=== PATIENT | female | born 1975 | race Caucasian/White ===

== ENCOUNTER 2016-08-31 | Emergency (ER) | payer OTHER ==
--- NOTE | 2016-08-31 17:45 | ED ---
General Adult HPI - General Chief complaint: Upper Respiratory Infection Stated complaint: Cough Time Seen by Provider: 08/31/16 17:33 Source: patient, RN notes reviewed Mode of arrival: ambulatory Limitations: no limitations - History of Present Illness Initial comments: Patient 41-year-old female who presents emergency room today with chief complaint of increased congestion with rhinorrhea over the last month. Does admit to a sore throat that started yesterday. She does admit to drinking he states it's been green and yellow in color. She does admit to a history of migraines that she gets them every day. She states these are not new. She states these feel same with somewhat worse because of increased congestion in her head. She denies any other complaints or symptoms. Patient denies any recent fever, chills, shortness of breath, chest pain, back pain, abdominal pain , nausea or vomiting, numbness or tingling, dysuria or hematuria, constipation or diarrhea, visual changes, or any other complaints. - Related Data Home Medications Medication Instructions Recorded Confirmed Guaifen/Phenyleph/Acetaminophn 1 tab PO TID PRN 08/31/16 08/31/16 [Tylenol Sinus Severe Caplet] Previous Rx's Medication Instructions Recorded Azithromycin [Zithromax Z-pack] 0 mg PO DIRECTED #6 tab 08/31/16 Fluticasone Propionate [Flonase 1 - 2 spray EA NOSTRIL DAILY 5 Days 08/31/16 Allergy Relief] Allergies Allergy/AdvReac Type Severity Reaction Status Date / Time Penicillins Allergy Severe Anaphylaxis Verified 08/31/16 17:39 ciprofloxacin [From Cipro] Allergy Rash/Hives/ Verified 08/31/16 17:39 Swelling Iodinated Contrast Media - Allergy Rash/Hives Verified 08/31/16 17:39 Oral and nitrofurantoin Allergy Rash/Hives Verified 08/31/16 17:39 [From Macrodantin] NSAIDS (Non-Steroidal Allergy Rash/Hives/ Verified 08/31/16 17:39 Anti-Inflamma Swelling Review of Systems ROS Statement: Those systems with pertinent positive or pertinent negative responses have been documented in the HPI. ROS Other: All systems not noted in ROS Statement are negative. Past Medical History Additional Past Medical History / Comment(s): hypoglycemia History of Any Multi-Drug Resistant Organisms: None Reported Past Surgical History: Hysterectomy, Orthopedic Surgery Additional Past Surgical History / Comment(s): left knee surgery Past Psychological History: No Psychological Hx Reported Smoking Status: Current every day smoker Past Alcohol Use History: Occasional Past Drug Use History: None Reported General Exam - General Exam Comments Initial Comments: General: The patient is awake and alert, in no distress, and does not appear acutely ill. Eye: Pupils are equal, round and reactive to light, extra-ocular movements are intact. No nystagmus. There is normal conjunctiva bilaterally. No signs of icterus. Ears, nose, mouth and throat: There are moist mucous membranes and no oral lesions. Tender over both frontal and maxillary sinuses. Uvula midline. Mild redness to the posterior pharynx. Neck: The neck is supple, there is no tenderness or JVD. Cardiovascular: There is a regular rate and rhythm. No murmur, rub or gallop is appreciated. Respiratory: Lungs are clear to auscultation, respirations are non-labored, breath sounds are equal. No wheezes, stridor, rales, or rhonchi. Musculoskeletal: Normal ROM, no tenderness. Strength 5/5. Sensation intact. Pulses equal bilaterally 2+. Neurological: A&O x 3. CN II-XII intact, There are no obvious motor or sensory deficits. Coordination appears grossly intact. Speech is normal. Skin: Skin is warm and dry and no rashes or lesions are noted. Psychiatric: Cooperative, appropriate mood & affect, normal judgment. Limitations: no limitations Course Vital Signs 08/31/16 17:01 Temperature 97.0 F L Pulse Rate 72 Respiratory 18 Rate Blood Pressure 147/65 O2 Sat by Pulse 98 Oximetry Medical Decision Making - Medical Decision Making She'll be treated for sinus infection. Started on azithromycin due to ALLERGIES. Also given a prescription for Flonase. Advised follow-up the family doctor over the next 1-2 days about migraines. She is in agreement with this plan at this time and is comfortable being discharged home. Disposition Clinical Impression: Acute sinusitis Disposition: HOME SELF-CARE Condition: Good Instructions: Sinusitis (ED) Additional Instructions: Please use medication as discussed. Please follow-up with family doctor in the next 2 days of symptoms have not improved. Please return to emergency room if the symptoms increase or worsen or for any other concerns. Prescriptions: Azithromycin [Zithromax Z-pack] 0 mg PO DIRECTED #6 tab Fluticasone Propionate [Flonase Allergy Relief] 1 - 2 spray EA NOSTRIL DAILY 5 Days Referrals: None,Stated [Primary Care Provider] - 1-2 days Time of Disposition: 17:44
== END 2016-08-31 17:51 | disposition home or self-care (01) ==
CPT/HCPCS: 99283

== ENCOUNTER 2019-05-02 10:45 | Emergency (ER) | payer OTHER ==
[2019-05-02 10:49] VITALS: BP 135/92; PULSE 75; RESP 18; TEMP 98.2
--- NOTE | 2019-05-02 11:19 | XR ---
EXAMINATION TYPE: XR finger RT DATE OF EXAM: 05/02/2019 COMPARISON: NONE HISTORY: Slammed door injury with pain. TECHNIQUE: 3 views left third finger are acquired. FINDINGS: Seen best on frontal view there is oblique nondisplaced fracture through the radial distal aspect of the distal third phalanx. Joint spaces are preserved. Overlying soft tissue is unremarkable . IMPRESSION: Acute oblique nondisplaced fracture through radial distal aspect of the third distal phal anx. (Initial encounter closed type posttraumatic fracture)
--- NOTE | 2019-05-02 11:41 | ED ---
Upper Extremity HPI - General Chief Complaint: Extremity Injury, Upper Stated Complaint: Finger injury Time Seen by Provider: 05/02/19 10:50 Source: patient Mode of arrival: ambulatory Limitations: no limitations - History of Present Illness Initial Comments: The patient is a 43-year-old female presents the emergency department after she slammed her right hand in the car door. The patient is right-hand dominant. States that she was closing a car door when her third finger got caught in between. There is no laceration or abrasion sustained. The patient did have swelling and ecchymosis to her fingerpad. She denies any additional injuries. No nausea or vomiting associated with the episode. She denies any numbness or tingling in the finger. Continues to have full normal range of motion. There are no other alleviating, precipitating or modifying factors - Related Data Home Medications Medication Instructions Recorded Confirmed Topiramate [Topamax] 100 mg PO DAILY 05/02/19 05/02/19 Allergies Allergy/AdvReac Type Severity Reaction Status Date / Time Penicillins Allergy Severe Anaphylaxis Verified 05/02/19 11:05 ciprofloxacin [From Cipro] AdvReac Rash/Hives/ Verified 05/02/19 11:05 Swelling Iodinated Contrast Media AdvReac Rash/Hives Verified 05/02/19 11:05 [Iodinated Contrast Media - Oral and] nitrofurantoin AdvReac Rash/Hives Verified 05/02/19 11:05 [From Macrodantin] NSAIDS (Non-Steroidal AdvReac Rash/Hives/ Verified 05/02/19 11:05 Anti-Inflamma Swelling Review of Systems ROS Statement: Those systems with pertinent positive or pertinent negative responses have been documented in the HPI. ROS Other: All systems not noted in ROS Statement are negative. Past Medical History Additional Past Medical History / Comment(s): hypoglycemia History of Any Multi-Drug Resistant Organisms: None Reported Past Surgical History: Hysterectomy, Orthopedic Surgery Additional Past Surgical History / Comment(s): left knee surgery Past Psychological History: No Psychological Hx Reported Smoking Status: Current every day smoker Past Alcohol Use History: Occasional Past Drug Use History: None Reported General Exam Limitations: no limitations General appearance: alert, in no apparent distress Head exam: Present: atraumatic, normocephalic Extremities exam: Present: tenderness Right Hand Wrist exam: Present: normal inspection. Absent: tenderness Neuro motor exam: Present: wrist extension intact, thumb opposition intact, thumb IP flexion intact, thumb adduction intact, fingers 2-5 abduction intact Neurosensory exam: Present: 2-point discrimination, radial nerve intact, ulnar nerve intact, median nerve intact Vascular: Present: normal capillary refill, radial pulse, ulnar pulse. Absent: vascular compromise Skin exam: Present: warm, intact, other (ecchymosis third finger pad, right hand. Compartments are soft. No nail bed involvement) Course Vital Signs 05/02/19 10:47 Temperature 98.2 F Pulse Rate 75 Respiratory 18 Rate Blood Pressure 135/92 O2 Sat by Pulse 97 Oximetry Medical Decision Making - Medical Decision Making Upon arrival the patient was placed into room 24. We did discuss diagnosis, differential and treatment options. I did offer the patient something for pain control however she refuses. Patient was sent for an x-ray of her right hand. It does demonstrate a distal phalanx fracture. Fracture is closed. Because of this I did recommend treatment with splint. The patient was placed in a baseball splint. She remained neurovascularly intact. She'll be given follow- up information for the orthopedic associates. She is to follow-up with them for further treatment options. The patient understood this. She will take Motrin and Tylenol at home as needed for pain control. She has any new or worsening symptoms she should return to the ED. The patient was discharged in stable condition Disposition Clinical Impression: Fracture of distal phalanx of finger of right hand Disposition: HOME SELF-CARE Condition: Stable Instructions (If sedation given, give patient instructions): Finger Fracture (ED) Additional Instructions: Please follow-up with the orthopedic doctor within one week. Return to the room for any new or worsening symptoms Is patient prescribed a controlled substance at d/c from ED?: No Referrals: Gasper Olvera Jr, DO [Primary Care Provider] - 1-2 days Juan Mcmullen MD [STAFF PHYSICIAN] - 1-2 days Time of Disposition: 11:40
== END 2019-05-02 11:56 | disposition home or self-care (01) ==
LOC: EC 10:45
DX: S62.632A Displaced fracture of distal phalanx of right middle finger, initial encounter for closed fracture (principal); F17.200 Nicotine dependence, unspecified, uncomplicated; Z79.899 Other long term (current) drug therapy; Z88.0 Allergy status to penicillin; Z88.1 Allergy status to other antibiotic agents; Z91.041 Radiographic dye allergy status; Z88.6 Allergy status to analgesic agent; Z53.29 Procedure and treatment not carried out because of patient's decision for other reasons; W23.0XXA Caught, crushed, jammed, or pinched between moving objects, initial encounter
CPT/HCPCS: 99283

== ENCOUNTER → 2019-07-19 | Outpatient (CLI) | payer OTHER ==
--- NOTE | 2019-07-19 12:49 | XR ---
EXAMINATION TYPE: XR forearm LT DATE OF EXAM: 07/19/2019 COMPARISON: NONE HISTORY: Pain Two views of the forearm demonstrate that the osseous structures appear to be intact and the joint sp aces appear to be preserved. There is no acute fracture or dislocation. IMPRESSION: 1. No acute fracture or dislocation
--- NOTE | 2019-07-19 12:50 | XR ---
EXAMINATION TYPE: XR shoulder complete LT DATE OF EXAM: 07/19/2019 COMPARISON: NONE HISTORY: Pain TECHNIQUE: Three views are submitted. FINDINGS: The osseous structures are intact. There is no acute fracture or dislocation. Mild AC joint arthropa thy. IMPRESSION: 1. Mild AC joint arthropathy.
--- NOTE | 2019-07-19 12:51 | XR ---
EXAMINATION TYPE: XR wrist complete LT DATE OF EXAM: 07/19/2019 COMPARISON: NONE HISTORY: Pain TECHNIQUE: Four views submitted. FINDINGS: The osseous structures are intact. The joint spaces are preserved and there is no acute fracture or dislocation. Tiny bony density appears corticated adjacent to the ulnar styloid. Findings suggest re mote trauma or accessory ossicle. IMPRESSION: 1. No definite acute fracture or dislocation if symptoms persist, follow-up study in 7 to 10 days wo uld be suggested. There is slight widening of the radioulnar joint. If there is concern for ligamento us injury correlate with MRI. 2. Tiny bony density adjacent to the ulnar styloid appears to be corticated suggestive of remote trau ma.
== END | disposition home or self-care (01) ==
LOC: RADXRMAIN 11:22
PROVIDERS: ATTEND Nurse Practitioner Family
DX: M79.602 Pain in left arm (principal); M12.812 Other specific arthropathies, not elsewhere classified, left shoulder; M25.512 Pain in left shoulder; M25.532 Pain in left wrist

== ENCOUNTER → 2019-08-17 | Outpatient (CLI) | payer OTHER ==
--- NOTE | 2019-08-17 08:20 | MR ---
MRI CERVICAL SPINE: CLINICAL HISTORY: Cervical region radiculopathy and cervicalgia per order. Headache with neck pain in to left shoulder for 1 month causing pain or weakness into left arm and fingers per patient. TECHNIQUE: Multiplanar, multisequence imaging of the cervical spine is performed without IV contrast. COMPARISON: None. FINDINGS: Sagittal images of the cervical spine show the craniocervical junction to appear within nor mal limits. The cervical and upper thoracic spinal cord is normal in caliber and. Vertebral alignme nt is slightly straightened. Mild disc space narrowing C5-C6 level. The vertebral body and intravert ebral disk heights otherwise are normal. The bone marrow signal intensity is within normal limits. M ild multilevel anterior spurring mid to lower cervical spine. Axial images show the C2-C3 and C3-C4 level to appear within normal limits. Axial images at C4-C5 level show tiny central disc protrusion and uncovertebral facet degenerative ch anges causing mild right-sided neural foraminal narrowing. Axial images at C5-C6 level show small broad-based left paracentral disc protrusion and uncovertebral facet degenerative changes efface the anterior thecal sac and causing mild bilateral neural foramina l narrowing. Axial images at C6-C7 and C7-T1 levels are within normal limits. There is mild mucosal thickening in visualized portion of right sphenoid sinus and mild to moderate m ucosal thickening in posterior aspect bilateral maxillary sinuses sagittal image 1 and 13 respectivel y. IMPRESSION: Mild multilevel degenerative changes most prominent mid cervical levels as detailed above . Evidence of chronic paranasal sinus disease partially imaged.
== END | disposition home or self-care (01) ==
LOC: RADMRIMAIN 07:24
PROVIDERS: ATTEND Nurse Practitioner
DX: M48.02 Spinal stenosis, cervical region (principal); M50.122 Cervical disc disorder at C5-C6 level with radiculopathy; M47.22 Other spondylosis with radiculopathy, cervical region
CPT/HCPCS: 72141

== ENCOUNTER → 2019-10-26 | Outpatient (CLI) | payer OTHER ==
--- NOTE | 2019-10-27 01:06 | MR ---
EXAMINATION TYPE: MR wrist LT w con DATE OF EXAM: 10/26/2019 COMPARISON: None HISTORY: Left wrist pain CONTRAST: Standard multiplanar, multisequence MRI departmental protocol utilizing 7 mL intravenous Gadavist diana olinium contrast. The carpal bones have fairly normal signal pattern. There is a 5 x 3 mm area of increased fluid signa l within the triquetrum that does not appear to be a fracture line. This could be degenerative cyst f ormation. There is slight increased wrist joint fluid. The triangular cartilage appears intact. Visua lized metacarpals are intact. There is no pathologic enhancement. Intercarpal joint spaces are fairly normal. There is a 3 mm area of fluid signal also in the proximal lunate consistent with small degen erative cyst formation. There is no evidence of a soft tissue mass. IMPRESSION: No fracture seen. Areas of fluid signal in the proximal lunate and in the triquetrum consistent with some degenerative cyst formation. Mild increased joint fluid of the carpus is suggestive of nonspecif ic synovitis. No evidence of ligament or tendon tear.
== END | disposition home or self-care (01) ==
LOC: RADMRIMAIN 07:03
PROVIDERS: ATTEND Nurse Practitioner
DX: M25.432 Effusion, left wrist (principal)
CPT/HCPCS: 73222; A9585

== ENCOUNTER 2020-01-09 01:39 | Emergency (ER) | payer OTHER ==
[2020-01-09 01:44] VITALS: BP 168/68; PULSE 93; RESP 20; TEMP 98.1
--- NOTE | 2020-01-09 02:22 | ED ---
General Adult HPI - General Chief complaint: Extremity Injury, Lower Stated complaint: Rt Ankle Injury Time Seen by Provider: 01/09/20 01:41 Source: patient, family, RN notes reviewed Mode of arrival: ambulatory Limitations: no limitations - History of Present Illness Initial comments: 44-year-old female Presents to the emergency department for a chief complaint of right-sided ankle pain. Patient states this happened 15 days ago when she tripped over uneven cement on her sidewalk and fell injuring her right ankle. Patient States that she has been ignoring that pain but when she went to get out of the shower it again worsened and so decided to come in tonight. States that it has been hurting when she walks on it. Patient denies any other injuries when she fell. She denies any lightheadedness syncope leading up to the fall.Patient has no other complaints at this time including shortness of breath, chest pain, abdominal pain, nausea or vomiting, headache, or visual changes. - Related Data Home Medications Medication Instructions Recorded Confirmed Topiramate [Topamax] 100 mg PO DAILY 05/02/19 05/02/19 Allergies Allergy/AdvReac Type Severity Reaction Status Date / Time Penicillins Allergy Severe Anaphylaxis Verified 01/09/20 01:44 ciprofloxacin [From Cipro] AdvReac Rash/Hives/ Verified 01/09/20 01:44 Swelling Iodinated Contrast Media AdvReac Rash/Hives Verified 01/09/20 01:44 [Iodinated Contrast Media - Oral and] nitrofurantoin AdvReac Rash/Hives Verified 01/09/20 01:44 [From Macrodantin] NSAIDS (Non-Steroidal AdvReac Rash/Hives/ Verified 01/09/20 01:44 Anti-Inflamma Swelling Review of Systems ROS Statement: Those systems with pertinent positive or pertinent negative responses have been documented in the HPI. ROS Other: All systems not noted in ROS Statement are negative. Past Medical History Additional Past Medical History / Comment(s): hypoglycemia History of Any Multi-Drug Resistant Organisms: None Reported Past Surgical History: Hysterectomy, Orthopedic Surgery Additional Past Surgical History / Comment(s): left knee surgery Past Psychological History: Anxiety Smoking Status: Current every day smoker Past Alcohol Use History: Occasional Past Drug Use History: None Reported General Exam Limitations: no limitations General appearance: alert, in no apparent distress Head exam: Present: atraumatic, normocephalic, normal inspection Eye exam: Present: normal appearance, PERRL, EOMI. Absent: scleral icterus, conjunctival injection, periorbital swelling ENT exam: Present: normal exam, mucous membranes moist Neck exam: Present: normal inspection, full ROM. Absent: tenderness, meningismus, lymphadenopathy Respiratory exam: Present: normal lung sounds bilaterally. Absent: respiratory distress, wheezes, rales, rhonchi, stridor Cardiovascular Exam: Present: regular rate, normal rhythm, normal heart sounds. Absent: systolic murmur, diastolic murmur, rubs, gallop, clicks GI/Abdominal exam: Present: soft, normal bowel sounds. Absent: distended, tenderness, guarding, rebound, rigid Extremities exam: Present: full ROM (Patient has full range of motion of the right ankle), tenderness (Tenderness noted to the lateral malleolus of the right ankle. No medial malleolus or tenderness. No fifth metatarsal tenderness. No dorsal foot tenderness.), normal capillary refill (Capillary refill less than 2 seconds, DP pulse 2+ in the right lower extremity), other (Dentition intact in the right lower external he. Patient does have mild edema noted of the lateral aspect of the right ankle). Absent: calf tenderness Course Vital Signs 01/09/20 01:40 Temperature 98.1 F Pulse Rate 93 Respiratory 20 Rate Blood Pressure 168/68 O2 Sat by Pulse 98 Oximetry Procedures - Orthopedic Splinting/Casting Injury #1 Side: right Lower Extremity Injury Location: ankle Lower Extremity Immobilizer: [employer] Medical Decision Making - Medical Decision Making X-ray of the right foot shows no fracture seen, negative exam. X-ray of the right ankle shows soft tissue swelling without acute bony abnormality. There is a mild calcification at the tip of the distal fibula consistent with an old injury. Patient was placed in an air cast. Given referral to orthopedics. Patient will return for any worsening symptoms. Disposition Clinical Impression: Ankle pain, right Disposition: HOME SELF-CARE Condition: Good Instructions (If sedation given, give patient instructions): Ankle Sprain (ED) Additional Instructions: Please rest ice and elevate the right foot and ankle. Take Motrin and Tylenol for pain. Follow-up with orthopedics in one to 2 days. Return to the emergency room for any worsening symptoms. Is patient prescribed a controlled substance at d/c from ED?: No Referrals: Gasper Olvera Jr, [Primary Care Provider] - 1-2 days Jaron Kendrick MD [Medical Doctor] - 1-2 days Time of Disposition: 02:48
--- NOTE | 2020-01-09 02:28 | XR ---
EXAMINATION TYPE: XR ankle complete RT DATE OF EXAM: 01/09/2020 COMPARISON: NONE HISTORY: Ankle pain TECHNIQUE: 3 views FINDINGS: Ankle mortise is anatomic. I see no fracture nor dislocation. There is mild soft tissue swe lling around the ankle joint. IMPRESSION: Soft tissue swelling. No acute bony abnormality. Mild calcification at the tip of the dis douglas fibula consistent with an old injury.
--- NOTE | 2020-01-09 02:30 | XR ---
EXAMINATION TYPE: XR foot complete RT DATE OF EXAM: 01/09/2020 COMPARISON: NONE HISTORY: Foot pain TECHNIQUE: 3 views FINDINGS: Metatarsals appear intact. I see no fracture nor dislocation. Joint spaces are fairly rosita l. There are no erosions. IMPRESSION: No fracture seen. Negative exam.
== END 2020-01-09 02:57 | disposition home or self-care (01) ==
LOC: EC 01:39
DX: M25.871 Other specified joint disorders, right ankle and foot (principal); F17.200 Nicotine dependence, unspecified, uncomplicated; Z79.899 Other long term (current) drug therapy; Z88.0 Allergy status to penicillin; Z88.1 Allergy status to other antibiotic agents; Z91.041 Radiographic dye allergy status; Z88.6 Allergy status to analgesic agent
CPT/HCPCS: 73610; 73630; 99283; L4350; 99284

== ENCOUNTER 2020-08-16 13:14 | Emergency (ER) | payer OTHER ==
[2020-08-16 14:25] VITALS: BP 123/59; PULSE 78; RESP 16; TEMP 97.9
--- NOTE | 2020-08-16 14:25 | XR ---
EXAMINATION TYPE: XR ankle complete RT DATE OF EXAM: 08/16/2020 COMPARISON: 01/09/2020 HISTORY: Right ankle pain x1 month TECHNIQUE: Three-view right ankle FINDINGS: No acute fractures or dislocations are evident. Ankle mortise is intact. Soft tissues are n ormal. Findings are stable from comparison. IMPRESSION: 1. Normal three-view right ankle
--- NOTE | 2020-08-16 14:26 | XR ---
EXAMINATION TYPE: XR foot complete RT DATE OF EXAM: 08/16/2020 COMPARISON: 01/09/2020 HISTORY: Pain x1 month TECHNIQUE: Three-view right foot FINDINGS: No acute fractures or dislocations are evident. Soft tissues are normal. Joint spaces are p reserved. No significant interval changes evident. IMPRESSION: 1. No acute osseous abnormality right foot.
--- NOTE | 2020-08-16 14:27 | ED ---
Extremity Problem HPI - General Chief complaint: Extremity Problem,Nontraumatic Stated complaint: RT leg pain Time Seen by Provider: 08/16/20 13:21 Source: patient Mode of arrival: wheelchair Limitations: no limitations - History of Present Illness Initial comments: Patient is a 45-year-old female who presents emergency room with reported right foot pain. Patient has had the pain for approximately one year however reports his been getting worse over the past 3 months. States it is worse with ambulation. Patient has pain along the plantar surface, medial aspect. Reports that she broke her ankle last year and was casted. She had full improvement. Denies any new trauma. She has not been taking any medications at home for her symptoms. She denies any fevers or chills. No ankle or calf pain. No history of DVT or PE. No other alleviating, precipitating or modifying factors - Related Data Home Medications Medication Instructions Recorded Confirmed Topiramate [Topamax] 100 mg PO HS 05/02/19 08/16/20 Allergies Allergy/AdvReac Type Severity Reaction Status Date / Time Penicillins Allergy Severe Anaphylaxis Verified 08/16/20 14:06 aspirin AdvReac Rash/Hives Verified 08/16/20 14:06 ciprofloxacin [From Cipro] AdvReac Rash/Hives/ Verified 08/16/20 14:06 Swelling Iodinated Contrast Media AdvReac Rash/Hives Verified 08/16/20 14:06 [Iodinated Contrast Media - Oral and] nitrofurantoin AdvReac Rash/Hives Verified 08/16/20 14:06 [From Macrodantin] NSAIDS (Non-Steroidal AdvReac Rash/Hives/ Verified 08/16/20 14:06 Anti-Inflamma Swelling Review of Systems ROS Statement: Those systems with pertinent positive or pertinent negative responses have been documented in the HPI. ROS Other: All systems not noted in ROS Statement are negative. Past Medical History Additional Past Medical History / Comment(s): hypoglycemia History of Any Multi-Drug Resistant Organisms: None Reported Past Surgical History: Hysterectomy, Orthopedic Surgery Additional Past Surgical History / Comment(s): left knee surgery Past Psychological History: Anxiety Smoking Status: Current every day smoker Past Alcohol Use History: Occasional Past Drug Use History: None Reported General Exam Limitations: no limitations General appearance: alert, in no apparent distress Extremities exam: Present: tenderness (plantar aspected right foot near heel at insertion of plantar fascia. No tenderness over achilles insertion, medial or lateral malleolus. No foot or calf swelling. 2+ DP and PT pulses. Cap refill <3 seconds. Patient able to weight bear. Intact sensation over the medial, lateral and dorsal b/l le) Neurological exam: Present: alert, oriented X3 Psychiatric exam: Present: normal affect, normal mood Skin exam: Present: warm, dry, intact, normal color. Absent: rash Course Vital Signs 08/16/20 08/16/20 13:16 14:22 Temperature 98.3 F 97.9 F Pulse Rate 81 78 Respiratory 18 16 Rate Blood Pressure 152/75 123/59 O2 Sat by Pulse 98 98 Oximetry Medical Decision Making - Medical Decision Making Upon arrival patient was placed into room 8. A thorough history and physical exam was performed. Patient remained neurovascularly intact. Patient was sent for an x-ray of her right ankle and foot. Images are reviewed. Results are discussed the patient. Did recommend treatment with stretching, pain control and follow up with podiatry. The patient understood this. If she has any new or worsening symptoms she should return to the emergency room. Patient discharged home ambulatory in stable condition Disposition Clinical Impression: Foot pain, right, Plantar fasciitis Disposition: HOME SELF-CARE Condition: Stable Instructions (If sedation given, give patient instructions): Plantar Fasciitis (ED) Additional Instructions: Please follow-up with the casting room helper in one week. Return to the emergency room for any new or worsening symptoms Is patient prescribed a controlled substance at d/c from ED?: No Referrals: Gasper Olvera Jr, [Primary Care Provider] - 1-2 days Ehsan Lauren DPM [STAFF PHYSICIAN] - 1-2 days Molly Montes DPM [STAFF PHYSICIAN] - 1-2 days Prosper Onofre DPM [STAFF PHYSICIAN] - 1-2 days Time of Disposition: 14:53
[2020-08-16] MEDS: ACET/COD 300 MG/30 MG STARTER PACK 6 TAB BTL PO STA (14:57)
== END 2020-08-16 15:02 | disposition home or self-care (01) ==
LOC: EC 13:14
DX: M72.2 Plantar fascial fibromatosis (principal); F17.200 Nicotine dependence, unspecified, uncomplicated; Z88.0 Allergy status to penicillin; Z88.6 Allergy status to analgesic agent; Z88.1 Allergy status to other antibiotic agents; Z88.8 Allergy status to other drugs, medicaments and biological substances; Z91.041 Radiographic dye allergy status; Z90.710 Acquired absence of both cervix and uterus
CPT/HCPCS: 99283

== ENCOUNTER 2021-03-08 09:33 | Emergency (ER) | payer OTHER ==
[2021-03-08 09:38] VITALS: BP 152/84; PULSE 95; RESP 16; TEMP 97.8
--- NOTE | 2021-03-08 10:48 | ED ---
Upper Extremity HPI - General Chief Complaint: Extremity Injury, Upper Stated Complaint: L arm pain Time Seen by Provider: 03/08/21 09:43 Source: patient Mode of arrival: ambulatory Limitations: no limitations - History of Present Illness Initial Comments: Patient is a 45-year-old female presenting to the emergency Department with complaints of left shoulder pain after she fell last night. She states she was helping her son move some boxes, she was going down stairs when she tripped and fell landing mostly on her left shoulder. She states she's had some rotator cuff tendinitis and other issues in her left shoulder previously but did have full range of motion. She states this morning when she woke up she had limited range of motion and increased pain today came in for evaluation. She did not hit her head, she is no other injuries from this fall. She has had no surgical history of the left shoulder. She has no further complaints at this time. - Related Data Home Medications Medication Instructions Recorded Confirmed Topiramate [Topamax] 100 mg PO HS 05/02/19 08/16/20 Allergies Allergy/AdvReac Type Severity Reaction Status Date / Time Penicillins Allergy Severe Anaphylaxis Verified 03/08/21 09:34 aspirin AdvReac Rash/Hives Verified 03/08/21 09:34 ciprofloxacin [From Cipro] AdvReac Rash/Hives/ Verified 03/08/21 09:34 Swelling Iodinated Contrast Media AdvReac Rash/Hives Verified 03/08/21 09:34 [Iodinated Contrast Media - Oral and] nitrofurantoin AdvReac Rash/Hives Verified 03/08/21 09:34 [From Macrodantin] NSAIDS (Non-Steroidal AdvReac Rash/Hives/ Verified 03/08/21 09:34 Anti-Inflamma Swelling Review of Systems ROS Statement: Those systems with pertinent positive or pertinent negative responses have been documented in the HPI. ROS Other: All systems not noted in ROS Statement are negative. Past Medical History Additional Past Medical History / Comment(s): hypoglycemia History of Any Multi-Drug Resistant Organisms: None Reported Past Surgical History: Hysterectomy, Orthopedic Surgery Additional Past Surgical History / Comment(s): left knee surgery Past Psychological History: Anxiety Smoking Status: Current every day smoker Past Alcohol Use History: Occasional Past Drug Use History: None Reported General Exam - General Exam Comments Initial Comments: GENERAL: Patient is well-developed and well-nourished. Patient is nontoxic and in no acute distress. HEAD: Atraumatic, normocephalic. EYES: Pupils equal round and reactive to light, extraocular movements intact, sclera anicteric, conjunctiva are normal. Eyelids were unremarkable. NECK: Normal range of motion, supple without lymphadenopathy or JVD. LUNGS: Unlabored respirations. Breath sounds clear to auscultation bilaterally and equal. No wheezes rales or rhonchi. HEART: Regular rate and rhythm without murmurs, rubs or gallops. MUSCULOSKELETAL: Pain with palpation of the entire left shoulder, limited range of motion secondary to pain. She has some muscle spasms of the left upper trapezius muscle. She is neurovascular intact. No obvious deformity. No clubbing or cyanosis. NEUROLOGICAL: Patient is alert and oriented x 3. SKIN: Warm, Dry, normal turgor, no rashes or lesions noted. Limitations: no limitations Course Vital Signs 03/08/21 09:35 Temperature 97.8 F Pulse Rate 95 Respiratory 16 Rate Blood Pressure 152/84 O2 Sat by Pulse 99 Oximetry Medical Decision Making - Medical Decision Making Patient is a 45-year-old female here with left shoulder pain after she slipped and fell yesterday. No other injuries from this fall. X-rays of the left shoulder reveal no acute fractures dislocations. I discussed the patient is most likely a left rotator cuff strain. She does have a sling at home, recommended using this for the next week, ice, ibuprofen or Tylenol for discomfort. [facility], I recommended following up with them the symptoms persist. She is agreeable to this plan of care and she is stable for discharge. Case discussed with Dr. Baird. Disposition Clinical Impression: Left shoulder pain, Strain of left rotator cuff capsule Disposition: HOME SELF-CARE Condition: Stable Instructions (If sedation given, give patient instructions): Rotator Cuff Injury (ED) Additional Instructions: Please return to the Emergency Department if symptoms worsen or any other concerns. Recommend ice, heat to the area, use sling for comfort. If symptoms persist, follow up with her orthopedic doctor. Is patient prescribed a controlled substance at d/c from ED?: No Referrals: Gasper Olvera Jr, [Primary Care Provider] - 1-2 days Time of Disposition: 11:45
--- NOTE | 2021-03-08 10:57 | XR ---
EXAMINATION TYPE: XR shoulder complete LT DATE OF EXAM: 03/08/2021 COMPARISON: NONE HISTORY: 45 years Female. STUDY INDICATION GIVEN: Left shoulder pain after fall TECHNIQUE: 4 radiographs of the left shoulder FINDINGS AND IMPRESSION: No acute osseous articular or significant soft tissue abnormality. Included left hemithorax is within normal limits.
== END 2021-03-08 18:30 | disposition home or self-care (01) ==
LOC: EC 09:33
DX: S46.012A Strain of muscle(s) and tendon(s) of the rotator cuff of left shoulder, initial encounter (principal); F17.200 Nicotine dependence, unspecified, uncomplicated; W01.0XXA Fall on same level from slipping, tripping and stumbling without subsequent striking against object, initial encounter
CPT/HCPCS: 99283

== ENCOUNTER 2021-08-26 08:53 | Emergency (ER) | payer OTHER ==
[2021-08-26 08:56] VITALS: BP 133/83; PULSE 78; RESP 18; TEMP 97
--- NOTE | 2021-08-26 09:26 | XR ---
EXAMINATION TYPE: XR wrist complete LT DATE OF EXAM: 08/26/2021 CLINICAL HISTORY: Pain after fall injury. TECHNIQUE: Frontal, lateral and oblique images of the left wrist are obtained. 4 view scaphoid view is performed. COMPARISON: Left wrist x-ray July 19, 2019 FINDINGS: There is no acute fracture/dislocation evident in the left wrist. Old avulsion type fractu re from ulnar styloid is redemonstrated. Mild spurring base of first metacarpal. The overlying soft tissue appears unremarkable. IMPRESSION: There is no acute fracture or dislocation in the left wrist.
--- NOTE | 2021-08-26 09:30 | ED ---
Upper Extremity HPI - General Chief Complaint: Extremity Injury, Upper Stated Complaint: slip & fall, wrist injury Time Seen by Provider: 08/26/21 08:56 Source: patient, RN notes reviewed Mode of arrival: ambulatory Limitations: no limitations - History of Present Illness Initial Comments: 46-year-old female presents emergency Department chief complaint of left wrist pain. Patient states she slipped on some ice one week ago states that she's been wearing a brace states she does pain her left wrist she had prior fracture in which she had a cast for 6 months. Patient states that she has no paresthesias currently patient drank dominant. No head injury no other injuries were fall. - Related Data Home Medications Medication Instructions Recorded Confirmed Topiramate [Topamax] 100 mg PO HS 05/02/19 08/16/20 Allergies Allergy/AdvReac Type Severity Reaction Status Date / Time Penicillins Allergy Severe Anaphylaxis Verified 08/26/21 08:56 aspirin AdvReac Rash/Hives Verified 08/26/21 08:56 ciprofloxacin [From Cipro] AdvReac Rash/Hives/ Verified 08/26/21 08:56 Swelling Iodinated Contrast Media AdvReac Rash/Hives Verified 08/26/21 08:56 [Iodinated Contrast Media - Oral and] nitrofurantoin AdvReac Rash/Hives Verified 08/26/21 08:56 [From Macrodantin] NSAIDS (Non-Steroidal AdvReac Rash/Hives/ Verified 08/26/21 08:56 Anti-Inflamma Swelling Review of Systems ROS Statement: Those systems with pertinent positive or pertinent negative responses have been documented in the HPI. ROS Other: All systems not noted in ROS Statement are negative. Past Medical History Past Medical History: Asthma Additional Past Medical History / Comment(s): hypoglycemia History of Any Multi-Drug Resistant Organisms: None Reported Past Surgical History: Hysterectomy, Orthopedic Surgery Additional Past Surgical History / Comment(s): left knee surgery Past Psychological History: Anxiety Smoking Status: Current every day smoker Past Alcohol Use History: Occasional Past Drug Use History: None Reported General Exam Limitations: no limitations General appearance: alert, in no apparent distress Head exam: Present: atraumatic, normocephalic, normal inspection Respiratory exam: Present: normal lung sounds bilaterally. Absent: respiratory distress, wheezes, rales, rhonchi, stridor Cardiovascular Exam: Present: regular rate, normal rhythm, normal heart sounds. Absent: systolic murmur, diastolic murmur, rubs, gallop, clicks Extremities exam: Present: other (Versus tenderness with palpation over the distal radius and ulna region, no iris deformity neurovascular intact no proximal forearm tenderness no hand tenderness.) Course Vital Signs 08/26/21 08:54 Temperature 97 F L Pulse Rate 78 Respiratory 18 Rate Blood Pressure 133/83 O2 Sat by Pulse 99 Oximetry Medical Decision Making - Medical Decision Making X-ray is negative for acute fracture. Patient we discharged in stable condition return parameters were discussed. Patient will follow-up with orthopedic physician symptoms persist. Disposition Clinical Impression: Sprain of left wrist Disposition: HOME SELF-CARE Condition: Stable Instructions (If sedation given, give patient instructions): Wrist Injury (ED) Additional Instructions: Please return to the Emergency Department if symptoms worsen or any other concerns. Is patient prescribed a controlled substance at d/c from ED?: No Referrals: Gasper Olvera Jr, DO [Primary Care Provider] - 1-2 days Time of Disposition: 09:30
== END 2021-08-26 09:48 | disposition home or self-care (01) ==
LOC: EC 08:53
DX: S63.502A Unspecified sprain of left wrist, initial encounter (principal); J45.909 Unspecified asthma, uncomplicated; F41.9 Anxiety disorder, unspecified; F17.200 Nicotine dependence, unspecified, uncomplicated; Z88.0 Allergy status to penicillin; Z88.1 Allergy status to other antibiotic agents; Z90.710 Acquired absence of both cervix and uterus; W01.0XXA Fall on same level from slipping, tripping and stumbling without subsequent striking against object, initial encounter
CPT/HCPCS: 99283

== ENCOUNTER → 2021-09-22 | Outpatient (CLI) | payer OTHER ==
--- NOTE | 2021-09-23 09:31 | NM ---
EXAMINATION TYPE: NM bone/joint limited DATE OF EXAM: 09/22/2021 COMPARISON: NONE HISTORY: Ovarian cancer TECHNIQUE: After the intravenous administration of 22.9 mCi Tc 99m MDP. Images acquired 3.5 hours p ost injection. Multiple views of the wrist and hands bilaterally are submitted. Frontal and posterio r full body images also submitted. FINDINGS: Faint abnormal uptake involving the feet, knees and shoulders likely post arthritic. Faint abnormal uptake involving the thoracic spine and lower lumbar spine likely degenerative. Abnorm al uptake is seen involving the wrist near the region of the first carpal metacarpal joint likely pos t arthritic. There is a corresponding area of hypertrophic spurring results IMPRESSION: 1. No diagnostic evidence of metastases. Abnormal uptake as described above likely degenerative or po st arthritic.
== END | disposition home or self-care (01) ==
LOC: RADNMMAIN 10:46
PROVIDERS: ATTEND Family Medicine
DX: C56.9 Malignant neoplasm of unspecified ovary (principal); M25.532 Pain in left wrist; W00.9XXA Unspecified fall due to ice and snow, initial encounter
CPT/HCPCS: 78300; A9503

== ENCOUNTER → 2022-11-30 | Outpatient (CLI) | payer OTHER ==
[2022-11-30 16:17] LABS: Basophils # (A) 0.05 X 10*3/uL (0.00-0.10); Basophils % (A) 0.6 %; Eosinophils # (A) 0.28 X 10*3/uL (0.04-0.35); Eosinophils % (A) 3.3 %; HCT 41.2 % (37.2-46.3); HGB 13.8 g/dL (12.0-15.0); Immature Grans, Automated 0.4 %; Lymphocytes # (A) 2.96 X 10*3/uL (0.90-5.00); Lymphocytes % (A) 34.9 %; MCH 32.5 pg (27.0-32.0); MCHC 33.5 g/dL (32.0-37.0); MCV 97.2 fL (80.0-97.0); Mean Platelet Volume 10.8 fL (9.5-12.2); Monocytes # (A) 0.63 X 10*3/uL (0.20-1.00); Monocytes % (A) 7.4 %; NRBC Per 100 WBC 0 /100 WBCS (0.0-0.0); Neutrophils # (A) 4.54 X 10*3/uL (1.80-7.70); Neutrophils % (A) 53.4 %; Platelet Count 195 X 10*3/uL (140-440); RBC 4.24 X 10*6/uL (4.10-5.20); RDW 13.8 % (11.5-14.5); WBC 8.49 X 10*3/uL (4.50-10.00)
[2022-11-30 16:18] LABS: Anion Gap 9.1 mmol/L (10.00-18.00); Carbon Dioxide 23.9 mmol/L (20.0-27.5); Potassium 4.4 mmol/L (3.5-5.5)
== END | disposition home or self-care (01) ==
LOC: LABPAT 10:25
PROVIDERS: ATTEND Orthopaedic Surgery Hand Surgery
DX: Z01.812 Encounter for preprocedural laboratory examination (principal); G56.02 Carpal tunnel syndrome, left upper limb
CPT/HCPCS: 36415; 80051; 85025

== ENCOUNTER → 2023-02-24 | Outpatient (CLI) | payer OTHER ==
[2023-02-24 15:24] LABS: HCT 45.6 % (37.2-46.3); HGB 15.4 d/dL (12.0-15.0); MCH 32.9 pg (27.0-32.0); MCHC 33.8 d/dL (32.0-37.0); MCV 97.4 FL (80.0-97.0); Mean Platelet Volume 10.5 FL (9.5-12.2); NRBC Per 100 WBC 0 X 10*3/uL (0.00-0.01); Platelet Count 167 X 10*3/uL (140-440); RBC 4.68 X 10*6/uL (4.10-5.20); RDW 13.2 % (11.5-14.5); WBC 7.44 X 10*3/uL (4.50-10.00)
[2023-02-24 16:48] LABS: Blood Urea Nitrogen 7.8 mg/dL (9.0-27.0); Carbon Dioxide 24.2 mmol/L (21.6-31.8); Chloride 105 mmol/L (96-109); Sodium 141 mmol/L (135-145)
== END | disposition home or self-care (01) ==
LOC: LABWHC1 09:03
PROVIDERS: ATTEND Internal Medicine
DX: Z01.812 Encounter for preprocedural laboratory examination (principal); R07.9 Chest pain, unspecified
CPT/HCPCS: 36415; 80051; 82565; 84520; 85027

== ENCOUNTER 2023-07-05 18:34 | Emergency (ER) | payer OTHER ==
[2023-07-05 18:48] VITALS: RESP 18; TEMP 97.5
[2023-07-05] MEDS ORDERED: NITROGLYCERIN OINT 1 INCH/GM PACKET TOPICAL STA (18:56)
[2023-07-05] MEDS ORDERED: ASPIRIN 81 MG PO STA (18:56)
--- NOTE | 2023-07-05 19:10 | ED ---
General Adult HPI - General Chief complaint: Chest Pain Stated complaint: chest pains Time Seen by Provider: 07/05/23 18:40 Source: patient, RN notes reviewed, old records reviewed Mode of arrival: ambulatory Limitations: no limitations - History of Present Illness Initial comments: This a 48-year-old female presents emergency Department complaining of chest pain. Patient states his been intermittent since Wednesday. Patient states comes on for about 5-10 minutes and goes away per patient states radiates to her back and makes her short of breath. Patient states she has a history of high cholesterol she is a smoker she has a very strong family history of heart disease. His any fever chills or cough. Patient denies any headache patient denies lightheadedness or dizziness. Patient denies any abdominal pain patient denies nausea vomiting diarrhea. Patient denies any diaphoretic episodes. Patient denies any swelling to the legs or calf tenderness. - Related Data Home Medications Medication Instructions Recorded Confirmed Ezetimibe [Zetia] 10 mg PO QAM 12/11/22 03/02/23 Topiramate 25 mg PO HS 12/11/22 03/02/23 Metoprolol Succinate (ER) [Toprol 25 mg PO DAILY 02/25/23 03/02/23 Xl] Nitroglycerin Sl Tabs [Nitrostat] 0.4 mg SUBLINGUAL Q5M PRN 02/25/23 02/25/23 Pravastatin Sodium [Pravachol] 40 mg PO DAILY 02/25/23 03/02/23 Previous Rx's Medication Instructions Recorded Furosemide [Lasix] 40 mg PO DAILY #90 tablet 03/02/23 Allergies Allergy/AdvReac Type Severity Reaction Status Date / Time Penicillins Allergy Severe Anaphylaxis Verified 07/05/23 18:41 aspirin Allergy Rash/Hives Verified 07/05/23 18:41 ciprofloxacin [From Cipro] Allergy Rash/Hives/ Verified 07/05/23 18:41 Swelling Iodinated Contrast Media Allergy Rash/Hives Verified 07/05/23 18:41 [Iodinated Contrast Media - Oral and] nitrofurantoin Allergy Rash/Hives Verified 07/05/23 18:41 [From Macrodantin] NSAIDS (Non-Steroidal Allergy Rash/Hives/ Verified 07/05/23 18:41 Anti-Inflamma Swelling Sulfa (Sulfonamide Allergy Rash/Hives Verified 07/05/23 18:41 Antibiotics) Review of Systems ROS Statement: Those systems with pertinent positive or pertinent negative responses have been documented in the HPI. ROS Other: All systems not noted in ROS Statement are negative. Past Medical History Past Medical History: Asthma Additional Past Medical History / Comment(s): hypoglycemia History of Any Multi-Drug Resistant Organisms: None Reported Past Surgical History: Heart Catheterization Additional Past Surgical History / Comment(s): left knee surgery Past Anesthesia/Blood Transfusion Reactions: No Reported Reaction Past Psychological History: Anxiety Smoking Status: Current every day smoker Past Alcohol Use History: Occasional Past Drug Use History: None Reported - Past Family History Mother Family Medical History: No Reported History General Exam - General Exam Comments Initial Comments: GENERAL: Patient is well-developed and well-nourished. Patient is nontoxic and well- hydrated and is in mild distress. ENT: Neck is soft and supple. No significant lymphadenopathy is noted. Oropharynx is clear. Moist mucous membranes. Neck has full range of motion without eliciting any pain. EYES: The sclera were anicteric and conjunctiva were pink and moist. Extraocular movements were intact and pupils were equal round and reactive to light. Eyelids were unremarkable. PULMONARY: Unlabored respirations. Good breath sounds bilaterally. No audible rales rhonchi or wheezing was noted. CARDIOVASCULAR: There is a regular rate and rhythm without any murmurs gallops or rubs. ABDOMEN: Soft and nontender with normal bowel sounds. SKIN: Skin is clear with no lesions or rashes and otherwise unremarkable. NEUROLOGIC: Patient is alert and oriented x3. Cranial nerves II through XII are grossly intact. Motor and sensory are also intact. Normal speech, volume and content. Symmetrical smile. MUSCULOSKELETAL: Normal extremities with adequate strength and full range of motion. No lower extremity swelling or edema. No calf tenderness. LYMPHATICS: No significant lymphadenopathy is noted PSYCHIATRIC: Normal psychiatric evaluation. Limitations: no limitations Course Vital Signs 07/05/23 07/05/23 07/05/23 18:38 18:54 19:00 Temperature 97.5 F L Pulse Rate 85 80 75 Respiratory 18 20 26 H Rate Blood Pressure 156/70 O2 Sat by Pulse 98 Oximetry 07/05/23 07/05/23 07/05/23 19:30 20:00 20:30 Temperature Pulse Rate 77 71 67 Respiratory 18 18 18 Rate Blood Pressure 141/60 129/68 117/62 O2 Sat by Pulse 94 L 94 L Oximetry Medical Decision Making - Medical Decision Making EKG is interpreted by myself. EKG shows sinus rhythm at 67 bpm CO interval 242 QRS is 97 QT interval 44 QTC is 420. Patient's EKG shows no ST segment elevation or depression. Was pt. sent in by a medical professional or institution (, [facility], [employer], urgent care, hospital, or jail...) When possible be specific @ -No Did you speak to anyone other than the patient for history (EMS, parent, family, police, friend...)? What history was obtained from this source @ -No Did you review nursing and triage notes (agree or disagree)? Why? @ -I reviewed and agree with nursing and triage notes Were old charts reviewed (outside hosp., previous admission, EMS record, old EKG, old radiological studies, urgent care reports/EKG's, jail records)? Report findings @ -I reviewed prior charts from prior levels on this patient. Differential Diagnosis (chest pain, altered mental status, abdominal pain women, abdominal pain men, vaginal bleeding, weakness, fever, dyspnea, syncope, headach e, dizziness, GI bleed, back pain, seizure, CVA, palpatations, mental health, musculoskeletal)? @ -Differential Chest Pain: Stable Angina, Unstable Angina, STEMI, NSTEMI Aortic Dissection, Pneumothorax, Musculoskeletal, Esophageal Spasm GERD, Cholecystitis, Pancreatitis, Zoster, this is not meant to be an all-inclusive list. EKG interpreted by me (3pts min.). @ -As above X-rays interpreted by me (1pt min.). @ -Chest x-ray shows no acute abnormality. CT interpreted by me (1pt min.). @ -None done U/S interpreted by me (1pt. min.). @ -None done What testing was considered but not performed or refused? (CT, X-rays, U/S, labs)? Why? @ -None What meds were considered but not given or refused? Why? @ -None Did you discuss the management of the patient with other professionals (professionals i.e. [facility]ARA Cornelius, [employer], lab, RT, psych nurse, psych social worker, suction worker, teacher, commissioned defence force officer, piano case and bench assembler)? Give summary @ -No Was smoking cessation discussed for >3mins.? @ -No Was critical care preformed (if so, how long)? @ -No Were there social determinants of health that impacted care today? How? (Homele ssness, low income, unemployed, alcoholism, drug addiction, transportation, low edu. Level, literacy, decrease access to med. care, senior living, rehab)? @ -No Was there de-escalation of care discussed even if they declined (Discuss DNR or withdrawal of care, Hospice)? DNR status @ -No What co-morbidities impacted this encounter? (DM, HTN, Smoking, COPD, CAD, Cancer, CVA, ARF, Chemo, Hep., AIDS, mental health diagnosis, sleep apnea, morbid obesity)? @ -None Was patient admitted / discharged? Hospital course, mention meds given and route, prescriptions, significant lab abnormalities, going to OR and other pertinent info. @ -Patient was told I recommended her to stay and I told her on multiple occasions initially she did not refused but when I came back in with all the lab results and they were normal and her chest x-ray is normal patient insisted on leaving and she agreed to sign out AMA knowing the complications of chest pain and possible morbidity and mortality. Undiagnosed new problem with uncertain prognosis? @ -No Drug Therapy requiring intensive monitoring for toxicity (Heparin, Nitro, Insulin, Cardizem)? @ -No Were any procedures done? @ -No Diagnosis/symptom? @ -Chest pain Acute, or Chronic, or Acute on Chronic? @ -Acute Uncomplicated (without systemic symptoms) or Complicated (systemic symptoms)? @ -Complicated Side effects of treatment? @ -No Exacerbation, Progression, or Severe Exacerbation? @ -No Poses a threat to life or bodily function? How? (Chest pain, USA, MS, pneumonia, PE, COPD, DKA, ARF, appy, cholecystitis, CVA, Diverticulitis, Homicidal, Suicidal, threat to staff... and all critical care pts) @ -Yes this could lead to an MS which could lead to poor perfusion and and organ dysfunction - Lab Data Result diagrams: 07/05/23 18:58 07/05/23 18:58 Lab Results 07/05/23 07/05/23 07/05/23 Range/Units 16:25 18:58 18:58 WBC 8.7 (3.8-10.6) k/uL RBC 4.21 (3.80-5.40) m/uL Hgb 14.0 (11.4-16.0) gm/dL Hct 40.8 (34.0-46.0) % MCV 96.8 (80.0-100.0) fL MCH 33.3 (25.0-35.0) pg MCHC 34.4 (31.0-37.0) g/dL RDW 13.2 (11.5-15.5) % Plt Count 167 (150-450) k/uL MPV 8.2 Neutrophils % 55 % Lymphocytes % 33 % Monocytes % 6 % Eosinophils % 3 % Basophils % 1 % Neutrophils # 4.8 (1.3-7.7) k/uL Lymphocytes # 2.9 (1.0-4.8) k/uL Monocytes # 0.5 (0-1.0) k/uL Eosinophils # 0.2 (0-0.7) k/uL Basophils # 0.1 (0-0.2) k/uL PT 9.8 L (10.0-12.5) sec INR 0.9 (<1.2) APTT 24.3 (22.0-30.0) sec Sodium 138 (137-145) mmol/L Potassium 3.9 (3.5-5.1) mmol/L Chloride 107 (98-107) mmol/L Carbon Dioxide 23 (22-30) mmol/L Anion Gap 8 mmol/L BUN 15 (7-17) mg/dL Creatinine 0.86 (0.52-1.04) mg/dL Est GFR (CKD-EPI)AfAm >90 (>60 ml/min/1.73 sqM) Est GFR (CKD-EPI)NonAf 81 (>60 ml/min/1.73 sqM) Glucose 86 (74-99) mg/dL Calcium 9.1 (8.4-10.2) mg/dL Magnesium 2.0 (1.6-2.3) mg/dL Total Bilirubin 0.4 (0.2-1.3) mg/dL AST 24 (14-36) U/L ALT 31 (4-34) U/L Alkaline Phosphatase 63 (38-126) U/L Troponin I (0.000-0.034) ng/mL Total Protein 6.5 (6.3-8.2) g/dL Albumin 3.9 (3.5-5.0) g/dL 07/05/23 Range/Units 18:58 WBC (3.8-10.6) k/uL RBC (3.80-5.40) m/uL Hgb (11.4-16.0) gm/dL Hct (34.0-46.0) % MCV (80.0-100.0) fL MCH (25.0-35.0) pg MCHC (31.0-37.0) g/dL RDW (11.5-15.5) % Plt Count (150-450) k/uL MPV Neutrophils % % Lymphocytes % % Monocytes % % Eosinophils % % Basophils % % Neutrophils # (1.3-7.7) k/uL Lymphocytes # (1.0-4.8) k/uL Monocytes # (0-1.0) k/uL Eosinophils # (0-0.7) k/uL Basophils # (0-0.2) k/uL PT (10.0-12.5) sec INR (<1.2) APTT (22.0-30.0) sec Sodium (137-145) mmol/L Potassium (3.5-5.1) mmol/L Chloride (98-107) mmol/L Carbon Dioxide (22-30) mmol/L Anion Gap mmol/L BUN (7-17) mg/dL Creatinine (0.52-1.04) mg/dL Est GFR (CKD-EPI)AfAm (>60 ml/min/1.73 sqM) Est GFR (CKD-EPI)NonAf (>60 ml/min/1.73 sqM) Glucose (74-99) mg/dL Calcium (8.4-10.2) mg/dL Magnesium (1.6-2.3) mg/dL Total Bilirubin (0.2-1.3) mg/dL AST (14-36) U/L ALT (4-34) U/L Alkaline Phosphatase (38-126) U/L Troponin I <0.012 (0.000-0.034) ng/mL Total Protein (6.3-8.2) g/dL Albumin (3.5-5.0) g/dL Disposition Clinical Impression: Chest pain Disposition: LEFT AGAINST MEDICAL ADVICE Referrals: Gasper Olvera Jr, [Primary Care Provider] - 1-2 days Time of Disposition: 20:55
[2023-07-05 19:22] LABS: Basophils # (A) 0.1 k/uL (0-0.2); Basophils % (A) 1 %; Eosinophils # (A) 0.2 k/uL (0-0.7); Eosinophils % (A) 3 %; HCT 40.8 % (34.0-46.0); Lymphocytes # (A) 2.9 k/uL (1.0-4.8); Lymphocytes % (A) 33 %; MCH 33.3 pg (25.0-35.0); MCHC 34.4 g/dL (31.0-37.0); MCV 96.8 fL (80.0-100.0); Mean Platelet Volume 8.2; Monocytes # (A) 0.5 k/uL (0-1.0); Monocytes % (A) 6 %; Neutrophils # (A) 4.8 k/uL (1.3-7.7); Neutrophils % (A) 55 %; Platelet Count 167 k/uL (150-450); RBC 4.21 m/uL (3.80-5.40); RDW 13.2 % (11.5-15.5); WBC 8.7 k/uL (3.8-10.6)
[2023-07-05 19:35] LABS: INR 0.9 (<1.2); Partial Thromboplastin Time 24.3 sec (22.0-30.0); Prothrombin Time 9.8 sec (10.0-12.5)
[2023-07-05 19:39] LABS: ALT 31 U/L (4-34); AST 24 U/L (14-36); African American GFR (CKD) >90 (>60 ml/min/1.73 sqM); Albumin 3.9 g/dL (3.5-5.0); Alkaline Phosphatase 63 U/L (38-126); Anion Gap 8 mmol/L; Blood Urea Nitrogen 15 mg/dL (7-17); Calcium 9.1 mg/dL (8.4-10.2); Carbon Dioxide 23 mmol/L (22-30); Chloride 107 mmol/L (98-107); Glucose 86 mg/dL (74-99); Non-African American GFR(CKD) 81 (>60 ml/min/1.73 sqM); Potassium 3.9 mmol/L (3.5-5.1); Sodium 138 mmol/L (137-145); Total Bilirubin 0.4 mg/dL (0.2-1.3); Total Protein 6.5 g/dL (6.3-8.2)
--- NOTE | 2023-07-05 19:49 | XR ---
EXAMINATION TYPE: XR chest 2V DATE OF EXAM: 07/05/2023 7:14 PM CLINICAL INDICATION:Female, 48 years old with history of Chest Pain; [facility] COMPARISON: Chest radiographs from 02/28/2012. TECHNIQUE: XR chest 2V Frontal and lateral views of the chest. FINDINGS: Lungs/Pleura: There is flattening of the diaphragm with increased lucency of the lungs. No evidence o f pneumothorax, pleural effusion or focal consolidation. Pulmonary vascularity: Unremarkable. Heart/mediastinum: Cardiomediastinal silhouette is unremarkable. Musculoskeletal: No acute osseous pathology. IMPRESSION: 1. No acute cardiopulmonary disease process. 2. COPD changes.
[2023-07-05 20:55] VITALS: BP 117/62; PULSE 67
== END 2023-07-05 20:53 | disposition left against medical advice (07) ==
LOC: EC 18:34
DX: I25.2 Old myocardial infarction (principal); J44.89 Other specified chronic obstructive pulmonary disease; F17.200 Nicotine dependence, unspecified, uncomplicated; Z86.59 Personal history of other mental and behavioral disorders; Z88.6 Allergy status to analgesic agent; Z88.0 Allergy status to penicillin; Z91.041 Radiographic dye allergy status; Z88.2 Allergy status to sulfonamides; Z88.8 Allergy status to other drugs, medicaments and biological substances; Z88.1 Allergy status to other antibiotic agents
CPT/HCPCS: 36415; 71046; 80053; 83735; 84484; 85025; 85610; 85730; 93005; 99285

== ENCOUNTER → 2023-10-13 | Outpatient (CLI) | payer OTHER ==
--- NOTE | 2023-10-13 11:33 | CTL ---
EXAMINATION TYPE: CT Low Dose Lung DATE OF EXAM ORDERED: 10/13/2023 HISTORY: 48-year-old female F17.210, current smoker with 35 pack-year history. Lung cancer screening CT DLP: 88.[address] CTDI: 2.72 mGy Automated exposure control for dose reduction was used. SCREENING VISIT: Baseline COMPARISON: Radiograph 07/05/2023 TECHNIQUE: Low dose computed tomography scan was performed through the chest with coronal and sagitta l reconstructions. CT DIAGNOSTIC QUALITY: Limited, but interpretable FINDINGS: The heart is normal size without pericardial effusion. Aorta normal caliber with conventional arch vessel branching anatomy. No thoracic lymphadenopathy by CT size criteria. Moderate diffuse bronchial wall thickening. Mild emphysematous change. Minimal biapical pleural paren chymal scarring. No consolidation or pleural effusion. No suspicious pulmonary nodule or mass. Visualized upper abdomen demonstrates nonspecific1.6 cm nodularity of the left adrenal gland. Statist ically representing a benign adrenal adenoma. Six-month follow-up adrenal mass protocol recommended t o reassess. Bones: No osseous destructive process. IMPRESSION: 1. LungRADS 1, negative. No suspicious pulmonary nodules. 2. COPD with mild emphysema. Prominent component of chronic bronchitis versus superimposed acute bron chitis. Recommend smoking cessation. 3. A 1.6 cm left adrenal nodule as mentioned above. CT LUNG RAD AND CT CHEST RECOMMENDATION: Lung-Rad 1 Negative: Continue annual screening with LDCT in 12 months. S Modifier (other clinically significant findings): S, six-month follow-up adrenal mass protocol CT f or suspected 1.6 cm left adrenal adenoma.
== END | disposition home or self-care (01) ==
LOC: RADCTMAIN 09:19
PROVIDERS: ATTEND Family Medicine
DX: Z12.31 Encounter for screening mammogram for malignant neoplasm of breast (principal); J44.9 Chronic obstructive pulmonary disease, unspecified; J43.9 Emphysema, unspecified; E27.8 Other specified disorders of adrenal gland; F17.210 Nicotine dependence, cigarettes, uncomplicated; R05.3 Chronic cough; R06.02 Shortness of breath
CPT/HCPCS: 71271

== ENCOUNTER → 2023-12-23 | Outpatient (CLI) | payer OTHER ==
--- NOTE | 2023-12-24 09:07 | CT ---
EXAMINATION TYPE: CT pelvis wo con DATE OF EXAM: 12/23/2023 COMPARISON: None HISTORY: adrenal mass per order include adrenal gland CT DLP: 665.3 mGycm Automated exposure control for dose reduction was used. FINDINGS: The visualized lung bases are clear. The gallbladder is normal. There is no organomegaly involving liver, pancreas or spleen. There is an oval well-circumscribed 16 mm left adrenal mass which statistically most likely represent s an adrenal adenoma. It is unchanged compared to the CT thorax dated 10/13/2023 Caliber of the abdominal aorta is normal. There is no renal calcification or hydronephrosis. The bowel loops are normal without dilatation or inflammation. There is no free intraperitoneal air or fluid. There is no pelvic mass, free fluid, abscess or adenopathy. There is surgical absence of the uterus. The osseous structures are intact. IMPRESSION: 1. WELL-CIRCUMSCRIBED 16 MM LEFT ADRENAL NODULE MOST LIKELY REPRESENTING AN ADENOMA. 2. NO OTHER SIGNIFICANT ABNORMALITY SEEN WITHIN THE ABDOMEN OR PELVIS.
== END | disposition home or self-care (01) ==
LOC: RADCTMAIN 08:48
PROVIDERS: ATTEND Family Medicine
DX: E27.8 Other specified disorders of adrenal gland (principal)
CPT/HCPCS: 72192

== ENCOUNTER → 2024-01-13 | Outpatient (CLI) | payer OTHER ==
--- NOTE | 2024-01-14 14:52 | MM ---
Reason for Exam: Screening (asymptomatic). Baseline mammogram. Patient History: Menarche at age 13. First Full-Term at age 16. Hysterectomy at age 27. Postmenopausal. Maternal aunt had breast cancer. Risk Values: Jayda 5 year model risk: 0.7%. NCI Lifetime model risk: 6.7%. Prior Study Comparison: Patient's first Mammogram. No prior studies available for comparison. Tissue Density: There are scattered areas of fibroglandular density. Findings: Analyzed By CAD. The pattern is symmetrical. No suspicious groups of microcalcifications, spiculated or lobular masses, architectural distortion or other secondary signs of malignancy are mammographically apparent. Overall Assessment: Negative, BI-RAD 1 Management: Screening Mammogram of both breasts in 1 year. A negative mammogram report should not preclude additional follow up of suspicious palpable abnormalities. Patient should continue monthly self breast exam. A clinical breast exam by your physician is recommended on an annual basis and results should be correlated with mammographic findings. Note on Jayda scores and lifetime risk: 1. A Jayda score greater than 3% is considered moderate risk. If this is the case, consider specialist referral to assess eligibility for a risk reducing agent. 2. If overall lifetime risk for the development of breast cancer is 20% or higher, the patient may qualify for future screening with alternating mammogram and breast MRI. Electronically signed and approved by: Crispin Noble D.O. Radiologis
== END | disposition home or self-care (01) ==
LOC: RADMAMWWP 11:11
PROVIDERS: ATTEND Family Medicine
DX: Z12.31 Encounter for screening mammogram for malignant neoplasm of breast (principal); Z78.0 Asymptomatic menopausal state; Z80.3 Family history of malignant neoplasm of breast
CPT/HCPCS: 77063; 77067

== ENCOUNTER 2024-01-18 16:53 | Emergency (ER) | payer OTHER ==
[2024-01-18 17:00] VITALS: BP 156/82; PULSE 77; RESP 16; TEMP 98
[2024-01-18 17:32] LABS: Basophils # (A) 0.1 k/uL (0-0.2); Basophils % (A) 1 %; Eosinophils # (A) 0.2 k/uL (0-0.7); Eosinophils % (A) 2 %; HCT 47.3 % (34.0-46.0); HGB 15.2 gm/dL (11.4-16.0); Lymphocytes # (A) 2.7 k/uL (1.0-4.8); Lymphocytes % (A) 21 %; MCH 31.9 pg (25.0-35.0); MCHC 32.1 g/dL (31.0-37.0); MCV 99.2 fL (80.0-100.0); Mean Platelet Volume 8.1; Monocytes # (A) 0.6 k/uL (0-1.0); Monocytes % (A) 5 %; Neutrophils # (A) 8.9 k/uL (1.3-7.7); Neutrophils % (A) 69 %; Platelet Count 179 k/uL (150-450); RBC 4.77 m/uL (3.80-5.40); RDW 13.2 % (11.5-15.5); WBC 12.8 k/uL (3.8-10.6)
[2024-01-18 17:41] LABS: ALT 27 U/L (4-34); AST 30 U/L (14-36); African American GFR (CKD) >90 (>60 ml/min/1.73 sqM); Albumin 4.4 g/dL (3.5-5.0); Alkaline Phosphatase 81 U/L (38-126); Anion Gap 5 mmol/L; Blood Urea Nitrogen 9 mg/dL (7-17); Calcium 9.5 mg/dL (8.4-10.2); Carbon Dioxide 24 mmol/L (22-30); Chloride 108 mmol/L (98-107); Glucose 90 mg/dL (74-99); Non-African American GFR(CKD) 87 (>60 ml/min/1.73 sqM); Potassium 4.6 mmol/L (3.5-5.1); Sodium 137 mmol/L (137-145); Total Bilirubin 0.7 mg/dL (0.2-1.3)
--- NOTE | 2024-01-18 17:50 | ED ---
General Adult HPI - General Chief complaint: Chest Pain Stated complaint: Chest Pain,Sob Time Seen by Provider: 01/18/24 17:48 Source: patient, RN notes reviewed Mode of arrival: wheelchair Limitations: no limitations - History of Present Illness Initial comments: Quick note: 48-year-old female presents to the emergency department for evaluation of chest pain. Patient states that this started around 2 hours ago. She notes that the pain is central. She states that it comes and goes. She does report that she has recently been sick and coughing frequently. She reports a history of valvular disease and COPD. - Related Data Home Medications Medication Instructions Recorded Confirmed Ezetimibe [Zetia] 10 mg PO QAM 12/11/22 03/02/23 Topiramate 25 mg PO HS 12/11/22 03/02/23 Metoprolol Succinate (ER) [Toprol 25 mg PO DAILY 02/25/23 03/02/23 Xl] Nitroglycerin Sl Tabs [Nitrostat] 0.4 mg SUBLINGUAL Q5M PRN 02/25/23 02/25/23 Pravastatin Sodium [Pravachol] 40 mg PO DAILY 02/25/23 03/02/23 Previous Rx's Medication Instructions Recorded Furosemide [Lasix] 40 mg PO DAILY #90 tablet 03/02/23 Allergies Allergy/AdvReac Type Severity Reaction Status Date / Time Penicillins Allergy Severe Anaphylaxis Verified 01/18/24 17:00 aspirin Allergy Rash/Hives Verified 01/18/24 17:00 ciprofloxacin [From Cipro] Allergy Rash/Hives/ Verified 01/18/24 17:00 Swelling Iodinated Contrast Media Allergy Rash/Hives Verified 01/18/24 17:00 [Iodinated Contrast Media - Oral and] nitrofurantoin Allergy Rash/Hives Verified 01/18/24 17:00 [From Macrodantin] NSAIDS (Non-Steroidal Allergy Rash/Hives/ Verified 01/18/24 17:00 Anti-Inflamma Swelling Sulfa (Sulfonamide Allergy Rash/Hives Verified 01/18/24 17:00 Antibiotics) Review of Systems ROS Statement: Those systems with pertinent positive or pertinent negative responses have been documented in the HPI. ROS Other: All systems not noted in ROS Statement are negative. Past Medical History Past Medical History: Asthma, COPD Additional Past Medical History / Comment(s): hypoglycemia History of Any Multi-Drug Resistant Organisms: None Reported Past Surgical History: Heart Catheterization Additional Past Surgical History / Comment(s): left knee surgery Past Anesthesia/Blood Transfusion Reactions: No Reported Reaction Past Psychological History: Anxiety Smoking Status: Current every day smoker Past Alcohol Use History: Occasional Past Drug Use History: None Reported - Past Family History Mother Family Medical History: No Reported History General Exam - General Exam Comments Initial Comments: Visual Physical Exam Vital signs reviewed General: Well-appearing, nontoxic, no acute distress. Head: Normocephalic, atraumatic Eyes: PERRLA, EOMI ENT: Airway patent Chest: Nonlabored breathing Skin: No visual rash, normal skin tone Neuro: Alert and oriented 3 Musculoskeletal: No gross abnormalities Limitations: no limitations Course Vital Signs 01/18/24 16:57 Temperature 98.0 F Pulse Rate 77 Respiratory 16 Rate Blood Pressure 156/82 O2 Sat by Pulse 97 Oximetry Medical Decision Making - Medical Decision Making Quick note preformed and electronically signed by Sonya Kaufman PA-C - Lab Data Result diagrams: 01/18/24 17:26 01/18/24 17:26 Lab Results 01/18/24 01/18/24 01/18/24 Range/Units 17:26 17:26 17:26 WBC 12.8 H (3.8-10.6) k/uL RBC 4.77 (3.80-5.40) m/uL Hgb 15.2 (11.4-16.0) gm/dL Hct 47.3 H (34.0-46.0) % MCV 99.2 (80.0-100.0) fL MCH 31.9 (25.0-35.0) pg MCHC 32.1 (31.0-37.0) g/dL RDW 13.2 (11.5-15.5) % Plt Count 179 (150-450) k/uL MPV 8.1 Neutrophils % 69 % Lymphocytes % 21 % Monocytes % 5 % Eosinophils % 2 % Basophils % 1 % Neutrophils # 8.9 H (1.3-7.7) k/uL Lymphocytes # 2.7 (1.0-4.8) k/uL Monocytes # 0.6 (0-1.0) k/uL Eosinophils # 0.2 (0-0.7) k/uL Basophils # 0.1 (0-0.2) k/uL PT 9.8 L (10.0-12.5) sec INR 0.9 (<1.2) APTT 23.7 (22.0-30.0) sec Sodium 137 (137-145) mmol/L Potassium 4.6 (3.5-5.1) mmol/L Chloride 108 H (98-107) mmol/L Carbon Dioxide 24 (22-30) mmol/L Anion Gap 5 mmol/L BUN 9 (7-17) mg/dL Creatinine 0.81 (0.52-1.04) mg/dL Est GFR (CKD-EPI)AfAm >90 (>60 ml/min/1.73 sqM) Est GFR (CKD-EPI)NonAf 87 (>60 ml/min/1.73 sqM) Glucose 90 (74-99) mg/dL Calcium 9.5 (8.4-10.2) mg/dL Magnesium 2.0 (1.6-2.3) mg/dL Total Bilirubin 0.7 (0.2-1.3) mg/dL AST 30 (14-36) U/L ALT 27 (4-34) U/L Alkaline Phosphatase 81 (38-126) U/L Troponin I (0.000-0.034) ng/mL Total Protein 7.0 (6.3-8.2) g/dL Albumin 4.4 (3.5-5.0) g/dL 01/18/24 Range/Units 17:26 WBC (3.8-10.6) k/uL RBC (3.80-5.40) m/uL Hgb (11.4-16.0) gm/dL Hct (34.0-46.0) % MCV (80.0-100.0) fL MCH (25.0-35.0) pg MCHC (31.0-37.0) g/dL RDW (11.5-15.5) % Plt Count (150-450) k/uL MPV Neutrophils % % Lymphocytes % % Monocytes % % Eosinophils % % Basophils % % Neutrophils # (1.3-7.7) k/uL Lymphocytes # (1.0-4.8) k/uL Monocytes # (0-1.0) k/uL Eosinophils # (0-0.7) k/uL Basophils # (0-0.2) k/uL PT (10.0-12.5) sec INR (<1.2) APTT (22.0-30.0) sec Sodium (137-145) mmol/L Potassium (3.5-5.1) mmol/L Chloride (98-107) mmol/L Carbon Dioxide (22-30) mmol/L Anion Gap mmol/L BUN (7-17) mg/dL Creatinine (0.52-1.04) mg/dL Est GFR (CKD-EPI)AfAm (>60 ml/min/1.73 sqM) Est GFR (CKD-EPI)NonAf (>60 ml/min/1.73 sqM) Glucose (74-99) mg/dL Calcium (8.4-10.2) mg/dL Magnesium (1.6-2.3) mg/dL Total Bilirubin (0.2-1.3) mg/dL AST (14-36) U/L ALT (4-34) U/L Alkaline Phosphatase (38-126) U/L Troponin I <0.012 (0.000-0.034) ng/mL Total Protein (6.3-8.2) g/dL Albumin (3.5-5.0) g/dL Disposition Clinical Impression: Left against medical advice Disposition: LEFT AGAINST MEDICAL ADVICE Is patient prescribed a controlled substance at d/c from ED?: No Referrals: Gasper Olvera Jr, [Primary Care Provider] - 1-2 days
[2024-01-18 17:53] LABS: INR 0.9 (<1.2); Partial Thromboplastin Time 23.7 sec (22.0-30.0); Prothrombin Time 9.8 sec (10.0-12.5)
--- NOTE | 2024-01-18 18:23 | XR ---
EXAMINATION TYPE: XR chest 2V DATE OF EXAM: 01/18/2024 COMPARISON: 07/05/2023 HISTORY: 48-year-old female with chest pain, shortness of breath, cough TECHNIQUE: PA and lateral views FINDINGS: Heart normal size. Aorta and pulmonary vasculature within normal limits. Mild interstitial prominence it is unchanged. No consolidation or pleural effusion. IMPRESSION: Chronic appearing changes. No acute process seen.
== END 2024-01-18 20:08 | disposition left against medical advice (07) ==
LOC: EC 16:53
DX: R07.9 Chest pain, unspecified (principal); F17.200 Nicotine dependence, unspecified, uncomplicated; Z88.0 Allergy status to penicillin; Z88.5 Allergy status to narcotic agent; Z88.2 Allergy status to sulfonamides; Z88.8 Allergy status to other drugs, medicaments and biological substances; Z53.29 Procedure and treatment not carried out because of patient's decision for other reasons
CPT/HCPCS: 36415; 71046; 80053; 83735; 84484; 85025; 85610; 85730; 93005; 99285

== ENCOUNTER → 2024-02-29 | Outpatient (CLI) | payer OTHER ==
--- NOTE | 2024-02-29 11:05 | XR ---
EXAMINATION TYPE: XR ankle complete RT DATE OF EXAM: 02/29/2024 COMPARISON: NONE HISTORY: 48-year-old female S93.431A, sprain of tibial fibular ligament of right ankle after fall brittanie n stairs TECHNIQUE: 3 views FINDINGS: Chronic bony irregularity inferior tip of the lateral malleolus suggests sequela of old inj ury. No acute fracture, subluxation, or dislocation is seen. Talar dome is intact. Os supra navicular e accessory ossicle noted. Subtalar joint alignment is normal delineation to the Achilles tendon. IMPRESSION: No acute osseous abnormality seen.
== END | disposition home or self-care (01) ==
LOC: RADXRMAIN 10:25
PROVIDERS: ATTEND Family Medicine
DX: S93.431A Sprain of tibiofibular ligament of right ankle, initial encounter (principal)

== ENCOUNTER → 2024-09-12 | Outpatient (CLI) | payer BC ==
--- NOTE | 2024-09-12 15:30 | CT ---
EXAMINATION TYPE: CT abdomen wo con DATE OF EXAM: 09/12/2024 COMPARISON: CT of chest dated 10/13/2023 CLINICAL INDICATION: Female, 49 years old with history of D35.02 BENIGN NEOPLASM OF LEFT ADRENAL GLAN D; PHH, abnormal finding of left adrenal gland TECHNIQUE: CT of the abdomen performed with with Oral Contrast and , patient injected with mL of . CT DLP: 403.[address] CTDI: mGy Automated exposure control for dose reduction was used. FINDINGS: The lungs are clear. Gallbladder is normal and there is no gallstone, wall thickening, pericholecystic fluid or distention . There is no biliary ductal dilatation. There is no organomegaly of the liver, pancreas, or spleen. There is a well-circumscribed 1.8 cm left adrenal nodule most likely representing an adenoma. One additional follow-up CT abdomen is recommend ed in 6 months to confirm stability.. There are no renal calcifications or hydronephrosis. The caliber of the abdominal aorta is normal and there is no retroperitoneal adenopathy or hemorrhage . The bowel loops are normal in caliber is no evidence of obstruction. No inflammatory changes are iden tified in the mesentery and there is no free intraperitoneal air or fluid. There is no pelvic mass, free fluid, abscess or adenopathy. There is mild diverticulosis of the colon without CT evidence of diverticulitis. The osseous structures and soft tissues are unremarkable. IMPRESSION: Probable 1.8 cm left adrenal adenoma. Additional follow-up CT abdomen in 6 months is recommended to darin allen [facility], , 09/12/2024 3:28 PM
== END | disposition home or self-care (01) ==
LOC: RADCTMAIN 13:55
PROVIDERS: ATTEND Family Medicine
DX: D35.02 Benign neoplasm of left adrenal gland (principal)
CPT/HCPCS: 74150

== ENCOUNTER → 2024-10-17 | Outpatient (CLI) | payer BC | LOC: CPPFTMAIN 16:48 | PROVIDERS: ATTEND Thoracic Surgery (Cardiothoracic Vascular Surgery) | DX: I35.0 Nonrheumatic aortic (valve) stenosis (principal); F17.210 Nicotine dependence, cigarettes, uncomplicated; Z88.0 Allergy status to penicillin; Z88.6 Allergy status to analgesic agent; Z88.1 Allergy status to other antibiotic agents; Z88.5 Allergy status to narcotic agent; Z91.041 Radiographic dye allergy status; Z88.2 Allergy status to sulfonamides | CPT/HCPCS: 94060; 94726; 94729 ==

== ENCOUNTER → 2024-10-25 | Outpatient (CLI) | payer BC ==
[2024-10-25 09:38] LABS: INR 0.9 (<1.2); Partial Thromboplastin Time 22.7 sec (22.0-30.0); Prothrombin Time 10.1 sec (10.0-12.5)
--- NOTE | 2024-10-25 10:34 | XR ---
EXAMINATION TYPE: XR chest 2V DATE OF EXAM: 10/25/2024 CLINICAL INDICATION: Female, 49 years old with history of I35.0 NONRHEUMATIC AORTIC (VALVE) STENOSIS, TECHNIQUE: Frontal and lateral views of the chest are obtained. COMPARISON: Same-day chest CT FINDINGS: There is no focal air space opacity, pleural effusion, or pneumothorax seen. The cardiac silhouette size is within normal limits. The osseous structures are intact. IMPRESSION: No acute cardiopulmonary process. [facility], , 10/25/2024 10:32 AM
--- NOTE | 2024-10-25 10:55 | CT ---
EXAMINATION TYPE: CT chest wo con DATE OF EXAM: 10/25/2024 10:24 AM COMPARISON: 10/13/2023. CLINICAL INDICATION: Female, 49 years old with history of I35.0 NONRHEUMATIC AORTIC (VALVE) STENOSIS; PHH, Non rheumatic aortic valve stenosis. Pre open heart sx. TECHNIQUE: Multiple axial images were obtained through the chest. Sagittal and coronal reformats were created for review. MIP was performed on a separate workstation. Contrast used: mL of (None if empty) Oral contrast used: (None if empty) CT DLP: 502 mGycm, Automated exposure control for dose reduction was used. FINDINGS: LUNGS/ PLEURA: No focal consolidation, pneumothorax or pleural effusion. AIRWAY: Patent and unremarkable. HEART: Size within normal limits.Aortic valve calcifications are moderate. No significant coronary ar mala calcifications. MEDIASTINUM: No gross evidence of adenopathy. VASCULATURE: No aortic aneurysm. MUSCULOSKELETAL: No acute osseous abnormalities SOFT TISSUES/LYMPH NODES: Unremarkable. LOWER NECK: No significant findings. UPPER ABDOMEN: Left adrenal 17 mm nodule with Hounsfield units compatible with lipid rich adrenal malissa noma. IMPRESSION: 1. Moderate aortic valve calcifications. 2. Left adrenal lipid rich adenoma. 3. Mild centrilobular emphysema. [facility], , 10/25/2024 10:53 AM
[2024-10-25 15:40] LABS: Appearance,Urine Clear (Clear); Bilirubin,Urine Negative (Negative); Blood,Urine Negative (Negative); Color,Urine Yellow (Yellow); Ketones,Urine Negative (Negative); Nitrite,Urine Negative (Negative); Specific Gravity,Urine 1.004 (1.001-1.030); Urobilinogen,Urine 0.2 E.U./DL
[2024-10-25 15:58] LABS: HCT 44.2 % (37.2-46.3); HGB 14.3 g/dL (12.0-15.0); MCH 32.4 pg (27.0-32.0); MCHC 32.4 g/dL (32.0-37.0); Mean Platelet Volume 10.6 FL (9.5-12.2); NRBC Per 100 WBC 0 X 10*3/uL (0.00-0.01); Platelet Count 198 X 10*3/uL (140-440); RBC 4.42 X 10*6/uL (4.10-5.20); WBC 7.95 X 10*3/uL (4.50-10.00)
[2024-10-25 16:03] LABS: Bacteria,Urine None Seen (None Seen)
[2024-10-25 16:07] LABS: ALT 21 U/L (8-44); AST 16 U/L (13-35); Albumin 4.5 g/dL (3.8-4.9); Albumin/Globulin Ratio 1.73 Ratio (1.60-3.17); Alkaline Phosphatase 78 U/L (41-126); BUN/Creat Ratio 9.62 Ratio (12.00-20.00); Blood Urea Nitrogen 7.7 mg/dL (9.0-27.0); Calcium 9.7 mg/dL (8.7-10.3); Carbon Dioxide 25.2 mmol/L (21.6-31.8); Chloride 104 mmol/L (96-109); Globulin 2.6 g/dL (1.6-3.3); Glucose 82 mg/dL (70-110); Potassium 4.3 mmol/L (3.5-5.5); Sodium 140 mmol/L (135-145); Total Bilirubin 0.3 mg/dL (0.3-1.2); Total Protein 7.1 g/dL (6.2-8.2)
== END | disposition home or self-care (01) ==
LOC: LABWHC1 08:49
PROVIDERS: ATTEND Thoracic Surgery (Cardiothoracic Vascular Surgery)
DX: I35.0 Nonrheumatic aortic (valve) stenosis (principal)
CPT/HCPCS: 71046; 71250; 80053; 81001; 85027; 85610; 85730; 86850; 86900; 86901; 86920; 87070; 87086

== ENCOUNTER 2024-11-02 05:33 | Inpatient (IN) | payer BC ==
[~2024-11-02 05:33] MED LIST: ALBUMIN HUMAN 25% 50 ML IV ONE; ALBUMIN HUMAN 5% 500 ML IVPB ONE; ASPIRIN 81 MG PO ONE; ATORVASTATIN 10 MG TAB PO ONE; CALCIUM CHLORIDE 100 MG/ML 10 ML SYRINGE IV ONE; CARDIOPLEGIC SOLN (K+ 16 MEQ/L 1,000 ML with SODIUM BICARB (1 MEQ/ML) 20 ML, LIDOCAINE ... PERFUSION ONE; CHLORHEXIDINE GLUCONATE 15 ML CUP MUCOUS MEM ONE; CLEVIDIPINE BUTYRATE 25 MG in EMPTY BAG 1 BAG IV ONE; HEPARIN SODIUM 1,000 UN/ML (10ML VL) IV ONE; HEPARIN SODIUM,PORCINE (1 ML) 5,000 UNIT in SODIUM CHLORIDE 0.9% 500 ML 500 ML IV ONE; INSULIN REGULAR 100 UNIT in SODIUM CHLORIDE 0.9% 100 ML IV ONE; MAGNESIUM SULFATE 16.24 MEQ in EMPTY SYRINGE 1 SYR IV ONE; MANNITOL 25% 12.5 GM/50 ML VIAL IV ONE; METOPROLOL TARTRATE 12.5 MG TAB PO ONE; NITROGLYCERIN SL TABS 0.4 MG TAB SUBLINGUAL ONE; NITROGLYCERIN-D5W PMX 25 MG/250 ML BTL IV ONE; NITROGLYCERIN-D5W PMX 50 MG in DEXTROSE/WATER 1 250ML.BAG IV ONE; NOREPINEPHRINE 4 MG in SODIUM CHLORIDE 0.9% 250 ML IV ONE; PAPAVERINE 360 MG in SODIUM CHLORIDE 0.9% 90 ML IV ONE; PHENYLEPHRINE 10 MG/ML VIAL IV ONE; PHENYLEPHRINE 40 MG in SODIUM CHLORIDE 0.9% 250 ML IV ONE; PROTAMINE SULFATE 10 MG/ML 25 ML VIAL IV ONE; PROTAMINE SULFATE 250 MG in EMPTY BAG 1 BAG IV ONE; SODIUM BICARB 8.4% 50 ML SYR (1 MEQ/ML) IV ONE; SODIUM CHLORIDE 0.9% 1,000 ML IV ONE; TRANEXAMIC ACID 2,000 MG in SODIUM CHLORIDE 0.9% 80 ML IV ONE; ceFAZolin 1,000 MG in SODIUM CHLORIDE 0.9% IRRIGATIO 1,000 ML IRRIGATION ONE; propofoL 1,000 MG/100 ML VIAL IV ONE
[2024-11-02] MEDS ORDERED: MUPIROCIN 2% OINT 22 GM TUBE NASAL ONE (06:00)
[2024-11-02] MEDS: LACTATED RINGERS 1,000 ML IV ONE (06:15)
[2024-11-02] MEDS: IV FLUID CONTINUATION 1,000 ML IV ONE (06:15)
[2024-11-02] MEDS: LIDOCAINE 1% (10MG/ML) FOR IV START INTRADERMA STA (06:15)
[2024-11-02] MEDS ORDERED: Potassium Replacement Protocol 1 EACH MISC MISCELLANE PRN (06:27)
[2024-11-02] MEDS ORDERED: Magnesium Replacement Protocol 1 EACH MISC MISCELLANE PRN ×2 (06:27→15:57)
[2024-11-02] MEDS ORDERED: IPRATROPIUM-ALBUTEROL 3 ML NEB INHALATION PRN (06:27)
[2024-11-02 06:33] LABS: Glucose,Whole Blood 86 mg/dL (70-110)
--- NOTE | 2024-11-02 08:39 | P.GSHP ---
History of Present Illness H&P Date: 11/02/24 Chief Complaint: Progressive dyspnea severe aortic regurgitation This is a 49-year-old female who follows outpatient with Dr. Olvera for primary care and Dr. Vicente for cardiology. She has a previous medical history of severe aortic insufficiency, moderate aortic stenosis, chronic heart failure with reduced ejection fraction, hypertension, remote history of pneumonia, COVID in 2020, current tobacco dependence with mild COPD. She has been followed for several years by Dr. Vicente for her aortic valvular disease. She has had progressive dyspnea and recently began experiencing anginal symptomatology. She had undergone cardiac catheterization which revealed normal coronaries. Echocardiography revealed moderate to severe aortic insufficiency, moderate aortic stenosis, mild mitral and tricuspid regurgitation, and reduced left ventricular systolic function with EF 40 to 45%. Recently she also had complaints of rapid heart rate both with activity and at rest. She did have a 2-week event monitor placed by Dr. Vicente revealing no A-fib, however she did have some episodes of pauses up to 4.5 seconds. She was referred to Dr. Lester from cardiothoracic surgery. She was recommended to undergo aortic valve replacement. The usual perioperative course of surgery was discussed in detail with the patient and her family, risks and benefits reviewed, and the patient did consent to surgery. She was scheduled electively for this morning November 02, 2024. She presented to the hospital in preparation for surgery this morning, unfortunately cardioplegia solution was not available. We decided to admit her to the intensive care unit with close hemodynamic monitoring through Roff/Cordis, and placed the patient on IV Primacor and Lasix to maximize her medical status, with plans to take her for surgical aortic valve replacement tomorrow. - Review of Systems Comment: Review of systems was completed and was negative except as noted - Cardiovascular Cardiovascular: Reports as per HPI, Reports chest pain, Reports dyspnea on exertion, Reports palpitations Past Medical History Past Medical History: Asthma, Cancer, Chest Pain / Angina, Heart Failure, COPD, Hypertension, Osteoarthritis (OA), Pneumonia Additional Past Medical History / Comment(s): heart murmur, hypoglycemia, ovarian ca 2001 & cancer removed from left knee 2007- pt not sure details, states "had surg & radiation pills"; hx migraines, SOB w/exertion, currently putting A/B ointment on ingrown toenail left big toe-red around nailbed & up toe a little; COVID in 2020 History of Any Multi-Drug Resistant Organisms: None Reported Past Surgical History: Heart Catheterization, Hysterectomy Additional Past Surgical History / Comment(s): ovaries removed, left knee surg, left carpal tunnel surg Past Anesthesia/Blood Transfusion Reactions: No Reported Reaction Past Psychological History: No Psychological Hx Reported Smoking Status: Current every day smoker Past Alcohol Use History: None Reported Past Drug Use History: None Reported - Past Family History Mother Family Medical History: No Reported History Medications and Allergies Home Medications Medication Instructions Recorded Confirmed Type Acetaminophen Tab [Tylenol Tab] 1,000 mg PO TID PRN 09/28/24 10/25/24 History Albuterol Inhaler [Ventolin Hfa 1 - 2 puff INHALATION Q6H PRN 09/28/24 10/25/24 History Inhaler] Budesonide/Formoterol Fumarate 1 puff INHALATION 1430 09/28/24 10/25/24 History [Symbicort 160-4.5 Mcg Inhaler] Fluticasone/Umeclidin/Vilanter 1 inhalation INHALATION DAILY 09/28/24 10/25/24 History [Trelegy Ellipta 100-62.5-25] Allergies Allergy/AdvReac Type Severity Reaction Status Date / Time Penicillins Allergy Severe Anaphylaxis Verified 11/02/24 06:00 amoxicillin Allergy Anaphylaxis Verified 11/02/24 06:00 ampicillin Allergy Anaphylaxis Verified 11/02/24 06:00 aspirin Allergy Rash/Hives Verified 11/02/24 06:00 ciprofloxacin [From Cipro] Allergy Rash/Hives/ Verified 11/02/24 06:00 Swelling codeine Allergy Itching Verified 11/02/24 06:00 ibuprofen Allergy Itching Verified 11/02/24 06:00 Iodinated Contrast Media Allergy Rash/Hives Verified 11/02/24 06:00 [Iodinated Contrast Media - Oral and] iodine Allergy Swelling Verified 11/02/24 06:00 nitrofurantoin Allergy Rash/Hives Verified 11/02/24 06:00 [From Macrodantin] NSAIDS (Non-Steroidal Allergy Rash/Hives/ Verified 11/02/24 06:00 Anti-Inflamma Swelling povidone-iodine Allergy Rash/Hives Verified 11/02/24 06:00 [From Betadine] Sulfa (Sulfonamide Allergy Rash/Hives Verified 11/02/24 06:00 Antibiotics) Surgical - Exam Vital Signs Temp Pulse Resp BP Pulse Ox 97.1 F L 81 16 173/74 97 11/02/24 06:15 11/02/24 06:15 11/02/24 06:15 11/02/24 06:15 11/02/24 06:15 CONSTITUTIONAL: Awake and alert, appears comfortable, cooperative, well- developed, well-nourished, no pain, no acute distress EYES: Pupils equal, round, reactive to light, normal ocular movement ENT: Moist mucous membranes without oral lesions present NECK: No masses, no bruits, trachea midline RESPIRATORY: Lungs sounds diminished in the bases bilaterally. Respirations even, nonlabored. Currently on room air with oxygen saturation 97%. Strong cough. No chest wall deformities. No clubbing or cyanosis present CARDIOVASCULAR: S1, S2 present. Regular rate and rhythm, sinus rhythm on telemetry. Palpable peripheral pulses bilaterally. No calf pain or tenderness noted. No significant lower extremity varicosities noted GASTROINTESTINAL: Abdomen soft, nontender, nondistended without masses or organomegaly noted. There is no rebound or guarding present. Active bowel sounds present 4 quadrants. GENITOURINARY: Deferred INTEGUMENTARY: Skin is warm and dry NEUROLOGIC: Cranial nerves II through XII intact, normal coordination, no obvious motor or sensory deficits, speech is normal MUSKULOSKELETAL: Able to move all extremities, strength equal bilaterally, normal posture PSYCHIATRIC: Alert and oriented to person place and time, appropriate affect, intact judgment and insight CLINICAL FRAILTY SCORE 3 Results - Labs Abnormal Lab Results - Last 24 Hours (Table) 10/25/24 Range/Units 08:50 Crossmatch See Detail - Imaging Additional studies: All preoperative testing reviewed prior to surgery Assessment and Plan Assessment: Severe aortic insufficiency, moderate aortic stenosis Chronic heart failure with reduced ejection fraction, EF 45% Hypertension Remote history of pneumonia COVID in 2020 Current tobacco dependence Mild COPD, preoperative FEV1 66% of predicted Plan: Will admit to the intensive care unit Roff/Cordpelon, arterial line to be placed by anesthesia Will start IV Primacor, Lasix Will maximize medical therapy Pulmonology consulted for preop clearance Cardiology consulted Increase activity as tolerated Home medications ordered Our plan is for surgical aortic valve replacement with ligation of the left atrial appendage by Dr. Lester tomorrow, November 03, 2024 N.p.o. after midnight GI/DVT prophylaxis More recommendations to follow
[2024-11-02 10:27] LABS: Glucose,Whole Blood 80 mg/dL (70-110)
--- NOTE | 2024-11-02 10:40 | P.ANPRN ---
Procedure Note - Anesthesia - Invasive Line Right Arterial Line Time Out Performed: Yes (921) Date of Procedure: 11/02/24 Time of Procedure: 09:22 Location of Patient: Phase I Preparation: Sterile Prep, Sterile Dressing Arterial Line Location: Radial (right radial) Ultrasound Used: Yes Purpose - Visualization and Identification of Vasculature: Yes Needle Guage: 20-gauge Image Stored and Saved: Yes Narrative: Invasive line placement per sterile protocol utilized. Placed 1 attempt. Sterile protocol. Lumen bled and flushed. Secured and dressed
--- NOTE | 2024-11-02 10:42 | P.ANPRN ---
Procedure Note - Anesthesia - Invasive Line Right Central Line Time Out Performed: Yes (921) Date of Procedure: 11/02/24 Time of Procedure: 09:31 Location of Patient: Phase I Preparation: Sterile Prep, Sterile Dressing Central Line Location: Internal Jugular (Right IJ) Ultrasound Used: Yes Purpose - Visualization and Identification of Vasculature: Yes Needle Guage: 18-gauge angio Image Stored and Saved: Yes Narrative: Invasive line placement per sterile protocol utilized. Anesthesia note Procedure: Right internal jugular central venous catheter insertion: 8.5-Chinese Cordis Sterile protocol followed. Right neck prepped. Ultrasound used. Lidocaine 1% used. Using ultrasound local anesthetic was instilled site over right Internal Jugular vein. Angiocath was used to gain access via ultrasound. Once free flow non-pulsatile blood flow was confirmed, 12 inch extension tubing was then placed on Angiocath. Once central venous pressure was confirmed, J-wire was then placed through Angiocath. Angiocath was then withdrawn. Local was instilled at J-wire site. Small skin vinny was then made with provided sterile scalpel. 8.5- Chinese Cordis was then inserted over the wire while maintaining control of wire at all times. Uneventful insertion with dilation. Free flow nonpulsatile blood flow through Cordis. Hooked up to IV tubing. Secured with suture. Dressings applied. Drapes Removed. Attempts x1.
--- NOTE | 2024-11-02 10:44 | P.ANPRN ---
Procedure Note - Anesthesia - Invasive Line Right Ledbetter Lorena Time Out Performed: Yes (921) Date of Procedure: 11/02/24 Time of Procedure: 09:34 Location of Patient: PreOp Preparation: Sterile Prep, Sterile Dressing Ledbetter Lorena Line Location: Internal Jugular (Right) Ultrasound Used: No Purpose - Visualization and Identification of Vasculature: No Image Stored and Saved: No Narrative: Invasive line placement per sterile protocol utilized. Anesthesia note Procedure right Ledbetter-Lorena catheter placed through right internal jugular central venous catheter Sterile protocol maintained from previous procedure. Ledbetter-Lorena catheter sterilely placed in sheath and flushed prior to insertion. After advancing 15 cm Ledbetter-Lorena catheter was then slowly inserted with balloon up. Advanced through CVP, RV to PA waveform. Ledbetter-Lorena catheter wedged around 49 cm. Balloon down. Catheter withdrawn 5 cm. . No wedge. Proximal and distal sites locked on sheath. Attempts x1. Sterile drapes removed and dressings applied.
[2024-11-02] MEDS: SODIUM CHLORIDE 0.9% 1,000 ML IV SCH (11:00)
[2024-11-02] MEDS: HEPARIN SODIUM,PORCINE 5,000 UNIT/ML 1 ML VIAL SQ SCH (11:14)
[2024-11-02] MEDS: PANTOPRAZOLE 40 MG TABLET PO SCH (11:14)
[2024-11-02] MEDS: FUROSEMIDE 10 MG/ML 2 ML VIAL IV SCH (11:14)
[2024-11-02 11:38] LABS: Basophils # (A) 0.1 k/uL (0-0.2); Basophils % (A) 1 %; Eosinophils # (A) 0.2 k/uL (0-0.7); Eosinophils % (A) 3 %; HCT 40.1 % (34.0-46.0); HGB 12.9 gm/dL (11.4-16.0); Lymphocytes # (A) 2.4 k/uL (1.0-4.8); Lymphocytes % (A) 33 %; MCH 32.1 pg (25.0-35.0); MCHC 32.3 g/dL (31.0-37.0); MCV 99.4 fL (80.0-100.0); Mean Platelet Volume 8.2; Monocytes # (A) 0.4 k/uL (0-1.0); Monocytes % (A) 5 %; Neutrophils # (A) 4.1 k/uL (1.3-7.7); Neutrophils % (A) 56 %; Platelet Count 153 k/uL (150-450); RBC 4.03 m/uL (3.80-5.40); RDW 14.3 % (11.5-15.5); WBC 7.3 k/uL (3.8-10.6)
[2024-11-02] MEDS: MILRINONE-D5W PMX 20 MG in DEXTROSE/WATER 1 100ML.BAG IV SCH ×2 (11:41→15:17)
[2024-11-02] MEDS: IPRATROPIUM-ALBUTEROL 3 ML NEB INHALATION SCH (11:45)
[2024-11-02] MEDS: SYMBICORT 160-4.5 MCG INHALER INHALATION SCH (11:49)
[2024-11-02] MEDS: ACETAMINOPHEN TAB 325 MG TAB PO PRN (11:55)
--- NOTE | 2024-11-02 12:23 | XR ---
EXAMINATION TYPE: XR chest 1V portable DATE OF EXAM: 11/02/2024 12:11 PM COMPARISON: Chest radiographs from 10/25/2024 CLINICAL INDICATION: Female, 49 years old with history of preop AVR; [facility] TECHNIQUE: XR chest 1V portable Frontal view of the chest. FINDINGS: Lungs/Pleura: There is no evidence of pleural effusion, focal consolidation, or pneumothorax. Pulmonary vascularity: Unremarkable. Heart/mediastinum: Cardiomediastinal silhouette is unremarkable. Musculoskeletal: No acute osseous pathology. Other findings: None Lines/Tubes: There is a Mac[place]-Lorena catheter with tip projecting over the spine. IMPRESSION: No acute cardiopulmonary disease/process. [facility], , 11/02/2024 12:21 PM
--- NOTE | 2024-11-02 13:40 | P.CONS ---
History of Present Illness - Reason for Consult Consult date: 11/02/24 Medical management Requesting physician: Reymundo Lester - Chief Complaint Moderate aortic stenosis ,status post AVR - History of Present Illness This is a 49-year-old female Completed cardiac catheterization on 10/02/2024 reporting normal coronary arteries, mildly elevated left-sided filling pressures, 4+ aortic regurgitation, moderate aortic stenosis. Scheduled for elective aortic valve replacement today. Rescheduled for tomorrow due to no available cardioplegia solution. additional medical history includes CHF with reduced EF, hypertension, nicotine dependence, COVID 2020, asthma, ovarian cancer 2001-status post surgery, hypertension and multiple other medical issues. Patient sitting up in chair, lined/swan elena, on Primacor. Telemetry sinus rhythm. Currently denies chest pain, palpitations or shortness of breath. Review of Systems ROS Statement: Those systems with pertinent positive or pertinent negative responses have been documented in the HPI. ROS Other: All systems not noted in ROS Statement are negative. Past Medical History Past Medical History: Asthma, Cancer, Chest Pain / Angina, Heart Failure, COPD, Hypertension, Osteoarthritis (OA), Pneumonia Additional Past Medical History / Comment(s): heart murmur, hypoglycemia, ovarian ca 2001 & cancer removed from left knee 2007- pt not sure details, states "had surg & radiation pills"; hx migraines, SOB w/exertion, currently putting A/B ointment on ingrown toenail left big toe-red around nailbed & up toe a little; COVID in 2020 History of Any Multi-Drug Resistant Organisms: None Reported Past Surgical History: Heart Catheterization, Hysterectomy Additional Past Surgical History / Comment(s): ovaries removed, left knee surg, left carpal tunnel surg Past Anesthesia/Blood Transfusion Reactions: No Reported Reaction Past Psychological History: No Psychological Hx Reported Smoking Status: Current every day smoker Past Alcohol Use History: None Reported Past Drug Use History: None Reported - Past Family History Mother Family Medical History: No Reported History Medications and Allergies Home Medications Medication Instructions Recorded Confirmed Type Acetaminophen Tab [Tylenol Tab] 1,000 mg PO TID PRN 09/28/24 10/25/24 History Albuterol Inhaler [Ventolin Hfa 1 - 2 puff INHALATION Q6H PRN 09/28/24 10/25/24 History Inhaler] Budesonide/Formoterol Fumarate 1 puff INHALATION 1430 09/28/24 10/25/24 History [Symbicort 160-4.5 Mcg Inhaler] Fluticasone/Umeclidin/Vilanter 1 inhalation INHALATION DAILY 09/28/24 10/25/24 History [Dell Ellipta 100-62.5-25] Allergies Allergy/AdvReac Type Severity Reaction Status Date / Time aspirin Allergy Severe Swelling Verified 11/03/24 07:41 Penicillins Allergy Severe Anaphylaxis Verified 11/02/24 06:00 amoxicillin Allergy Anaphylaxis Verified 11/02/24 06:00 ampicillin Allergy Anaphylaxis Verified 11/02/24 06:00 ciprofloxacin [From Cipro] Allergy Rash/Hives/ Verified 11/02/24 06:00 Swelling codeine Allergy Itching Verified 11/02/24 06:00 Fish Containing Products Allergy Anaphylaxis Verified 11/02/24 12:26 [Fish] ibuprofen Allergy Itching Verified 11/02/24 06:00 Iodinated Contrast Media Allergy Rash/Hives Verified 11/02/24 06:00 [Iodinated Contrast Media - Oral and] iodine Allergy Swelling Verified 11/02/24 06:00 Mushroom Allergy Anaphylaxis Verified 11/02/24 12:26 nitrofurantoin Allergy Rash/Hives Verified 11/02/24 06:00 [From Macrodantin] NSAIDS (Non-Steroidal Allergy Rash/Hives/ Verified 11/02/24 06:00 Anti-Inflamma Swelling povidone-iodine Allergy Rash/Hives Verified 11/02/24 06:00 [From Betadine] shellfish derived [Shellfish] Allergy Anaphylaxis Verified 11/02/24 12:26 Sulfa (Sulfonamide Allergy Rash/Hives Verified 11/02/24 06:00 Antibiotics) Physical Exam Vitals: Vital Signs Temp Pulse Resp BP BP Pulse Ox 11/02/24 06:15 97.1 F L 81 16 154/57 173/74 97 Intake and Output 11/01/24 11/02/24 11/02/24 22:59 06:59 14:59 Intake Total 500 Balance 500 Intake: IV 500 Other: Weight 82.2 kg PHYSICAL EXAM: VITAL SIGNS: [Reviewed] GENERAL: Alert and oriented x 3, sitting up on chair, no acute distress HEENT: Atraumatic, normocephalic conjunctivae normal. eyes normal. MMM. NECK: Supple, no JVD. No thyroid enlargement. No LNs CARDIOVASCULAR: S1, S2 regular. RESPIRATION: Breath sounds diminished in the bases. No rhonchi or crackles. ABDOMEN: Soft, nontender . No guarding. no masses palpable. No ascites, No hepatosplenomegaly.Bowel sounds heard. LEGS: No edema. no swelling NERVOUS SYSTEM: Cranial N 2-12 grossly normal. No focal deficits. Skin: Warm and dry, no rash Results CBC & Chem 7: 11/03/24 03:01 11/02/24 14:20 Assessment and Plan Assessment: 4+ aortic regurgitation, moderate aortic stenosis, pending AVR Asthma COPD COVID 2020 Chronic CHF, Ongoing nicotine dependent Hypertension Osteoarthritis Morbid obesity, BMI 32 Plan: Continue on current medication regime ,monitoring and symptomatic treatment. Scheduled for aortic valve replacement tomorrow. ICU management as per technician helper instrument/CTS. aggressive pulmonary toileting with incentive spirometer reinforced. Smoking cessation reinforced. The impression and plan of care has been dictated as directed. : I performed a history and examination of this patient, discussed the same with the dictator. I agree with the dictator's note ,documented as a scribe. Any additional findings or plans will be noted.
[2024-11-02] MEDS ORDERED: SYMBICORT 160-4.5 MCG INHALER INHALATION SCH (14:30)
[2024-11-02 14:42] LABS: Magnesium 1.8 mg/dL (1.6-2.3)
[2024-11-02] MEDS: PHENYLEPHRINE 10 MG/ML VIAL IV ONE (15:18)
[2024-11-02] MEDS: MAGNESIUM SULFATE-D5W PMX 1 GM in DEXTROSE/WATER 1 100ML.BAG IVPB ONE (16:20)
--- NOTE | 2024-11-02 16:36 | P.CNPUL ---
History of Present Illness Consult date: 11/02/24 Requesting physician: Reymundo Lester Reason for consult: other (Ventilator/critical care management) Chief complaint: Dyspnea on exertion History of present illness: This is a pleasant 49-year-old female patient with a known history of chronic and ongoing tobacco dependence, obstructive pulmonary disease with an FEV1 value 66% of predicted, hypertension,, chronic systolic congestive heart failure with an ejection fraction of 45% and severe aortic insufficiency with moderate aortic stenosis. She was brought in today electively for an aortic valve replacement however there was no cardioplegia solution available and she is postponed until tomorrow. She was admitted to the intensive care unit following Wilmot-Lorena catheter placement. She was initiated on IV Primacor currently at 0.25 mcg /kg/min. She is awake and alert. Sitting up in bed. Maintaining good O2 saturations in the 90s on room air. She is afebrile. Hemodynamically stable. PA pressure 19/4. CVP 1. Cardiac output 5.1. Cardiac index 2.8. She has been initiated on DuoNeb inhalations, Symbicort. She has been educated regarding the use the incentive spirometer. Heparin for DVT prophylaxis. Review of Systems REVIEW OF SYSTEMS: CONSTITUTIONAL: Denies any recent significant weight loss or weight gain. EYES: Denies change in vision. EARS, NOSE, MOUTH, THROAT: Denies headaches, denies sore throat. CARDIOVASCULAR: Denies chest pain, palpitations or syncopal episodes. RESPIRATORY: Positive for shortness of breath, no cough, congestion or hemoptysis. GASTROINTESTINAL: Denies change in appetite, denies abdominal pain GENITOURINARY: Denies hematuria, denies infections. MUSKULOSKELETAL: Denies pain, denies swelling. INTEGUMENTARY: Denies rash, denies eczema. NEUROLOGICAL: Denies recent memory loss, no recent seizure activity. PSYCHIATRIC: Denies anxiety, denies depression. HEMATOLOGIC/LYMPHATIC: Denies anemia, denies enlarged lymph nodes. Past Medical History Past Medical History: Asthma, Cancer, Chest Pain / Angina, Heart Failure, COPD, Hypertension, Osteoarthritis (OA), Pneumonia Additional Past Medical History / Comment(s): heart murmur, hypoglycemia, ovarian ca 2001 & cancer removed from left knee 2007- pt not sure details, states "had surg & radiation pills"; hx migraines, SOB w/exertion, currently put ting A/B ointment on ingrown toenail left big toe-red around nailbed & up toe a little; COVID in 2020 History of Any Multi-Drug Resistant Organisms: None Reported Past Surgical History: Heart Catheterization, Hysterectomy Additional Past Surgical History / Comment(s): ovaries removed, left knee surg, left carpal tunnel surg Past Anesthesia/Blood Transfusion Reactions: No Reported Reaction Past Psychological History: No Psychological Hx Reported Smoking Status: Current every day smoker Past Alcohol Use History: None Reported Past Drug Use History: None Reported - Past Family History Mother Family Medical History: No Reported History Medications and Allergies Home Medications Medication Instructions Recorded Confirmed Type Acetaminophen Tab [Tylenol Tab] 1,000 mg PO TID PRN 09/28/24 10/25/24 History Albuterol Inhaler [Ventolin Hfa 1 - 2 puff INHALATION Q6H PRN 09/28/24 10/25/24 History Inhaler] Budesonide/Formoterol Fumarate 1 puff INHALATION 1430 09/28/24 10/25/24 History [Symbicort 160-4.5 Mcg Inhaler] Fluticasone/Umeclidin/Vilanter 1 inhalation INHALATION DAILY 09/28/24 10/25/24 History [Trelegy Ellipta 100-62.5-25] Allergies Allergy/AdvReac Type Severity Reaction Status Date / Time Penicillins Allergy Severe Anaphylaxis Verified 11/02/24 06:00 amoxicillin Allergy Anaphylaxis Verified 11/02/24 06:00 ampicillin Allergy Anaphylaxis Verified 11/02/24 06:00 aspirin Allergy Rash/Hives Verified 11/02/24 06:00 ciprofloxacin [From Cipro] Allergy Rash/Hives/ Verified 11/02/24 06:00 Swelling codeine Allergy Itching Verified 11/02/24 06:00 Fish Containing Products Allergy Anaphylaxis Verified 11/02/24 12:26 [Fish] ibuprofen Allergy Itching Verified 11/02/24 06:00 Iodinated Contrast Media Allergy Rash/Hives Verified 11/02/24 06:00 [Iodinated Contrast Media - Oral and] iodine Allergy Swelling Verified 11/02/24 06:00 Mushroom Allergy Anaphylaxis Verified 11/02/24 12:26 nitrofurantoin Allergy Rash/Hives Verified 11/02/24 06:00 [From Macrodantin] NSAIDS (Non-Steroidal Allergy Rash/Hives/ Verified 11/02/24 06:00 Anti-Inflamma Swelling povidone-iodine Allergy Rash/Hives Verified 11/02/24 06:00 [From Betadine] shellfish derived [Shellfish] Allergy Anaphylaxis Verified 11/02/24 12:26 Sulfa (Sulfonamide Allergy Rash/Hives Verified 11/02/24 06:00 Antibiotics) Physical Exam Vitals: Vital Signs Temp Pulse Pulse Resp BP BP BP 11/02/24 16:00 98.2 F 90 20 140/76 11/02/24 15:59 16 11/02/24 15:51 87 11/02/24 15:37 65 11/02/24 15:00 71 16 11/02/24 14:00 80 21 11/02/24 13:00 78 16 11/02/24 12:03 85 11/02/24 12:00 75 16 11/02/24 11:49 74 11/02/24 11:45 62 11/02/24 11:30 73 15 11/02/24 11:15 71 15 11/02/24 11:00 97.8 F 75 19 11/02/24 10:45 76 11 L 11/02/24 06:15 97.1 F L 81 16 154/57 173/74 Pulse Ox 11/02/24 16:00 92 L 11/02/24 15:59 11/02/24 15:51 11/02/24 15:37 11/02/24 15:00 94 L 11/02/24 14:00 95 11/02/24 13:00 95 11/02/24 12:03 11/02/24 12:00 96 11/02/24 11:49 11/02/24 11:45 93 L 11/02/24 11:30 94 L 11/02/24 11:15 94 L 11/02/24 11:00 94 L 11/02/24 10:45 97 11/02/24 06:15 97 Intake and Output 11/02/24 11/02/24 11/02/24 06:59 14:59 22:59 Intake Total 500 320 40 Output Total 1900 400 Balance 500 -1580 -360 Intake: IV 500 80 40 Sodium Chloride 0.9% 1, 80 40 000 ml @ 20 mls/hr IV . Q24H [facility] Rx#:[id number] Oral 240 Output: Urine 1900 400 Other: Voiding Method Indwelling Catheter Indwelling Catheter Weight 82.2 kg ABP, PAP, CO, CI - Last 8 Hours Arterial Blood Pressure 137/52 Arterial Blood Pressure 148/45 Arterial Blood Pressure 149/45 Arterial Blood Pressure 146/38 Arterial Blood Pressure 145/63 Arterial Blood Pressure 162/58 Arterial Blood Pressure 174/66 Arterial Blood Pressure 183/65 Arterial Blood Pressure 180/64 Arterial Blood Pressure 175/63 Pulmonary Artery Pressure 21/8 Pulmonary Artery Pressure 19/4 Pulmonary Artery Pressure 24/7 Pulmonary Artery Pressure 18/0 Pulmonary Artery Pressure 22/9 Pulmonary Artery Pressure 28/10 Pulmonary Artery Pressure 29/13 Pulmonary Artery Pressure 28/13 Pulmonary Artery Pressure 30/10 Cardiac Output 5.1 Cardiac Output 5.3 Cardiac Index 2.8 Cardiac Index 2.9 GENERAL EXAM: Alert, pleasant 49-year-old female, on room air, comfortable in no apparent distress. HEAD: Normocephalic. EYES: Normal reaction of pupils, equal size. NOSE: Clear with pink turbinates. THROAT: No erythema or exudates. Edentulous. NECK: No masses, no JVD. Right IJ Wilmot-Lorena catheter in place. CHEST: No chest wall deformity. LUNGS: Equal air entry with no crackles, wheeze, rhonchi or dullness. CVS: S1 and S2 normal with an audible murmur, regular rhythm. ABDOMEN: No hepatosplenomegaly, normal bowel sounds, no guarding or rigidity. SPINE: No scoliosis or deformity SKIN: No rashes CENTRAL NERVOUS SYSTEM: No focal deficits, tone is normal in all 4 extremities. EXTREMITIES: There is no peripheral edema. No clubbing, no cyanosis. Peripheral pulses are intact. Results - Laboratory Findings CBC and BMP: 11/02/24 11:25 Abnormal lab findings: Abnormal Labs 10/25/24 08:50 Crossmatch See Detail - Diagnostic Findings Chest x-ray: image reviewed Assessment and Plan Assessment: Severe aortic insufficiency, moderate aortic stenosis. Plans are for aortic valve replacement tomorrow November 03, 2024 History of chronic systolic congestive heart failure with an ejection fraction of 45% Chronic and ongoing tobacco dependence Chronic obstructive pulmonary disease with an FEV1 value 66% of predicted Hypertension History of ovarian cancer Plan: The patient was seen and evaluated Chest x-ray, labs and medications reviewed Currently stable and on room air oxygen Continue DuoNeb inhalations, Symbicort Continue heparin for DVT prophylaxis Educated regarding the use of the incentive spirometer Educated regarding the importance of complete smoking cessation Plan is for aortic valve replacement tomorrow We will continue to follow and make further recommendations based on her c linical status I have personally seen and examined the patient, performed the documentation and the assessment and plan as written. Number of minutes spent on the visit: 20 Dictation was produced using [employer] dictation software. Please excuse any grammatical, word or spelling errors.
[2024-11-02 19:40] LABS: ALT 16 U/L (4-34); AST 16 U/L (14-36); African American GFR (CKD) >90 (>60 ml/min/1.73 sqM); Albumin 3.6 g/dL (3.5-5.0); Alkaline Phosphatase 69 U/L (38-126); Anion Gap 7 mmol/L; Blood Urea Nitrogen 13 mg/dL (7-17); Calcium 9.2 mg/dL (8.4-10.2); Carbon Dioxide 25 mmol/L (22-30); Chloride 103 mmol/L (98-107); Glucose 127 mg/dL (74-99); Non-African American GFR(CKD) 79 (>60 ml/min/1.73 sqM); Potassium 3.7 mmol/L (3.5-5.1); Sodium 135 mmol/L (137-145); Total Bilirubin 0.4 mg/dL (0.2-1.3); Total Protein 6.1 g/dL (6.3-8.2)
[2024-11-02] MEDS: SENNOSIDES 8.6 MG TAB PO SCH (20:23)
[2024-11-02 20:28] LABS: Glucose,Whole Blood 163 mg/dL (70-110)
[2024-11-02] MEDS: POTASSIUM CHLORIDE ER 20 MEQ TAB.ER PO SCH (20:53)
[2024-11-03] MEDS ORDERED: CLEVIDIPINE BUTYRATE 25 MG in EMPTY BAG 1 BAG IV SCH (05:00)
[2024-11-03] MEDS ORDERED: MANNITOL 25% 12.5 GM/50 ML VIAL IV ONE ×2 (05:00)
[2024-11-03] MEDS ORDERED: LACTATED RINGERS 1,000 ML IV SCH (05:00)
[2024-11-03] MEDS ORDERED: INSULIN REGULAR 100 UNIT in SODIUM CHLORIDE 0.9% 100 ML IV SCH (05:00)
[2024-11-03] MEDS ORDERED: PHENYLEPHRINE 40 MG in SODIUM CHLORIDE 0.9% 250 ML IV ONE (05:00)
[2024-11-03] MEDS ORDERED: CHLORHEXIDINE GLUCONATE 15 ML CUP MUCOUS MEM ONE (05:00)
[2024-11-03] MEDS ORDERED: NITROGLYCERIN-D5W PMX 50 MG in DEXTROSE/WATER 1 250ML.BAG IV SCH (05:00)
[2024-11-03] MEDS ORDERED: PROTAMINE SULFATE 250 MG in EMPTY BAG 1 BAG IV ONE (05:00)
[2024-11-03] MEDS ORDERED: ALBUMIN HUMAN 5% 500 ML in EMPTY BAG 1 BAG IVPB ONE ×6 (05:00)
[2024-11-03] MEDS ORDERED: TRANEXAMIC ACID 2,000 MG in SODIUM CHLORIDE 0.9% 80 ML IV ONE (05:00)
[2024-11-03] MEDS ORDERED: MAGNESIUM SULFATE 16.24 MEQ in EMPTY SYRINGE 1 SYR IV ONE (05:00)
[2024-11-03] MEDS ORDERED: CARDIOPLEGIC SOLN (K+ 16 MEQ/L 1,000 ML with SOD BICARB SYR 8.4% (1 MEQ/ML) 20 ML, LIDO... PERFUSION NR (05:00)
[2024-11-03] MEDS ORDERED: CALCIUM CHLORIDE 100 MG/ML 10 ML SYRINGE IVP ONE (05:00)
[2024-11-03] MEDS ORDERED: ceFAZolin 1,000 MG in SODIUM CHLORIDE 0.9% IRRIGATIO 1,000 ML IRRIGATION ONE (05:00)
[2024-11-03] MEDS ORDERED: HEPARIN SODIUM,PORCINE (1 ML) 5,000 UNIT in SODIUM CHLORIDE 0.9% 500 ML 500 ML IV ONE (05:00)
[2024-11-03] MEDS ORDERED: HEPARIN SODIUM 1,000 UN/ML (10ML VL) IV ONE (05:00)
[2024-11-03] MEDS ORDERED: ALBUMIN HUMAN 25% 50 ML in EMPTY BAG 1 BAG IVPB ONE (05:00)
[2024-11-03] MEDS ORDERED: SODIUM BICARB 8.4% 50 ML SYR (1 MEQ/ML) IV ONE (05:00)
[2024-11-03] MEDS ORDERED: NITROGLYCERIN-D5W PMX 25 MG/250 ML BTL IV ONE (05:00)
[2024-11-03] MEDS ORDERED: PROTAMINE SULFATE 10 MG/ML 25 ML VIAL IV ONE (05:00)
[2024-11-03] MEDS ORDERED: NOREPINEPHRINE 4 MG in SODIUM CHLORIDE 0.9% 250 ML IV SCH (05:00)
[2024-11-03] MEDS: METOPROLOL TARTRATE 12.5 MG TAB PO ONE (06:19)
[2024-11-03] MEDS: ATORVASTATIN 10 MG TAB PO ONE (06:19)
[2024-11-03] MEDS: ASPIRIN 325 MG TAB PO ONE (07:38)
[2024-11-03 07:56] LABS: Basophils % (A) 0 %; Eosinophils # (A) 0.2 k/uL (0-0.7); Eosinophils % (A) 2 %; HCT 40.2 % (34.0-46.0); Lymphocytes # (A) 2.3 k/uL (1.0-4.8); Lymphocytes % (A) 19 %; MCHC 32.3 g/dL (31.0-37.0); MCV 99.2 fL (80.0-100.0); Mean Platelet Volume 8.4; Monocytes # (A) 0.7 k/uL (0-1.0); Monocytes % (A) 6 %; Neutrophils # (A) 8.7 k/uL (1.3-7.7); Neutrophils % (A) 72 %; Platelet Count 151 k/uL (150-450); RBC 4.05 m/uL (3.80-5.40); RDW 13.9 % (11.5-15.5)
[2024-11-03 08:09] LABS: African American GFR (CKD) >90 (>60 ml/min/1.73 sqM); Anion Gap 8 mmol/L; Blood Urea Nitrogen 15 mg/dL (7-17); Calcium 8.8 mg/dL (8.4-10.2); Carbon Dioxide 24 mmol/L (22-30); Chloride 104 mmol/L (98-107); Glucose 106 mg/dL (74-99); Non-African American GFR(CKD) >90 (>60 ml/min/1.73 sqM); Sodium 136 mmol/L (137-145)
[2024-11-03] MEDS ORDERED: PROPOFOL 10 MG/ML 20 ML VIAL IV ONE (08:10)
[2024-11-03] MEDS ORDERED: MIDAZOLAM HCL 10 MG/10 ML VIAL ONE (08:10)
[2024-11-03] MEDS ORDERED: fentaNYL (PF) 50 MCG/ML 50 ML VIAL ONE (08:10)
[2024-11-03] MEDS ORDERED: ALBUMIN HUMAN 5% (25gm) 500 ML VIAL IVPB ONE (08:10)
[2024-11-03] MEDS ORDERED: ePHEDrine 50 MG/ML 1 ML VIAL ONE (08:10)
[2024-11-03] MEDS ORDERED: VECURONIUM 10 MG VIAL IV ONE (08:10)
--- NOTE | 2024-11-03 08:11 | P.PN ---
Progress Note - Text Progress Note Date: 11/03/24 Patient not seen, recently left the floor for AVR procedure.
[2024-11-03] MEDS: SODIUM CHLORIDE 0.9% 50 ML with ceFAZolin 2,000 MG IV ONE (08:20)
[2024-11-03 08:27] LABS: ABG Base Excess -0.8 mmol/L; ABG Glucose Whole Blood 109 mg/dL (75-99); ABG HCO3 24 mmol/L (21-25); ABG Hematocrit 35 % (34.0-46.0); ABG Ionized Calcium 4.6 mg/dL (4.5-5.3); ABG Lactic Acid Whole Blood 1.6 mmol/L (0.5-1.6); ABG Oxygen Saturation 99.3 % (94-97); ABG PCO2 39 mmHg (35-45); ABG PO2 292 mmHg (83-108); ABG Potassium Whole Blood 4.1 mmol/L (3.4-4.5); ABG Sodium Whole Blood 140 mmol/L (135-146); ABG TCO2 22 mmol/L (19-24)
[2024-11-03] MEDS: SODIUM CHLORIDE 0.9% 500 ML 500 ML with HEPARIN SODIUM,PORCINE (1 ML) 5,000 UNIT IV ONE ×2 (08:59)
[2024-11-03] MEDS: PAPAVERINE 360 MG in SODIUM CHLORIDE 0.9% 90 ML IV ONE (08:59)
[2024-11-03] MEDS: ceFAZolin 1,000 MG in SODIUM CHLORIDE 0.9% 1,000 ML IRRIGATION ONE (08:59)
[2024-11-03 09:04] LABS: ABG Base Excess -1.2 mmol/L; ABG Glucose Whole Blood 118 mg/dL (75-99); ABG HCO3 24 mmol/L (21-25); ABG Hematocrit 35 % (34.0-46.0); ABG Ionized Calcium 4.6 mg/dL (4.5-5.3); ABG Lactic Acid Whole Blood 1.7 mmol/L (0.5-1.6); ABG Oxygen Saturation 99.4 % (94-97); ABG PCO2 40 mmHg (35-45); ABG PH 7.38 (7.35-7.45); ABG PO2 407 mmHg (83-108); ABG Potassium Whole Blood 4.1 mmol/L (3.4-4.5); ABG Sodium Whole Blood 139 mmol/L (135-146); ABG TCO2 22 mmol/L (19-24)
[2024-11-03 09:26] LABS: ABG Base Excess -2.9 mmol/L; ABG Glucose Whole Blood 124 mg/dL (75-99); ABG HCO3 21 mmol/L (21-25); ABG Hematocrit 27 % (34.0-46.0); ABG Ionized Calcium 3.9 mg/dL (4.5-5.3); ABG Lactic Acid Whole Blood 1.4 mmol/L (0.5-1.6); ABG Oxygen Saturation >99.4 % (94-97); ABG PCO2 34 mmHg (35-45); ABG Sodium Whole Blood 137 mmol/L (135-146)
--- NOTE | 2024-11-03 09:28 | P.ANPRN ---
Procedure Note - Anesthesia - JIM Intraop Pre Bypass JIM Intraop - Anesthesia Indication: aortic stenosis, open heart AVR Date of Procedure: 11/03/24 Pre-operative Diagnosis: aortic stenosis Post-operative Diagnosis: same Surgeon: Reymundo Lester Ejection Fraction: Normal Regional Wall Motion Abnormalities: None Left Ventricle Hypertrophy: No R. Ventricle Function: Normal Anatomy: Trileaflet (thickened leaflets) Aortic Stenosis: Moderate (mean gradient 15 peak 37) Aortic Regurgitation: Severe Mitral Stenosis: None Mitral Regurgitation: None Tricuspid Stenosis: None Tricuspid Regurgitation: Trace Pulmonic Stenosis: None Pulmonic Regurgitation: None R. Atrial Dilation: No R. Atrial PFO: No L. Atrial Dilation: No Aortic Dissection: No Aortic Calcification: None Plural Effusion: None
[2024-11-03 09:54] LABS: ABG Base Excess -2.8 mmol/L; ABG Glucose Whole Blood 130 mg/dL (75-99); ABG HCO3 22 mmol/L (21-25); ABG Hematocrit 28 % (34.0-46.0); ABG Ionized Calcium 4.3 mg/dL (4.5-5.3); ABG Lactic Acid Whole Blood 1.6 mmol/L (0.5-1.6); ABG Oxygen Saturation >99.4 % (94-97); ABG PCO2 39 mmHg (35-45); ABG PH 7.37 (7.35-7.45); ABG PO2 393 mmHg (83-108); ABG Potassium Whole Blood 4.2 mmol/L (3.4-4.5); ABG Sodium Whole Blood 137 mmol/L (135-146)
[2024-11-03 10:21] LABS: ABG Base Excess -2.6 mmol/L; ABG Glucose Whole Blood 119 mg/dL (75-99); ABG HCO3 23 mmol/L (21-25); ABG Hematocrit 27 % (34.0-46.0); ABG Ionized Calcium 4.4 mg/dL (4.5-5.3); ABG Lactic Acid Whole Blood 1.7 mmol/L (0.5-1.6); ABG Oxygen Saturation >99.4 % (94-97); ABG PCO2 39 mmHg (35-45); ABG PH 7.37 (7.35-7.45); ABG PO2 324 mmHg (83-108); ABG Potassium Whole Blood 4.5 mmol/L (3.4-4.5); ABG Sodium Whole Blood 137 mmol/L (135-146)
[2024-11-03 11:07] LABS: ABG Base Excess -3.2 mmol/L; ABG Glucose Whole Blood 117 mg/dL (75-99); ABG HCO3 22 mmol/L (21-25); ABG Hematocrit 27 % (34.0-46.0); ABG Ionized Calcium 4.9 mg/dL (4.5-5.3); ABG Oxygen Saturation 98.8 % (94-97); ABG PCO2 37 mmHg (35-45); ABG PH 7.37 (7.35-7.45); ABG PO2 137 mmHg (83-108); ABG Potassium Whole Blood 4.4 mmol/L (3.4-4.5); ABG Sodium Whole Blood 137 mmol/L (135-146); ABG TCO2 21 mmol/L (19-24)
--- NOTE | 2024-11-03 11:16 | P.ANPRN ---
Procedure Note - Anesthesia - JIM Intraop Post Bypass JIM Intraop Post Bypass Procedure Performed: avr Ejection Fraction: Normal Regional Wall Motion Abnormalities: None R. Ventricle Function: Normal Aortic Valve: prostethic valve in place. Residual mean gradient below ten at a index of 4. no perivalvular leak. no AI Mitral Valve: Unchanged Tricuspid: Unchanged Pulmonic: Unchanged Aortic Dissection: No
[2024-11-03 11:41] LABS: ABG Base Excess -3.8 mmol/L; ABG Glucose Whole Blood 116 mg/dL (75-99); ABG HCO3 21 mmol/L (21-25); ABG Hematocrit 30 % (34.0-46.0); ABG Ionized Calcium 4.4 mg/dL (4.5-5.3); ABG Oxygen Saturation 98.7 % (94-97); ABG PCO2 36 mmHg (35-45); ABG PH 7.37 (7.35-7.45); ABG PO2 139 mmHg (83-108); ABG Potassium Whole Blood 4.1 mmol/L (3.4-4.5); ABG Sodium Whole Blood 138 mmol/L (135-146); ABG TCO2 20 mmol/L (19-24)
[2024-11-03 12:09] LABS: ABG PO2 >420 mmHg (83-108)
[2024-11-03 12:10] LABS: ABG Lactic Acid Whole Blood 2.4 mmol/L (0.5-1.6); Allen Test Performed? no
[2024-11-03 12:10] LABS: Allen Test Performed? No
[2024-11-03 12:11] LABS: ABG Lactic Acid Whole Blood 2.6 mmol/L (0.5-1.6); Allen Test Performed? No
[2024-11-03 12:11] LABS: Allen Test Performed? no
[2024-11-03 12:21] LABS: Glucose,Whole Blood 110 mg/dL (70-110)
[2024-11-03] MEDS ORDERED: Phosphorus Replacement Protoco 1 EACH MISC MISCELLANE PRN (12:38)
[2024-11-03] MEDS ORDERED: DEXTROSE 50% SYRINGE 50 ML IVP PRN ×2 (12:38)
[2024-11-03] MEDS ORDERED: Potassium Replacement Protocol 1 EACH MISC MISCELLANE PRN (12:38)
[2024-11-03] MEDS ORDERED: Magnesium Replacement Protocol 1 EACH MISC MISCELLANE PRN (12:38)
[2024-11-03] MEDS ORDERED: ALBUMIN HUMAN 5% 250 ML in EMPTY BAG 1 BAG IVPB PRN (12:38)
[2024-11-03] MEDS ORDERED: BENZOCAINE/MENTHOL LOZENG 1 EACH LOZENGE MUCOUS MEM PRN (12:38)
[2024-11-03] MEDS ORDERED: CALCIUM GLUCONATE IN NACL 2 GM in SALINE 1 100ML.BAG IVPB PRN (12:38)
[2024-11-03] MEDS ORDERED: IPRATROPIUM-ALBUTEROL 3 ML NEB INHALATION PRN (12:38)
--- NOTE | 2024-11-03 12:39 | P.OP ---
Date of Procedure: 11/03/24 Preoperative Diagnosis: Aortic valvular insufficiency, aortic valvular stenosis, chronic valve related heart failure Postoperative Diagnosis: Same Procedure(s) Performed: Aortic valve replacement with 25 mm Verdugo Inspiris bovine pericardial valve prosthesis including aortic root enlargement (Jeramie Manzanares technique), occlusion left atrial appendage with 35 mm AtriCure clip Implants: 25 mm Verdugo Inspiris bovine pericardial valve prosthesis, Hemashield patch Anesthesia: GETA Surgeon: Reymundo Lester Fashion Supervisor #1: Ariel Malave Estimated Blood Loss (ml): 300 Pathology: other (Aortic valve) Condition: stable Disposition: ICU Indications for Procedure: 49-year-old female with long history of aortic valve disease presents with worsening and disabling dyspnea. She is followed by Dr. Vicente of cardiology. She was referred to me for aortic valve replacement. Despite a young age of 49 and she did not feel comfortable being placed on Coumadin. We are for recommended a tissue valve. Given her small annular size, it was felt best to plan on likely doing a root enlargement. All of this was discussed extensively with the patient and her as well as with cardiology. Patient has chronic heart failure secondary to her combined aortic valvular insufficiency and stenosis. She was scheduled for surgery on 320 but on admission was obviously of the worse heart failure than we like. Was decided to admit her overnight and maximize her medical status prior to taking her to surgery the following day. She was given IV Lasix and Primacor for 24 hours and then brought to surgery. Operative Findings: JIM demonstrated moderate aortic stenosis with severe aortic valvular insufficiency. Left ventricular function was well-preserved. Other valvular function was reasonable. Aortic valve was tricuspid with significant calcification of the free edges of the valve. There was minimal calcification of the annulus. The annulus was quite small. It was not possible to pass even a 21 sizer through the annulus. We therefore enlarged the annulus and were then able to easily implanted 25 mm bovine pericardial valve prosthesis. Completion JIM demonstrated no significant gradient across the aortic valve with no evidence of valvular or paravalvular insufficiency. Description of Procedure: Patient was brought to the operating room and placed supine on the operating table. General anesthesia was induced and she was intubated. JIM probe was placed. She was appropriately positioned on the table. Anterior torso and bilateral lower extremities were sterilely prepped and draped in standard fashion. Midline sternotomy was performed. Left pleural space was opened widely. The right pleural space was opened minimally. The pericardium was opened in the midline and the heart exposed with pericardial sutures. Patient was systemically heparinized and cannulated for cardiopulmonary bypass with a 7 mm soft flow cannula in the distal ascending aorta and a two-stage venous cannula through the right atrial appendage into the inferior vena cava. Antegrade and retrograde cardioplegia lines were placed in standard fashion. Patient was placed on cardiopulmonary bypass and stabilized. 4-0 Prolene pursestring suture was placed in the right superior pulmonary vein. 35 mm AtriCure clip was applied to the base of the left atrial appendage. The aorta was crossclamped and the heart arrested with cold crystalloid antegrade cardioplegia. Left atrial vent was applied through the right superior pulmonary vein pursestring. The aorta was opened transversely and the aortic valve examined. Valve leaflets were heavily calcified. They were excised. Was unable to pass a 21 sizer through the valve annulus. Aortotomy was extended through the commissure between the left and noncoronary sinuses of Valsalva. It was extended slightly toward the left main and fairly extensively to nearly the commissure between the right and noncoronary cusps. Heema shield patch was brought up onto the field and cut appropriately to size. It was sewn in place through this incision with running 5-0 Prolene suture and snugged down tightly against the aortic annulus sutures were continued on either side up the aortotomy and then pinned. Circumferential valve sutures of 2 oh pledgeted Tycron were now placed around the annulus of the valve from 1 end of the patch to the other. We again sized the annulus and chose a 25 mm Verdugo Inspiris bovine pericardial valve prosthesis. This was brought on the field. Valve sutures were placed through the sewing ring of the valve and it was seated and the sutures tied. The remaining portion of the annulus of the valve that was against the patch was then sewn in place with nonpledgeted horizontal mattress sutures placed through the sewing ring of the valve prosthesis and then through the patch and tied externally. The valve was noted to seat well. The coronary ostia were free with good elevation above the sewing ring of the valve. The patch was tailored appropriately and sewn in place with the same 5-[address] all the way from 1 end of the aortotomy to the other. Leg completion of the closure of the aortotomy it was reinforced with some CoSeal for needle hole bleeding and the left atrial vent was removed. The aorta was de-aired through the aortic vent. The patient was placed in Trendelenburg. The cross-clamp was removed. Patient returned to a spontaneous sinus rhythm. The retrograde cardioplegia line was removed and atrial and ventricular pacing wires were placed. The patient did not require pacing. De-airing was monitored with the JIM and when what it was complete the aortic vent line was removed and 4-0 Prolene pursestring tied with good hemostasis. Patient was weaned from cardiopulmonary bypass without the use of inotropic support. She well with excellent cardiac output. JIM demonstrated no evidence of intra or paravalvular leak. Gradient across the aortic valve was 6 mmHg with a cardiac index of 4. Heparin was reversed carefully with protamine noting the patient's physician shell food allergy. There were no apparent sequelae of administering protamine. Patient was decannulated in standard fashion. Aortic cannulation site was reinforced with a 4 oh pledgeted Prolene suture. Good hemostasis was noted throughout. The left pleural space was drained with a 32 Australian chest tube. Mediastinum was drained with a 36 Australian chest tube. Mediastinum was irrigated with antibiotic solution. Sternum was closed with 8 sternal wires. Fascia was closed with 0 Ethibond. Subcutaneous and subcuticular layers were closed with layers of Vicryl suture. Dry sterile dressings were applied and the patient was transferred to ICU in stable condition on no inotropic support. No blood transfusions were required.
[2024-11-03] MEDS: SODIUM CHLORIDE 0.9% 1,000 ML IV SCH (12:54)
[2024-11-03 12:55] LABS: Ionized Calcium 4.9 mg/dL (4.5-5.3)
[2024-11-03] MEDS: CLEVIDIPINE BUTYRATE 25 MG in EMPTY BAG 1 BAG IV SCH (12:55)
[2024-11-03] MEDS: AMIODARONE 360 MG in DEXTROSE 5% IN WATER 200 ML IV ONE (12:55)
[2024-11-03] MEDS ORDERED: DEXMEDETOMIDINE/0.9% NACL(PMX) 400 MCG in EMPTY BAG 1 BAG IV SCH (13:00)
[2024-11-03 13:01] LABS: Basophils % (A) 0 %; Eosinophils # (A) 0.1 k/uL (0-0.7); Eosinophils % (A) 1 %; HCT 32.7 % (34.0-46.0); HGB 10.6 gm/dL (11.4-16.0); Lymphocytes # (A) 1.8 k/uL (1.0-4.8); Lymphocytes % (A) 17 %; MCH 32.8 pg (25.0-35.0); MCHC 32.4 g/dL (31.0-37.0); MCV 101.1 fL (80.0-100.0); Macrocytosis Slight; Mean Platelet Volume 8.5; Monocytes # (A) 0.4 k/uL (0-1.0); Monocytes % (A) 4 %; Neutrophils # (A) 8.2 k/uL (1.3-7.7); Neutrophils % (A) 77 %; RBC 3.23 m/uL (3.80-5.40); RDW 14.3 % (11.5-15.5); WBC 10.7 k/uL (3.8-10.6)
[2024-11-03 13:05] LABS: Partial Thromboplastin Time 26.3 sec (22.0-30.0); Prothrombin Time 11.3 sec (10.0-12.5)
[2024-11-03 13:07] LABS: ALT 13 U/L (4-34); AST 28 U/L (14-36); African American GFR (CKD) >90 (>60 ml/min/1.73 sqM); Alkaline Phosphatase 39 U/L (38-126); Anion Gap 6 mmol/L; Blood Urea Nitrogen 9 mg/dL (7-17); Calcium 8.4 mg/dL (8.4-10.2); Carbon Dioxide 21 mmol/L (22-30); Chloride 108 mmol/L (98-107); Glucose 108 mg/dL (74-99); Magnesium 4.2 mg/dL (1.6-2.3); Non-African American GFR(CKD) >90 (>60 ml/min/1.73 sqM); Potassium 4.2 mmol/L (3.5-5.1); Sodium 135 mmol/L (137-145); Total Bilirubin 0.6 mg/dL (0.2-1.3); Total Protein 4.9 g/dL (6.3-8.2)
[2024-11-03 13:07] LABS: Glucose,Whole Blood 116 mg/dL (70-110)
--- NOTE | 2024-11-03 13:14 | XR ---
EXAMINATION TYPE: XR chest 1V portable DATE OF EXAM: 11/03/2024 1:10 PM COMPARISON: 11/02/2024 CLINICAL INDICATION: Female, 49 years old with history of Post Operative Cardiac Surgery, Post Op CAB G TECHNIQUE: Single view of the chest is submitted. FINDINGS: Endotracheal tube, NG tube, SG catheter, mediastianal drains and chest tubes are appropriately placed . Post operative changes of median sternotomy. Valvular prosthesis in place. No sizeable pneumothorax. Scattered Pleural-parencymal opacities may reflect atelectasis. The heart is not enlarged. IMPRESSION: 1. Post operative changes of CABG. [facility], , 11/03/2024 1:12 PM
[2024-11-03 13:16] LABS: ABG Base Excess -3.4 mmol/L; ABG HCO3 22 mmol/L (21-25); ABG Oxygen Saturation 92.3 % (94-97); ABG PCO2 42 mmHg (35-45); ABG PH 7.34 (7.35-7.45); ABG PO2 66 mmHg (83-108); ABG TCO2 24 mmol/L (19-24)
[2024-11-03 13:38] LABS: Platelet Count 95 k/uL (150-450)
[2024-11-03 14:01] LABS: Glucose,Whole Blood 128 mg/dL (70-110)
[2024-11-03] MEDS: INSULIN REGULAR 100 UNIT in SODIUM CHLORIDE 0.9% 100 ML IV SCH (14:08)
[2024-11-03] MEDS: HYDROmorphone 0.5 MG/0.5 ML SYRINGE IVP PRN (14:37)
[2024-11-03 15:11] LABS: Glucose,Whole Blood 121 mg/dL (70-110)
[2024-11-03 15:18] LABS: Basophils % (A) 0 %; Eosinophils # (A) 0.1 k/uL (0-0.7); Eosinophils % (A) 1 %; HCT 35.2 % (34.0-46.0); HGB 11.4 gm/dL (11.4-16.0); Lymphocytes % (A) 20 %; MCH 32.8 pg (25.0-35.0); MCHC 32.4 g/dL (31.0-37.0); MCV 101.3 fL (80.0-100.0); Macrocytosis Slight; Mean Platelet Volume 9.6; Monocytes # (A) 0.5 k/uL (0-1.0); Monocytes % (A) 5 %; Neutrophils # (A) 7.2 k/uL (1.3-7.7); Neutrophils % (A) 73 %; Platelet Count 101 k/uL (150-450); RBC 3.47 m/uL (3.80-5.40); RDW 14.4 % (11.5-15.5); WBC 9.9 k/uL (3.8-10.6)
[2024-11-03] MEDS: ACETAMINOPHEN IV (For NPO) 1,000 MG in EMPTY BAG 1 BAG IVPB SCH (15:29)
[2024-11-03] MEDS: IPRATROPIUM-ALBUTEROL 3 ML NEB INHALATION SCH ×2 (15:45→20:32)
[2024-11-03 15:53] LABS: Allen Test Performed? No
[2024-11-03] MEDS: HEPARIN SODIUM,PORCINE 5,000 UNIT/ML 1 ML VIAL SQ SCH (16:22)
[2024-11-03 16:23] LABS: Glucose,Whole Blood 150 mg/dL (70-110)
[2024-11-03 16:25] LABS: ABG Base Excess -4.4 mmol/L; ABG HCO3 23 mmol/L (21-25); ABG Oxygen Saturation 90.8 % (94-97); ABG PCO2 55 mmHg (35-45); ABG PH 7.24 (7.35-7.45); ABG PO2 68 mmHg (83-108); ABG TCO2 25 mmol/L (19-24)
[2024-11-03 16:39] LABS: Allen Test Performed? No
--- NOTE | 2024-11-03 16:48 | XR ---
EXAMINATION TYPE: XR chest 1V portable DATE OF EXAM: 11/03/2024 4:38 PM COMPARISON: Chest radiographs from 11/03/2024 TECHNIQUE: XR chest 1V portable Portable AP radiograph of the chest. CLINICAL INDICATION:Female, 49 years old with history of Postop AVR; FINDINGS: Lungs/Pleura: There is no evidence of pleural effusion, focal consolidation, or pneumothorax. Pulmonary vascularity: Unremarkable. Heart/mediastinum: Cardiomediastinal silhouette is enlarged and stable. Postsurgical changes from ao rtic valve replacement. Left atrial appendage occlusion devices present. Musculoskeletal: No acute osseous pathology. Other findings: None Lines/Tubes: Endotracheal tube with distal tip 4.5 cm above the gail Nasogastric tube with its distal tip projecting over the stomach. The sidehole is at the GE junction. Right IJ Goodwin-Lorena catheter distal tip in the region of the main pulmonary artery. Stable position of left chest tube towards the superior hilum. Stable mediastinal drain. IMPRESSION: 1. Postsurgical changes from aortic valvular replacement. No sizable pneumothorax. 2. Sidehole of NG tube is at the GE junction. Recommend advancement of 3 cm. Remaining stable suppor t lines and tubes. [facility], , 11/03/2024 4:46 PM
--- NOTE | 2024-11-03 16:51 | P.PN ---
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 She was brought in today electively for an aortic valve replacement however there was no cardioplegia solution available and she is postponed until tomorrow. She was admitted to the intensive care unit following [place] catheter placement. She was initiated on IV Primacor currently at 0.25 mcg/kg/m in. She is awake and alert. Sitting up in bed. Maintaining good O2 saturations in the 90s on room air. She is afebrile. Hemodynamically stable. PA pressure 19/4. CVP 1. Cardiac output 5.1. Cardiac index 2.8. She has been initiated on DuoNeb inhalations, Symbicort. She has been educated regarding the use the incentive spirometer. Heparin for DVT prophylaxis. 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 However when I came in to see the patient, patient had no breath sounds on the left side, chest x-ray showed endotracheal tube in the right mainstem bronchus, and the patient was arousable, follows simple instructions. I reviewed the chest x-ray which was done earlier, and I recommended immediate pulling of the endotracheal tube approximately about 4 cm. In the meantime ABG was done and it showed a pO2 of 68 pCO2 54 pH of 7.24. This was on CPAP, and I recommended the patient is not ready to be weaned she had to be placed back on assist-control mode of mechanical ventilation, with assist-control rate of 14 tidal volume 500 FiO2 50% and PEEP of 8. Chest x-ray was noted after the tube was pulled out of the right mainstem bronchus showed retrocardiac atelectasis in the left lower lobe, however there was good aeration of the left midlung and left upper lobe. Based on the ABG based on the chest x-ray findings and based on the fact that the endotracheal tube was not in the proper position, I recommended that we delay extubation for now. And reevaluate weaning on pressure support of 8 and CPAP in the next 1 hour. Patient is hemodynamically stable, she is not requiring any pressors. On Cleviprex at 2 mg/h amiodarone at 1 mg/min IV fluid at 50 cc/h in the form of 0.9 normal saline cardiac output of 4.7 cardiac index of 2.6 PA pressure 35/16. Objective - Vital Signs Vital signs: Vital Signs Temp 98.1 F 11/03/24 15:30 Pulse 60 11/03/24 16:30 Resp 14 11/03/24 16:30 BP 116/66 11/03/24 16:30 Pulse Ox 93 L 11/03/24 16:30 FiO2 50 11/03/24 16:00 Intake & Output 11/02/24 11/03/24 11/03/24 18:59 06:59 18:59 Intake Total 853 548 621.295 Output Total 3100 1265 1719 Balance -2247 -717 -1097.705 Weight 85.7 kg Intake: IV 373 548 588 ACETAMINOPHEN IV (For NPO 100 ) 1,000 mg In Empty Bag 1 bag @ 400 mls/hr IVPB Q6HR PO Rx#:[id number] Cardiac Output (0.9 50 80 110 Sodium Chloride) Magnesium Sulfate-D5w Pmx 100 1 gm In Dextrose/Water 1 100ml.bag @ 100 mls/hr IVPB ONCE ONE Rx#: [id number] Pressure Bag (0.9 Sodium 63 108 45 Chloride) Sodium Chloride 0.9% 1, 160 360 30 000 ml @ 20 mls/hr IV . Q24H PO Rx#:[id number] Sodium Chloride 0.9% 1, 200 000 ml @ 50 mls/hr IV . Q20H PO Rx#:[id number] ceFAZolin 2 gm In Sodium 50 Chloride 0.9% 50 ml @ 100 mls/hr IVPB ONCE ONE Rx# :[id number] Intake, IV Titration 33.295 Amount Clevidipine Butyrate 25 16.733 mg In Empty Bag 1 bag @ 1 MG/HR 2 mls/hr IV .Q24H PO Rx#:[id number] Insulin Regular 100 unit 1.650 In Sodium Chloride 0.9% 100 ml @ Per Protocol IV .Q0M PO Rx#:[id number] propofoL 1,000 mg In 14.912 Empty Bag 1 bag @ Titrate IV .Q0M PO Rx#: [id number] Oral 480 Output: Chest Tube Drainage 189 Left Pleural 45 Mediastinal 144 Urine 3100 1265 1130 Estimated Blood Loss 400 Other: Voiding Method Indwelling Catheter Indwelling Catheter Indwelling Catheter # Bowel Movements 1 ABP, PAP, CO, CI - Last Documented Arterial Blood Pressure 113/51 Pulmonary Artery Pressure 37/19 Cardiac Output 4.7 Cardiac Index 2.6 - Exam GENERAL EXAM: Revealed a 49-year-old female in no distress, intubated mechanically ventilated however she is on CPAP during my initial evaluation HEAD: Normocephalic. EYES: Normal reaction of pupils, equal size. NOSE: Clear with pink turbinates. THROAT: No erythema or exudates. Edentulous. NECK: No masses, no JVD. Right IJ [place] catheter in place. CHEST: No chest wall deformity. LUNGS: No breath sounds on the left side, good breath sounds on the right side. CVS: S1 and S2 normal with an audible murmur, regular rhythm. ABDOMEN: No hepatosplenomegaly, normal bowel sounds, no guarding or rigidity. SKIN: No rashes CENTRAL NERVOUS SYSTEM: Arousable, follows simple instructions, generally weak. EXTREMITIES: There is no peripheral edema. No clubbing, no cyanosis. Peripher al pulses are intact. - Labs CBC & Chem 7: 11/03/24 15:11 11/03/24 12:00 Labs: Abnormal Lab Results - Last 24 Hours (Table) 10/25/24 11/02/24 11/02/24 Range/Units 08:50 14:20 20:26 WBC (3.8-10.6) k/uL RBC (3.80-5.40) m/uL Hgb (11.4-16.0) gm/dL Hct (34.0-46.0) % MCV (80.0-100.0) fL Plt Count (150-450) k/uL Neutrophils # (1.3-7.7) k/uL ABG pH (7.35-7.45) ABG pCO2 (35-45) mmHg ABG pO2 (83-108) mmHg ABG O2 Saturation (94-97) % ABG Hematocrit (34.0-46.0) % ABG Ionized Calcium (4.5-5.3) mg/dL ABG Glucose (75-99) mg/dL ABG Lactic Acid (0.5-1.6) mmol/L Hemoglobin (11.4-16.0) gm/dL Sodium 135 L (137-145) mmol/L Chloride (98-107) mmol/L Carbon Dioxide (22-30) mmol/L Glucose 127 H (74-99) mg/dL POC Glucose (mg/dL) 163 H (70-110) mg/dL Magnesium (1.6-2.3) mg/dL Total Protein 6.1 L (6.3-8.2) g/dL Albumin (3.5-5.0) g/dL Arterial Blood Glucose (75-99) mg/dL Crossmatch See Detail 11/03/24 11/03/24 11/03/24 Range/Units 03:01 03:01 08:25 WBC 12.0 H (3.8-10.6) k/uL RBC (3.80-5.40) m/uL Hgb (11.4-16.0) gm/dL Hct (34.0-46.0) % MCV (80.0-100.0) fL Plt Count (150-450) k/uL Neutrophils # 8.7 H (1.3-7.7) k/uL ABG pH (7.35-7.45) ABG pCO2 (35-45) mmHg ABG pO2 292 H (83-108) mmHg ABG O2 Saturation 99.3 H (94-97) % ABG Hematocrit (34.0-46.0) % ABG Ionized Calcium (4.5-5.3) mg/dL ABG Glucose 109 H (75-99) mg/dL ABG Lactic Acid (0.5-1.6) mmol/L Hemoglobin (11.4-16.0) gm/dL Sodium 136 L (137-145) mmol/L Chloride (98-107) mmol/L Carbon Dioxide (22-30) mmol/L Glucose 106 H (74-99) mg/dL POC Glucose (mg/dL) (70-110) mg/dL Magnesium (1.6-2.3) mg/dL Total Protein (6.3-8.2) g/dL Albumin (3.5-5.0) g/dL Arterial Blood Glucose 109 H (75-99) mg/dL Crossmatch 11/03/24 11/03/24 11/03/24 Range/Units 09:03 09:25 09:53 WBC (3.8-10.6) k/uL RBC (3.80-5.40) m/uL Hgb (11.4-16.0) gm/dL Hct (34.0-46.0) % MCV (80.0-100.0) fL Plt Count (150-450) k/uL Neutrophils # (1.3-7.7) k/uL ABG pH (7.35-7.45) ABG pCO2 34 L (35-45) mmHg ABG pO2 407 H >420 H 393 H (83-108) mmHg ABG O2 Saturation 99.4 H >99.4 H >99.4 H (94-97) % ABG Hematocrit 27 L 28 L (34.0-46.0) % ABG Ionized Calcium 3.9 L 4.3 L (4.5-5.3) mg/dL ABG Glucose 118 H 124 H 130 H (75-99) mg/dL ABG Lactic Acid 1.7 H (0.5-1.6) mmol/L Hemoglobin 8.9 L 9.0 L (11.4-16.0) gm/dL Sodium (137-145) mmol/L Chloride (98-107) mmol/L Carbon Dioxide (22-30) mmol/L Glucose (74-99) mg/dL POC Glucose (mg/dL) (70-110) mg/dL Magnesium (1.6-2.3) mg/dL Total Protein (6.3-8.2) g/dL Albumin (3.5-5.0) g/dL Arterial Blood Glucose 118 H 124 H 130 H (75-99) mg/dL Crossmatch 11/03/24 11/03/24 11/03/24 Range/Units 10:20 11:07 11:40 WBC (3.8-10.6) k/uL RBC (3.80-5.40) m/uL Hgb (11.4-16.0) gm/dL Hct (34.0-46.0) % MCV (80.0-100.0) fL Plt Count (150-450) k/uL Neutrophils # (1.3-7.7) k/uL ABG pH (7.35-7.45) ABG pCO2 (35-45) mmHg ABG pO2 324 H 137 H 139 H (83-108) mmHg ABG O2 Saturation >99.4 H 98.8 H 98.7 H (94-97) % ABG Hematocrit 27 L 27 L 30 L (34.0-46.0) % ABG Ionized Calcium 4.4 L 4.4 L (4.5-5.3) mg/dL ABG Glucose 119 H 117 H 116 H (75-99) mg/dL ABG Lactic Acid 1.7 H 2.4 H* 2.6 H* (0.5-1.6) mmol/L Hemoglobin 8.7 L 8.9 L 9.9 L (11.4-16.0) gm/dL Sodium (137-145) mmol/L Chloride (98-107) mmol/L Carbon Dioxide (22-30) mmol/L Glucose (74-99) mg/dL POC Glucose (mg/dL) (70-110) mg/dL Magnesium (1.6-2.3) mg/dL Total Protein (6.3-8.2) g/dL Albumin (3.5-5.0) g/dL Arterial Blood Glucose 119 H 117 H 116 H (75-99) mg/dL Crossmatch 11/03/24 11/03/24 11/03/24 Range/Units 12:00 12:00 13:05 WBC 10.7 H (3.8-10.6) k/uL RBC 3.23 L (3.80-5.40) m/uL Hgb 10.6 L (11.4-16.0) gm/dL Hct 32.7 L (34.0-46.0) % MCV 101.1 H (80.0-100.0) fL Plt Count 95 L (150-450) k/uL Neutrophils # 8.2 H (1.3-7.7) k/uL ABG pH (7.35-7.45) ABG pCO2 (35-45) mmHg ABG pO2 (83-108) mmHg ABG O2 Saturation (94-97) % ABG Hematocrit (34.0-46.0) % ABG Ionized Calcium (4.5-5.3) mg/dL ABG Glucose (75-99) mg/dL ABG Lactic Acid (0.5-1.6) mmol/L Hemoglobin (11.4-16.0) gm/dL Sodium 135 L (137-145) mmol/L Chloride 108 H (98-107) mmol/L Carbon Dioxide 21 L (22-30) mmol/L Glucose 108 H (74-99) mg/dL POC Glucose (mg/dL) 116 H (70-110) mg/dL Magnesium 4.2 H (1.6-2.3) mg/dL Total Protein 4.9 L (6.3-8.2) g/dL Albumin 3.0 L (3.5-5.0) g/dL Arterial Blood Glucose (75-99) mg/dL Crossmatch 11/03/24 11/03/24 11/03/24 Range/Units 13:11 14:00 15:09 WBC (3.8-10.6) k/uL RBC (3.80-5.40) m/uL Hgb (11.4-16.0) gm/dL Hct (34.0-46.0) % MCV (80.0-100.0) fL Plt Count (150-450) k/uL Neutrophils # (1.3-7.7) k/uL ABG pH 7.34 L (7.35-7.45) ABG pCO2 (35-45) mmHg ABG pO2 66 L (83-108) mmHg ABG O2 Saturation 92.3 L (94-97) % ABG Hematocrit (34.0-46.0) % ABG Ionized Calcium (4.5-5.3) mg/dL ABG Glucose (75-99) mg/dL ABG Lactic Acid (0.5-1.6) mmol/L Hemoglobin 10.6 L (11.4-16.0) gm/dL Sodium (137-145) mmol/L Chloride (98-107) mmol/L Carbon Dioxide (22-30) mmol/L Glucose (74-99) mg/dL POC Glucose (mg/dL) 128 H 121 H (70-110) mg/dL Magnesium (1.6-2.3) mg/dL Total Protein (6.3-8.2) g/dL Albumin (3.5-5.0) g/dL Arterial Blood Glucose (75-99) mg/dL Crossmatch 11/03/24 11/03/24 Range/Units 15:11 16:21 WBC (3.8-10.6) k/uL RBC 3.47 L (3.80-5.40) m/uL Hgb (11.4-16.0) gm/dL Hct (34.0-46.0) % MCV 101.3 H (80.0-100.0) fL Plt Count 101 L (150-450) k/uL Neutrophils # (1.3-7.7) k/uL ABG pH (7.35-7.45) ABG pCO2 (35-45) mmHg ABG pO2 (83-108) mmHg ABG O2 Saturation (94-97) % ABG Hematocrit (34.0-46.0) % ABG Ionized Calcium (4.5-5.3) mg/dL ABG Glucose (75-99) mg/dL ABG Lactic Acid (0.5-1.6) mmol/L Hemoglobin (11.4-16.0) gm/dL Sodium (137-145) mmol/L Chloride (98-107) mmol/L Carbon Dioxide (22-30) mmol/L Glucose (74-99) mg/dL POC Glucose (mg/dL) 150 H (70-110) mg/dL Magnesium (1.6-2.3) mg/dL Total Protein (6.3-8.2) g/dL Albumin (3.5-5.0) g/dL Arterial Blood Glucose (75-99) mg/dL Crossmatch Assessment and Plan Assessment: Impression: Status post aortic valve replacement with 25 mm Verdugo Inspiris bovine pericardial valve prosthesis including aortic root enlargement (Jeramie Manzanares technique), 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 Plans are for aortic valve replacement tomorrow November 03, 2024 Left lower lobe atelectasis secondary to right mainstem intubation Diminished breath sounds at the left side upon examination secondary to right mainstem intubation History of chronic systolic congestive heart failure with an ejection fraction of 45% Chronic and ongoing tobacco dependence Chronic obstructive pulmonary disease with an FEV1 value 66% of predicted Acute hypoxic and hypercapnic respiratory failure secondary to endotracheal tube being in the right mainstem, and the patient does have underlying COPD with some component of hypoventilation as the patient is coming off sedation Hypertension Recommendation: Hold on further weaning at this point. Placed back on assist-control mode of mechanical ventilation with assist-control rate of 14 tidal volume 500 FiO2 50% and PEEP of 8 Chest x-ray post adjustment of the endotracheal tube was reviewed there is some left lower lobe atelectasis Reevaluate weaning in the next 1 hour with pressure support and CPAP, utilize pressure support of 8 and CPAP and repeat ABG after 30 minutes r on pressure support of 8 and CPAP Plan to extubate in the next 1 hour Continue [facility] Incentive spirometry postextubation Reviewed her hemodynamic parameters including cardiac output, cardiac index, pulmonary artery pressure and CVP We continue to follow Critical care time is 32 minutes Time with Patient: Greater than 30
[2024-11-03 17:10] LABS: Glucose,Whole Blood 139 mg/dL (70-110)
[2024-11-03 18:04] LABS: Glucose,Whole Blood 138 mg/dL (70-110)
[2024-11-03 18:08] LABS: ABG Base Excess -3.6 mmol/L; ABG HCO3 23 mmol/L (21-25); ABG Oxygen Saturation 98.6 % (94-97); ABG PCO2 47 mmHg (35-45); ABG PO2 117 mmHg (83-108); ABG TCO2 24 mmol/L (19-24)
[2024-11-03] MEDS: AMIODARONE 450 MG in DEXTROSE 5% IN WATER 250 ML IV SCH (18:34)
[2024-11-03 18:35] LABS: Allen Test Performed? No
[2024-11-03 18:43] LABS: Glucose,Whole Blood 138 mg/dL (70-110)
[2024-11-03 19:03] LABS: Basophils % (A) 0 %; Eosinophils # (A) 0.1 k/uL (0-0.7); Eosinophils % (A) 1 %; HCT 35.3 % (34.0-46.0); HGB 11.4 gm/dL (11.4-16.0); Lymphocytes # (A) 1.2 k/uL (1.0-4.8); Lymphocytes % (A) 13 %; MCH 32.9 pg (25.0-35.0); MCHC 32.3 g/dL (31.0-37.0); MCV 101.8 fL (80.0-100.0); Macrocytosis Slight; Mean Platelet Volume 9.3; Monocytes # (A) 0.4 k/uL (0-1.0); Monocytes % (A) 4 %; Neutrophils # (A) 7.9 k/uL (1.3-7.7); Neutrophils % (A) 82 %; Platelet Count 104 k/uL (150-450); RBC 3.46 m/uL (3.80-5.40); RDW 14.5 % (11.5-15.5); WBC 9.7 k/uL (3.8-10.6)
[2024-11-03 20:14] LABS: Glucose,Whole Blood 136 mg/dL (70-110)
[2024-11-03 21:08] LABS: Glucose,Whole Blood 138 mg/dL (70-110)
[2024-11-03 22:09] LABS: Glucose,Whole Blood 133 mg/dL (70-110)
[2024-11-03 23:11] LABS: Glucose,Whole Blood 134 mg/dL (70-110)
[2024-11-04 00:05] LABS: Glucose,Whole Blood 133 mg/dL (70-110)
[2024-11-04 01:09] LABS: Glucose,Whole Blood 132 mg/dL (70-110)
[2024-11-04] MEDS: ONDANSETRON 4 MG/2 ML VIAL IVP PRN (01:45)
[2024-11-04] MEDS: hydrALAZINE HCL 20 MG/ML 1 ML VIAL IVP PRN (01:45)
[2024-11-04 02:18] LABS: Glucose,Whole Blood 125 mg/dL (70-110)
[2024-11-04 03:04] LABS: Glucose,Whole Blood 123 mg/dL (70-110)
[2024-11-04 03:24] LABS: Basophils % (A) 0 %; Eosinophils % (A) 0 %; HCT 34.2 % (34.0-46.0); HGB 11.1 gm/dL (11.4-16.0); Lymphocytes # (A) 1.3 k/uL (1.0-4.8); Lymphocytes % (A) 13 %; MCH 32.7 pg (25.0-35.0); MCHC 32.4 g/dL (31.0-37.0); MCV 100.9 fL (80.0-100.0); Macrocytosis Slight; Mean Platelet Volume 8.5; Monocytes # (A) 0.5 k/uL (0-1.0); Monocytes % (A) 5 %; Neutrophils # (A) 8.2 k/uL (1.3-7.7); Neutrophils % (A) 81 %; Platelet Count 113 k/uL (150-450); RBC 3.39 m/uL (3.80-5.40); RDW 14.4 % (11.5-15.5); WBC 10.2 k/uL (3.8-10.6)
[2024-11-04 04:21] LABS: Ionized Calcium 4.8 mg/dL (4.5-5.3)
[2024-11-04 04:23] LABS: Glucose,Whole Blood 119 mg/dL (70-110)
[2024-11-04 04:30] LABS: ALT 13 U/L (4-34); AST 35 U/L (14-36); African American GFR (CKD) >90 (>60 ml/min/1.73 sqM); Albumin 3.1 g/dL (3.5-5.0); Alkaline Phosphatase 46 U/L (38-126); Anion Gap 3 mmol/L; Blood Urea Nitrogen 8 mg/dL (7-17); Calcium 8.1 mg/dL (8.4-10.2); Carbon Dioxide 24 mmol/L (22-30); Chloride 105 mmol/L (98-107); Glucose 108 mg/dL (74-99); Magnesium 2.5 mg/dL (1.6-2.3); Non-African American GFR(CKD) >90 (>60 ml/min/1.73 sqM); Potassium 4.7 mmol/L (3.5-5.1); Sodium 132 mmol/L (137-145); Total Bilirubin 0.4 mg/dL (0.2-1.3); Total Protein 5.1 g/dL (6.3-8.2)
[2024-11-04 05:18] LABS: Glucose,Whole Blood 120 mg/dL (70-110)
--- NOTE | 2024-11-04 06:24 | XR ---
EXAMINATION TYPE: XR chest 1V portable DATE OF EXAM: 11/04/2024 CLINICAL INDICATION: Female, 49 years old with history of Post Operative Cardiac Surgery, progress st udy. TECHNIQUE: Single AP portable upright view of the chest is obtained. COMPARISON: Chest x-ray from one day earlier and older studies. FINDINGS: Interval extubation with removal of endotracheal and orogastric tubes. Stable mediastinal drainage catheter and left-sided chest tube. Stable right internal jugular [place] catheter. [place] ing sternal wires along with left atrial appendage and aortic valve surgical changes are redemonstrat ed. Stable mild cardiomegaly and left basilar opacity. Worsening right basilar opacity noted. No pneumoth orax seen. Osseous structures are intact. IMPRESSION: Interval extubation. Persistent mild cardiomegaly with probable small bilateral pleural e ffusions. Persistent left lower lung acute infiltrate and/or atelectasis. No left-sided pneumothorax with left-sided chest tube in place. New right lower lung acute infiltrate and/or atelectasis is note d. [facility], , 11/04/2024 6:21 AM
[2024-11-04 07:06] LABS: Glucose,Whole Blood 133 mg/dL (70-110)
[2024-11-04 08:06] LABS: Glucose,Whole Blood 126 mg/dL (70-110)
[2024-11-04] MEDS: AMIODARONE 200 MG TAB PO SCH (08:12)
[2024-11-04] MEDS: METOPROLOL TARTRATE 12.5 MG TAB PO SCH (08:12)
[2024-11-04] MEDS: ATORVASTATIN 40 MG TAB PO SCH (08:30)
[2024-11-04] MEDS: PANTOPRAZOLE 40 MG/10 ML VIAL IVP SCH (08:30)
[2024-11-04] MEDS: CLOPIDOGREL 75 MG TAB PO SCH (08:30)
[2024-11-04] MEDS: traMADol 50 MG TAB PO PRN (08:35)
--- NOTE | 2024-11-04 08:54 | P.PN ---
Subjective Progress Note Date: 11/04/24 Principal diagnosis: Aortic valvular insufficiency, aortic valvular stenosis, chronic valve related heart failure. Medical history significant for hypertension, chronic diastolic heart failure, history of ovarian cancer, chronic obstructive pulmonary disease with a FEV1 66% of predicted value, asthma, chronic ongoing tobacco dependence, obesity with a BMI of 33.7 kg/m and osteoarthritis. POD #1 Aortic valve replacement with 25 mm Verdugo Inspiris bovine pericardial valve prosthesis including aortic root enlargement (Jeramie Manzanares technique), occlusion left atrial appendage with 35 mm AtriCure clip. Postoperative acute blood loss anemia, expected given cardiopulmonary bypass and hemodilution. The patient was seen and examined in follow-up today November 04, 2024 at her [facility] in the intensive care unit. She was successfully extubated at 6:13 PM last evening, is currently sitting up to the bedside chair, is awake, alert, oriented x 3 and is in no acute apparent distress. She denies any complaints of shortness of breath at this time, although is complaining of some surgical type pain to her chest tube insertion sites, currently rating her pain 6 out of 10 on the pain scale. Oxygen saturations are 94% on 6 L nasal cannula and she is achieving 500 to 750 mL on her incentive spirometry with encouragement. Right IJ cordis and [place] catheter remain in place with current hemodynamic showing a cardiac output 6.0, cardiac index 3.3, SVR 879, PA pressures 30/20 and CVP 13 mmHg. Mediastinal and left pleural chest tubes remain in place to low continuous wall suction -20 cm H2O. No airleak is present. Draining thin serosanguineous drainage. Mediastinal chest tube drain 150 mL output in the last 8 hours and 500 mL since surgery. Left pleural chest tube drained 85 mL output in the last 8 hours and 180 mL output since surgery. Amiodarone drip remains infusing per protocol for atrial fibrillation prophylaxis. No atrial fibrillation has been reported. Chest x-ray and laboratory results reviewed. Objective - Vital Signs Vital signs: Vital Signs Temp 99.3 F 11/04/24 04:00 Pulse 74 11/04/24 05:00 Resp 13 11/04/24 05:00 BP 110/58 11/04/24 04:30 Pulse Ox 94 L 11/04/24 05:00 FiO2 50 11/03/24 18:00 Intake & Output 0311/03/24 11/04/24 06:59 18:59 06:59 Intake Total 548 797.804 738.617 Output Total 1265 1954 1085 Balance -717 -1156.196 -346.383 Weight 85.7 kg Intake: IV 548 756 709 ACETAMINOPHEN IV (For NPO 100 ) 1,000 mg In Empty Bag 1 bag @ 400 mls/hr IVPB Q6HR PO Rx#:[id number] Cardiac Output (0.9 80 160 60 Sodium Chloride) Pressure Bag (0.9 Sodium 108 63 99 Chloride) Sodium Chloride 0.9% 1, 360 30 000 ml @ 20 mls/hr IV . Q24H PO Rx#:[id number] Sodium Chloride 0.9% 1, 300 550 000 ml @ 50 mls/hr IV . Q20H PO Rx#:[id number] ceFAZolin 2 gm In Sodium 50 Chloride 0.9% 50 ml @ 100 mls/hr IVPB ONCE ONE Rx# :[id number] Intake, IV Titration 41.804 29.617 Amount Clevidipine Butyrate 25 24.067 19.700 mg In Empty Bag 1 bag @ 1 MG/HR 2 mls/hr IV .Q24H PO Rx#:[id number] Insulin Regular 100 unit 2.825 9.917 In Sodium Chloride 0.9% 100 ml @ Per Protocol IV .Q0M PO Rx#:[id number] propofoL 1,000 mg In 14.912 Empty Bag 1 bag @ Titrate IV .Q0M PO Rx#: [id number] Output: Chest Tube Drainage 289 375 Left Pleural 75 105 Mediastinal 214 270 Urine 1265 1265 710 Estimated Blood Loss 400 Other: Voiding Method Indwelling Catheter Indwelling Catheter Indwelling Catheter ABP, PAP, CO, CI - Last Documented Arterial Blood Pressure 127/57 Pulmonary Artery Pressure 30/22 Cardiac Output 6 Cardiac Index 3.3 - Exam CONSTITUTIONAL: Sitting up to the bedside chair in the intensive care unit, appears comfortable, cooperative, no apparent acute distress. HEENT: Neck is supple, no JVD, no lymphadenopathy. Right IJ Cordis and [place]- [place] catheter in place and functioning. RESPIRATORY: Lungs sounds essentially clear throughout, diminished to her bilateral bases. Respirations are symmetrical and nonlabored. Currently on 6 L nasal cannula with oxygen saturations 94%. Able to achieve 500-750 mL on her incentive spirometry. Strong cough. CARDIOVASCULAR: Regular rhythm and rate. S1 and S2 present, negative for S3, gallop or murmur. Sternum is stable. Palpable peripheral pulses bilaterally. No calf pain or tenderness noted. Heart hugger in place with patient demonstrating appropriate use. Knee-high JONO hose and sequential compression devices in place to her bilateral lower extremities. GASTROINTESTINAL: Abdomen soft, nontender, nondistended. Hypoactive bowel sounds present 4 quadrants. Tolerating clear liquid diet. Denies passing flatus. No guarding or rigidity. GENITOURINARY: Buchanan present draining clear, yellow urine. 390 mL urine output in the last 8 hours. INTEGUMENTARY: Skin is warm and dry with no evidence of clubbing or cyanosis. Midline sternal incision clean dry and well approximated, covered with dry intact dressing. NEUROLOGIC: Cranial nerves II through XII intact. No focal deficits. MUSKULOSKELETAL: Able to move all extremities, strength equal bilaterally, generalized weakness. PSYCHIATRIC: Alert and oriented to person place and time, appropriate affect, intact judgment and insight. INVASIVE LINES AND TUBES: Mediastinal/left pleural chest tubes present and connected to low continuous wall suction, no air leaks present. Mediastinal tube with 150 mL of thin serosanguineous drainage overnight, 500mL output in the last 24 hours. Left pleural chest tube with 85 mL of thin serosanguineous drainage overnight, 180 mL output in the last 24 hours. Atrial and ventricular epicardial pacemaker wires present, connected to generator, VVI backup rate 50 bpm. Right internal jugular [place]/Cordis, right radial arterial line present. Last CO 6.0, CI 3.3, SVR 879, PA 30/22 and CVP 13 mmHg. - Allied health notes Allied health notes reviewed: nursing - Labs CBC & Chem 7: 11/04/24 03:00 11/04/24 03:00 Labs: Abnormal Lab Results - Last 24 Hours (Table) 10/25/24 11/03/24 11/03/24 Range/Units 08:50 03:01 03:01 WBC 12.0 H (3.8-10.6) k/uL RBC (3.80-5.40) m/uL Hgb (11.4-16.0) gm/dL Hct (34.0-46.0) % MCV (80.0-100.0) fL Plt Count (150-450) k/uL Neutrophils # 8.7 H (1.3-7.7) k/uL ABG pH (7.35-7.45) ABG pCO2 (35-45) mmHg ABG pO2 (83-108) mmHg ABG Total CO2 (19-24) mmol/L ABG O2 Saturation (94-97) % ABG Hematocrit (34.0-46.0) % ABG Ionized Calcium (4.5-5.3) mg/dL ABG Glucose (75-99) mg/dL ABG Lactic Acid (0.5-1.6) mmol/L Hemoglobin (11.4-16.0) gm/dL Sodium 136 L (137-145) mmol/L Chloride (98-107) mmol/L Carbon Dioxide (22-30) mmol/L Glucose 106 H (74-99) mg/dL POC Glucose (mg/dL) (70-110) mg/dL Calcium (8.4-10.2) mg/dL Magnesium (1.6-2.3) mg/dL Total Protein (6.3-8.2) g/dL Albumin (3.5-5.0) g/dL Arterial Blood Glucose (75-99) mg/dL Crossmatch See Detail 11/03/24 11/03/24 11/03/24 Range/Units 08:25 09:03 09:25 WBC (3.8-10.6) k/uL RBC (3.80-5.40) m/uL Hgb (11.4-16.0) gm/dL Hct (34.0-46.0) % MCV (80.0-100.0) fL Plt Count (150-450) k/uL Neutrophils # (1.3-7.7) k/uL ABG pH (7.35-7.45) ABG pCO2 34 L (35-45) mmHg ABG pO2 292 H 407 H >420 H (83-108) mmHg ABG Total CO2 (19-24) mmol/L ABG O2 Saturation 99.3 H 99.4 H >99.4 H (94-97) % ABG Hematocrit 27 L (34.0-46.0) % ABG Ionized Calcium 3.9 L (4.5-5.3) mg/dL ABG Glucose 109 H 118 H 124 H (75-99) mg/dL ABG Lactic Acid 1.7 H (0.5-1.6) mmol/L Hemoglobin 8.9 L (11.4-16.0) gm/dL Sodium (137-145) mmol/L Chloride (98-107) mmol/L Carbon Dioxide (22-30) mmol/L Glucose (74-99) mg/dL POC Glucose (mg/dL) (70-110) mg/dL Calcium (8.4-10.2) mg/dL Magnesium (1.6-2.3) mg/dL Total Protein (6.3-8.2) g/dL Albumin (3.5-5.0) g/dL Arterial Blood Glucose 109 H 118 H 124 H (75-99) mg/dL Crossmatch 11/03/24 11/03/24 11/03/24 Range/Units 09:53 10:20 11:07 WBC (3.8-10.6) k/uL RBC (3.80-5.40) m/uL Hgb (11.4-16.0) gm/dL Hct (34.0-46.0) % MCV (80.0-100.0) fL Plt Count (150-450) k/uL Neutrophils # (1.3-7.7) k/uL ABG pH (7.35-7.45) ABG pCO2 (35-45) mmHg ABG pO2 393 H 324 H 137 H (83-108) mmHg ABG Total CO2 (19-24) mmol/L ABG O2 Saturation >99.4 H >99.4 H 98.8 H (94-97) % ABG Hematocrit 28 L 27 L 27 L (34.0-46.0) % ABG Ionized Calcium 4.3 L 4.4 L (4.5-5.3) mg/dL ABG Glucose 130 H 119 H 117 H (75-99) mg/dL ABG Lactic Acid 1.7 H 2.4 H* (0.5-1.6) mmol/L Hemoglobin 9.0 L 8.7 L 8.9 L (11.4-16.0) gm/dL Sodium (137-145) mmol/L Chloride (98-107) mmol/L Carbon Dioxide (22-30) mmol/L Glucose (74-99) mg/dL POC Glucose (mg/dL) (70-110) mg/dL Calcium (8.4-10.2) mg/dL Magnesium (1.6-2.3) mg/dL Total Protein (6.3-8.2) g/dL Albumin (3.5-5.0) g/dL Arterial Blood Glucose 130 H 119 H 117 H (75-99) mg/dL Crossmatch 11/03/24 11/03/24 11/03/24 Range/Units 11:40 12:00 12:00 WBC 10.7 H (3.8-10.6) k/uL RBC 3.23 L (3.80-5.40) m/uL Hgb 10.6 L (11.4-16.0) gm/dL Hct 32.7 L (34.0-46.0) % MCV 101.1 H (80.0-100.0) fL Plt Count 95 L (150-450) k/uL Neutrophils # 8.2 H (1.3-7.7) k/uL ABG pH (7.35-7.45) ABG pCO2 (35-45) mmHg ABG pO2 139 H (83-108) mmHg ABG Total CO2 (19-24) mmol/L ABG O2 Saturation 98.7 H (94-97) % ABG Hematocrit 30 L (34.0-46.0) % ABG Ionized Calcium 4.4 L (4.5-5.3) mg/dL ABG Glucose 116 H (75-99) mg/dL ABG Lactic Acid 2.6 H* (0.5-1.6) mmol/L Hemoglobin 9.9 L (11.4-16.0) gm/dL Sodium 135 L (137-145) mmol/L Chloride 108 H (98-107) mmol/L Carbon Dioxide 21 L (22-30) mmol/L Glucose 108 H (74-99) mg/dL POC Glucose (mg/dL) (70-110) mg/dL Calcium (8.4-10.2) mg/dL Magnesium 4.2 H (1.6-2.3) mg/dL Total Protein 4.9 L (6.3-8.2) g/dL Albumin 3.0 L (3.5-5.0) g/dL Arterial Blood Glucose 116 H (75-99) mg/dL Crossmatch 11/03/24 11/03/24 11/03/24 Range/Units 13:05 13:11 14:00 WBC (3.8-10.6) k/uL RBC (3.80-5.40) m/uL Hgb (11.4-16.0) gm/dL Hct (34.0-46.0) % MCV (80.0-100.0) fL Plt Count (150-450) k/uL Neutrophils # (1.3-7.7) k/uL ABG pH 7.34 L (7.35-7.45) ABG pCO2 (35-45) mmHg ABG pO2 66 L (83-108) mmHg ABG Total CO2 (19-24) mmol/L ABG O2 Saturation 92.3 L (94-97) % ABG Hematocrit (34.0-46.0) % ABG Ionized Calcium (4.5-5.3) mg/dL ABG Glucose (75-99) mg/dL ABG Lactic Acid (0.5-1.6) mmol/L Hemoglobin 10.6 L (11.4-16.0) gm/dL Sodium (137-145) mmol/L Chloride (98-107) mmol/L Carbon Dioxide (22-30) mmol/L Glucose (74-99) mg/dL POC Glucose (mg/dL) 116 H 128 H (70-110) mg/dL Calcium (8.4-10.2) mg/dL Magnesium (1.6-2.3) mg/dL Total Protein (6.3-8.2) g/dL Albumin (3.5-5.0) g/dL Arterial Blood Glucose (75-99) mg/dL Crossmatch 11/03/24 11/03/24 11/03/24 Range/Units 15:09 15:11 16:20 WBC (3.8-10.6) k/uL RBC 3.47 L (3.80-5.40) m/uL Hgb (11.4-16.0) gm/dL Hct (34.0-46.0) % MCV 101.3 H (80.0-100.0) fL Plt Count 101 L (150-450) k/uL Neutrophils # (1.3-7.7) k/uL ABG pH 7.24 L (7.35-7.45) ABG pCO2 55 H (35-45) mmHg ABG pO2 68 L (83-108) mmHg ABG Total CO2 25 H (19-24) mmol/L ABG O2 Saturation 90.8 L (94-97) % ABG Hematocrit (34.0-46.0) % ABG Ionized Calcium (4.5-5.3) mg/dL ABG Glucose (75-99) mg/dL ABG Lactic Acid (0.5-1.6) mmol/L Hemoglobin (11.4-16.0) gm/dL Sodium (137-145) mmol/L Chloride (98-107) mmol/L Carbon Dioxide (22-30) mmol/L Glucose (74-99) mg/dL POC Glucose (mg/dL) 121 H (70-110) mg/dL Calcium (8.4-10.2) mg/dL Magnesium (1.6-2.3) mg/dL Total Protein (6.3-8.2) g/dL Albumin (3.5-5.0) g/dL Arterial Blood Glucose (75-99) mg/dL Crossmatch 11/03/24 11/03/24 11/03/24 Range/Units 16:21 17:09 18:03 WBC (3.8-10.6) k/uL RBC (3.80-5.40) m/uL Hgb (11.4-16.0) gm/dL Hct (34.0-46.0) % MCV (80.0-100.0) fL Plt Count (150-450) k/uL Neutrophils # (1.3-7.7) k/uL ABG pH (7.35-7.45) ABG pCO2 (35-45) mmHg ABG pO2 (83-108) mmHg ABG Total CO2 (19-24) mmol/L ABG O2 Saturation (94-97) % ABG Hematocrit (34.0-46.0) % ABG Ionized Calcium (4.5-5.3) mg/dL ABG Glucose (75-99) mg/dL ABG Lactic Acid (0.5-1.6) mmol/L Hemoglobin (11.4-16.0) gm/dL Sodium (137-145) mmol/L Chloride (98-107) mmol/L Carbon Dioxide (22-30) mmol/L Glucose (74-99) mg/dL POC Glucose (mg/dL) 150 H 139 H 138 H (70-110) mg/dL Calcium (8.4-10.2) mg/dL Magnesium (1.6-2.3) mg/dL Total Protein (6.3-8.2) g/dL Albumin (3.5-5.0) g/dL Arterial Blood Glucose (75-99) mg/dL Crossmatch 11/03/24 11/03/24 11/03/24 Range/Units 18:06 18:42 18:42 WBC (3.8-10.6) k/uL RBC 3.46 L (3.80-5.40) m/uL Hgb (11.4-16.0) gm/dL Hct (34.0-46.0) % MCV 101.8 H (80.0-100.0) fL Plt Count 104 L (150-450) k/uL Neutrophils # 7.9 H (1.3-7.7) k/uL ABG pH 7.30 L (7.35-7.45) ABG pCO2 47 H (35-45) mmHg ABG pO2 117 H (83-108) mmHg ABG Total CO2 (19-24) mmol/L ABG O2 Saturation 98.6 H (94-97) % ABG Hematocrit (34.0-46.0) % ABG Ionized Calcium (4.5-5.3) mg/dL ABG Glucose (75-99) mg/dL ABG Lactic Acid (0.5-1.6) mmol/L Hemoglobin 11.1 L (11.4-16.0) gm/dL Sodium (137-145) mmol/L Chloride (98-107) mmol/L Carbon Dioxide (22-30) mmol/L Glucose (74-99) mg/dL POC Glucose (mg/dL) 138 H (70-110) mg/dL Calcium (8.4-10.2) mg/dL Magnesium (1.6-2.3) mg/dL Total Protein (6.3-8.2) g/dL Albumin (3.5-5.0) g/dL Arterial Blood Glucose (75-99) mg/dL Crossmatch 11/03/24 11/03/24 11/03/24 Range/Units 20:12 21:07 22:07 WBC (3.8-10.6) k/uL RBC (3.80-5.40) m/uL Hgb (11.4-16.0) gm/dL Hct (34.0-46.0) % MCV (80.0-100.0) fL Plt Count (150-450) k/uL Neutrophils # (1.3-7.7) k/uL ABG pH (7.35-7.45) ABG pCO2 (35-45) mmHg ABG pO2 (83-108) mmHg ABG Total CO2 (19-24) mmol/L ABG O2 Saturation (94-97) % ABG Hematocrit (34.0-46.0) % ABG Ionized Calcium (4.5-5.3) mg/dL ABG Glucose (75-99) mg/dL ABG Lactic Acid (0.5-1.6) mmol/L Hemoglobin (11.4-16.0) gm/dL Sodium (137-145) mmol/L Chloride (98-107) mmol/L Carbon Dioxide (22-30) mmol/L Glucose (74-99) mg/dL POC Glucose (mg/dL) 136 H 138 H 133 H (70-110) mg/dL Calcium (8.4-10.2) mg/dL Magnesium (1.6-2.3) mg/dL Total Protein (6.3-8.2) g/dL Albumin (3.5-5.0) g/dL Arterial Blood Glucose (75-99) mg/dL Crossmatch 11/03/24 11/04/24 11/04/24 Range/Units 23:11 00:04 01:08 WBC (3.8-10.6) k/uL RBC (3.80-5.40) m/uL Hgb (11.4-16.0) gm/dL Hct (34.0-46.0) % MCV (80.0-100.0) fL Plt Count (150-450) k/uL Neutrophils # (1.3-7.7) k/uL ABG pH (7.35-7.45) ABG pCO2 (35-45) mmHg ABG pO2 (83-108) mmHg ABG Total CO2 (19-24) mmol/L ABG O2 Saturation (94-97) % ABG Hematocrit (34.0-46.0) % ABG Ionized Calcium (4.5-5.3) mg/dL ABG Glucose (75-99) mg/dL ABG Lactic Acid (0.5-1.6) mmol/L Hemoglobin (11.4-16.0) gm/dL Sodium (137-145) mmol/L Chloride (98-107) mmol/L Carbon Dioxide (22-30) mmol/L Glucose (74-99) mg/dL POC Glucose (mg/dL) 134 H 133 H 132 H (70-110) mg/dL Calcium (8.4-10.2) mg/dL Magnesium (1.6-2.3) mg/dL Total Protein (6.3-8.2) g/dL Albumin (3.5-5.0) g/dL Arterial Blood Glucose (75-99) mg/dL Crossmatch 11/04/24 11/04/24 11/04/24 Range/Units 02:17 03:00 03:00 WBC (3.8-10.6) k/uL RBC 3.39 L (3.80-5.40) m/uL Hgb 11.1 L (11.4-16.0) gm/dL Hct (34.0-46.0) % MCV 100.9 H (80.0-100.0) fL Plt Count 113 L (150-450) k/uL Neutrophils # 8.2 H (1.3-7.7) k/uL ABG pH (7.35-7.45) ABG pCO2 (35-45) mmHg ABG pO2 (83-108) mmHg ABG Total CO2 (19-24) mmol/L ABG O2 Saturation (94-97) % ABG Hematocrit (34.0-46.0) % ABG Ionized Calcium (4.5-5.3) mg/dL ABG Glucose (75-99) mg/dL ABG Lactic Acid (0.5-1.6) mmol/L Hemoglobin (11.4-16.0) gm/dL Sodium 132 L (137-145) mmol/L Chloride (98-107) mmol/L Carbon Dioxide (22-30) mmol/L Glucose 108 H (74-99) mg/dL POC Glucose (mg/dL) 125 H (70-110) mg/dL Calcium 8.1 L (8.4-10.2) mg/dL Magnesium 2.5 H (1.6-2.3) mg/dL Total Protein 5.1 L (6.3-8.2) g/dL Albumin 3.1 L (3.5-5.0) g/dL Arterial Blood Glucose (75-99) mg/dL Crossmatch 11/04/24 11/04/24 11/04/24 Range/Units 03:02 04:21 05:17 WBC (3.8-10.6) k/uL RBC (3.80-5.40) m/uL Hgb (11.4-16.0) gm/dL Hct (34.0-46.0) % MCV (80.0-100.0) fL Plt Count (150-450) k/uL Neutrophils # (1.3-7.7) k/uL ABG pH (7.35-7.45) ABG pCO2 (35-45) mmHg ABG pO2 (83-108) mmHg ABG Total CO2 (19-24) mmol/L ABG O2 Saturation (94-97) % ABG Hematocrit (34.0-46.0) % ABG Ionized Calcium (4.5-5.3) mg/dL ABG Glucose (75-99) mg/dL ABG Lactic Acid (0.5-1.6) mmol/L Hemoglobin (11.4-16.0) gm/dL Sodium (137-145) mmol/L Chloride (98-107) mmol/L Carbon Dioxide (22-30) mmol/L Glucose (74-99) mg/dL POC Glucose (mg/dL) 123 H 119 H 120 H (70-110) mg/dL Calcium (8.4-10.2) mg/dL Magnesium (1.6-2.3) mg/dL Total Protein (6.3-8.2) g/dL Albumin (3.5-5.0) g/dL Arterial Blood Glucose (75-99) mg/dL Crossmatch - Imaging and Cardiology Chest x-ray: report reviewed, image reviewed Assessment and Plan Assessment: Aortic valvular insufficiency, aortic valvular stenosis, status post aortic valve replacement with a 25 mm Verdugo Inspiris bovine pericardial valve prosthesis including aortic root enlargement (Jeramie Manzanares technique) Chronic valve related diastolic heart failure Postoperative acute blood loss anemia, expected given hemodilution and cardiopulmonary bypass History of hypertension Chronic obstructive pulmonary disease with an FEV1 66% of predicted value Asthma Obesity with a BMI of 33.7 kg/m History of ovarian cancer Osteoarthritis Plan: Continue to maximize medical therapy with aspirin, statin, Plavix, and beta- roge. Will increase beta-roge therapy as tolerated. Continue amiodarone for A-fib prophylaxis, will transition to oral. Patient has had no atrial fibrillation up to this point. Wean oxygen as tolerated. Encourage incentive spirometry use 10 times every hour while awake. Bronchodilators per pulmonology. Increase activity, ambulate as tolerated. PT/OT/cardiac rehab consulted. Will monitor daily labs and chest x-rays. Electrolyte replacement per protocol. GI/DVT prophylaxis. Daily weights. Pain control per current medication regimen. No Toradol added as the patient is allergic to NSAIDs. Insulin management per internal medicine, patient should remain on continuous IV insulin for 48 hours, may transition to subcutaneous per protocol afterwards Discontinue [place]. Connect Cordis to continuous CVP monitoring. Continue chest tubes for another 24 hours, continue to record strict output. Continue Buchanan catheter for another 24 hours, continue to monitor and record strict accurate intake and output Increase diet as tolerated. More recommendations to follow based on patient's clinical course. Time with Patient: Greater than 30
[2024-11-04] MEDS ORDERED: bisacodyL 10 MG SUPP RECTAL PRN (09:00)
[2024-11-04 09:04] LABS: Glucose,Whole Blood 112 mg/dL (70-110)
[2024-11-04 10:06] LABS: Glucose,Whole Blood 112 mg/dL (70-110)
--- NOTE | 2024-11-04 10:49 | P.PN ---
Subjective Progress Note Date: 11/04/24 Principal diagnosis: Aortic valve stenosis, aortic valvular insufficiency, status post aortic valve replacement postop day 1, extubated last evening, up in bed awake alert oriented x 3 in no apparent distress, denies any complaints of shortness of breath, patient does complain of some postoperative surgical tenderness in [place] to chest tube insertion sites O2 sats are 94% nasal cannula 6 L Objective - Vital Signs Vital signs: Vital Signs Temp 100.2 F H 11/04/24 08:00 Pulse 70 11/04/24 10:00 Resp 19 11/04/24 10:00 BP 107/46 11/04/24 08:00 Pulse Ox 94 L 11/04/24 10:00 FiO2 50 11/03/24 18:00 Intake & Output 11/03/24 11/04/24 11/04/24 18:59 06:59 18:59 Intake Total 797.804 797.617 198.008 Output Total 1954 1195 160 Balance -1156.196 -397.383 38.008 Weight 86.4 kg Intake: IV 756 768 196 ACETAMINOPHEN IV (For NPO 100 ) 1,000 mg In Empty Bag 1 bag @ 400 mls/hr IVPB Q6HR PO Rx#:[id number] Cardiac Output (0.9 160 60 Sodium Chloride) Pressure Bag (0.9 Sodium 63 108 36 Chloride) Sodium Chloride 0.9% 1, 30 000 ml @ 20 mls/hr IV . Q24H PO Rx#:[id number] Sodium Chloride 0.9% 1, 300 600 160 000 ml @ 30 mls/hr IV . Q24H PO Rx#:[id number] ceFAZolin 2 gm In Sodium 50 Chloride 0.9% 50 ml @ 100 mls/hr IVPB ONCE ONE Rx# :[id number] Intake, IV Titration 41.804 29.617 2.008 Amount Clevidipine Butyrate 25 24.067 19.700 mg In Empty Bag 1 bag @ 1 MG/HR 2 mls/hr IV .Q24H PO Rx#:[id number] Insulin Regular 100 unit 2.825 9.917 2.008 In Sodium Chloride 0.9% 100 ml @ Per Protocol IV .Q0M PO Rx#:[id number] propofoL 1,000 mg In 14.912 Empty Bag 1 bag @ Titrate IV .Q0M [facility] Rx#: [id number] Output: Chest Tube Drainage 289 425 40 Left Pleural 75 115 30 Mediastinal 214 310 10 Urine 1265 770 120 Estimated Blood Loss 400 Other: Voiding Method Indwelling Catheter Indwelling Catheter ABP, PAP, CO, CI - Last Documented Arterial Blood Pressure 111/50 Pulmonary Artery Pressure 24/16 Cardiac Output 5.4 Cardiac Index 2.9 - Exam General: [Patient awake, alert and oriented times 3. Patient in no acute distress.] HEENT: [PERRL. EOMI. No pharyngeal erythema or exudate.] Neck: [No adenopathy.] Cardiac: [Heart regular in rate and rhythm. No S3. No S4. No clicks, rubs. No murmur. Lungs: [Clear to auscultation bilaterally. Slightly diminished bases Abdomen: [No mass. No organomegaly. Bowel sounds presnt and normoactive in all 4 quadrants.] Extremes: [No edema no cyanosis no claudication normal pulses] : Normal female genitalia Buchanan catheter intact Musculoskeletal: [No joint erythema, edema or tenderness.] Skin: [No rash.] Neurologic: [No lateralizing deficits. CN II - XII grossly intact.] Lymphatic: [No adenopathy.] - Labs CBC & Chem 7: 11/04/24 03:00 11/04/24 03:00 Labs: Abnormal Lab Results - Last 24 Hours (Table) 10/25/24 11/03/24 11/03/24 Range/Units 08:50 08:25 09:03 WBC (3.8-10.6) k/uL RBC (3.80-5.40) m/uL Hgb (11.4-16.0) gm/dL Hct (34.0-46.0) % MCV (80.0-100.0) fL Plt Count (150-450) k/uL Neutrophils # (1.3-7.7) k/uL ABG pH (7.35-7.45) ABG pCO2 (35-45) mmHg ABG pO2 292 H 407 H (83-108) mmHg ABG Total CO2 (19-24) mmol/L ABG O2 Saturation 99.3 H 99.4 H (94-97) % ABG Hematocrit (34.0-46.0) % ABG Ionized Calcium (4.5-5.3) mg/dL ABG Glucose 109 H 118 H (75-99) mg/dL ABG Lactic Acid 1.7 H (0.5-1.6) mmol/L Hemoglobin (11.4-16.0) gm/dL Sodium (137-145) mmol/L Chloride (98-107) mmol/L Carbon Dioxide (22-30) mmol/L Glucose (74-99) mg/dL POC Glucose (mg/dL) (70-110) mg/dL Calcium (8.4-10.2) mg/dL Magnesium (1.6-2.3) mg/dL Total Protein (6.3-8.2) g/dL Albumin (3.5-5.0) g/dL Arterial Blood Glucose 109 H 118 H (75-99) mg/dL Crossmatch See Detail 11/03/24 11/03/24 11/03/24 Range/Units 09:25 09:53 10:20 WBC (3.8-10.6) k/uL RBC (3.80-5.40) m/uL Hgb (11.4-16.0) gm/dL Hct (34.0-46.0) % MCV (80.0-100.0) fL Plt Count (150-450) k/uL Neutrophils # (1.3-7.7) k/uL ABG pH (7.35-7.45) ABG pCO2 34 L (35-45) mmHg ABG pO2 >420 H 393 H 324 H (83-108) mmHg ABG Total CO2 (19-24) mmol/L ABG O2 Saturation >99.4 H >99.4 H >99.4 H (94-97) % ABG Hematocrit 27 L 28 L 27 L (34.0-46.0) % ABG Ionized Calcium 3.9 L 4.3 L 4.4 L (4.5-5.3) mg/dL ABG Glucose 124 H 130 H 119 H (75-99) mg/dL ABG Lactic Acid 1.7 H (0.5-1.6) mmol/L Hemoglobin 8.9 L 9.0 L 8.7 L (11.4-16.0) gm/dL Sodium (137-145) mmol/L Chloride (98-107) mmol/L Carbon Dioxide (22-30) mmol/L Glucose (74-99) mg/dL POC Glucose (mg/dL) (70-110) mg/dL Calcium (8.4-10.2) mg/dL Magnesium (1.6-2.3) mg/dL Total Protein (6.3-8.2) g/dL Albumin (3.5-5.0) g/dL Arterial Blood Glucose 124 H 130 H 119 H (75-99) mg/dL Crossmatch 11/03/24 11/03/24 11/03/24 Range/Units 11:07 11:40 12:00 WBC 10.7 H (3.8-10.6) k/uL RBC 3.23 L (3.80-5.40) m/uL Hgb 10.6 L (11.4-16.0) gm/dL Hct 32.7 L (34.0-46.0) % MCV 101.1 H (80.0-100.0) fL Plt Count 95 L (150-450) k/uL Neutrophils # 8.2 H (1.3-7.7) k/uL ABG pH (7.35-7.45) ABG pCO2 (35-45) mmHg ABG pO2 137 H 139 H (83-108) mmHg ABG Total CO2 (19-24) mmol/L ABG O2 Saturation 98.8 H 98.7 H (94-97) % ABG Hematocrit 27 L 30 L (34.0-46.0) % ABG Ionized Calcium 4.4 L (4.5-5.3) mg/dL ABG Glucose 117 H 116 H (75-99) mg/dL ABG Lactic Acid 2.4 H* 2.6 H* (0.5-1.6) mmol/L Hemoglobin 8.9 L 9.9 L (11.4-16.0) gm/dL Sodium (137-145) mmol/L Chloride (98-107) mmol/L Carbon Dioxide (22-30) mmol/L Glucose (74-99) mg/dL POC Glucose (mg/dL) (70-110) mg/dL Calcium (8.4-10.2) mg/dL Magnesium (1.6-2.3) mg/dL Total Protein (6.3-8.2) g/dL Albumin (3.5-5.0) g/dL Arterial Blood Glucose 117 H 116 H (75-99) mg/dL Crossmatch 11/03/24 11/03/24 11/03/24 Range/Units 12:00 13:05 13:11 WBC (3.8-10.6) k/uL RBC (3.80-5.40) m/uL Hgb (11.4-16.0) gm/dL Hct (34.0-46.0) % MCV (80.0-100.0) fL Plt Count (150-450) k/uL Neutrophils # (1.3-7.7) k/uL ABG pH 7.34 L (7.35-7.45) ABG pCO2 (35-45) mmHg ABG pO2 66 L (83-108) mmHg ABG Total CO2 (19-24) mmol/L ABG O2 Saturation 92.3 L (94-97) % ABG Hematocrit (34.0-46.0) % ABG Ionized Calcium (4.5-5.3) mg/dL ABG Glucose (75-99) mg/dL ABG Lactic Acid (0.5-1.6) mmol/L Hemoglobin 10.6 L (11.4-16.0) gm/dL Sodium 135 L (137-145) mmol/L Chloride 108 H (98-107) mmol/L Carbon Dioxide 21 L (22-30) mmol/L Glucose 108 H (74-99) mg/dL POC Glucose (mg/dL) 116 H (70-110) mg/dL Calcium (8.4-10.2) mg/dL Magnesium 4.2 H (1.6-2.3) mg/dL Total Protein 4.9 L (6.3-8.2) g/dL Albumin 3.0 L (3.5-5.0) g/dL Arterial Blood Glucose (75-99) mg/dL Crossmatch 11/03/24 11/03/24 11/03/24 Range/Units 14:00 15:09 15:11 WBC (3.8-10.6) k/uL RBC 3.47 L (3.80-5.40) m/uL Hgb (11.4-16.0) gm/dL Hct (34.0-46.0) % MCV 101.3 H (80.0-100.0) fL Plt Count 101 L (150-450) k/uL Neutrophils # (1.3-7.7) k/uL ABG pH (7.35-7.45) ABG pCO2 (35-45) mmHg ABG pO2 (83-108) mmHg ABG Total CO2 (19-24) mmol/L ABG O2 Saturation (94-97) % ABG Hematocrit (34.0-46.0) % ABG Ionized Calcium (4.5-5.3) mg/dL ABG Glucose (75-99) mg/dL ABG Lactic Acid (0.5-1.6) mmol/L Hemoglobin (11.4-16.0) gm/dL Sodium (137-145) mmol/L Chloride (98-107) mmol/L Carbon Dioxide (22-30) mmol/L Glucose (74-99) mg/dL POC Glucose (mg/dL) 128 H 121 H (70-110) mg/dL Calcium (8.4-10.2) mg/dL Magnesium (1.6-2.3) mg/dL Total Protein (6.3-8.2) g/dL Albumin (3.5-5.0) g/dL Arterial Blood Glucose (75-99) mg/dL Crossmatch 11/03/24 11/03/24 11/03/24 Range/Units 16:20 16:21 17:09 WBC (3.8-10.6) k/uL RBC (3.80-5.40) m/uL Hgb (11.4-16.0) gm/dL Hct (34.0-46.0) % MCV (80.0-100.0) fL Plt Count (150-450) k/uL Neutrophils # (1.3-7.7) k/uL ABG pH 7.24 L (7.35-7.45) ABG pCO2 55 H (35-45) mmHg ABG pO2 68 L (83-108) mmHg ABG Total CO2 25 H (19-24) mmol/L ABG O2 Saturation 90.8 L (94-97) % ABG Hematocrit (34.0-46.0) % ABG Ionized Calcium (4.5-5.3) mg/dL ABG Glucose (75-99) mg/dL ABG Lactic Acid (0.5-1.6) mmol/L Hemoglobin (11.4-16.0) gm/dL Sodium (137-145) mmol/L Chloride (98-107) mmol/L Carbon Dioxide (22-30) mmol/L Glucose (74-99) mg/dL POC Glucose (mg/dL) 150 H 139 H (70-110) mg/dL Calcium (8.4-10.2) mg/dL Magnesium (1.6-2.3) mg/dL Total Protein (6.3-8.2) g/dL Albumin (3.5-5.0) g/dL Arterial Blood Glucose (75-99) mg/dL Crossmatch 11/03/24 11/03/24 11/03/24 Range/Units 18:03 18:06 18:42 WBC (3.8-10.6) k/uL RBC (3.80-5.40) m/uL Hgb (11.4-16.0) gm/dL Hct (34.0-46.0) % MCV (80.0-100.0) fL Plt Count (150-450) k/uL Neutrophils # (1.3-7.7) k/uL ABG pH 7.30 L (7.35-7.45) ABG pCO2 47 H (35-45) mmHg ABG pO2 117 H (83-108) mmHg ABG Total CO2 (19-24) mmol/L ABG O2 Saturation 98.6 H (94-97) % ABG Hematocrit (34.0-46.0) % ABG Ionized Calcium (4.5-5.3) mg/dL ABG Glucose (75-99) mg/dL ABG Lactic Acid (0.5-1.6) mmol/L Hemoglobin 11.1 L (11.4-16.0) gm/dL Sodium (137-145) mmol/L Chloride (98-107) mmol/L Carbon Dioxide (22-30) mmol/L Glucose (74-99) mg/dL POC Glucose (mg/dL) 138 H 138 H (70-110) mg/dL Calcium (8.4-10.2) mg/dL Magnesium (1.6-2.3) mg/dL Total Protein (6.3-8.2) g/dL Albumin (3.5-5.0) g/dL Arterial Blood Glucose (75-99) mg/dL Crossmatch 11/03/24 11/03/24 11/03/24 Range/Units 18:42 20:12 21:07 WBC (3.8-10.6) k/uL RBC 3.46 L (3.80-5.40) m/uL Hgb (11.4-16.0) gm/dL Hct (34.0-46.0) % MCV 101.8 H (80.0-100.0) fL Plt Count 104 L (150-450) k/uL Neutrophils # 7.9 H (1.3-7.7) k/uL ABG pH (7.35-7.45) ABG pCO2 (35-45) mmHg ABG pO2 (83-108) mmHg ABG Total CO2 (19-24) mmol/L ABG O2 Saturation (94-97) % ABG Hematocrit (34.0-46.0) % ABG Ionized Calcium (4.5-5.3) mg/dL ABG Glucose (75-99) mg/dL ABG Lactic Acid (0.5-1.6) mmol/L Hemoglobin (11.4-16.0) gm/dL Sodium (137-145) mmol/L Chloride (98-107) mmol/L Carbon Dioxide (22-30) mmol/L Glucose (74-99) mg/dL POC Glucose (mg/dL) 136 H 138 H (70-110) mg/dL Calcium (8.4-10.2) mg/dL Magnesium (1.6-2.3) mg/dL Total Protein (6.3-8.2) g/dL Albumin (3.5-5.0) g/dL Arterial Blood Glucose (75-99) mg/dL Crossmatch 11/03/24 11/03/24 11/04/24 Range/Units 22:07 23:11 00:04 WBC (3.8-10.6) k/uL RBC (3.80-5.40) m/uL Hgb (11.4-16.0) gm/dL Hct (34.0-46.0) % MCV (80.0-100.0) fL Plt Count (150-450) k/uL Neutrophils # (1.3-7.7) k/uL ABG pH (7.35-7.45) ABG pCO2 (35-45) mmHg ABG pO2 (83-108) mmHg ABG Total CO2 (19-24) mmol/L ABG O2 Saturation (94-97) % ABG Hematocrit (34.0-46.0) % ABG Ionized Calcium (4.5-5.3) mg/dL ABG Glucose (75-99) mg/dL ABG Lactic Acid (0.5-1.6) mmol/L Hemoglobin (11.4-16.0) gm/dL Sodium (137-145) mmol/L Chloride (98-107) mmol/L Carbon Dioxide (22-30) mmol/L Glucose (74-99) mg/dL POC Glucose (mg/dL) 133 H 134 H 133 H (70-110) mg/dL Calcium (8.4-10.2) mg/dL Magnesium (1.6-2.3) mg/dL Total Protein (6.3-8.2) g/dL Albumin (3.5-5.0) g/dL Arterial Blood Glucose (75-99) mg/dL Crossmatch 11/04/24 11/04/24 11/04/24 Range/Units 01:08 02:17 03:00 WBC (3.8-10.6) k/uL RBC 3.39 L (3.80-5.40) m/uL Hgb 11.1 L (11.4-16.0) gm/dL Hct (34.0-46.0) % MCV 100.9 H (80.0-100.0) fL Plt Count 113 L (150-450) k/uL Neutrophils # 8.2 H (1.3-7.7) k/uL ABG pH (7.35-7.45) ABG pCO2 (35-45) mmHg ABG pO2 (83-108) mmHg ABG Total CO2 (19-24) mmol/L ABG O2 Saturation (94-97) % ABG Hematocrit (34.0-46.0) % ABG Ionized Calcium (4.5-5.3) mg/dL ABG Glucose (75-99) mg/dL ABG Lactic Acid (0.5-1.6) mmol/L Hemoglobin (11.4-16.0) gm/dL Sodium (137-145) mmol/L Chloride (98-107) mmol/L Carbon Dioxide (22-30) mmol/L Glucose (74-99) mg/dL POC Glucose (mg/dL) 132 H 125 H (70-110) mg/dL Calcium (8.4-10.2) mg/dL Magnesium (1.6-2.3) mg/dL Total Protein (6.3-8.2) g/dL Albumin (3.5-5.0) g/dL Arterial Blood Glucose (75-99) mg/dL Crossmatch 11/04/24 11/04/24 11/04/24 Range/Units 03:00 03:02 04:21 WBC (3.8-10.6) k/uL RBC (3.80-5.40) m/uL Hgb (11.4-16.0) gm/dL Hct (34.0-46.0) % MCV (80.0-100.0) fL Plt Count (150-450) k/uL Neutrophils # (1.3-7.7) k/uL ABG pH (7.35-7.45) ABG pCO2 (35-45) mmHg ABG pO2 (83-108) mmHg ABG Total CO2 (19-24) mmol/L ABG O2 Saturation (94-97) % ABG Hematocrit (34.0-46.0) % ABG Ionized Calcium (4.5-5.3) mg/dL ABG Glucose (75-99) mg/dL ABG Lactic Acid (0.5-1.6) mmol/L Hemoglobin (11.4-16.0) gm/dL Sodium 132 L (137-145) mmol/L Chloride (98-107) mmol/L Carbon Dioxide (22-30) mmol/L Glucose 108 H (74-99) mg/dL POC Glucose (mg/dL) 123 H 119 H (70-110) mg/dL Calcium 8.1 L (8.4-10.2) mg/dL Magnesium 2.5 H (1.6-2.3) mg/dL Total Protein 5.1 L (6.3-8.2) g/dL Albumin 3.1 L (3.5-5.0) g/dL Arterial Blood Glucose (75-99) mg/dL Crossmatch 11/04/24 11/04/24 11/04/24 Range/Units 05:17 07:05 08:04 WBC (3.8-10.6) k/uL RBC (3.80-5.40) m/uL Hgb (11.4-16.0) gm/dL Hct (34.0-46.0) % MCV (80.0-100.0) fL Plt Count (150-450) k/uL Neutrophils # (1.3-7.7) k/uL ABG pH (7.35-7.45) ABG pCO2 (35-45) mmHg ABG pO2 (83-108) mmHg ABG Total CO2 (19-24) mmol/L ABG O2 Saturation (94-97) % ABG Hematocrit (34.0-46.0) % ABG Ionized Calcium (4.5-5.3) mg/dL ABG Glucose (75-99) mg/dL ABG Lactic Acid (0.5-1.6) mmol/L Hemoglobin (11.4-16.0) gm/dL Sodium (137-145) mmol/L Chloride (98-107) mmol/L Carbon Dioxide (22-30) mmol/L Glucose (74-99) mg/dL POC Glucose (mg/dL) 120 H 133 H 126 H (70-110) mg/dL Calcium (8.4-10.2) mg/dL Magnesium (1.6-2.3) mg/dL Total Protein (6.3-8.2) g/dL Albumin (3.5-5.0) g/dL Arterial Blood Glucose (75-99) mg/dL Crossmatch 11/04/24 11/04/24 Range/Units 09:01 10:05 WBC (3.8-10.6) k/uL RBC (3.80-5.40) m/uL Hgb (11.4-16.0) gm/dL Hct (34.0-46.0) % MCV (80.0-100.0) fL Plt Count (150-450) k/uL Neutrophils # (1.3-7.7) k/uL ABG pH (7.35-7.45) ABG pCO2 (35-45) mmHg ABG pO2 (83-108) mmHg ABG Total CO2 (19-24) mmol/L ABG O2 Saturation (94-97) % ABG Hematocrit (34.0-46.0) % ABG Ionized Calcium (4.5-5.3) mg/dL ABG Glucose (75-99) mg/dL ABG Lactic Acid (0.5-1.6) mmol/L Hemoglobin (11.4-16.0) gm/dL Sodium (137-145) mmol/L Chloride (98-107) mmol/L Carbon Dioxide (22-30) mmol/L Glucose (74-99) mg/dL POC Glucose (mg/dL) 112 H 112 H (70-110) mg/dL Calcium (8.4-10.2) mg/dL Magnesium (1.6-2.3) mg/dL Total Protein (6.3-8.2) g/dL Albumin (3.5-5.0) g/dL Arterial Blood Glucose (75-99) mg/dL Crossmatch Assessment and Plan (1) History of hypertension Current Visit: Yes Status: Acute Code(s): Z86.79 - PERSONAL HISTORY OF OTHER DISEASES OF THE CIRCULATORY SYSTEM SNOMED Code(s): 981583263 (2) Chronic obstructive pulmonary disease Current Visit: Yes Status: Acute Code(s): J44.9 - CHRONIC OBSTRUCTIVE PULMONARY DISEASE, UNSPECIFIED SNOMED Code(s): 48113602 (3) Aortic valve insufficiency Current Visit: Yes Status: Acute Code(s): I35.1 - NONRHEUMATIC AORTIC (VALVE) INSUFFICIENCY SNOMED Code(s): 72831004 (4) Aortic valvular stenosis Current Visit: Yes Status: Acute Code(s): I35.0 - NONRHEUMATIC AORTIC (VALVE) STENOSIS SNOMED Code(s): 00511746 (5) Aortic valve replaced Current Visit: Yes Status: Acute Code(s): Z95.2 - PRESENCE OF PROSTHETIC HEART VALVE SNOMED Code(s): 9913747379813 (6) History of asthma Current Visit: Yes Status: Acute Code(s): Z87.09 - PERSONAL HISTORY OF OTHER DISEASES OF THE RESPIRATORY SYSTEM SNOMED Code(s): 366997601 (7) History of ovarian cancer Current Visit: Yes Status: Acute Code(s): Z85.43 - PERSONAL HISTORY OF MALIGNANT NEOPLASM OF OVARY SNOMED Code(s): 783871983 Plan: Continue current care Aggressive pain management Buchanan out in 24 hours Increase diet as tolerated Time with Patient: Greater than 30
[2024-11-04] MEDS: HYDROmorphone 0.5 MG/0.5 ML SYRINGE IVP PRN (11:02)
[2024-11-04 11:07] LABS: Glucose,Whole Blood 123 mg/dL (70-110)
[2024-11-04 12:02] LABS: Glucose,Whole Blood 128 mg/dL (70-110)
--- NOTE | 2024-11-04 12:23 | P.PN ---
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 She was brought in today electively for an aortic valve replacement however there was no cardioplegia solution available and she is postponed until tomorrow. She was admitted to the intensive care unit following [place] catheter placement. She was initiated on IV Primacor currently at 0.25 mcg/kg/m in. She is awake and alert. Sitting up in bed. Maintaining good O2 saturations in the 90s on room air. She is afebrile. Hemodynamically stable. PA pressure 19/4. CVP 1. Cardiac output 5.1. Cardiac index 2.8. She has been initiated on DuoNeb inhalations, Symbicort. She has been educated regarding the use the incentive spirometer. Heparin for DVT prophylaxis. 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 However when I came in to see the patient, patient had no breath sounds on the left side, chest x-ray showed endotracheal tube in the right mainstem bronchus, and the patient was arousable, follows simple instructions. I reviewed the chest x-ray which was done earlier, and I recommended immediate pulling of the endotracheal tube approximately about 4 cm. In the meantime ABG was done and it showed a pO2 of 68 pCO2 54 pH of 7.24. This was on CPAP, and I recommended the patient is not ready to be weaned she had to be placed back on assist-control mode of mechanical ventilation, with assist-control rate of 14 tidal volume 500 FiO2 50% and PEEP of 8. Chest x-ray was noted after the tube was pulled out of the right mainstem bronchus showed retrocardiac atelectasis in the left lower lobe, however there was good aeration of the left midlung and left upper lobe. Based on the ABG based on the chest x-ray findings and based on the fact that the endotracheal tube was not in the proper position, I recommended that we delay extubation for now. And reevaluate weaning on pressure support of 8 and CPAP in the next 1 hour. Patient is hemodynamically stable, she is not requiring any pressors. On Cleviprex at 2 mg/h amiodarone at 1 mg/min IV fluid at 50 cc/h in the form of 0.9 normal saline cardiac output of 4.7 cardiac index of 2.6 PA pressure 35/16. Patient was seen today on 11/04/2024, patient was extubated yesterday successfully, and I am seeing her today she is doing quite well. She is on 4 L nasal cannula, patient is also on amiodarone 0.5 mg/min insulin 1 unit/h IV fluid 0.9 normal saline at 50 cc/h patient is sitting up in the chair, does not seem to be in any distress. Chest x-ray was reviewed, has minimal bibasilar atelectasis and possibly a small left pleural effusion. WBC is 10.2 hemoglobin 11.1, basic metabolic profile and renal profile are normal. Objective - Vital Signs Vital signs: Vital Signs Temp 98.1 F 11/04/24 11:30 Pulse 73 11/04/24 11:30 Resp 14 11/04/24 11:30 BP 107/46 11/04/24 08:00 Pulse Ox 93 L 11/04/24 11:30 FiO2 50 11/03/24 18:00 Intake & Output 11/03/24 11/04/24 11/04/24 18:59 06:59 18:59 Intake Total 797.804 797.617 397.975 Output Total 1954 1195 330 Balance -1156.196 -397.383 67.975 Weight 86.4 kg 86.4 kg Intake: IV 756 768 392 ACETAMINOPHEN IV (For NPO 100 100 ) 1,000 mg In Empty Bag 1 bag @ 400 mls/hr IVPB Q6HR PO Rx#:[id number] Cardiac Output (0.9 160 60 10 Sodium Chloride) Pressure Bag (0.9 Sodium 63 108 42 Chloride) Sodium Chloride 0.9% 1, 30 000 ml @ 20 mls/hr IV . Q24H PO Rx#:[id number] Sodium Chloride 0.9% 1, 300 600 190 000 ml @ 30 mls/hr IV . Q24H PO Rx#:[id number] ceFAZolin 2 gm In Sodium 50 50 Chloride 0.9% 50 ml @ 100 mls/hr IVPB ONCE ONE Rx# :[id number] Intake, IV Titration 41.804 29.617 5.975 Amount Clevidipine Butyrate 25 24.067 19.700 mg In Empty Bag 1 bag @ 1 MG/HR 2 mls/hr IV .Q24H PO Rx#:[id number] Insulin Regular 100 unit 2.825 9.917 5.975 In Sodium Chloride 0.9% 100 ml @ Per Protocol IV .Q0M PO Rx#:[id number] propofoL 1,000 mg In 14.912 Empty Bag 1 bag @ Titrate IV .Q0M PO Rx#: [id number] Output: Chest Tube Drainage 289 425 160 Left Pleural 75 115 60 Mediastinal 214 310 100 Urine 1265 770 170 Estimated Blood Loss 400 Other: Voiding Method Indwelling Catheter Indwelling Catheter ABP, PAP, CO, CI - Last Documented Arterial Blood Pressure 104/62 Pulmonary Artery Pressure 24/16 Cardiac Output 5.4 Cardiac Index 2.9 - Exam GENERAL EXAM: Revealed a 49-year-old female in no distress, on 4 L nasal cannula HEAD: Normocephalic. EYES: Normal reaction of pupils, equal size. NOSE: Clear with pink turbinates. THROAT: No erythema or exudates NECK: No masses, no JVD. CHEST: No chest wall deformity. LUNGS: Diminished breath sounds at the bases no rhonchi no wheezes CVS: S1 and S2 normal with an audible murmur, regular rhythm. Positive pericardial rub ABDOMEN: No hepatosplenomegaly, normal bowel sounds, no guarding or rigidity. SKIN: No rashes CENTRAL NERVOUS SYSTEM: Alert and oriented x 3 no gross focal deficit EXTREMITIES: No clubbing edema or cyanosis - Labs CBC & Chem 7: 11/04/24 03:00 11/04/24 03:00 Labs: Abnormal Lab Results - Last 24 Hours (Table) 10/25/24 11/03/24 11/03/24 Range/Units 08:50 12:00 12:00 WBC 10.7 H (3.8-10.6) k/uL RBC 3.23 L (3.80-5.40) m/uL Hgb 10.6 L (11.4-16.0) gm/dL Hct 32.7 L (34.0-46.0) % MCV 101.1 H (80.0-100.0) fL Plt Count 95 L (150-450) k/uL Neutrophils # 8.2 H (1.3-7.7) k/uL ABG pH (7.35-7.45) ABG pCO2 (35-45) mmHg ABG pO2 (83-108) mmHg ABG Total CO2 (19-24) mmol/L ABG O2 Saturation (94-97) % Hemoglobin (11.4-16.0) gm/dL Sodium 135 L (137-145) mmol/L Chloride 108 H (98-107) mmol/L Carbon Dioxide 21 L (22-30) mmol/L Glucose 108 H (74-99) mg/dL POC Glucose (mg/dL) (70-110) mg/dL Calcium (8.4-10.2) mg/dL Magnesium 4.2 H (1.6-2.3) mg/dL Total Protein 4.9 L (6.3-8.2) g/dL Albumin 3.0 L (3.5-5.0) g/dL Crossmatch See Detail 11/03/24 11/03/24 11/03/24 Range/Units 13:05 13:11 14:00 WBC (3.8-10.6) k/uL RBC (3.80-5.40) m/uL Hgb (11.4-16.0) gm/dL Hct (34.0-46.0) % MCV (80.0-100.0) fL Plt Count (150-450) k/uL Neutrophils # (1.3-7.7) k/uL ABG pH 7.34 L (7.35-7.45) ABG pCO2 (35-45) mmHg ABG pO2 66 L (83-108) mmHg ABG Total CO2 (19-24) mmol/L ABG O2 Saturation 92.3 L (94-97) % Hemoglobin 10.6 L (11.4-16.0) gm/dL Sodium (137-145) mmol/L Chloride (98-107) mmol/L Carbon Dioxide (22-30) mmol/L Glucose (74-99) mg/dL POC Glucose (mg/dL) 116 H 128 H (70-110) mg/dL Calcium (8.4-10.2) mg/dL Magnesium (1.6-2.3) mg/dL Total Protein (6.3-8.2) g/dL Albumin (3.5-5.0) g/dL Crossmatch 11/03/24 11/03/24 11/03/24 Range/Units 15:09 15:11 16:20 WBC (3.8-10.6) k/uL RBC 3.47 L (3.80-5.40) m/uL Hgb (11.4-16.0) gm/dL Hct (34.0-46.0) % MCV 101.3 H (80.0-100.0) fL Plt Count 101 L (150-450) k/uL Neutrophils # (1.3-7.7) k/uL ABG pH 7.24 L (7.35-7.45) ABG pCO2 55 H (35-45) mmHg ABG pO2 68 L (83-108) mmHg ABG Total CO2 25 H (19-24) mmol/L ABG O2 Saturation 90.8 L (94-97) % Hemoglobin (11.4-16.0) gm/dL Sodium (137-145) mmol/L Chloride (98-107) mmol/L Carbon Dioxide (22-30) mmol/L Glucose (74-99) mg/dL POC Glucose (mg/dL) 121 H (70-110) mg/dL Calcium (8.4-10.2) mg/dL Magnesium (1.6-2.3) mg/dL Total Protein (6.3-8.2) g/dL Albumin (3.5-5.0) g/dL Crossmatch 11/03/24 11/03/24 11/03/24 Range/Units 16:21 17:09 18:03 WBC (3.8-10.6) k/uL RBC (3.80-5.40) m/uL Hgb (11.4-16.0) gm/dL Hct (34.0-46.0) % MCV (80.0-100.0) fL Plt Count (150-450) k/uL Neutrophils # (1.3-7.7) k/uL ABG pH (7.35-7.45) ABG pCO2 (35-45) mmHg ABG pO2 (83-108) mmHg ABG Total CO2 (19-24) mmol/L ABG O2 Saturation (94-97) % Hemoglobin (11.4-16.0) gm/dL Sodium (137-145) mmol/L Chloride (98-107) mmol/L Carbon Dioxide (22-30) mmol/L Glucose (74-99) mg/dL POC Glucose (mg/dL) 150 H 139 H 138 H (70-110) mg/dL Calcium (8.4-10.2) mg/dL Magnesium (1.6-2.3) mg/dL Total Protein (6.3-8.2) g/dL Albumin (3.5-5.0) g/dL Crossmatch 11/03/24 11/03/24 11/03/24 Range/Units 18:06 18:42 18:42 WBC (3.8-10.6) k/uL RBC 3.46 L (3.80-5.40) m/uL Hgb (11.4-16.0) gm/dL Hct (34.0-46.0) % MCV 101.8 H (80.0-100.0) fL Plt Count 104 L (150-450) k/uL Neutrophils # 7.9 H (1.3-7.7) k/uL ABG pH 7.30 L (7.35-7.45) ABG pCO2 47 H (35-45) mmHg ABG pO2 117 H (83-108) mmHg ABG Total CO2 (19-24) mmol/L ABG O2 Saturation 98.6 H (94-97) % Hemoglobin 11.1 L (11.4-16.0) gm/dL Sodium (137-145) mmol/L Chloride (98-107) mmol/L Carbon Dioxide (22-30) mmol/L Glucose (74-99) mg/dL POC Glucose (mg/dL) 138 H (70-110) mg/dL Calcium (8.4-10.2) mg/dL Magnesium (1.6-2.3) mg/dL Total Protein (6.3-8.2) g/dL Albumin (3.5-5.0) g/dL Crossmatch 11/03/24 11/03/24 11/03/24 Range/Units 20:12 21:07 22:07 WBC (3.8-10.6) k/uL RBC (3.80-5.40) m/uL Hgb (11.4-16.0) gm/dL Hct (34.0-46.0) % MCV (80.0-100.0) fL Plt Count (150-450) k/uL Neutrophils # (1.3-7.7) k/uL ABG pH (7.35-7.45) ABG pCO2 (35-45) mmHg ABG pO2 (83-108) mmHg ABG Total CO2 (19-24) mmol/L ABG O2 Saturation (94-97) % Hemoglobin (11.4-16.0) gm/dL Sodium (137-145) mmol/L Chloride (98-107) mmol/L Carbon Dioxide (22-30) mmol/L Glucose (74-99) mg/dL POC Glucose (mg/dL) 136 H 138 H 133 H (70-110) mg/dL Calcium (8.4-10.2) mg/dL Magnesium (1.6-2.3) mg/dL Total Protein (6.3-8.2) g/dL Albumin (3.5-5.0) g/dL Crossmatch 11/03/24 11/04/24 11/04/24 Range/Units 23:11 00:04 01:08 WBC (3.8-10.6) k/uL RBC (3.80-5.40) m/uL Hgb (11.4-16.0) gm/dL Hct (34.0-46.0) % MCV (80.0-100.0) fL Plt Count (150-450) k/uL Neutrophils # (1.3-7.7) k/uL ABG pH (7.35-7.45) ABG pCO2 (35-45) mmHg ABG pO2 (83-108) mmHg ABG Total CO2 (19-24) mmol/L ABG O2 Saturation (94-97) % Hemoglobin (11.4-16.0) gm/dL Sodium (137-145) mmol/L Chloride (98-107) mmol/L Carbon Dioxide (22-30) mmol/L Glucose (74-99) mg/dL POC Glucose (mg/dL) 134 H 133 H 132 H (70-110) mg/dL Calcium (8.4-10.2) mg/dL Magnesium (1.6-2.3) mg/dL Total Protein (6.3-8.2) g/dL Albumin (3.5-5.0) g/dL Crossmatch 11/04/24 11/04/24 11/04/24 Range/Units 02:17 03:00 03:00 WBC (3.8-10.6) k/uL RBC 3.39 L (3.80-5.40) m/uL Hgb 11.1 L (11.4-16.0) gm/dL Hct (34.0-46.0) % MCV 100.9 H (80.0-100.0) fL Plt Count 113 L (150-450) k/uL Neutrophils # 8.2 H (1.3-7.7) k/uL ABG pH (7.35-7.45) ABG pCO2 (35-45) mmHg ABG pO2 (83-108) mmHg ABG Total CO2 (19-24) mmol/L ABG O2 Saturation (94-97) % Hemoglobin (11.4-16.0) gm/dL Sodium 132 L (137-145) mmol/L Chloride (98-107) mmol/L Carbon Dioxide (22-30) mmol/L Glucose 108 H (74-99) mg/dL POC Glucose (mg/dL) 125 H (70-110) mg/dL Calcium 8.1 L (8.4-10.2) mg/dL Magnesium 2.5 H (1.6-2.3) mg/dL Total Protein 5.1 L (6.3-8.2) g/dL Albumin 3.1 L (3.5-5.0) g/dL Crossmatch 03/11/04/24 11/04/24 Range/Units 03:02 04:21 05:17 WBC (3.8-10.6) k/uL RBC (3.80-5.40) m/uL Hgb (11.4-16.0) gm/dL Hct (34.0-46.0) % MCV (80.0-100.0) fL Plt Count (150-450) k/uL Neutrophils # (1.3-7.7) k/uL ABG pH (7.35-7.45) ABG pCO2 (35-45) mmHg ABG pO2 (83-108) mmHg ABG Total CO2 (19-24) mmol/L ABG O2 Saturation (94-97) % Hemoglobin (11.4-16.0) gm/dL Sodium (137-145) mmol/L Chloride (98-107) mmol/L Carbon Dioxide (22-30) mmol/L Glucose (74-99) mg/dL POC Glucose (mg/dL) 123 H 119 H 120 H (70-110) mg/dL Calcium (8.4-10.2) mg/dL Magnesium (1.6-2.3) mg/dL Total Protein (6.3-8.2) g/dL Albumin (3.5-5.0) g/dL Crossmatch 11/04/24 11/04/24 11/04/24 Range/Units 07:05 08:04 09:01 WBC (3.8-10.6) k/uL RBC (3.80-5.40) m/uL Hgb (11.4-16.0) gm/dL Hct (34.0-46.0) % MCV (80.0-100.0) fL Plt Count (150-450) k/uL Neutrophils # (1.3-7.7) k/uL ABG pH (7.35-7.45) ABG pCO2 (35-45) mmHg ABG pO2 (83-108) mmHg ABG Total CO2 (19-24) mmol/L ABG O2 Saturation (94-97) % Hemoglobin (11.4-16.0) gm/dL Sodium (137-145) mmol/L Chloride (98-107) mmol/L Carbon Dioxide (22-30) mmol/L Glucose (74-99) mg/dL POC Glucose (mg/dL) 133 H 126 H 112 H (70-110) mg/dL Calcium (8.4-10.2) mg/dL Magnesium (1.6-2.3) mg/dL Total Protein (6.3-8.2) g/dL Albumin (3.5-5.0) g/dL Crossmatch 11/04/24 11/04/24 11/04/24 Range/Units 10:05 11:04 12:00 WBC (3.8-10.6) k/uL RBC (3.80-5.40) m/uL Hgb (11.4-16.0) gm/dL Hct (34.0-46.0) % MCV (80.0-100.0) fL Plt Count (150-450) k/uL Neutrophils # (1.3-7.7) k/uL ABG pH (7.35-7.45) ABG pCO2 (35-45) mmHg ABG pO2 (83-108) mmHg ABG Total CO2 (19-24) mmol/L ABG O2 Saturation (94-97) % Hemoglobin (11.4-16.0) gm/dL Sodium (137-145) mmol/L Chloride (98-107) mmol/L Carbon Dioxide (22-30) mmol/L Glucose (74-99) mg/dL POC Glucose (mg/dL) 112 H 123 H 128 H (70-110) mg/dL Calcium (8.4-10.2) mg/dL Magnesium (1.6-2.3) mg/dL Total Protein (6.3-8.2) g/dL Albumin (3.5-5.0) g/dL Crossmatch Assessment and Plan Assessment: Impression: Status post aortic valve replacement with 25 mm Verdugo Inspiris bovine pericardial valve prosthesis including aortic root enlargement (Jeramie Manzanares technique), 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 Plans are for aortic valve replacement tomorrow November 03, 2024 Left lower lobe atelectasis secondary to right mainstem intubation Bibasilar atelectasis, expected postoperatively. History of chronic systolic congestive heart failure with an ejection fraction of 45%, suspect some component of acute congestive heart failure based on chest x-ray today., Being addressed by cardiothoracic surgery Chronic and ongoing tobacco dependence Chronic obstructive pulmonary disease with an FEV1 value 66% of predicted Acute hypoxic and hypercapnic respiratory failure secondary to endotracheal tube being in the right mainstem, and the patient does have underlying COPD with some component of hypoventilation as the patient is coming off sedation Hypertension Recommendation: Continue to monitor in the ICU Continue O2 at 4 L nasal cannula and titrate accordingly Continue incentive spirometry patient is doing poorly with I-S at this point in time. Gentle diuresis is suggested Continue DuoNeb updrafts/bronchodilators Patient to ambulate today with assistance Unnecessary lines and catheters to be removed as per thoracic surgery on the case. We continue to follow Time with Patient: Less than 30
[2024-11-04 13:13] LABS: Glucose,Whole Blood 118 mg/dL (70-110)
--- NOTE | 2024-11-04 13:13 | P.CRDCN ---
History of Present Illness Consult date: 11/04/24 Consult reason: post-op evaluation History of present illness: This is Jerrell Moore NP, I'm dictating on behalf of Dr. Hugo's H&P and A&P The patient was interviewed and examined. HPI: Patient is a pleasant 49-year-old female with a past medical history of severe aortic insufficiency, moderate aortic stenosis, chronic heart failure with reduced ejection fraction, hypertension, remote history of pneumonia, COVID, tobacco dependence, mild COPD who presented to the hospital for aortic valve replacement. Patient has been experiencing progressive dyspnea and more recently began experiencing chest pain. Previous cardiac catheterization was completed which showed normal coronary arteries with no significant blockages. Echocardiogram demonstrated moderate to severe aortic insufficiency, moderate aortic stenosis, mild mitral and tricuspid regurgitation, and reduced left ventricular systolic function with an EF of 40 to 45%. Patient was also complaining of some episodes of a rapid heart rate, but event monitoring did not find any atrial fibrillation, but did demonstrate 4-1/2-second pauses occasionally. The patient was evaluated by cardiothoracic surgery, and was scheduled for aortic valve replacement. She was scheduled to undergo the surgery on 11/02/2024, however necessary materials to proceed for the surgery were unavailable. She was admitted with close hemodynamic monitoring, and to maximize medical status. Cardiology was consulted postoperatively. Patient underwent her aortic valve replacement and aortic root enlargement yesterday with cardiothoracic surgery. This morning she is seen sitting in the chair. P robert reports that she is doing okay postoperatively. She is experiencing some discomfort secondary to the midline sternotomy. She is not complaining of any significant shortness of breath or heart palpitations at this time. ROS: [No fever, chills, or rigors] [no cough, phlegm, or expectoration] [no nausea, vomiting, or diarrhea] [no hematuria, dysuria] [no musculoskelatal complaints] [no strokes or seizures] [no skin lesions] EXAMINATION: GENERAL: Well-appearing, well-nourished and in no acute distress. NECK: Supple without JVD or thyromegaly. LUNGS: Breath sounds clear to auscultation bilaterally. Respiration equal and unlabored. No wheezes, rales or rhonchi. HEART: Regular rate and rhythm without murmurs, rubs or gallops. S1 and S2 heard. EXTREMITIES: Normal range of motion, no edema. No clubbing or cyanosis. Peripheral pulses intact and strong. REVIEW OF LABS, ECG & MEDICAL DATA: LABS: White count 10.2, hemoglobin 11.1, platelets 113, sodium 132, potassium 4.7, BUN 8, creatinine 0.57, magnesium 2.5, proBNP 956 EKG: Sinus mechanism IMAGING: Chest x-ray dated 11/02/2024 demonstrates no acute cardiopulmonary disease/process. Chest x-ray dated 11/03/2024 at 1310 demonstrates postoperative changes of CABG. Chest x-ray dated 11/03/2024 at 1638 demonstrates postsurgical changes from aortic valvular replacement, no sizable pneumothorax, sidehole of NG tube is at the GE junction, recommend advancement of 3 cm, remaining stable support lines and tubes. Chest x-ray dated 11/04/2024 demonstrates VITALS: Interval extubation, persistent mild cardiomegaly with probable small bilateral pleural effusions, persistent left lower lung acute infiltrate and/or atelectasis, no left-sided pneumothorax with left-sided chest tube in place, new right lower lung acute infiltrate and/or atelectasis is noted. IMPRESSION: 1. Severe aortic valve insufficiency 2. Status post aortic valve replacement, aortic root enlargement 3. History of hypertension 4. COPD 5. Asthma PLAN: Continue to follow CT surgery recommendations postoperatively. Continue amiodarone, metoprolol. Further recommendations based on patient's clinical course. Thank you for the consult and allowing us to participate in the care of this patient. Past Medical History Past Medical History: Asthma, Cancer, Chest Pain / Angina, Heart Failure, COPD, Hypertension, Osteoarthritis (OA), Pneumonia Additional Past Medical History / Comment(s): heart murmur, hypoglycemia, ovarian ca 2001 & cancer removed from left knee 2007- pt not sure details, states "had surg & radiation pills"; hx migraines, SOB w/exertion, currently putting A/B ointment on ingrown toenail left big toe-red around nailbed & up toe a little; COVID in 2020 History of Any Multi-Drug Resistant Organisms: None Reported Past Surgical History: Heart Catheterization, Hysterectomy Additional Past Surgical History / Comment(s): ovaries removed, left knee surg, left carpal tunnel surg Past Anesthesia/Blood Transfusion Reactions: No Reported Reaction Past Psychological History: No Psychological Hx Reported Smoking Status: Current every day smoker Past Alcohol Use History: None Reported Past Drug Use History: None Reported - Past Family History Mother Family Medical History: No Reported History Medications and Allergies Home Medications Medication Instructions Recorded Confirmed Type Acetaminophen Tab [Tylenol Tab] 1,000 mg PO TID PRN 09/28/24 10/25/24 History Albuterol Inhaler [Ventolin Hfa 1 - 2 puff INHALATION Q6H PRN 09/28/24 10/25/24 History Inhaler] Budesonide/Formoterol Fumarate 1 puff INHALATION 1430 09/28/24 10/25/24 History [Symbicort 160-4.5 Mcg Inhaler] Fluticasone/Umeclidin/Vilanter 1 inhalation INHALATION DAILY 09/28/24 10/25/24 History [Trelegy Ellipta 100-62.5-25] Allergies Allergy/AdvReac Type Severity Reaction Status Date / Time aspirin Allergy Severe Swelling Verified 11/03/24 07:41 Penicillins Allergy Severe Anaphylaxis Verified 11/02/24 06:00 amoxicillin Allergy Anaphylaxis Verified 11/02/24 06:00 ampicillin Allergy Anaphylaxis Verified 11/02/24 06:00 ciprofloxacin [From Cipro] Allergy Rash/Hives/ Verified 11/02/24 06:00 Swelling codeine Allergy Itching Verified 11/02/24 06:00 Fish Containing Products Allergy Anaphylaxis Verified 11/02/24 12:26 [Fish] ibuprofen Allergy Itching Verified 11/02/24 06:00 Iodinated Contrast Media Allergy Rash/Hives Verified 11/02/24 06:00 [Iodinated Contrast Media - Oral and] iodine Allergy Swelling Verified 11/02/24 06:00 Mushroom Allergy Anaphylaxis Verified 11/02/24 12:26 nitrofurantoin Allergy Rash/Hives Verified 11/02/24 06:00 [From Macrodantin] NSAIDS (Non-Steroidal Allergy Rash/Hives/ Verified 11/02/24 06:00 Anti-Inflamma Swelling povidone-iodine Allergy Rash/Hives Verified 11/02/24 06:00 [From Betadine] shellfish derived [Shellfish] Allergy Anaphylaxis Verified 11/02/24 12:26 Sulfa (Sulfonamide Allergy Rash/Hives Verified 11/02/24 06:00 Antibiotics) Physical Exam Vitals: Vital Signs Temp Pulse Resp BP Pulse Ox FiO2 11/04/24 12:58 74 11/04/24 12:41 70 11/04/24 11:30 98.1 F 73 14 93 L 11/04/24 11:00 78 23 90 L 11/04/24 10:30 76 19 93 L 11/04/24 10:00 70 19 94 L 11/04/24 09:30 73 19 95 11/04/24 09:00 68 17 94 L 11/04/24 08:46 72 11/04/24 08:35 74 11/04/24 08:30 71 21 93 L 11/04/24 08:00 100.2 F H 75 25 H 107/46 93 L 11/04/24 07:30 67 34 H 93 L 11/04/24 07:00 80 25 H 70/47 92 L 11/04/24 06:30 99.3 F 80 20 88 L 11/04/24 06:00 79 18 90 L 11/04/24 05:30 77 16 115/59 94 L 11/04/24 05:00 74 13 94 L 11/04/24 04:30 74 25 H 110/58 97 11/04/24 04:00 99.3 F 71 16 95 11/04/24 03:30 70 17 113/62 96 11/04/24 03:00 69 17 117/55 95 11/04/24 02:45 68 14 117/55 95 11/04/24 02:30 99.0 F 69 15 117/55 95 11/04/24 02:15 66 13 117/55 95 11/04/24 02:00 64 16 94 L 11/04/24 01:45 70 18 94 L 11/04/24 01:30 64 16 94 L 11/04/24 01:15 64 16 93 L 11/04/24 01:00 64 23 109/46 93 L 11/04/24 00:45 66 13 93 L 11/04/24 00:30 63 11 L 93 L 11/04/24 00:15 62 12 93 L 11/04/24 00:07 64 13 91 L 11/04/24 00:00 64 13 132/62 91 L 11/03/24 23:45 67 12 90 L 11/03/24 23:30 71 15 92 L 11/03/24 23:15 70 18 96 11/03/24 23:00 69 15 97 11/03/24 22:45 67 13 96 11/03/24 22:30 67 15 96 11/03/24 22:15 67 15 92 L 11/03/24 22:00 99.1 F 68 15 97 11/03/24 21:45 67 13 97 11/03/24 21:30 65 13 96 11/03/24 21:15 65 14 94 L 11/03/24 21:00 66 13 95 11/03/24 20:45 65 13 94 L 11/03/24 20:32 65 11/03/24 20:30 73 12 92 L 11/03/24 20:15 64 9 L 112/60 92 L 11/03/24 20:00 98.8 F 62 12 115/61 94 L 11/03/24 19:45 64 14 115/61 95 11/03/24 19:30 64 14 115/61 97 11/03/24 19:15 60 14 115/61 96 11/03/24 19:00 60 13 117/56 95 11/03/24 18:45 60 15 94 L 11/03/24 18:30 61 9 L 93 L 11/03/24 18:15 80 12 154/86 98 11/03/24 18:00 61 14 115/69 99 50 11/03/24 17:45 58 L 12 99 11/03/24 17:39 99 11/03/24 17:35 50 11/03/24 17:30 57 L 20 100 11/03/24 17:15 56 L 14 99 11/03/24 17:00 57 L 14 99 11/03/24 16:45 58 L 14 116/66 96 11/03/24 16:31 50 11/03/24 16:30 60 14 116/66 93 L 50 11/03/24 16:15 80 19 99 11/03/24 16:00 64 10 L 107/74 97 50 11/03/24 15:59 70 11/03/24 15:48 68 11/03/24 15:45 61 12 95 11/03/24 15:42 50 11/03/24 15:30 98.1 F 64 14 107/74 94 L 11/03/24 15:15 60 13 107/74 91 L 11/03/24 15:00 62 12 116/77 92 L 11/03/24 14:45 63 12 87 L 11/03/24 14:30 63 12 92 L 11/03/24 14:15 63 12 87 L 11/03/24 14:00 70 15 92 L 11/03/24 13:45 61 12 95 11/03/24 13:30 62 12 95 11/03/24 13:19 50 11/03/24 13:15 68 12 121/66 94 L Intake and Output 11/03/24 11/04/24 11/04/24 22:59 06:59 14:59 Intake Total 792.262 517.751 397.975 Output Total 1184 735 330 Balance -391.738 -217.249 67.975 Intake: IV 762 492 392 ACETAMINOPHEN IV (For NPO 100 100 ) 1,000 mg In Empty Bag 1 bag @ 400 mls/hr IVPB Q6HR PO Rx#:[id number] Cardiac Output (0.9 140 20 10 Sodium Chloride) Pressure Bag (0.9 Sodium 72 72 42 Chloride) Sodium Chloride 0.9% 1, 400 400 190 000 ml @ 30 mls/hr IV . Q24H PO Rx#:[id number] ceFAZolin 2 gm In Sodium 50 50 Chloride 0.9% 50 ml @ 100 mls/hr IVPB ONCE ONE Rx# :[id number] Intake, IV Titration 30.262 25.751 5.975 Amount Clevidipine Butyrate 25 24.866 15.834 mg In Empty Bag 1 bag @ 1 MG/HR 2 mls/hr IV .Q24H PO Rx#:[id number] Insulin Regular 100 unit 2.825 9.917 5.975 In Sodium Chloride 0.9% 100 ml @ Per Protocol IV .Q0M PO Rx#:[id number] propofoL 1,000 mg In 2.571 Empty Bag 1 bag @ Titrate IV .Q0M PO Rx#: [id number] Output: Chest Tube Drainage 329 285 160 Left Pleural 75 95 60 Mediastinal 254 190 100 Urine 855 450 170 Other: Voiding Method Indwelling Catheter Indwelling Catheter Weight 86.4 kg 86.4 kg ABP, PAP, CO, CI - Last 8 Hours Arterial Blood Pressure 104/62 Arterial Blood Pressure 106/61 Arterial Blood Pressure 114/48 Arterial Blood Pressure 111/50 Arterial Blood Pressure 108/59 Arterial Blood Pressure 107/57 Arterial Blood Pressure 107/54 Arterial Blood Pressure 109/57 Arterial Blood Pressure 100/53 Arterial Blood Pressure 112/63 Arterial Blood Pressure 137/60 Arterial Blood Pressure 113/57 Arterial Blood Pressure 129/60 Pulmonary Artery Pressure 24/16 Pulmonary Artery Pressure 24/16 Pulmonary Artery Pressure 23/15 Pulmonary Artery Pressure 23/14 Pulmonary Artery Pressure 27/16 Pulmonary Artery Pressure 24/14 Pulmonary Artery Pressure 31/18 Pulmonary Artery Pressure 29/14 Pulmonary Artery Pressure 37/22 Pulmonary Artery Pressure 37/27 Cardiac Output 5.4 Cardiac Output 6 Cardiac Output 6 Cardiac Index 2.9 Cardiac Index 3.3 Cardiac Index 3.3 Results 11/04/24 03:00 11/04/24 03:00 Cardiac Enzymes 11/03/24 11/04/24 Range/Units 12:00 03:00 AST 28 35 (14-36) U/L Coagulation 11/03/24 Range/Units 12:00 PT 11.3 (10.0-12.5) sec APTT 26.3 (22.0-30.0) sec CBC 11/03/24 11/03/24 11/03/24 Range/Units 12:00 15:11 18:42 WBC 10.7 H 9.9 9.7 (3.8-10.6) k/uL RBC 3.23 L 3.47 L 3.46 L (3.80-5.40) m/uL Hgb 10.6 L 11.4 11.4 (11.4-16.0) gm/dL Hct 32.7 L 35.2 35.3 (34.0-46.0) % Plt Count 95 L 101 L 104 L (150-450) k/uL 11/04/24 Range/Units 03:00 WBC 10.2 (3.8-10.6) k/uL RBC 3.39 L (3.80-5.40) m/uL Hgb 11.1 L (11.4-16.0) gm/dL Hct 34.2 (34.0-46.0) % Plt Count 113 L (150-450) k/uL Comprehensive Metabolic Panel 11/03/24 11/04/24 Range/Units 12:00 03:00 Sodium 135 L 132 L (137-145) mmol/L Potassium 4.2 4.7 (3.5-5.1) mmol/L Chloride 108 H 105 (98-107) mmol/L Carbon Dioxide 21 L 24 (22-30) mmol/L BUN 9 8 (7-17) mg/dL Creatinine 0.61 0.57 (0.52-1.04) mg/dL Glucose 108 H 108 H (74-99) mg/dL Calcium 8.4 8.1 L (8.4-10.2) mg/dL AST 28 35 (14-36) U/L ALT 13 13 (4-34) U/L Alkaline Phosphatase 39 46 (38-126) U/L Total Protein 4.9 L 5.1 L (6.3-8.2) g/dL Albumin 3.0 L 3.1 L (3.5-5.0) g/dL Current Medications Generic Name Dose Route Start Last Admin Trade Name Freq PRN Reason Stop Dose Admin Acetaminophen 650 mg 11/04/24 04:00 Acetaminophen Tab 325 Mg Tab PO Q4HR PRN Fever And/ Or Mild Pain (1-3) Albuterol/Ipratropium 3 ml 11/03/24 12:38 Ipratropium-Albuterol 3 Ml Neb INHALATION RT-Q2H PRN Shortness Of Breath Or Wheezing Albuterol/Ipratropium 3 ml 11/03/24 20:00 11/04/24 12:41 Ipratropium-Albuterol 3 Ml Neb INHALATION 3 ml RT-QID PO Administration Amiodarone HCl 400 mg 11/04/24 09:00 11/04/24 08:12 Amiodarone 200 Mg Tab PO 11/11/24 08:59 400 mg BID PO Administration Atorvastatin Calcium 40 mg 11/04/24 09:00 11/04/24 08:30 Atorvastatin 40 Mg Tab PO 40 mg DAILY PO Administration Benzocaine/Menthol 1 each 11/03/24 12:38 Benzocaine/Menthol Lozeng 1 Each Lozenge MUCOUS MEM Q2H PRN Sore Throat Bisacodyl 10 mg 11/04/24 09:00 Bisacodyl 10 Mg Supp RECTAL DAILY PRN Constipation Clopidogrel Bisulfate 75 mg 11/04/24 09:00 11/04/24 08:30 Clopidogrel 75 Mg Tab PO 75 mg DAILY PO Administration Dextrose/Water 25 ml 11/03/24 12:38 Dextrose 50% Syringe 50 Ml IVP PER PROTOCOL PRN Hypoglycemia Protocol Dextrose/Water 50 ml 11/03/24 12:38 Dextrose 50% Syringe 50 Ml IVP PER PROTOCOL PRN Hypoglycemia Protocol Heparin Sodium (Porcine) 5,000 unit 11/03/24 16:00 11/04/24 08:20 Heparin Sodium,Porcine 5,000 Unit/Ml 1 Ml Vial SQ 5,000 unit Q8HR PO Administration Hydralazine HCl 10 mg 11/03/24 12:38 11/04/24 01:45 Hydralazine Hcl 20 Mg/Ml 1 Ml Vial IVP 10 mg Q1H PRN Administration Blood Pressure - High Hydromorphone HCl 0.5 mg 11/04/24 08:52 11/04/24 11:02 Hydromorphone 0.5 Mg/0.5 Ml Syringe IVP 0.5 mg Q4HR PRN Administration Moderate Pain (Scale 4 to 6) Amiodarone HCl 150 mg/ 103 mls @ 618 mls/hr 11/03/24 12:38 Dextrose/Water IV .Q10M PRN A.FIB/FLUTTER Protocol Albumin Human 250 ml/ IV 250 mls @ 250 mls/hr 11/03/24 12:38 Solution IVPB 11/05/24 12:37 Q1HR PRN For Volume Protocol Calcium Gluconate/Sodium 100 mls @ 100 mls/hr 11/03/24 12:38 Chloride 2 gm/ IV Solution IVPB 11/08/24 12:37 ONCE PRN Ionized Calcium less than 4.4 Amiodarone HCl 450 mg/ 250 mls @ 16.667 mls/hr 11/03/24 19:30 11/04/24 11:38 Dextrose/Water IV 11/04/24 13:29 Not Given .Q15H PO Protocol 0.5 MG/MIN Insulin Human Regular 100 unit 101 mls @ 0 mls/hr 11/03/24 13:00 11/04/24 11:05 / Sodium Chloride IV 0.5 mls/hr .Q0M PO 0.5 mls/hr Titration Protocol Per Protocol Sodium Chloride 1,000 mls @ 30 mls/hr 11/03/24 12:45 11/04/24 12:28 Saline 0.9% IV 30 mls/hr .Q24H PO Administration Magnesium Hydroxide 2,400 mg 11/04/24 09:00 Magnesium Hydroxide 2,400 Mg/30 Ml Cup PO BID PRN Constipation Metoclopramide HCl 10 mg 11/03/24 12:38 Metoclopramide 5 Mg/Ml 2 Ml Vial IVP Q4H PRN Nausea And Vomiting Metoprolol Tartrate 12.5 mg 11/04/24 09:00 11/04/24 08:12 Metoprolol Tartrate 12.5 Mg Tab PO 12.5 mg BID PO Administration Miscellaneous Information 1 each 11/03/24 12:38 Potassium Replacement Protocol 1 Each Misc MISCELLANE DAILY PRN Per Protocol Protocol Miscellaneous Information 1 each 11/03/24 12:38 Magnesium Replacement Protocol 1 Each Misc MISCELLANE DAILY PRN Per Protocol Protocol Miscellaneous Information 1 each 11/03/24 12:38 Phosphorus Replacement Protoco 1 Each Misc MISCELLANE DAILY PRN Per Protocol Protocol Ondansetron HCl 4 mg 11/03/24 12:38 11/04/24 12:27 Ondansetron 4 Mg/2 Ml Vial IVP 4 mg Q6HR PRN Administration Nausea And Vomiting Pantoprazole Sodium 40 mg 11/04/24 09:00 11/04/24 08:30 Pantoprazole 40 Mg/10 Ml Vial IVP 40 mg DAILY PO Administration Senna/Docusate Sodium 2 each 11/04/24 21:00 Sennosides-Docusate Sodium 1 Each Tab PO HS PO Sodium Chloride 10 ml 11/03/24 21:00 11/04/24 08:32 Sodium Chloride 0.9% Flush 10 Ml Syringe IV 10 ml BID PO Administration Tramadol HCl 50 mg 11/04/24 00:30 11/04/24 08:35 Tramadol 50 Mg Tab PO 50 mg Q4HR PRN Administration Moderate Pain (Scale 4 to 6) Intake and Output 11/03/24 11/04/24 11/04/24 22:59 06:59 14:59 Intake Total 792.262 517.751 397.975 Output Total 1184 735 330 Balance -391.738 -217.249 67.975 Intake: IV 762 492 392 ACETAMINOPHEN IV (For NPO 100 100 ) 1,000 mg In Empty Bag 1 bag @ 400 mls/hr IVPB Q6HR [facility] Rx#:[id number] Cardiac Output (0.9 140 20 10 Sodium Chloride) Pressure Bag (0.9 Sodium 72 72 42 Chloride) Sodium Chloride 0.9% 1, 400 400 190 000 ml @ 30 mls/hr IV . Q24H [facility] Rx#:[id number] ceFAZolin 2 gm In Sodium 50 50 Chloride 0.9% 50 ml @ 100 mls/hr IVPB ONCE ONE Rx# :[id number] Intake, IV Titration 30.262 25.751 5.975 Amount Clevidipine Butyrate 25 24.866 15.834 mg In Empty Bag 1 bag @ 1 MG/HR 2 mls/hr IV .Q24H [facility] Rx#:[id number] Insulin Regular 100 unit 2.825 9.917 5.975 In Sodium Chloride 0.9% 100 ml @ Per Protocol IV .Q0M [facility] Rx#:[id number] propofoL 1,000 mg In 2.571 Empty Bag 1 bag @ Titrate IV .Q0M [facility] Rx#: [id number] Output: Chest Tube Drainage 329 285 160 Left Pleural 75 95 60 Mediastinal 254 190 100 Urine 855 450 170 Other: Voiding Method Indwelling Catheter Indwelling Catheter Weight 86.4 kg 86.4 kg Patient Weight 11/05/24 06:59 Weight 86.4 kg 11/04/24 03:00 11/04/24 03:00
[2024-11-04 14:17] LABS: Glucose,Whole Blood 112 mg/dL (70-110)
[2024-11-04 15:15] LABS: Glucose,Whole Blood 130 mg/dL (70-110)
[2024-11-04 16:13] LABS: Glucose,Whole Blood 123 mg/dL (70-110)
[2024-11-04] MEDS: ACETAMINOPHEN TAB 325 MG TAB PO PRN (16:25)
[2024-11-04] MEDS: INSULIN LISPRO (HumaLOG) 100 UNIT/ML 10 mL VL SQ SCH (17:15)
[2024-11-04] MEDS: DEXTROSE 5% IN WATER 100 ML with AMIODARONE 150 MG IV PRN (17:34)
[2024-11-04 20:48] LABS: Glucose,Whole Blood 131 mg/dL (70-110)
[2024-11-04] MEDS: METOCLOPRAMIDE 5 MG/ML 2 ML VIAL IVP PRN (20:55)
[2024-11-04] MEDS: SENNOSIDES-DOCUSATE SODIUM 1 EACH TAB PO SCH (20:56)
[2024-11-05 03:30] LABS: Basophils % (A) 0 %; Eosinophils # (A) 0.1 k/uL (0-0.7); Eosinophils % (A) 0 %; HCT 32.6 % (34.0-46.0); HGB 10.7 gm/dL (11.4-16.0); Lymphocytes # (A) 1.6 k/uL (1.0-4.8); Lymphocytes % (A) 12 %; MCHC 32.7 g/dL (31.0-37.0); MCV 100.7 fL (80.0-100.0); Macrocytosis Slight; Mean Platelet Volume 8.7; Monocytes # (A) 0.8 k/uL (0-1.0); Monocytes % (A) 6 %; Neutrophils # (A) 10.6 k/uL (1.3-7.7); Neutrophils % (A) 79 %; Platelet Count 102 k/uL (150-450); RBC 3.24 m/uL (3.80-5.40); RDW 14.4 % (11.5-15.5); WBC 13.3 k/uL (3.8-10.6)
[2024-11-05 03:35] LABS: Ionized Calcium 4.9 mg/dL (4.5-5.3)
[2024-11-05 03:42] LABS: ALT 12 U/L (4-34); AST 27 U/L (14-36); African American GFR (CKD) >90 (>60 ml/min/1.73 sqM); Alkaline Phosphatase 46 U/L (38-126); Anion Gap 4 mmol/L; Blood Urea Nitrogen 9 mg/dL (7-17); Calcium 8.4 mg/dL (8.4-10.2); Carbon Dioxide 24 mmol/L (22-30); Chloride 104 mmol/L (98-107); Glucose 108 mg/dL (74-99); Non-African American GFR(CKD) >90 (>60 ml/min/1.73 sqM); Potassium 4.8 mmol/L (3.5-5.1); Sodium 132 mmol/L (137-145); Total Bilirubin 0.6 mg/dL (0.2-1.3); Total Protein 5.1 g/dL (6.3-8.2)
[2024-11-05 06:31] LABS: Glucose,Whole Blood 134 mg/dL (70-110)
--- NOTE | 2024-11-05 07:00 | XR ---
EXAMINATION TYPE: XR chest 1V portable DATE OF EXAM: 11/05/2024 CLINICAL INDICATION: Female, 49 years old with history of Post Operative Cardiac Surgery, progress st ud[facility]. TECHNIQUE: Single AP portable upright view of the chest is obtained. COMPARISON: Chest x-ray from one day earlier and older studies. FINDINGS: Stable mediastinal drainage catheter and left-sided chest tube. Interval removal of right internal jugular Vowinckel-Lorena catheter. Overlying sternal wires along with left atrial appendage and met allic aortic valve are all redemonstrated. Stable mild cardiomegaly and bibasilar opacities. Worsening central vascular congestion is seen. Osse ous structures are intact. IMPRESSION: Persistent cardiomegaly with small bilateral pleural effusions. Worsening central vascul ar congestion is appreciated. Correlate for CHF exacerbation/fluid overload state. In addition bibasi lar opacities could reflect acute infiltrates and/or atelectasis. [facility], , 11/05/2024 6:58 AM
[2024-11-05] MEDS ORDERED: methocarbamoL 500 MG TAB PO PRN (08:25)
--- NOTE | 2024-11-05 09:16 | P.PN ---
Subjective Progress Note Date: 11/05/24 Principal diagnosis: Aortic valvular insufficiency, aortic valvular stenosis, chronic valve related heart failure. Medical history significant for hypertension, chronic diastolic heart failure, history of ovarian cancer, chronic obstructive pulmonary disease with a FEV1 66% of predicted value, asthma, chronic ongoing tobacco dependence, obesity with a BMI of 33.7 kg/m and osteoarthritis. POD #2 Aortic valve replacement with 25 mm Verdugo Inspiris bovine pericardial valve prosthesis including aortic root enlargement (Jeramie Manzanares technique), occlusion left atrial appendage with 35 mm AtriCure clip. Postoperative acute blood loss anemia, expected given cardiopulmonary bypass and hemodilution. The patient was seen and examined in follow-up today November 05, 2024 at her [facility] in the intensive care unit. She is currently sitting up to the bedside chair, is awake, alert, oriented x 3 and is in no acute apparent distress. She just ambulated in the intensive care unit hallway and tolerated well, although was having some shortness of breath with ambulating. She is complaining of some pain to her left chest tube insertion site, currently rating her pain 7 out of 10 on the pain scale, she reports her current pain medication regimen is controlling her pain. Oxygen saturations are 92% on 8 L high flow nasal cannula, she is achieving 750 mL on her incentive spirometry with encouragement. Right IJ cordis remains in place with current CVP pressure 13 mmHg. Bedside t elemetry is showing normal sinus rhythm heart rate 76 bpm. Mediastinal and left pleural chest tube remain in place to low continuous wall suction -20 cm H2O. No air leak is present. Draining thin serosanguineous drainage. Mediastinal chest tube drained 30 mL output in last 8 hours and 150 mL output in the last 24 hours. Left pleural chest tube drain 160 mL output in the last 8 hours and 280 mL output in the last 24 hours. Chest x-ray and laboratory results reviewed. Atrial and ventricular epicardial pacemaker wires remain in place and are grounded. Objective - Vital Signs Vital signs: Vital Signs Temp 98.9 F 11/05/24 00:00 Pulse 73 11/05/24 07:00 Resp 21 11/05/24 07:00 BP 117/71 11/04/24 20:15 Pulse Ox 93 L 11/05/24 07:00 FiO2 50 11/03/24 18:00 Intake & Output 11/04/24 11/05/24 11/05/24 18:59 06:59 18:59 Intake Total 649.975 432 36 Output Total 555 1135 30 Balance 94.975 -703 6 Weight 86.4 kg 85.6 kg Intake: IV 644 432 36 ACETAMINOPHEN IV (For NPO 100 ) 1,000 mg In Empty Bag 1 bag @ 400 mls/hr IVPB Q6HR [facility] Rx#:[id number] Cardiac Output (0.9 10 Sodium Chloride) Pressure Bag (0.9 Sodium 84 72 6 Chloride) Sodium Chloride 0.9% 1, 400 360 30 000 ml @ 30 mls/hr IV . Q24H [facility] Rx#:[id number] ceFAZolin 2 gm In Sodium 50 Chloride 0.9% 50 ml @ 100 mls/hr IVPB ONCE ONE Rx# :[id number] Intake, IV Titration 5.975 Amount Insulin Regular 100 unit 5.975 In Sodium Chloride 0.9% 100 ml @ Per Protocol IV .Q0M [facility] Rx#:[id number] Output: Chest Tube Drainage 90 290 0 Left Pleural 30 210 0 Mediastinal 60 80 0 Urine 465 845 30 Other: Voiding Method Indwelling Catheter Indwelling Catheter ABP, PAP, CO, CI - Last Documented Arterial Blood Pressure 109/64 Pulmonary Artery Pressure 24/16 Cardiac Output 5.4 Cardiac Index 2.9 - Exam CONSTITUTIONAL: Sitting up to the bedside chair in the intensive care unit, appears comfortable, cooperative, no apparent acute distress. HEENT: Neck is supple, no JVD, no lymphadenopathy. Right IJ Cordis and [place] catheter in place and functioning. RESPIRATORY: Lungs sounds essentially clear throughout, diminished to her bilateral bases. Respirations are symmetrical and nonlabored. Currently on 6 L nasal cannula with oxygen saturations 94%. Able to achieve 500-750 mL on her incentive spirometry. Strong cough. CARDIOVASCULAR: Regular rhythm and rate. S1 and S2 present, negative for S3, gallop or murmur. Sternum is stable. Palpable peripheral pulses bilaterally. No calf pain or tenderness noted. Heart hugger in place with patient demonstrating appropriate use. Knee-high JONO hose and sequential compression devices in place to her bilateral lower extremities. GASTROINTESTINAL: Abdomen soft, nontender, nondistended. Hypoactive bowel sounds present 4 quadrants. Tolerating clear liquid diet. Denies passing flatus. No guarding or rigidity. GENITOURINARY: Buchanan present draining clear, yellow urine. 390 mL urine output in the last 8 hours. INTEGUMENTARY: Skin is warm and dry with no evidence of clubbing or cyanosis. Midline sternal incision clean dry and well approximated, covered with dry intact dressing. NEUROLOGIC: Cranial nerves II through XII intact. No focal deficits. MUSKULOSKELETAL: Able to move all extremities, strength equal bilaterally, generalized weakness. PSYCHIATRIC: Alert and oriented to person place and time, appropriate affect, intact judgment and insight. INVASIVE LINES AND TUBES: Mediastinal/left pleural chest tubes present and connected to low continuous wall suction, no air leaks present. Mediastinal tube with 150 mL of thin serosanguineous drainage overnight, 500mL output in the last 24 hours. Left pleural chest tube with 85 mL of thin serosanguineous drainage overnight, 180 mL output in the last 24 hours. Atrial and ventricular epicardial pacemaker wires present, connected to generator, VVI backup rate 50 bpm. Right internal jugular [place]/Cordis, right radial arterial line present. Last CO 6.0, CI 3.3, SVR 879, PA 30/22 and CVP 13 mmHg. - Allied health notes Allied health notes reviewed: nursing - Labs CBC & Chem 7: 11/05/24 03:15 11/05/24 03:15 Labs: Abnormal Lab Results - Last 24 Hours (Table) 11/04/24 11/04/24 11/04/24 Range/Units 09:01 10:05 11:04 WBC (3.8-10.6) k/uL RBC (3.80-5.40) m/uL Hgb (11.4-16.0) gm/dL Hct (34.0-46.0) % MCV (80.0-100.0) fL Plt Count (150-450) k/uL Neutrophils # (1.3-7.7) k/uL Sodium (137-145) mmol/L Glucose (74-99) mg/dL POC Glucose (mg/dL) 112 H 112 H 123 H (70-110) mg/dL Total Protein (6.3-8.2) g/dL Albumin (3.5-5.0) g/dL 11/04/24 11/04/24 11/04/24 Range/Units 12:00 13:12 14:14 WBC (3.8-10.6) k/uL RBC (3.80-5.40) m/uL Hgb (11.4-16.0) gm/dL Hct (34.0-46.0) % MCV (80.0-100.0) fL Plt Count (150-450) k/uL Neutrophils # (1.3-7.7) k/uL Sodium (137-145) mmol/L Glucose (74-99) mg/dL POC Glucose (mg/dL) 128 H 118 H 112 H (70-110) mg/dL Total Protein (6.3-8.2) g/dL Albumin (3.5-5.0) g/dL 11/04/24 11/04/24 11/04/24 Range/Units 15:12 16:12 20:47 WBC (3.8-10.6) k/uL RBC (3.80-5.40) m/uL Hgb (11.4-16.0) gm/dL Hct (34.0-46.0) % MCV (80.0-100.0) fL Plt Count (150-450) k/uL Neutrophils # (1.3-7.7) k/uL Sodium (137-145) mmol/L Glucose (74-99) mg/dL POC Glucose (mg/dL) 130 H 123 H 131 H (70-110) mg/dL Total Protein (6.3-8.2) g/dL Albumin (3.5-5.0) g/dL 11/05/24 11/05/24 11/05/24 Range/Units 03:15 03:15 06:30 WBC 13.3 H (3.8-10.6) k/uL RBC 3.24 L (3.80-5.40) m/uL Hgb 10.7 L (11.4-16.0) gm/dL Hct 32.6 L (34.0-46.0) % MCV 100.7 H (80.0-100.0) fL Plt Count 102 L (150-450) k/uL Neutrophils # 10.6 H (1.3-7.7) k/uL Sodium 132 L (137-145) mmol/L Glucose 108 H (74-99) mg/dL POC Glucose (mg/dL) 134 H (70-110) mg/dL Total Protein 5.1 L (6.3-8.2) g/dL Albumin 3.0 L (3.5-5.0) g/dL - Imaging and Cardiology Chest x-ray: report reviewed, image reviewed Assessment and Plan Assessment: Aortic valvular insufficiency, aortic valvular stenosis, status post aortic valve replacement with a 25 mm Verdugo Inspiris bovine pericardial valve prosthesis including aortic root enlargement (Jeramie Manzanares technique) Chronic valve related diastolic heart failure Postoperative acute blood loss anemia, expected given hemodilution and cardiopulmonary bypass History of hypertension Chronic obstructive pulmonary disease with an FEV1 66% of predicted value Asthma Obesity with a BMI of 33.7 kg/m History of ovarian cancer Osteoarthritis Plan: Continue to maximize medical therapy with aspirin, statin, Plavix, and beta- roge. Will increase metoprolol to tartrate to 25 mg p.o. twice daily with hold parameters. Continue amiodarone 400 mg p.o. twice daily for atrial fibrillation prophylaxis. Patient has had no atrial fibrillation up to this point. Wean oxygen as tolerated. Encourage incentive spirometry use 10 times every hour while awake. Bronchodilators per pulmonology. Increase activity, ambulate as tolerated. PT/OT/cardiac rehab following. Will monitor daily labs and chest x-rays. Electrolyte replacement per protocol. GI/DVT prophylaxis. Daily weights. Pain control per current medication regimen. No Toradol added as the patient is allergic to NSAIDs. Robaxin 500 mg p.o. 4 times daily as needed added for additional pain control. Insulin management per internal medicine, preoperative hemoglobin A1c 5.5%. Patient should remain on continuous IV insulin for 48 hours, may transition to subcutaneous per protocol afterwards. Remove right IJ Cordis today. Remove right radial arterial line. We will remove her mediastinal chest tube today and keep her left pleural chest tube in place to low continuous wall suction -20 cm H2O. Continue to monitor strict accurate output. Keep atrial and ventricular epicardial pacemaker wires in place, may ground pacemaker wires. Lasix 20 mg IV twice daily initiated. Remove Buchanan catheter, continue to monitor and record strict accurate intake and output. May bladder scan every 6 hours and as needed postvoid residuals, if greater than 300 mL may straight cath. More recommendations to follow based on patient's clinical course. Time with Patient: Greater than 30
[2024-11-05] MEDS: FUROSEMIDE 10 MG/ML 2 ML VIAL IV ONE (09:17)
[2024-11-05] MEDS: METOPROLOL TARTRATE 25 MG TAB PO SCH (09:19)
[2024-11-05] MEDS: METOPROLOL TARTRATE 12.5 MG TAB PO STA (09:25)
[2024-11-05] MEDS: methocarbamoL 500 MG TAB PO SCH (09:26)
--- NOTE | 2024-11-05 10:31 | P.PN ---
Subjective Progress Note Date: 11/05/24 This is Jerrell Moore NP, I'm dictating on behalf of Dr. Hugo's H&P and A&P. Patient was interviewed and examined. Patient is a pleasant 49-year-old female who presented to the hospital for a ortic valve replacement. Patient underwent aortic valve replacement with aortic root enlargement 2 days ago with cardiothoracic surgery. Patient is doing well today. She reports some mild chest discomfort, well-controlled with her pain medicine. She has no significant shortness of breath or heart palpitations. Patient did have a long run of paced ventricular tachycardia yesterday. Nursing pulled the pacemaker wires which resolved it. GENERAL: Well-appearing, well-nourished and in no acute distress. NECK: Supple without JVD or thyromegaly. LUNGS: Breath sounds clear to auscultation bilaterally. Respiration equal and unlabored. No wheezes, rales or rhonchi. HEART: Regular rate and rhythm without murmurs, rubs or gallops. S1 and S2 heard. EXTREMITIES: Normal range of motion, no edema. No clubbing or cyanosis. Peripheral pulses intact and strong. VITALS: Pulse 73, respirations 23, blood pressure 117/68, O2 saturation 93% on high flow nasal cannula TELEMETRY: Sinus mechanism LABS: White count 13.3, hemoglobin 10.7, platelets 102, sodium 132, potassium 4.8, BUN 9, creatinine 0.60, IMPRESSION: 1. Severe aortic valve insufficiency 2. Status post aortic valve replacement, aortic root enlargement 3. History of hypertension 4. COPD 5. Asthma PLAN: Continue to follow postoperative CT surgery recommendations. Continue amiodarone, metoprolol. Further recommendations based on patient's clinical course. Objective - Vital Signs Vital signs: Vital Signs Temp 98.0 F 11/05/24 08:00 Pulse 73 11/05/24 09:30 Resp 23 11/05/24 09:30 BP 111/67 11/05/24 08:00 Pulse Ox 93 L 11/05/24 09:00 FiO2 50 11/03/24 18:00 Intake & Output 11/04/24 11/05/24 11/05/24 18:59 06:59 18:59 Intake Total 649.975 432 72 Output Total 555 1135 45 Balance 94.975 -703 27 Weight 86.4 kg 85.6 kg Intake: IV 644 432 72 ACETAMINOPHEN IV (For NPO 100 ) 1,000 mg In Empty Bag 1 bag @ 400 mls/hr IVPB Q6HR [facility] Rx#:[id number] Cardiac Output (0.9 10 Sodium Chloride) Pressure Bag (0.9 Sodium 84 72 12 Chloride) Sodium Chloride 0.9% 1, 400 360 60 000 ml @ 30 mls/hr IV . Q24H [facility] Rx#:[id number] ceFAZolin 2 gm In Sodium 50 Chloride 0.9% 50 ml @ 100 mls/hr IVPB ONCE ONE Rx# :[id number] Intake, IV Titration 5.975 Amount Insulin Regular 100 unit 5.975 In Sodium Chloride 0.9% 100 ml @ Per Protocol IV .Q0M [facility] Rx#:[id number] Output: Chest Tube Drainage 90 290 10 Left Pleural 30 210 10 Mediastinal 60 80 0 Urine 465 845 35 Other: Voiding Method Indwelling Catheter Indwelling Catheter ABP, PAP, CO, CI - Last Documented Arterial Blood Pressure 117/68 Pulmonary Artery Pressure 24/16 Cardiac Output 5.4 Cardiac Index 2.9 - Labs CBC & Chem 7: 11/05/24 03:15 11/05/24 03:15 Labs: Abnormal Lab Results - Last 24 Hours (Table) 11/04/24 11/04/24 11/04/24 Range/Units 11:04 12:00 13:12 WBC (3.8-10.6) k/uL RBC (3.80-5.40) m/uL Hgb (11.4-16.0) gm/dL Hct (34.0-46.0) % MCV (80.0-100.0) fL Plt Count (150-450) k/uL Neutrophils # (1.3-7.7) k/uL Sodium (137-145) mmol/L Glucose (74-99) mg/dL POC Glucose (mg/dL) 123 H 128 H 118 H (70-110) mg/dL Total Protein (6.3-8.2) g/dL Albumin (3.5-5.0) g/dL 11/04/24 11/04/24 11/04/24 Range/Units 14:14 15:12 16:12 WBC (3.8-10.6) k/uL RBC (3.80-5.40) m/uL Hgb (11.4-16.0) gm/dL Hct (34.0-46.0) % MCV (80.0-100.0) fL Plt Count (150-450) k/uL Neutrophils # (1.3-7.7) k/uL Sodium (137-145) mmol/L Glucose (74-99) mg/dL POC Glucose (mg/dL) 112 H 130 H 123 H (70-110) mg/dL Total Protein (6.3-8.2) g/dL Albumin (3.5-5.0) g/dL 11/04/24 11/05/24 11/05/24 Range/Units 20:47 03:15 03:15 WBC 13.3 H (3.8-10.6) k/uL RBC 3.24 L (3.80-5.40) m/uL Hgb 10.7 L (11.4-16.0) gm/dL Hct 32.6 L (34.0-46.0) % MCV 100.7 H (80.0-100.0) fL Plt Count 102 L (150-450) k/uL Neutrophils # 10.6 H (1.3-7.7) k/uL Sodium 132 L (137-145) mmol/L Glucose 108 H (74-99) mg/dL POC Glucose (mg/dL) 131 H (70-110) mg/dL Total Protein 5.1 L (6.3-8.2) g/dL Albumin 3.0 L (3.5-5.0) g/dL 11/05/24 Range/Units 06:30 WBC (3.8-10.6) k/uL RBC (3.80-5.40) m/uL Hgb (11.4-16.0) gm/dL Hct (34.0-46.0) % MCV (80.0-100.0) fL Plt Count (150-450) k/uL Neutrophils # (1.3-7.7) k/uL Sodium (137-145) mmol/L Glucose (74-99) mg/dL POC Glucose (mg/dL) 134 H (70-110) mg/dL Total Protein (6.3-8.2) g/dL Albumin (3.5-5.0) g/dL
[2024-11-05 11:50] LABS: Glucose,Whole Blood 116 mg/dL (70-110)
[2024-11-05] MEDS: ACETAMINOPHEN TAB 500 MG TAB PO PRN (11:51)
--- NOTE | 2024-11-05 12:58 | P.PN ---
Subjective Progress Note Date: 11/05/24 Principal diagnosis: Aortic valve replacement with 25 mm Verdugo Inspiris bovine pericardial valve prosthesis including aortic root enlargement (Jeramie Manzanares technique), occlusion left atrial appendage with 35 mm AtriCure clip postoperative day #2 This is a pleasant 49-year-old female patient with a known history of chronic and ongoing tobacco dependence, obstructive pulmonary disease with an FEV1 value 66% of predicted, hypertension,, chronic systolic congestive heart failure with an ejection fraction of 45% and severe aortic insufficiency with moderate aortic stenosis. She was brought in today electively for an aortic valve replacement however there was no cardioplegia solution available and she is postponed until tomorrow. She was admitted to the intensive care unit following [place] catheter placement. She was initiated on IV Primacor currently at 0.25 mcg/kg/m in. She is awake and alert. Sitting up in bed. Maintaining good O2 saturations in the 90s on room air. She is afebrile. Hemodynamically stable. PA pressure 19/4. CVP 1. Cardiac output 5.1. Cardiac index 2.8. She has been initiated on DuoNeb inhalations, Symbicort. She has been educated regarding the use the incentive spirometer. Heparin for DVT prophylaxis. 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 However when I came in to see the patient, patient had no breath sounds on the left side, chest x-ray showed endotracheal tube in the right mainstem bronchus, and the patient was arousable, follows simple instructions. I reviewed the chest x-ray which was done earlier, and I recommended immediate pulling of the endotracheal tube approximately about 4 cm. In the meantime ABG was done and it showed a pO2 of 68 pCO2 54 pH of 7.24. This was on CPAP, and I recommended the patient is not ready to be weaned she had to be placed back on assist-control mode of mechanical ventilation, with assist-control rate of 14 tidal volume 500 FiO2 50% and PEEP of 8. Chest x-ray was noted after the tube was pulled out of the right mainstem bronchus showed retrocardiac atelectasis in the left lower lobe, however there was good aeration of the left midlung and left upper lobe. Based on the ABG based on the chest x-ray findings and based on the fact that the endotracheal tube was not in the proper position, I recommended that we delay extubation for now. And reevaluate weaning on pressure support of 8 and CPAP in the next 1 hour. Patient is hemodynamically stable, she is not requiring any pressors. On Cleviprex at 2 mg/h amiodarone at 1 mg/min IV fluid at 50 cc/h in the form of 0.9 normal saline cardiac output of 4.7 cardiac index of 2.6 PA pressure 35/16. Patient was seen today on 11/04/2024, patient was extubated yesterday successfully, and I am seeing her today she is doing quite well. She is on 4 L nasal cannula, patient is also on amiodarone 0.5 mg/min insulin 1 unit/h IV fluid 0.9 normal saline at 50 cc/h patient is sitting up in the chair, does not seem to be in any distress. Chest x-ray was reviewed, has minimal bibasilar atelectasis and possibly a small left pleural effusion. WBC is 10.2 hemoglobin 11.1, basic metabolic profile and renal profile are normal. Seen today on 11/05/2024, patient remains in the ICU, however her FiO2 requirement has gone output. Now on 8 L high flow nasal cannula with O2 sats is 95%. Chest x-ray showing cardiomegaly small bilateral pleural effusions, pulmonary vascular congestion all consistent with fluid overload/congestive heart failure. In addition she has minimal left lower lobe atelectasis. Patient did receive Lasix earlier today given by cardiothoracic surgery. WBC count is 13.3 hemoglobin 10.7 electrolytes are normal renal profile is normal, patient is achieving no more than 750 mL on her incentive spirometry. Continues to have right IJ cordis in place, CVP is measuring about 14, patient is in sinus rhythm, rate of 76, mediastinal and left pleural chest tube remain in place on low continuous wall suction -20 cm of water. No airleak noted. Continues to have atrial and ventricular epicardial pacemaker wires in place. And are grounded. Objective - Vital Signs Vital signs: Vital Signs Temp 97.8 F 11/05/24 12:00 Pulse 70 11/05/24 12:30 Resp 21 11/05/24 12:30 BP 120/68 11/05/24 12:30 Pulse Ox 95 11/05/24 12:30 FiO2 50 11/03/24 18:00 Intake & Output 11/04/24 11/05/24 11/05/24 18:59 06:59 18:59 Intake Total 649.975 432 144 Output Total 555 1135 625 Balance 94.975 -703 -481 Weight 86.4 kg 85.6 kg Intake: IV 644 432 144 ACETAMINOPHEN IV (For NPO 100 ) 1,000 mg In Empty Bag 1 bag @ 400 mls/hr IVPB Q6HR [facility] Rx#:[id number] Cardiac Output (0.9 10 Sodium Chloride) Pressure Bag (0.9 Sodium 84 72 24 Chloride) Sodium Chloride 0.9% 1, 400 360 120 000 ml @ 30 mls/hr IV . Q24H [facility] Rx#:[id number] ceFAZolin 2 gm In Sodium 50 Chloride 0.9% 50 ml @ 100 mls/hr IVPB ONCE ONE Rx# :[id number] Intake, IV Titration 5.975 Amount Insulin Regular 100 unit 5.975 In Sodium Chloride 0.9% 100 ml @ Per Protocol IV .Q0M [facility] Rx#:[id number] Output: Chest Tube Drainage 90 290 40 Left Pleural 30 210 40 Mediastinal 60 80 0 Urine 465 845 585 Other: Voiding Method Indwelling Catheter Indwelling Catheter ABP, PAP, CO, CI - Last Documented Arterial Blood Pressure 110/66 Pulmonary Artery Pressure 24/16 Cardiac Output 5.4 Cardiac Index 2.9 - Exam GENERAL EXAM: Revealed a 49-year-old female in no distress, on 8 L high flow nasal cannula HEAD: Normocephalic. EYES: Normal reaction of pupils, equal size. NOSE: Clear with pink turbinates. THROAT: No erythema or exudates NECK: No masses, no JVD. CHEST: No chest wall deformity. LUNGS: Diminished breath sounds at the bases, few crackles noted at the bases. CVS: S1 and S2 normal with an audible murmur, regular rhythm. Positive pericardial rub ABDOMEN: No hepatosplenomegaly, normal bowel sounds, no guarding or rigidity. SKIN: No rashes CENTRAL NERVOUS SYSTEM: Alert and oriented x 3 no gross focal deficit EXTREMITIES: No clubbing edema or cyanosis - Labs CBC & Chem 7: 11/05/24 03:15 11/05/24 03:15 Labs: Abnormal Lab Results - Last 24 Hours (Table) 11/04/24 11/04/24 11/04/24 Range/Units 13:12 14:14 15:12 WBC (3.8-10.6) k/uL RBC (3.80-5.40) m/uL Hgb (11.4-16.0) gm/dL Hct (34.0-46.0) % MCV (80.0-100.0) fL Plt Count (150-450) k/uL Neutrophils # (1.3-7.7) k/uL Sodium (137-145) mmol/L Glucose (74-99) mg/dL POC Glucose (mg/dL) 118 H 112 H 130 H (70-110) mg/dL Total Protein (6.3-8.2) g/dL Albumin (3.5-5.0) g/dL 11/04/24 11/04/24 11/05/24 Range/Units 16:12 20:47 03:15 WBC 13.3 H (3.8-10.6) k/uL RBC 3.24 L (3.80-5.40) m/uL Hgb 10.7 L (11.4-16.0) gm/dL Hct 32.6 L (34.0-46.0) % MCV 100.7 H (80.0-100.0) fL Plt Count 102 L (150-450) k/uL Neutrophils # 10.6 H (1.3-7.7) k/uL Sodium (137-145) mmol/L Glucose (74-99) mg/dL POC Glucose (mg/dL) 123 H 131 H (70-110) mg/dL Total Protein (6.3-8.2) g/dL Albumin (3.5-5.0) g/dL 11/05/24 11/05/24 11/05/24 Range/Units 03:15 06:30 11:49 WBC (3.8-10.6) k/uL RBC (3.80-5.40) m/uL Hgb (11.4-16.0) gm/dL Hct (34.0-46.0) % MCV (80.0-100.0) fL Plt Count (150-450) k/uL Neutrophils # (1.3-7.7) k/uL Sodium 132 L (137-145) mmol/L Glucose 108 H (74-99) mg/dL POC Glucose (mg/dL) 134 H 116 H (70-110) mg/dL Total Protein 5.1 L (6.3-8.2) g/dL Albumin 3.0 L (3.5-5.0) g/dL Assessment and Plan Assessment: Impression: Status post aortic valve replacement with 25 mm Verdugo Inspiris bovine pericardial valve prosthesis including aortic root enlargement (Jeramie Manzanares technique), occlusion left atrial appendage with 35 mm AtriCure clip, postoperative day #2 Severe aortic insufficiency, moderate aortic stenosis. Plans are for aortic valve replacement tomorrow November 03, 2024 Left lower lobe atelectasis secondary to right mainstem intubation Bibasilar atelectasis, expected postoperatively. History of chronic systolic congestive heart failure with an ejection fraction of 45%, suspect some component of acute congestive heart failure based on chest x-ray today., Being addressed by cardiothoracic surgery Chronic and ongoing tobacco dependence Chronic obstructive pulmonary disease with an FEV1 value 66% of predicted Acute hypoxic and hypercapnic respiratory failure secondary to endotracheal tube being in the right mainstem, and the patient does have underlying COPD with some component of hypoventilation as the patient is coming off sedation Hypertension Recommendation: Continue oxygen and titrate accordingly Gently diurese the patient, already done by cardiothoracic surgery Continue to monitor in the ICU Continue incentive spirometry, encouraged to use and instructed how to use Continue DuoNeb updrafts/bronchodilators Ambulate with assistance Considering her overall martial status today, patient to stay in the ICU We continue to follow Time with Patient: Less than 30
--- NOTE | 2024-11-05 13:21 | P.PN ---
Subjective Progress Note Date: 11/05/24 Principal diagnosis: Aortic valve stenosis, aortic valvular insufficiency, status post aortic valve replacement postop day 1, extubated last evening, up in bed awake alert oriented x 3 in no apparent distress, denies any complaints of shortness of breath, patient does complain of some postoperative surgical tenderness in [place] to chest tube insertion sites O2 sats are 94% nasal cannula 6 L Patient is awake alert and orient x 3 vital signs are stable patient is afebrile she is up in the chair complaining of postsurgical discomfort Objective - Vital Signs Vital signs: Vital Signs Temp 97.8 F 11/05/24 12:00 Pulse 70 11/05/24 12:30 Resp 21 11/05/24 12:30 BP 120/68 11/05/24 12:30 Pulse Ox 95 11/05/24 12:30 FiO2 50 11/03/24 18:00 Intake & Output 11/04/24 11/05/24 11/05/24 18:59 06:59 18:59 Intake Total 649.975 432 144 Output Total 555 1135 625 Balance 94.975 -703 -481 Weight 86.4 kg 85.6 kg Intake: IV 644 432 144 ACETAMINOPHEN IV (For NPO 100 ) 1,000 mg In Empty Bag 1 bag @ 400 mls/hr IVPB Q6HR [facility] Rx#:[id number] Cardiac Output (0.9 10 Sodium Chloride) Pressure Bag (0.9 Sodium 84 72 24 Chloride) Sodium Chloride 0.9% 1, 400 360 120 000 ml @ 30 mls/hr IV . Q24H [facility] Rx#:[id number] ceFAZolin 2 gm In Sodium 50 Chloride 0.9% 50 ml @ 100 mls/hr IVPB ONCE ONE Rx# :[id number] Intake, IV Titration 5.975 Amount Insulin Regular 100 unit 5.975 In Sodium Chloride 0.9% 100 ml @ Per Protocol IV .Q0M [facility] Rx#:[id number] Output: Chest Tube Drainage 90 290 40 Left Pleural 30 210 40 Mediastinal 60 80 0 Urine 465 845 585 Other: Voiding Method Indwelling Catheter Indwelling Catheter ABP, PAP, CO, CI - Last Documented Arterial Blood Pressure 110/66 Pulmonary Artery Pressure 24/16 Cardiac Output 5.4 Cardiac Index 2.9 - Exam General: [Patient awake, alert and oriented times 3. Patient in no acute distress.] HEENT: [PERRL. EOMI. No pharyngeal erythema or exudate.] Neck: [No adenopathy.] Cardiac: [Heart regular in rate and rhythm. No S3. No S4. No clicks, rubs. No murmur. Midline surgical incision noted Lungs: [Clear to auscultation bilaterally. Slightly diminished bases Abdomen: [No mass. No organomegaly. Bowel sounds presnt and normoactive in all 4 quadrants.] Extremes: [No edema no cyanosis no claudication normal pulses] : Normal female genitalia Buchanan catheter intact Musculoskeletal: [No joint erythema, edema or tenderness.] Skin: [No rash.] Neurologic: [No lateralizing deficits. CN II - XII grossly intact.] Lymphatic: [No adenopathy.] - Labs CBC & Chem 7: 11/05/24 03:15 11/05/24 03:15 Labs: Abnormal Lab Results - Last 24 Hours (Table) 11/04/24 11/04/24 11/04/24 Range/Units 14:14 15:12 16:12 WBC (3.8-10.6) k/uL RBC (3.80-5.40) m/uL Hgb (11.4-16.0) gm/dL Hct (34.0-46.0) % MCV (80.0-100.0) fL Plt Count (150-450) k/uL Neutrophils # (1.3-7.7) k/uL Sodium (137-145) mmol/L Glucose (74-99) mg/dL POC Glucose (mg/dL) 112 H 130 H 123 H (70-110) mg/dL Total Protein (6.3-8.2) g/dL Albumin (3.5-5.0) g/dL 11/04/24 11/05/24 11/05/24 Range/Units 20:47 03:15 03:15 WBC 13.3 H (3.8-10.6) k/uL RBC 3.24 L (3.80-5.40) m/uL Hgb 10.7 L (11.4-16.0) gm/dL Hct 32.6 L (34.0-46.0) % MCV 100.7 H (80.0-100.0) fL Plt Count 102 L (150-450) k/uL Neutrophils # 10.6 H (1.3-7.7) k/uL Sodium 132 L (137-145) mmol/L Glucose 108 H (74-99) mg/dL POC Glucose (mg/dL) 131 H (70-110) mg/dL Total Protein 5.1 L (6.3-8.2) g/dL Albumin 3.0 L (3.5-5.0) g/dL 11/05/24 11/05/24 Range/Units 06:30 11:49 WBC (3.8-10.6) k/uL RBC (3.80-5.40) m/uL Hgb (11.4-16.0) gm/dL Hct (34.0-46.0) % MCV (80.0-100.0) fL Plt Count (150-450) k/uL Neutrophils # (1.3-7.7) k/uL Sodium (137-145) mmol/L Glucose (74-99) mg/dL POC Glucose (mg/dL) 134 H 116 H (70-110) mg/dL Total Protein (6.3-8.2) g/dL Albumin (3.5-5.0) g/dL Assessment and Plan (1) History of hypertension Current Visit: Yes Status: Acute Code(s): Z86.79 - PERSONAL HISTORY OF OTHER DISEASES OF THE CIRCULATORY SYSTEM SNOMED Code(s): 364018712 (2) Chronic obstructive pulmonary disease Current Visit: Yes Status: Acute Code(s): J44.9 - CHRONIC OBSTRUCTIVE PULMONARY DISEASE, UNSPECIFIED SNOMED Code(s): 71361043 (3) Aortic valve insufficiency Current Visit: Yes Status: Acute Code(s): I35.1 - NONRHEUMATIC AORTIC (VALVE) INSUFFICIENCY SNOMED Code(s): 89644425 (4) Aortic valvular stenosis Current Visit: Yes Status: Acute Code(s): I35.0 - NONRHEUMATIC AORTIC (VALVE) STENOSIS SNOMED Code(s): 03486591 (5) Aortic valve replaced Current Visit: Yes Status: Acute Code(s): Z95.2 - PRESENCE OF PROSTHETIC HEART VALVE SNOMED Code(s): 9605546137443 (6) History of asthma Current Visit: Yes Status: Acute Code(s): Z87.09 - PERSONAL HISTORY OF OTHER DISEASES OF THE RESPIRATORY SYSTEM SNOMED Code(s): 871494080 (7) History of ovarian cancer Current Visit: Yes Status: Acute Code(s): Z85.43 - PERSONAL HISTORY OF MALIGNANT NEOPLASM OF OVARY SNOMED Code(s): 392277663 Plan: Continue current care Aggressive pain management Buchanan out in 24 hours Postsurgical pain diminished Increase diet as tolerated Time with Patient: Greater than 30
[2024-11-05] MEDS: FUROSEMIDE 10 MG/ML 2 ML VIAL IV SCH (16:10)
[2024-11-05 17:13] LABS: Glucose,Whole Blood 116 mg/dL (70-110)
[2024-11-05 20:32] LABS: Glucose,Whole Blood 110 mg/dL (70-110)
[2024-11-06 06:22] LABS: Basophils % (A) 0 %; Eosinophils # (A) 0.1 k/uL (0-0.7); Eosinophils % (A) 1 %; HCT 30.2 % (34.0-46.0); HGB 10.1 gm/dL (11.4-16.0); Lymphocytes # (A) 1.6 k/uL (1.0-4.8); Lymphocytes % (A) 12 %; MCH 32.9 pg (25.0-35.0); MCHC 33.4 g/dL (31.0-37.0); MCV 98.5 fL (80.0-100.0); Mean Platelet Volume 8.7; Monocytes # (A) 0.9 k/uL (0-1.0); Monocytes % (A) 7 %; Neutrophils # (A) 9.9 k/uL (1.3-7.7); Neutrophils % (A) 77 %; Platelet Count 125 k/uL (150-450); RBC 3.07 m/uL (3.80-5.40); RDW 13.9 % (11.5-15.5); WBC 12.8 k/uL (3.8-10.6)
--- NOTE | 2024-11-06 06:26 | P.PN ---
Subjective Progress Note Date: 11/06/24 The patient is a pleasant 49-year-old female patient with a past medical history significant for valvular heart disease with severe symptomatic aortic insufficiency as well as smoking and COPD was admitted to the hospital and underwent AVR with aortic root enlargement. November 06, 2024 The patient was seen and evaluated this morning. She is overall stable hemodynamically which she has been maintaining normal sinus mechanism. The chest x-ray was reviewed and showed left pleural effusion and she is definitely slightly hypervolemic with bilateral lower extremities edema with ongoing to give the patient an additional 20 mg of Lasix IV. Otherwise she has been encouraged to use the spirometer. She does have chronic pain. Beside that she is stable with normal urine output and normal overall overall blood work. The physical examination is remarkable for regular rhythm with diminished breathing sounds bilaterally and mild bilateral lower extremities edema noted. Assessment Status post AVR with aortic root enlargement Smoking and COPD Multiple comorbid conditions including chronic pain Plan Continue the current medical regimen Give the patient additional dose of Lasix IV once at 20 mg Continue monitor the urine output and kidney function and electrolytes Monitor the heart rhythm Follow-up with the patient Objective - Vital Signs Vital signs: Vital Signs Temp 98.2 F 11/05/24 16:00 Pulse 73 11/06/24 05:00 Resp 21 11/06/24 05:00 BP 114/67 11/06/24 05:00 Pulse Ox 93 L 11/06/24 05:00 FiO2 12 11/05/24 19:00 Intake & Output 11/05/24 11/05/24 11/06/24 06:59 18:59 06:59 Intake Total 432 144 Output Total 1135 985 180 Balance -703 -841 -180 Weight 85.6 kg Intake: IV 432 144 Pressure Bag (0.9 Sodium 72 24 Chloride) Sodium Chloride 0.9% 1, 360 120 000 ml @ 30 mls/hr IV . Q24H [facility] Rx#:[id number] Output: Chest Tube Drainage 290 50 180 Left Pleural 210 50 180 Mediastinal 80 0 Urine 845 935 0 Other: Voiding Method Indwelling Catheter Indwelling Catheter Bedside Commode ABP, PAP, CO, CI - Last Documented Arterial Blood Pressure 110/66 Pulmonary Artery Pressure 24/16 Cardiac Output 5.4 Cardiac Index 2.9 - Labs CBC & Chem 7: 11/06/24 05:36 11/05/24 03:15 Labs: Abnormal Lab Results - Last 24 Hours (Table) 11/05/24 11/05/24 11/05/24 Range/Units 06:30 11:49 17:02 WBC (3.8-10.6) k/uL RBC (3.80-5.40) m/uL Hgb (11.4-16.0) gm/dL Hct (34.0-46.0) % Plt Count (150-450) k/uL Neutrophils # (1.3-7.7) k/uL POC Glucose (mg/dL) 134 H 116 H 116 H (70-110) mg/dL 11/06/24 Range/Units 05:36 WBC 12.8 H (3.8-10.6) k/uL RBC 3.07 L (3.80-5.40) m/uL Hgb 10.1 L (11.4-16.0) gm/dL Hct 30.2 L (34.0-46.0) % Plt Count 125 L (150-450) k/uL Neutrophils # 9.9 H (1.3-7.7) k/uL POC Glucose (mg/dL) (70-110) mg/dL
--- NOTE | 2024-11-06 06:40 | XR ---
EXAMINATION TYPE: XR chest 1V DATE OF EXAM: 11/06/2024 5:36 AM COMPARISON: Chest radiograph from one day prior. CLINICAL INDICATION: Female, 49 years old with history of Postop cardiac surgery; [facility] TECHNIQUE: XR chest 1V Frontal view of the chest. FINDINGS: Lungs/Pleura: No evidence of focal consolidation or pneumothorax. Blunting of the costophrenic angles is present. Pulmonary vascularity: Unremarkable. Heart/mediastinum: Cardiomediastinal silhouette is enlarged. Post aortic valve repair changes. Left atrial appendage occlusion device is present. Musculoskeletal: No acute osseous pathology. Midline sternotomy wires are noted. Other findings: None Lines/Tubes: Left thoracotomy tube is present without evidence of pneumothorax. IMPRESSION: 1. Similar postprocedural changes with bilateral pleural effusions. 2. Left thoracotomy tube without evidence of pneumothorax. [facility], , 11/06/2024 6:37 AM
[2024-11-06 06:47] LABS: Glucose,Whole Blood 153 mg/dL (70-110)
[2024-11-06 06:54] LABS: ALT 11 U/L (4-34); AST 20 U/L (14-36); African American GFR (CKD) >90 (>60 ml/min/1.73 sqM); Alkaline Phosphatase 57 U/L (38-126); Anion Gap 3 mmol/L; Blood Urea Nitrogen 16 mg/dL (7-17); Calcium 8.7 mg/dL (8.4-10.2); Carbon Dioxide 28 mmol/L (22-30); Chloride 101 mmol/L (98-107); Glucose 109 mg/dL (74-99); Magnesium 2.1 mg/dL (1.6-2.3); Non-African American GFR(CKD) >90 (>60 ml/min/1.73 sqM); Potassium 4.6 mmol/L (3.5-5.1); Sodium 132 mmol/L (137-145); Total Bilirubin 0.6 mg/dL (0.2-1.3); Total Protein 5.3 g/dL (6.3-8.2)
--- NOTE | 2024-11-06 08:46 | P.PN ---
Subjective Progress Note Date: 11/06/24 Principal diagnosis: Severe aortic insufficiency, moderate aortic stenosis. History of chronic heart failure with reduced ejection fraction, hypertension, remote history of pneumo vineet, COVID in 2020, current tobacco dependence, mild COPD, ovarian cancer, obesity, osteoarthritis POD #3 aortic valve replacement with 25 mm Verdugo Inspiris bovine pericardial valve prosthesis including aortic root enlargement (Jeramie Manzanares technique), occlusion left atrial appendage with 35 mm AtriCure clip Postoperative acute blood loss anemia and thrombocytopenia, expected given cardiopulmonary bypass pump and hemodilution The patient was seen and examined this morning sitting up in recliner in the intensive care unit in no acute distress eating breakfast. Remains in sinus rhythm, blood pressure soft but mean arterial pressures stable in the 60 to 70s. Remains on high flow nasal cannula at 12 L with oxygen saturation in the low 90s. Poor incentive spirometry effort as well as poor ambulatory effort, patient lacks motivation. Patient had multiple cans/bottles of regular Pepsi in her room, states her son brought them in for her. Encouraged patient to have them brought home as there is no nutritional value and increase in blood sugars. Encouraged more appropriate postsurgical oral intake. Labs, chest x-ray reviewed. Left pleural chest tube remains present. Objective - Vital Signs Vital signs: Vital Signs Temp 98.2 F 11/05/24 16:00 Pulse 70 11/06/24 07:00 Resp 14 11/06/24 07:00 BP 145/85 11/06/24 07:00 Pulse Ox 93 L 11/06/24 07:00 FiO2 12 11/05/24 19:00 Intake & Output 11/05/24 11/06/24 11/06/24 18:59 06:59 18:59 Intake Total 144 Output Total 985 540 0 Balance -841 -540 0 Weight 84.8 kg Intake: IV 144 Pressure Bag (0.9 Sodium 24 Chloride) Sodium Chloride 0.9% 1, 120 000 ml @ 30 mls/hr IV . Q24H [facility] Rx#:[id number] Output: Chest Tube Drainage 50 190 0 Left Pleural 50 190 0 Mediastinal 0 Urine 935 350 0 Other: Voiding Method Indwelling Catheter Bedside Commode ABP, PAP, CO, CI - Last Documented Arterial Blood Pressure 110/66 Pulmonary Artery Pressure 24/16 Cardiac Output 5.4 Cardiac Index 2.9 - Exam CONSTITUTIONAL: Appears comfortable, no acute distress RESPIRATORY: Lungs sounds diminished bilaterally. Respirations even, nonlabored. Currently on 12 L high flow nasal cannula with oxygen saturation 91%. Able to achieve 750 mL on incentive spirometry. Strong cough. CARDIOVASCULAR: S1, S2 present. Regular rate and rhythm, sinus rhythm on telemetry. Sternum stable. Palpable peripheral pulses bilaterally. No edema present. No calf pain or tenderness noted. Heart hugger in place with patient demonstrating appropriate use. Antiembolism stockings, SCDs present. GASTROINTESTINAL: Abdomen soft, nontender, nondistended. Active bowel sounds present 4 quadrants. Tolerating minimal diet. Positive flatus, negative bowel movement GENITOURINARY: Continues to void, output 1285 mL in the last 24 hours INTEGUMENTARY: Skin is warm and dry with evidence of good perfusion. Anterior chest incision well approximated and covered with dry intact dressing NEUROLOGIC: Cranial nerves II through XII intact MUSKULOSKELETAL: Able to move all extremities, strength equal bilaterally, gait normal PSYCHIATRIC: Alert and oriented to person place and time, appropriate affect INVASIVE LINES AND TUBES: Left pleural chest tubes present and connected to wall suction, no air leaks present, 150 mL serosanguineous drainage overnight, 220 mL in the last 24 hours. A/V epicardial pacemaker wires present, grounded - Allied health notes Allied health notes reviewed: nursing - Labs CBC & Chem 7: 11/06/24 05:36 11/06/24 05:36 Labs: Abnormal Lab Results - Last 24 Hours (Table) 11/05/24 11/05/24 11/06/24 Range/Units 11:49 17:02 05:36 WBC 12.8 H (3.8-10.6) k/uL RBC 3.07 L (3.80-5.40) m/uL Hgb 10.1 L (11.4-16.0) gm/dL Hct 30.2 L (34.0-46.0) % Plt Count 125 L (150-450) k/uL Neutrophils # 9.9 H (1.3-7.7) k/uL Sodium (137-145) mmol/L Glucose (74-99) mg/dL POC Glucose (mg/dL) 116 H 116 H (70-110) mg/dL Total Protein (6.3-8.2) g/dL Albumin (3.5-5.0) g/dL 11/06/24 11/06/24 Range/Units 05:36 06:45 WBC (3.8-10.6) k/uL RBC (3.80-5.40) m/uL Hgb (11.4-16.0) gm/dL Hct (34.0-46.0) % Plt Count (150-450) k/uL Neutrophils # (1.3-7.7) k/uL Sodium 132 L (137-145) mmol/L Glucose 109 H (74-99) mg/dL POC Glucose (mg/dL) 153 H (70-110) mg/dL Total Protein 5.3 L (6.3-8.2) g/dL Albumin 3.0 L (3.5-5.0) g/dL - Imaging and Cardiology Chest x-ray: report reviewed, image reviewed Assessment and Plan Assessment: Severe aortic insufficiency, moderate aortic stenosis, status post aortic valve replacement Postoperative acute blood loss anemia and thrombocytopenia, expected given cardiopulmonary bypass pump and hemodilution History of chronic heart failure with reduced ejection fraction, EF 45% Hypertension Remote history of pneumonia COVID in 2020 Current tobacco dependence Mild COPD, preoperative FEV1 66% of predicted Ovarian cancer Obesity Osteoarthritis Plan: Continue to maximize medical therapy with statin, Plavix, and beta-roge. Will increase beta-roge therapy as tolerated. No aspirin as patient has do cumented allergy Continue amiodarone for atrial fibrillation prophylaxis, will decrease per protocol. Patient has had no atrial fibrillation up to this point. Wean oxygen as tolerated. Encourage incentive spirometry use 10 times every hour while awake. Bronchodilators per pulmonology. Increase activity, ambulate as tolerated. PT/OT/cardiac rehab following. Patient needs strong encouragement Will monitor daily labs and chest x-rays. Electrolyte replacement per protocol. Continue Lasix IV twice daily GI/DVT prophylaxis. Daily weights. Pain control per current medication regimen. No Toradol added as the patient is allergic to NSAIDs Insulin management per internal medicine, patient is not diabetic with preoperative hemoglobin A1c 5.5% Continue left pleural chest tube for another 24 hours, monitor output Continue to monitor record strict accurate intake and output Keep atrial and ventricular epicardial pacemaker wires grounded in place Will give milk of magnesia, if no bowel movement will give suppository Encourage patient to have family take all of her Pepsi home. Encourage better oral nutrition Encouraged increased participation in care, ambulation in the hallway. If patient does not improve her status may need rehab at discharge Keep patient in the intensive care unit for another 24 hours for closer monitoring due to increasing oxygen needs More recommendations to follow based on patient's clinical course.
[2024-11-06 11:02] LABS: Glucose,Whole Blood 110 mg/dL (70-110)
--- NOTE | 2024-11-06 11:05 | P.PN ---
Subjective Progress Note Date: 11/06/24 Consult date: 11/02/24 Medical management Requesting physician: Reymundo Lester - Chief Complaint Moderate aortic stenosis ,status post AVR - History of Present Illness This is a 49-year-old female Completed cardiac catheterization on 10/02/2024 reporting normal coronary arteries, mildly elevated left-sided filling pressures, 4+ aortic regurgitation, moderate aortic stenosis. Scheduled for elective aortic valve replacement today. Rescheduled for tomorrow due to no available cardioplegia solution. ad ditional medical history includes CHF with reduced EF, hypertension, nicotine dependence, COVID 2020, asthma, ovarian cancer 2001-status post surgery, hypertension and multiple other medical issues. Patient sitting up in chair, lined/swan elena, on Primacor. Telemetry sinus rhythm. Currently denies chest pain, palpitations or shortness of breath. Status post AVR, postop day #3. Telemetry sinus rhythm. Blood Pressures soft, requiring as high as 15 L high flow nasal cannula , recently decreased to 13 L,to maintain O2 sats in the low to mid 90s. Incentive spirometer up to 750. chest x-ray reported similar postprocedural changes with bilateral pleural effusions, left thoracotomy tube without evidence of pneumothorax. Blood sugars currently controlled, has a couple cans of regular Pepsi at bedside, sipping on one. Wiser nutritional choices discussed. Lasix IV push with increased urine o utput. Objective - Vital Signs Vital signs: Vital Signs Temp 97.6 F 11/06/24 08:00 Pulse 68 11/06/24 10:00 Resp 20 11/06/24 10:00 BP 114/54 11/06/24 10:00 Pulse Ox 95 11/06/24 10:00 FiO2 12 11/05/24 19:00 Intake & Output 11/05/24 11/06/24 11/06/24 18:59 06:59 18:59 Intake Total 144 240 Output Total 985 540 500 Balance -201 -540 -260 Weight 84.8 kg Intake: IV 144 Pressure Bag (0.9 Sodium 24 Chloride) Sodium Chloride 0.9% 1, 120 000 ml @ 30 mls/hr IV . Q24H [facility] Rx#:[id number] Oral 240 Output: Chest Tube Drainage 50 190 0 Left Pleural 50 190 0 Mediastinal 0 Urine 935 350 500 Other: Voiding Method Indwelling Catheter Bedside Commode ABP, PAP, CO, CI - Last Documented Arterial Blood Pressure 110/66 Pulmonary Artery Pressure 24/16 Cardiac Output 5.4 Cardiac Index 2.9 - Exam PHYSICAL EXAM: VITAL SIGNS: [Reviewed] GENERAL: Alert and oriented x 3, sitting up on chair, no acute distress HEENT: Atraumatic, normocephalic conjunctivae normal. eyes normal. MMM. NECK: Supple, no JVD. No thyroid enlargement. No LNs CARDIOVASCULAR: S1, S2 regular. RESPIRATION: Bilateral breath sounds diminished with bibasilar crackles. Left pleural chest tube present. ABDOMEN: Soft, nontender, nondistended. No guarding. no masses palpable. No ascites, No hepatosplenomegaly.Bowel sounds heard. LEGS: Positive edema ,wearing SCDs NERVOUS SYSTEM: Cranial N 2-12 grossly normal. No focal deficits. Skin: Warm and dry, no rash - Labs CBC & Chem 7: 11/06/24 05:36 11/06/24 05:36 Labs: Abnormal Lab Results - Last 24 Hours (Table) 11/05/24 11/05/24 11/06/24 Range/Units 11:49 17:02 05:36 WBC 12.8 H (3.8-10.6) k/uL RBC 3.07 L (3.80-5.40) m/uL Hgb 10.1 L (11.4-16.0) gm/dL Hct 30.2 L (34.0-46.0) % Plt Count 125 L (150-450) k/uL Neutrophils # 9.9 H (1.3-7.7) k/uL Sodium (137-145) mmol/L Glucose (74-99) mg/dL POC Glucose (mg/dL) 116 H 116 H (70-110) mg/dL Total Protein (6.3-8.2) g/dL Albumin (3.5-5.0) g/dL 11/06/24 11/06/24 Range/Units 05:36 06:45 WBC (3.8-10.6) k/uL RBC (3.80-5.40) m/uL Hgb (11.4-16.0) gm/dL Hct (34.0-46.0) % Plt Count (150-450) k/uL Neutrophils # (1.3-7.7) k/uL Sodium 132 L (137-145) mmol/L Glucose 109 H (74-99) mg/dL POC Glucose (mg/dL) 153 H (70-110) mg/dL Total Protein 5.3 L (6.3-8.2) g/dL Albumin 3.0 L (3.5-5.0) g/dL Assessment and Plan Assessment: 4+ aortic regurgitation, moderate aortic stenosis, status AVR Acute blood loss anemia and thrombocytopenia postoperative, expected outcome Acute hypoxic respiratory failure secondary to all the above Asthma COPD COVID 2020 Chronic CHF, reduced EF Ongoing nicotine dependent Hypertension Osteoarthritis Morbid obesity, BMI 32 Plan: Continue on current medication regime ,monitoring and symptomatic treatment. ICU management as per barometers calibrator/CTS. Aggressive pulmonary toileting with incentive spirometer reinforced, currently up to 750. Smoking cessation reinforced. increase ambulation as tolerated. pain management. Passing flatus, no bowel movement, milk of mag administered . The impression and plan of care has been dictated as directed. : I performed a history and examination of this patient, discussed the same with the dictator. I agree with the dictator's note ,documented as a scribe. Any additional findings or plans will be noted.
--- NOTE | 2024-11-06 12:07 | P.PN ---
Subjective Progress Note Date: 11/06/24 This is a pleasant 49-year-old female patient with a known history of chronic and ongoing tobacco dependence, obstructive pulmonary disease with an FEV1 value 66% of predicted, hypertension,, chronic systolic congestive heart failure with an ejection fraction of 45% and severe aortic insufficiency with moderate aortic stenosis. She was brought in today electively for an aortic valve replacement however there was no cardioplegia solution available and she is postponed until tomorrow. She was admitted to the intensive care unit following [place] catheter placement. She was initiated on IV Primacor currently at 0.25 mcg/kg/min. She is awake and alert. Sitting up in bed. Maintaining good O2 sa turations in the 90s on room air. She is afebrile. Hemodynamically stable. PA pressure 19/4. CVP 1. Cardiac output 5.1. Cardiac index 2.8. She has been initiated on DuoNeb inhalations, Symbicort. She has been educated regarding the use the incentive spirometer. Heparin for DVT prophylaxis. 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 However when I came in to see the patient, patient had no breath sounds on the left side, chest x-ray showed endotracheal tube in the right mainstem bronchus, and the patient was arousable, follows simple instructions. I reviewed the chest x-ray which was done earlier, and I recommended immediate pulling of the endotracheal tube approximately about 4 cm. In the meantime ABG was done and it showed a pO2 of 68 pCO2 54 pH of 7.24. This was on CPAP, and I recommended the patient is not ready to be weaned she had to be placed back on assist-control mode of mechanical ventilation, with assist-control rate of 14 tidal volume 500 FiO2 50% and PEEP of 8. Chest x-ray was noted after the tube was pulled out of the right mainstem bronchus showed retrocardiac atelectasis in the left lower lobe, however there was good aeration of the left midlung and left upper lobe. Based on the ABG based on the chest x-ray findings and based on the fact that the endotracheal tube was not in the proper position, I recommended that we delay extubation for now. And reevaluate weaning on pressure support of 8 and CPAP in the next 1 hour. Patient is hemodynamically stable, she is not requiring any pressors. On Cleviprex at 2 mg/h amiodarone at 1 mg/min IV fluid at 50 cc/h in the form of 0.9 normal saline cardiac output of 4.7 cardiac index of 2.6 PA pressure 35/16. Patient was seen today on 11/04/2024, patient was extubated yesterday successfully, and I am seeing her today she is doing quite well. She is on 4 L nasal cannula, patient is also on amiodarone 0.5 mg/min insulin 1 unit/h IV fluid 0.9 normal saline at 50 cc/h patient is sitting up in the chair, does not seem to be in any distress. Chest x-ray was reviewed, has minimal bibasilar atelectasis and possibly a small left pleural effusion. WBC is 10.2 hemoglobin 11.1, basic metabolic profile and renal profile are normal. Seen today on 11/05/2024, patient remains in the ICU, however her FiO2 req uirement has gone output. Now on 8 L high flow nasal cannula with O2 sats is 95%. Chest x-ray showing cardiomegaly small bilateral pleural effusions, pulmonary vascular congestion all consistent with fluid overload/congestive heart failure. In addition she has minimal left lower lobe atelectasis. Patient did receive Lasix earlier today given by cardiothoracic surgery. WBC count is 13.3 hemoglobin 10.7 electrolytes are normal renal profile is normal, patient is achieving no more than 750 mL on her incentive spirometry. Continues to have right IJ cordis in place, CVP is measuring about 14, patient is in sinus rhythm, rate of 76, mediastinal and left pleural chest tube remain in place on low continuous wall suction -20 cm of water. No airleak noted. Continues to have atrial and ventricular epicardial pacemaker wires in place. And are grounded. The patient is seen today November 06, 2024 in follow-up in the intensive care unit. She is awake and alert in no acute distress. Sitting up in a chair at the bedside. Postoperative day #4 of her aortic valve replacement. He is maintaining good O2 saturations in the 90s on 15 L high flow nasal cannula. No IV fluids. Chest x-ray reveals similar bilateral pleural effusions. Left thoracotomy tube in place without evidence of pneumothorax. She did receive Lasix 20 mg IVP x 1 in 500 cc of urine output thus far this morning.. Heparin for DVT prophylaxis. White count 12.8. Hemoglobin 10.1. Platelets 125. Sodium 132. Potassium 4.6. Bicarb 28. BUN 16. Creatinine 0.74. Glucose 109. Objective - Vital Signs Vital signs: Vital Signs Temp 97.6 F 11/06/24 08:00 Pulse 67 11/06/24 11:00 Resp 20 11/06/24 11:00 BP 89/59 11/06/24 11:00 Pulse Ox 94 L 11/06/24 11:00 FiO2 12 11/05/24 19:00 Intake & Output 11/05/24 11/06/24 11/06/24 18:59 06:59 18:59 Intake Total 144 240 Output Total 985 540 500 Balance -841 -540 -260 Weight 84.8 kg Intake: IV 144 Pressure Bag (0.9 Sodium 24 Chloride) Sodium Chloride 0.9% 1, 120 000 ml @ 30 mls/hr IV . Q24H [facility] Rx#:[id number] Oral 240 Output: Chest Tube Drainage 50 190 0 Left Pleural 50 190 0 Mediastinal 0 Urine 935 350 500 Other: Voiding Method Indwelling Catheter Bedside Commode ABP, PAP, CO, CI - Last Documented Arterial Blood Pressure 110/66 Pulmonary Artery Pressure 24/16 Cardiac Output 5.4 Cardiac Index 2.9 - Exam GENERAL EXAM: Alert, active, 49-year-old female, on 15 L high flow nasal cannula, comfortable in no apparent distress. HEAD: Normocephalic. EYES: Normal reaction of pupils, equal size. NOSE: Clear with pink turbinates. THROAT: No erythema or exudates. NECK: No masses, no JVD. CHEST: No chest wall deformity. Sternum stable. Incision clean dry well- approximated. Heart hugger in place LUNGS: Equal air entry with crackles in the bilateral bases. CVS: S1 and S2 normal with no audible murmur, regular rhythm. ABDOMEN: No hepatosplenomegaly, normal bowel sounds, no guarding or rigidity. SPINE: No scoliosis or deformity SKIN: No rashes CENTRAL NERVOUS SYSTEM: No focal deficits, tone is normal in all 4 extremities. EXTREMITIES: There is no peripheral edema. No clubbing, no cyanosis. Peripheral pulses are intact. - Labs CBC & Chem 7: 11/06/24 05:36 11/06/24 05:36 Labs: Abnormal Lab Results - Last 24 Hours (Table) 11/05/24 11/06/24 11/06/24 Range/Units 17:02 05:36 05:36 WBC 12.8 H (3.8-10.6) k/uL RBC 3.07 L (3.80-5.40) m/uL Hgb 10.1 L (11.4-16.0) gm/dL Hct 30.2 L (34.0-46.0) % Plt Count 125 L (150-450) k/uL Neutrophils # 9.9 H (1.3-7.7) k/uL Sodium 132 L (137-145) mmol/L Glucose 109 H (74-99) mg/dL POC Glucose (mg/dL) 116 H (70-110) mg/dL Total Protein 5.3 L (6.3-8.2) g/dL Albumin 3.0 L (3.5-5.0) g/dL 11/06/24 Range/Units 06:45 WBC (3.8-10.6) k/uL RBC (3.80-5.40) m/uL Hgb (11.4-16.0) gm/dL Hct (34.0-46.0) % Plt Count (150-450) k/uL Neutrophils # (1.3-7.7) k/uL Sodium (137-145) mmol/L Glucose (74-99) mg/dL POC Glucose (mg/dL) 153 H (70-110) mg/dL Total Protein (6.3-8.2) g/dL Albumin (3.5-5.0) g/dL Assessment and Plan Assessment: Severe aortic insufficiency, moderate aortic stenosis. Status post aortic valve replacement with 25 mm Verdugo Inspiris bovine pericardial valve prosthesis including aortic root enlargement (Jeramie Manzanares technique), occlusion left atrial appendage with 35 mm AtriCure clip, postoperative day #3 History of chronic systolic congestive heart failure with an ejection fraction of 45% Chronic and ongoing tobacco dependence Chronic obstructive pulmonary disease with an FEV1 value 66% of predicted Hypertension History of ovarian cancer Plan: The patient was seen and evaluated Chest x-ray, labs and medications reviewed Currently requiring 15 L high flow nasal cannula Lasix 20 mg IVP every 12 hours Increased use of the incentive spirometer Continue DuoNeb inhalations, Symbicort Continue heparin for DVT prophylaxis Educated regarding the importance of complete smoking cessation We will continue to follow I have personally seen and examined the patient, performed the documentation and the assessment and plan as written. Number of minutes spent on the visit: 10 Dictation was produced using [employer] dictation software. Please excuse any grammatical, word or spelling errors.
[2024-11-06] MEDS: MAGNESIUM HYDROXIDE 2,400 MG/30 ML CUP PO PRN (16:13)
[2024-11-06 16:56] LABS: Glucose,Whole Blood 113 mg/dL (70-110)
[2024-11-06 20:17] LABS: Glucose,Whole Blood 81 mg/dL (70-110)
[2024-11-06] MEDS: SYMBICORT 160-4.5 MCG INHALER INHALATION SCH (21:28)
[2024-11-07 05:56] LABS: HCT 28.6 % (34.0-46.0); HGB 9.4 gm/dL (11.4-16.0); MCH 32.5 pg (25.0-35.0); MCHC 32.9 g/dL (31.0-37.0); MCV 98.7 fL (80.0-100.0); Mean Platelet Volume 8.1; Platelet Count 159 k/uL (150-450); RDW 13.8 % (11.5-15.5); WBC 10.5 k/uL (3.8-10.6)
[2024-11-07 06:15] LABS: African American GFR (CKD) >90 (>60 ml/min/1.73 sqM); Anion Gap 4 mmol/L; Blood Urea Nitrogen 18 mg/dL (7-17); Calcium 8.7 mg/dL (8.4-10.2); Carbon Dioxide 32 mmol/L (22-30); Chloride 97 mmol/L (98-107); Glucose 106 mg/dL (74-99); Non-African American GFR(CKD) 89 (>60 ml/min/1.73 sqM); Potassium 3.7 mmol/L (3.5-5.1); Sodium 133 mmol/L (137-145)
--- NOTE | 2024-11-07 06:33 | P.PN ---
Subjective Progress Note Date: 11/07/24 The patient is a pleasant 49-year-old female patient with a past medical history significant for valvular heart disease with severe symptomatic aortic insufficiency as well as smoking and COPD was admitted to the hospital and underwent AVR with aortic root enlargement. November 06, 2024 The patient was seen and evaluated this morning. She is overall stable hemodynamically which she has been maintaining normal sinus mechanism. The chest x-ray was reviewed and showed left pleural effusion and she is definitely slightly hypervolemic with bilateral lower extremities edema with ongoing to give the patient an additional 20 mg of Lasix IV. Otherwise she has been encouraged to use the spirometer. She does have chronic pain. Beside that she is stable with normal urine output and normal overall overall blood work. The physical examination is remarkable for regular rhythm with diminished breathing sounds bilaterally and mild bilateral lower extremities edema noted. November 07, 2024 The patient was seen and evaluated this morning. Overall she is doing slightly better compared to yesterday and she has been more motivated by walking around. The pain overall is better. Otherwise hemodynamically she is stable. The chest x-ray was reviewed and continues to show bilateral pleural effusion. The p hysical examination is remarkable for regular rhythm with diminished breathing sounds bilaterally and mild bilateral lower extremities edema noted Assessment Status post AVR with aortic root enlargement Smoking and COPD Multiple comorbid conditions including chronic pain Plan Continue the current medical regimen Continue monitor the urine output and kidney function and electrolytes Monitor the heart rhythm Follow-up with the patient Objective - Vital Signs Vital signs: Vital Signs Temp 98.0 F 11/07/24 04:00 Pulse 69 11/07/24 06:27 Resp 16 11/07/24 05:00 BP 106/56 11/07/24 05:00 Pulse Ox 96 11/07/24 05:00 FiO2 12 11/05/24 19:00 Intake & Output 11/06/24 11/06/24 11/07/24 06:59 18:59 06:59 Intake Total 600 400 Output Total 540 5930 725 Balance -540 -1030 -325 Weight 84.8 kg Intake: Oral 600 400 Output: Chest Tube Drainage 190 30 25 Left Pleural 190 30 25 Urine 350 1600 700 Other: Voiding Method Bedside Commode Bedside Commode Bedside Commode ABP, PAP, CO, CI - Last Documented Arterial Blood Pressure 110/66 Pulmonary Artery Pressure Cardiac Output 5.4 Cardiac Index 2.9 - Labs CBC & Chem 7: 03/25/25 05:39 11/07/24 05:39 Labs: Abnormal Lab Results - Last 24 Hours (Table) 11/06/24 11/06/24 11/06/24 Range/Units 05:36 06:45 16:55 RBC (3.80-5.40) m/uL Hgb (11.4-16.0) gm/dL Hct (34.0-46.0) % Sodium 132 L (137-145) mmol/L Chloride (98-107) mmol/L Carbon Dioxide (22-30) mmol/L BUN (7-17) mg/dL Glucose 109 H (74-99) mg/dL POC Glucose (mg/dL) 153 H 113 H (70-110) mg/dL Total Protein 5.3 L (6.3-8.2) g/dL Albumin 3.0 L (3.5-5.0) g/dL 11/07/24 11/07/24 Range/Units 05:39 05:39 RBC 2.90 L (3.80-5.40) m/uL Hgb 9.4 L (11.4-16.0) gm/dL Hct 28.6 L (34.0-46.0) % Sodium 133 L (137-145) mmol/L Chloride 97 L (98-107) mmol/L Carbon Dioxide 32 H (22-30) mmol/L BUN 18 H (7-17) mg/dL Glucose 106 H (74-99) mg/dL POC Glucose (mg/dL) (70-110) mg/dL Total Protein (6.3-8.2) g/dL Albumin (3.5-5.0) g/dL
--- NOTE | 2024-11-07 06:47 | XR ---
EXAMINATION TYPE: XR chest 1V portable DATE OF EXAM: 11/07/2024 5:26 AM COMPARISON: Multiple radiographs, with the most recent on 11/06/2024 TECHNIQUE: XR chest 1V portable Portable AP radiograph of the chest. CLINICAL INDICATION:Female, 49 years old with history of Postcardiac surgery; FINDINGS: Lungs/Pleura: No evidence of focal consolidation or pneumothorax. Blunting of the costophrenic angles is present. Pulmonary vascularity: Unremarkable. Heart/mediastinum: Cardiomediastinal silhouette is enlarged. Post aortic valve repair changes. Left atrial appendage occlusion device is present. Musculoskeletal: No acute osseous pathology. Midline sternotomy wires are noted. Other findings: None Lines/Tubes: Left thoracotomy tube is present without evidence of pneumothorax. IMPRESSION: 1. Similar postprocedural cardiac changes with bilateral pleural effusions. 2. Left thoracotomy tube without evidence of pneumothorax. [facility], , 11/07/2024 6:44 AM
[2024-11-07] MEDS: PANTOPRAZOLE 40 MG TABLET PO SCH (06:59)
[2024-11-07] MEDS: POTASSIUM CHLORIDE ER 20 MEQ TAB.ER PO SCH (06:59)
--- NOTE | 2024-11-07 07:32 | US ---
EXAMINATION TYPE: US chest DATE OF EXAM: 11/07/2024 COMPARISON: CXR CLINICAL INDICATION: Female, 49 years old with history of fani right side for thora; Effusion TECHNIQUE: Grayscale imaging of the chest. Targeted ultrasound of the posterior lower right hemithor ax FINDINGS: EXAM MEASUREMENTS: Right Pleural Effusion pocket size: 1.7 cm Right side NOT marked for possible thoracentesis outside the dept. Liver and Lung persistent in image s where best fluid pocket could be visualize, and fluid pocket small. Pulmonologists are able to review the images in the patient?s EMR. IMPRESSIONS: Small right pleural effusion. [facility], , 11/07/2024 7:29 AM
--- NOTE | 2024-11-07 07:53 | P.PN ---
Subjective Progress Note Date: 11/07/24 Principal diagnosis: Severe aortic insufficiency, moderate aortic stenosis. History of chronic heart failure with reduced ejection fraction, hypertension, remote history of pneumo vineet, COVID in 2020, current tobacco dependence, mild COPD, ovarian cancer, obesity, osteoarthritis POD #4 aortic valve replacement with 25 mm Verdugo Inspiris bovine pericardial valve prosthesis including aortic root enlargement (Jeramie Manzanares technique), occlusion left atrial appendage with 35 mm AtriCure clip Postoperative acute blood loss anemia and thrombocytopenia, expected given cardiopulmonary bypass pump and hemodilution The patient was seen and examined this morning sitting up in recliner in the intensive care unit in no acute distress eating breakfast. Remains in sinus rhythm, blood pressure stable. Oxygen has been weaned down, currently on 4 L nasal cannula with oxygen saturation in the mid 90s. Better incentive spirometry effort, better ambulatory effort, did ambulate in the hallway 4 times yesterday. Patient continues to have multiple cans/bottles of regular Pepsi in her room, states she is not drinking them, they were left for her family members when they visit. Diet order changed in the computer to reflect no pop to be put on her tray. Encouraged more appropriate postsurgical oral intake. Labs, chest x-ray reviewed. Left pleural chest tube remains present. Objective - Vital Signs Vital signs: Vital Signs Temp 98.0 F 11/07/24 04:00 Pulse 65 11/07/24 07:10 Resp 23 11/07/24 07:10 BP 97/41 11/07/24 07:10 Pulse Ox 97 11/07/24 07:10 FiO2 12 11/05/24 19:00 Intake & Output 11/06/24 11/07/24 11/07/24 18:59 06:59 18:59 Intake Total 600 400 Output Total 1630 725 0 Balance -1030 -325 0 Weight 83.4 kg Intake: Oral 600 400 Output: Chest Tube Drainage 30 25 Left Pleural 30 25 Urine 1600 700 0 Other: Voiding Method Bedside Commode Bedside Commode ABP, PAP, CO, CI - Last Documented Arterial Blood Pressure 110/66 Pulmonary Artery Pressure 24/16 Cardiac Output 5.4 Cardiac Index 2.9 - Exam CONSTITUTIONAL: Appears comfortable, no acute distress RESPIRATORY: Lungs sounds diminished bilaterally. Respirations even, nonlabored. Currently on 4 L nasal cannula with oxygen saturation 94%. Able to achieve 750-1000 mL on incentive spirometry. Strong cough. CARDIOVASCULAR: S1, S2 present. Regular rate and rhythm, sinus rhythm on telemetry. Sternum stable. Palpable peripheral pulses bilaterally. No edema present. No calf pain or tenderness noted. Heart hugger in place with patient demonstrating appropriate use. Antiembolism stockings, SCDs present. GASTROINTESTINAL: Abdomen soft, nontender, nondistended. Active bowel sounds present 4 quadrants. Tolerating minimal diet. Positive flatus, negative bowel movement GENITOURINARY: Continues to void, output 2300 mL in the last 24 hours INTEGUMENTARY: Skin is warm and dry with evidence of good perfusion. Anterior chest incision well approximated and covered with dry intact dressing NEUROLOGIC: Cranial nerves II through XII intact MUSKULOSKELETAL: Able to move all extremities, strength equal bilaterally, gait normal PSYCHIATRIC: Alert and oriented to person place and time, appropriate affect INVASIVE LINES AND TUBES: Left pleural chest tubes present and connected to wall suction, no air leaks present, 25 mL serosanguineous drainage overnight, 110 mL in the last 24 hours. A/V epicardial pacemaker wires present, grounded - Allied health notes Allied health notes reviewed: nursing - Labs CBC & Chem 7: 11/07/24 05:39 11/07/24 05:39 Labs: Abnormal Lab Results - Last 24 Hours (Table) 11/06/24 11/07/24 11/07/24 Range/Units 16:55 05:39 05:39 RBC 2.90 L (3.80-5.40) m/uL Hgb 9.4 L (11.4-16.0) gm/dL Hct 28.6 L (34.0-46.0) % Sodium 133 L (137-145) mmol/L Chloride 97 L (98-107) mmol/L Carbon Dioxide 32 H (22-30) mmol/L BUN 18 H (7-17) mg/dL Glucose 106 H (74-99) mg/dL POC Glucose (mg/dL) 113 H (70-110) mg/dL - Imaging and Cardiology Chest x-ray: report reviewed, image reviewed Assessment and Plan Assessment: Severe aortic insufficiency, moderate aortic stenosis, status post aortic valve replacement Postoperative acute blood loss anemia and thrombocytopenia, expected given cardiopulmonary bypass pump and hemodilution History of chronic heart failure with reduced ejection fraction, EF 45% Hypertension Remote history of pneumonia COVID in 2020 Current tobacco dependence Mild COPD, preoperative FEV1 66% of predicted Ovarian cancer Obesity Osteoarthritis Plan: Continue to maximize medical therapy with statin, Plavix, and beta-roge. Will increase beta-roge therapy as tolerated. No aspirin as patient has documented allergy Continue amiodarone for atrial fibrillation prophylaxis, will decrease per protocol. Patient has had no atrial fibrillation up to this point. Wean oxygen as tolerated. Encourage incentive spirometry use 10 times every hour while awake. Bronchodilators per pulmonology. Increase activity, ambulate as tolerated. PT/OT/cardiac rehab following. Patient needs strong encouragement Will monitor daily labs and chest x-rays. Electrolyte replacement per protocol. Continue Lasix IV twice daily GI/DVT prophylaxis. Daily weights. Pain control per current medication regimen. No Toradol added as the patient is allergic to NSAIDs Insulin management per internal medicine, patient is not diabetic with preoperative hemoglobin A1c 5.5% Will discontinue left pleural chest tube Continue to monitor record strict accurate intake and output Keep atrial and ventricular epicardial pacemaker wires grounded in place Will give milk of magnesia, if no bowel movement will give suppository Encourage patient to have family take all of her Pepsi home. Encourage better oral nutrition. Diet order changed to include no pop on her tray Will place transfer orders for 3 S. cardiac stepdown unit, may transfer when bed available More recommendations to follow based on patient's clinical course.
--- NOTE | 2024-11-07 10:16 | P.PN ---
Subjective Progress Note Date: 11/07/24 Consult date: 11/02/24 Medical management Requesting physician: Reymundo Lester - Chief Complaint Moderate aortic stenosis ,status post AVR - History of Present Illness This is a 49-year-old female Completed cardiac catheterization on 10/02/2024 reporting normal coronary arteries, mildly elevated left-sided filling pressures, 4+ aortic regurgitation, moderate aortic stenosis. Scheduled for elective aortic valve replacement today. Rescheduled for tomorrow due to no available cardioplegia solution. ad ditional medical history includes CHF with reduced EF, hypertension, nicotine dependence, COVID 2020, asthma, ovarian cancer 2001-status post surgery, hypertension and multiple other medical issues. Patient sitting up in chair, lined/swan elena, on Primacor. Telemetry sinus rhythm. Currently denies chest pain, palpitations or shortness of breath. 11/06/2024 status post AVR, postop day #3. Telemetry sinus rhythm. Blood Pressures soft, requiring as high as 15 L high flow nasal cannula , recently decreased to 13 L,to maintain O2 sats in the low to mid 90s. Incentive spirometer up to 750. chest x-ray reported similar postprocedural changes with bilateral pleural effusions, left thoracotomy tube without evidence of pneumothorax. Blood sugars currently controlled, has a couple cans of regular Pepsi at bedside, sipping on one. Wiser nutritional choices discussed. Lasix IV push with increased urine output. 11/07/24 significant clinical improvement. Diuresing well. ambulated multiple times yesterday in the hallway, tolerated exertion well. Left pleural chest tube discontinued. Maintaining O2 sats in the 90s on 4 L nasal cannula. Incentive spirometer 1000 to 1250. Chest x-ray reported small postprocedure changes with bilateral pleural effusions. Chest ultrasound reported small right pleural effusion pocket size 1.7 cm.-Not marked. telemetry sinus rhythm. Blood pressures soft, currently up 115/79. Blood sugars controlled. Hemoglobin 9.4, platelets 159. Patient has been downgraded to selective overflow per CTS. Objective - Vital Signs Vital signs: Vital Signs Temp 97.4 F L 11/07/24 08:00 Pulse 67 11/07/24 08:55 Resp 20 11/07/24 08:00 BP 115/79 11/07/24 08:55 Pulse Ox 98 11/07/24 08:00 FiO2 12 11/05/24 19:00 Intake & Output 11/06/24 11/07/24 11/07/24 18:59 06:59 18:59 Intake Total 600 400 100 Output Total 1630 725 100 Balance -1030 -325 0 Weight 83.4 kg Intake: Oral 600 400 100 Output: Chest Tube Drainage 30 25 0 Left Pleural 30 25 0 Urine 1600 700 100 Other: Voiding Method Bedside Commode Bedside Commode Bedside Commode ABP, PAP, CO, CI - Last Documented Arterial Blood Pressure 110/66 Pulmonary Artery Pressure 24/16 Cardiac Output 5.4 Cardiac Index 2.9 - Exam PHYSICAL EXAM: VITAL SIGNS: [Reviewed] GENERAL: Alert and oriented x 3, sitting up on chair, no acute distress. HEENT: Atraumatic, normocephalic conjunctivae normal. eyes normal. MMM. NECK: Supple, no JVD. No thyroid enlargement. No LNs CARDIOVASCULAR: S1, S2 regular. RESPIRATION: Bilateral breath sounds diminished. ABDOMEN: Soft, nontender, nondistended. No guarding. Positive bowel sounds. LEGS: Positive edema ,wearing SCDs NERVOUS SYSTEM: Cranial N 2-12 grossly normal. No focal deficits. Skin: Warm and dry, no rash. - Labs CBC & Chem 7: 11/07/24 05:39 11/07/24 05:39 Labs: Abnormal Lab Results - Last 24 Hours (Table) 11/06/24 11/07/24 11/07/24 Range/Units 16:55 05:39 05:39 RBC 2.90 L (3.80-5.40) m/uL Hgb 9.4 L (11.4-16.0) gm/dL Hct 28.6 L (34.0-46.0) % Sodium 133 L (137-145) mmol/L Chloride 97 L (98-107) mmol/L Carbon Dioxide 32 H (22-30) mmol/L BUN 18 H (7-17) mg/dL Glucose 106 H (74-99) mg/dL POC Glucose (mg/dL) 113 H (70-110) mg/dL Assessment and Plan Assessment: 4+ aortic regurgitation, moderate aortic stenosis, status AVR Acute blood loss anemia and thrombocytopenia postoperative, expected outcome Acute hypoxic respiratory failure secondary to all the above Asthma COPD COVID 2020 Chronic CHF, reduced EF Ongoing nicotine dependent Hypertension Osteoarthritis Morbid obesity, BMI 32 Plan: Continue on current medication regime ,monitoring and symptomatic treatment. Selective overflow, bed pending. Maintain aggressive pulmonary toileting with incentive spirometer reinforced. Smoking cessation reinforced. increase ambulation as tolerated. pain management. The impression and plan of care has been dictated as directed. : I performed a history and examination of this patient, discussed the same with the dictator. I agree with the dictator's note ,documented as a scribe. Any additional findings or plans will be noted.
--- NOTE | 2024-11-07 11:05 | P.PN ---
Subjective Progress Note Date: 11/07/24 This is a pleasant 49-year-old female patient with a known history of chronic and ongoing tobacco dependence, obstructive pulmonary disease with an FEV1 value 66% of predicted, hypertension,, chronic systolic congestive heart failure with an ejection fraction of 45% and severe aortic insufficiency with moderate aortic stenosis. She was brought in today electively for an aortic valve replacement however there was no cardioplegia solution available and she is postponed until tomorrow. She was admitted to the intensive care unit following [place] catheter placement. She was initiated on IV Primacor currently at 0.25 mcg/kg/min. She is awake and alert. Sitting up in bed. Maintaining good O2 sa turations in the 90s on room air. She is afebrile. Hemodynamically stable. PA pressure 19/4. CVP 1. Cardiac output 5.1. Cardiac index 2.8. She has been initiated on DuoNeb inhalations, Symbicort. She has been educated regarding the use the incentive spirometer. Heparin for DVT prophylaxis. 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 However when I came in to see the patient, patient had no breath sounds on the left side, chest x-ray showed endotracheal tube in the right mainstem bronchus, and the patient was arousable, follows simple instructions. I reviewed the chest x-ray which was done earlier, and I recommended immediate pulling of the endotracheal tube approximately about 4 cm. In the meantime ABG was done and it showed a pO2 of 68 pCO2 54 pH of 7.24. This was on CPAP, and I recommended the patient is not ready to be weaned she had to be placed back on assist-control mode of mechanical ventilation, with assist-control rate of 14 tidal volume 500 FiO2 50% and PEEP of 8. Chest x-ray was noted after the tube was pulled out of the right mainstem bronchus showed retrocardiac atelectasis in the left lower lobe, however there was good aeration of the left midlung and left upper lobe. Based on the ABG based on the chest x-ray findings and based on the fact that the endotracheal tube was not in the proper position, I recommended that we delay extubation for now. And reevaluate weaning on pressure support of 8 and CPAP in the next 1 hour. Patient is hemodynamically stable, she is not requiring any pressors. On Cleviprex at 2 mg/h amiodarone at 1 mg/min IV fluid at 50 cc/h in the form of 0.9 normal saline cardiac output of 4.7 cardiac index of 2.6 PA pressure 35/16. Patient was seen today on 11/04/2024, patient was extubated yesterday successfully, and I am seeing her today she is doing quite well. She is on 4 L nasal cannula, patient is also on amiodarone 0.5 mg/min insulin 1 unit/h IV fluid 0.9 normal saline at 50 cc/h patient is sitting up in the chair, does not seem to be in any distress. Chest x-ray was reviewed, has minimal bibasilar atelectasis and possibly a small left pleural effusion. WBC is 10.2 hemoglobin 11.1, basic metabolic profile and renal profile are normal. Seen today on 11/05/2024, patient remains in the ICU, however her FiO2 req uirement has gone output. Now on 8 L high flow nasal cannula with O2 sats is 95%. Chest x-ray showing cardiomegaly small bilateral pleural effusions, pulmonary vascular congestion all consistent with fluid overload/congestive heart failure. In addition she has minimal left lower lobe atelectasis. Patient did receive Lasix earlier today given by cardiothoracic surgery. WBC count is 13.3 hemoglobin 10.7 electrolytes are normal renal profile is normal, patient is achieving no more than 750 mL on her incentive spirometry. Continues to have right IJ cordis in place, CVP is measuring about 14, patient is in sinus rhythm, rate of 76, mediastinal and left pleural chest tube remain in place on low continuous wall suction -20 cm of water. No airleak noted. Continues to have atrial and ventricular epicardial pacemaker wires in place. And are grounded. The patient is seen today November 06, 2024 in follow-up in the intensive care unit. She is awake and alert in no acute distress. Sitting up in a chair at the bedside. Postoperative day #4 of her aortic valve replacement. He is maintaining good O2 saturations in the 90s on 15 L high flow nasal cannula. No IV fluids. Chest x-ray reveals similar bilateral pleural effusions. Left thoracotomy tube in place without evidence of pneumothorax. She did receive Lasix 20 mg IVP x 1 in 500 cc of urine output thus far this morning.. Heparin for DVT prophylaxis. White count 12.8. Hemoglobin 10.1. Platelets 125. Sodium 132. Potassium 4.6. Bicarb 28. BUN 16. Creatinine 0.74. Glucose 109. The patient is seen today November 07, 2024 in follow-up in the intensive care unit. She is sitting up in a chair at the bedside. Awake and alert in no acute distress. Breathing easier today compared to yesterday. She is down to oxygen per minutes of just 4 L high flow nasal cannula. She has been afebrile. Hemodynamically stable. White count 10.5. Hemoglobin 9.4. Platelets 159. Sodium 133. Potassium 3.7. Bicarb 32. BUN 18. Creatinine 0.79. Glucose 106. She remains on Symbicort, DuoNeb inhalations. Remains on IV diuretics. Heparin for DVT prophylaxis. Currently in a -1.3 L balance. She continues to work well with the incentive spirometer. Objective - Vital Signs Vital signs: Vital Signs Temp 97.4 F L 11/07/24 08:00 Pulse 67 11/07/24 08:55 Resp 20 11/07/24 08:00 BP 115/79 11/07/24 08:55 Pulse Ox 98 11/07/24 08:00 FiO2 12 11/05/24 19:00 Intake & Output 11/06/24 11/07/24 11/07/24 18:59 06:59 18:59 Intake Total 600 400 100 Output Total 1630 725 850 Balance -0951 -575 -734 Weight 83.4 kg Intake: Oral 600 400 100 Output: Chest Tube Drainage 30 25 0 Left Pleural 30 25 0 Urine 1600 700 850 Other: Voiding Method Bedside Commode Bedside Commode Bedside Commode ABP, PAP, CO, CI - Last Documented Arterial Blood Pressure 110/66 Pulmonary Artery Pressure 24/16 Cardiac Output 5.4 Cardiac Index 2.9 - Exam GENERAL EXAM: Alert, pleasant 49-year-old female, up in a chair, on 4 L high flow nasal cannula, comfortable in no apparent distress. HEAD: Normocephalic. EYES: Normal reaction of pupils, equal size. NOSE: Clear with pink turbinates. THROAT: No erythema or exudates. NECK: No masses, no JVD. CHEST: No chest wall deformity. Sternum stable. Incision clean dry well- approximated. Heart hugger in place LUNGS: Equal air entry with crackles in the bilateral bases. CVS: S1 and S2 normal with no audible murmur, regular rhythm. ABDOMEN: No hepatosplenomegaly, normal bowel sounds, no guarding or rigidity. SPINE: No scoliosis or deformity SKIN: No rashes CENTRAL NERVOUS SYSTEM: No focal deficits, tone is normal in all 4 extremities. EXTREMITIES: There is no peripheral edema. No clubbing, no cyanosis. Peripheral pulses are intact. - Labs CBC & Chem 7: 11/07/24 05:39 11/07/24 05:39 Labs: Abnormal Lab Results - Last 24 Hours (Table) 11/06/24 11/07/24 11/07/24 Range/Units 16:55 05:39 05:39 RBC 2.90 L (3.80-5.40) m/uL Hgb 9.4 L (11.4-16.0) gm/dL Hct 28.6 L (34.0-46.0) % Sodium 133 L (137-145) mmol/L Chloride 97 L (98-107) mmol/L Carbon Dioxide 32 H (22-30) mmol/L BUN 18 H (7-17) mg/dL Glucose 106 H (74-99) mg/dL POC Glucose (mg/dL) 113 H (70-110) mg/dL Assessment and Plan Assessment: Severe aortic insufficiency, moderate aortic stenosis. Status post aortic valve replacement with 25 mm Verdugo Inspiris bovine pericardial valve prosthesis including aortic root enlargement (Jeramie Manzanares technique), occlusion left atrial appendage with 35 mm AtriCure clip, postoperative day #4 History of chronic systolic congestive heart failure with an ejection fraction of 45% Chronic and ongoing tobacco dependence Chronic obstructive pulmonary disease with an FEV1 value 66% of predicted Hypertension History of ovarian cancer Plan: The patient was seen and evaluated Chest x-ray, labs and medications reviewed Improved and on 4 L high flow nasal cannula Increased use of the incentive spirometer Continue DuoNeb inhalations, Symbicort Continue IV diuretics Continue heparin for DVT prophylaxis Educated regarding smoking cessation We will continue to follow I have personally seen and examined the patient, performed the documentation and the assessment and plan as written. Number of minutes spent on the visit: 10 Dictation was produced using [employer] dictation software. Please excuse any grammatical, word or spelling errors.
[2024-11-07 11:23] LABS: Glucose,Whole Blood 95 mg/dL (70-110)
[2024-11-07 16:17] LABS: Glucose,Whole Blood 115 mg/dL (70-110)
[2024-11-07] MEDS: polyethylene glycoL 3350 17 GM POWD.PACK PO SCH (18:02)
[2024-11-08 06:04] LABS: HCT 26.7 % (34.0-46.0); HGB 9.1 gm/dL (11.4-16.0); MCH 34.1 pg (25.0-35.0); MCHC 34.3 g/dL (31.0-37.0); MCV 99.4 fL (80.0-100.0); Mean Platelet Volume 8.2; Platelet Count 108 k/uL (150-450); RBC 2.68 m/uL (3.80-5.40); RDW 13.9 % (11.5-15.5); WBC 8.9 k/uL (3.8-10.6)
[2024-11-08 06:21] LABS: African American GFR (CKD) >90 (>60 ml/min/1.73 sqM); Anion Gap 5 mmol/L; Blood Urea Nitrogen 20 mg/dL (7-17); Calcium 8.8 mg/dL (8.4-10.2); Carbon Dioxide 32 mmol/L (22-30); Chloride 97 mmol/L (98-107); Glucose 101 mg/dL (74-99); Magnesium 2.3 mg/dL (1.6-2.3); Non-African American GFR(CKD) 82 (>60 ml/min/1.73 sqM); Potassium 3.8 mmol/L (3.5-5.1); Sodium 134 mmol/L (137-145)
[2024-11-08 06:27] LABS: Glucose,Whole Blood 113 mg/dL (70-110)
--- NOTE | 2024-11-08 06:56 | P.PN ---
Subjective Progress Note Date: 11/08/24 The patient is a pleasant 49-year-old female patient with a past medical history significant for valvular heart disease with severe symptomatic aortic insufficiency as well as smoking and COPD was admitted to the hospital and underwent AVR with aortic root enlargement. November 06, 2024 The patient was seen and evaluated this morning. She is overall stable hemodynamically which she has been maintaining normal sinus mechanism. The chest x-ray was reviewed and showed left pleural effusion and she is definitely slightly hypervolemic with bilateral lower extremities edema with ongoing to give the patient an additional 20 mg of Lasix IV. Otherwise she has been encouraged to use the spirometer. She does have chronic pain. Beside that she is stable with normal urine output and normal overall overall blood work. The physical examination is remarkable for regular rhythm with diminished breathing sounds bilaterally and mild bilateral lower extremities edema noted. November 07, 2024 The patient was seen and evaluated this morning. Overall she is doing slightly better compared to yesterday and she has been more motivated by walking around. The pain overall is better. Otherwise hemodynamically she is stable. The chest x-ray was reviewed and continues to show bilateral pleural effusion. The p hysical examination is remarkable for regular rhythm with diminished breathing sounds bilaterally and mild bilateral lower extremities edema noted November 08, 2024 The patient was seen and evaluated this morning. Overall she seems to be stable and had a good night last night. The pressure is marginal and also the heart rate has been marginal. I would suggest decrease the dose of amiodarone. Urine output has been within normal limits. The physical examination is remarkable for regular rhythm with diminished breathing sounds bilaterally and no edema was noted in the lower extremities Assessment Status post AVR with aortic root enlargement Smoking and COPD Chronic pain Marginally low heart rate and blood pressure Plan Continue the current medical regimen Decrease the dose of amiodarone Continue monitor the hemoglobin and kidney function Follow-up with the patient Objective - Vital Signs Vital signs: Vital Signs Temp 97.8 F 11/08/24 04:00 Pulse 57 L 11/08/24 04:00 Resp 15 11/08/24 04:00 BP 107/49 11/08/24 04:00 Pulse Ox 89 L 11/08/24 04:00 FiO2 12 11/05/24 19:00 Intake & Output 11/07/24 11/07/24 11/08/24 06:59 18:59 06:59 Intake Total 400 460 Output Total 725 1450 300 Balance -325 -990 -300 Weight 83.4 kg 83.4 kg 82.3 kg Intake: Oral 400 460 Output: Chest Tube Drainage 25 0 Left Pleural 25 0 Urine 700 1450 300 Other: Voiding Method Bedside Commode Toilet Toilet # Voids 1 # Bowel Movements 1 ABP, PAP, CO, CI - Last Documented Arterial Blood Pressure 110/66 Pulmonary Artery Pressure 24/16 Cardiac Output 5.4 Cardiac Index 2.9 - Labs CBC & Chem 7: 11/08/24 05:23 11/08/24 05:23 Labs: Abnormal Lab Results - Last 24 Hours (Table) 11/07/24 11/08/24 11/08/24 Range/Units 16:14 05:23 05:23 RBC 2.68 L (3.80-5.40) m/uL Hgb 9.1 L (11.4-16.0) gm/dL Hct 26.7 L (34.0-46.0) % Plt Count 108 L (150-450) k/uL Sodium 134 L (137-145) mmol/L Chloride 97 L (98-107) mmol/L Carbon Dioxide 32 H (22-30) mmol/L BUN 20 H (7-17) mg/dL Glucose 101 H (74-99) mg/dL POC Glucose (mg/dL) 115 H (70-110) mg/dL 11/08/24 Range/Units 06:26 RBC (3.80-5.40) m/uL Hgb (11.4-16.0) gm/dL Hct (34.0-46.0) % Plt Count (150-450) k/uL Sodium (137-145) mmol/L Chloride (98-107) mmol/L Carbon Dioxide (22-30) mmol/L BUN (7-17) mg/dL Glucose (74-99) mg/dL POC Glucose (mg/dL) 113 H (70-110) mg/dL
[2024-11-08] MEDS: POTASSIUM CHLORIDE ER 20 MEQ TAB.ER PO SCH ×2 (06:59→17:16)
--- NOTE | 2024-11-08 07:16 | XR ---
EXAMINATION TYPE: XR chest 2V DATE OF EXAM: 11/08/2024 6:18 AM COMPARISON: Multiple radiographs, with the most recent on 11/07/2024 TECHNIQUE: XR chest 2V Frontal and lateral views of the chest. CLINICAL INDICATION:Female, 49 years old with history of Postcardiac surgery; FINDINGS: Lungs/Pleura: No evidence of pneumothorax. Small right pleural effusion with bibasilar subsegmental a telectasis. Pulmonary vascularity: Unremarkable. Heart/mediastinum: Cardiomediastinal silhouette is enlarged. Post aortic valve repair changes. Left atrial appendage occlusion device is present. Musculoskeletal: No acute osseous pathology. Midline sternotomy wires are noted. Other findings: None Lines/Tubes: Interval removal of left thoracotomy tube. IMPRESSION: 1. Similar postprocedural cardiac changes with small right pleural effusion and bibasilar subsegment al atelectasis. 2. Interval removal of left thoracotomy tube without evidence of pneumothorax. [facility], , 11/08/2024 7:14 AM
[2024-11-08] MEDS: AMIODARONE 200 MG TAB PO SCH (08:53)
--- NOTE | 2024-11-08 11:09 | P.PN ---
Subjective Progress Note Date: 11/08/24 This is a pleasant 49-year-old female patient with a known history of chronic and ongoing tobacco dependence, obstructive pulmonary disease with an FEV1 value 66% of predicted, hypertension,, chronic systolic congestive heart failure with an ejection fraction of 45% and severe aortic insufficiency with moderate aortic stenosis. She was brought in today electively for an aortic valve replacement however there was no cardioplegia solution available and she is postponed until tomorrow. She was admitted to the intensive care unit following [place] catheter placement. She was initiated on IV Primacor currently at 0.25 mcg/kg/min. She is awake and alert. Sitting up in bed. Maintaining good O2 sa turations in the 90s on room air. She is afebrile. Hemodynamically stable. PA pressure 19/4. CVP 1. Cardiac output 5.1. Cardiac index 2.8. She has been initiated on DuoNeb inhalations, Symbicort. She has been educated regarding the use the incentive spirometer. Heparin for DVT prophylaxis. 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 However when I came in to see the patient, patient had no breath sounds on the left side, chest x-ray showed endotracheal tube in the right mainstem bronchus, and the patient was arousable, follows simple instructions. I reviewed the chest x-ray which was done earlier, and I recommended immediate pulling of the endotracheal tube approximately about 4 cm. In the meantime ABG was done and it showed a pO2 of 68 pCO2 54 pH of 7.24. This was on CPAP, and I recommended the patient is not ready to be weaned she had to be placed back on assist-control mode of mechanical ventilation, with assist-control rate of 14 tidal volume 500 FiO2 50% and PEEP of 8. Chest x-ray was noted after the tube was pulled out of the right mainstem bronchus showed retrocardiac atelectasis in the left lower lobe, however there was good aeration of the left midlung and left upper lobe. Based on the ABG based on the chest x-ray findings and based on the fact that the endotracheal tube was not in the proper position, I recommended that we delay extubation for now. And reevaluate weaning on pressure support of 8 and CPAP in the next 1 hour. Patient is hemodynamically stable, she is not requiring any pressors. On Cleviprex at 2 mg/h amiodarone at 1 mg/min IV fluid at 50 cc/h in the form of 0.9 normal saline cardiac output of 4.7 cardiac index of 2.6 PA pressure 35/16. Patient was seen today on 11/04/2024, patient was extubated yesterday successfully, and I am seeing her today she is doing quite well. She is on 4 L nasal cannula, patient is also on amiodarone 0.5 mg/min insulin 1 unit/h IV fluid 0.9 normal saline at 50 cc/h patient is sitting up in the chair, does not seem to be in any distress. Chest x-ray was reviewed, has minimal bibasilar atelectasis and possibly a small left pleural effusion. WBC is 10.2 hemoglobin 11.1, basic metabolic profile and renal profile are normal. Seen today on 11/05/2024, patient remains in the ICU, however her FiO2 req uirement has gone output. Now on 8 L high flow nasal cannula with O2 sats is 95%. Chest x-ray showing cardiomegaly small bilateral pleural effusions, pulmonary vascular congestion all consistent with fluid overload/congestive heart failure. In addition she has minimal left lower lobe atelectasis. Patient did receive Lasix earlier today given by cardiothoracic surgery. WBC count is 13.3 hemoglobin 10.7 electrolytes are normal renal profile is normal, patient is achieving no more than 750 mL on her incentive spirometry. Continues to have right IJ cordis in place, CVP is measuring about 14, patient is in sinus rhythm, rate of 76, mediastinal and left pleural chest tube remain in place on low continuous wall suction -20 cm of water. No airleak noted. Continues to have atrial and ventricular epicardial pacemaker wires in place. And are grounded. The patient is seen today November 06, 2024 in follow-up in the intensive care unit. She is awake and alert in no acute distress. Sitting up in a chair at the bedside. Postoperative day #4 of her aortic valve replacement. He is maintaining good O2 saturations in the 90s on 15 L high flow nasal cannula. No IV fluids. Chest x-ray reveals similar bilateral pleural effusions. Left thoracotomy tube in place without evidence of pneumothorax. She did receive Lasix 20 mg IVP x 1 in 500 cc of urine output thus far this morning.. Heparin for DVT prophylaxis. White count 12.8. Hemoglobin 10.1. Platelets 125. Sodium 132. Potassium 4.6. Bicarb 28. BUN 16. Creatinine 0.74. Glucose 109. The patient is seen today November 07, 2024 in follow-up in the intensive care unit. She is sitting up in a chair at the bedside. Awake and alert in no acute distress. Breathing easier today compared to yesterday. She is down to oxygen per minutes of just 4 L high flow nasal cannula. She has been afebrile. Hemodynamically stable. White count 10.5. Hemoglobin 9.4. Platelets 159. Sodium 133. Potassium 3.7. Bicarb 32. BUN 18. Creatinine 0.79. Glucose 106. She remains on Symbicort, DuoNeb inhalations. Remains on IV diuretics. Heparin for DVT prophylaxis. Currently in a -1.3 L balance. She continues to work well with the incentive spirometer. The patient is seen today November 08, 2024 in follow-up in the intensive care unit. Postoperative day #6. She is a 3 S. overflow patient now. She is currently sitting up in a chair. She is awake and alert in no acute distress. Maintaining good O2 saturations in the 90s on room air. No IV fluids. Right pleural effusion with bibasilar subsegmental atelectasis. Chest tubes have been removed. She is continues to work well with the incentive spirometer. White count 8.9. Hemoglobin 9.1. Platelets 108. Sodium 134. Potassium 3.8. Bicarb 32. BUN 20. Creatinine 0.84. Glucose 101., Symbicort. Heparin for DVT prophylaxis. Protonix for GI prophylaxis. Remains on Plavix. Remains on Lasix 20 mg IV twice daily. Currently in a -2.2 L balance. Objective - Vital Signs Vital signs: Vital Signs Temp 97.6 F 11/08/24 08:00 Pulse 51 L 11/08/24 10:17 Resp 16 11/08/24 10:17 BP 106/55 11/08/24 08:00 Pulse Ox 96 11/08/24 10:07 FiO2 12 11/05/24 19:00 Intake & Output 11/07/24 11/08/24 11/08/24 18:59 06:59 18:59 Intake Total 460 Output Total 1450 1250 Balance -990 -1250 Weight 83.4 kg 82.3 kg Intake: Oral 460 Output: Chest Tube Drainage 0 Left Pleural 0 Urine 1450 1250 Other: Voiding Method Toilet Toilet Toilet # Voids 1 # Bowel Movements 1 ABP, PAP, CO, CI - Last Documented Arterial Blood Pressure 110/66 Pulmonary Artery Pressure 24/16 Cardiac Output 5.4 Cardiac Index 2.9 - Exam GENERAL EXAM: Alert, pleasant 49-year-old female, up in a chair, on room air oxygen, in no apparent distress. HEAD: Normocephalic. EYES: Normal reaction of pupils, equal size. NOSE: Clear with pink turbinates. THROAT: No erythema or exudates. NECK: No masses, no JVD. CHEST: No chest wall deformity. Sternum stable. Incision clean dry well-approximated. Heart hugger in place LUNGS: Equal air entry with crackles in the bilateral bases. CVS: S1 and S2 normal with no audible murmur, regular rhythm. ABDOMEN: No hepatosplenomegaly, normal bowel sounds, no guarding or rigidity. SPINE: No scoliosis or deformity SKIN: No rashes CENTRAL NERVOUS SYSTEM: No focal deficits, tone is normal in all 4 extremities. EXTREMITIES: There is no peripheral edema. No clubbing, no cyanosis. Peripheral pulses are intact. - Labs CBC & Chem 7: 11/08/24 05:23 11/08/24 05:23 Labs: Abnormal Lab Results - Last 24 Hours (Table) 11/07/24 11/08/24 11/08/24 Range/Units 16:14 05:23 05:23 RBC 2.68 L (3.80-5.40) m/uL Hgb 9.1 L (11.4-16.0) gm/dL Hct 26.7 L (34.0-46.0) % Plt Count 108 L (150-450) k/uL Sodium 134 L (137-145) mmol/L Chloride 97 L (98-107) mmol/L Carbon Dioxide 32 H (22-30) mmol/L BUN 20 H (7-17) mg/dL Glucose 101 H (74-99) mg/dL POC Glucose (mg/dL) 115 H (70-110) mg/dL 11/08/24 Range/Units 06:26 RBC (3.80-5.40) m/uL Hgb (11.4-16.0) gm/dL Hct (34.0-46.0) % Plt Count (150-450) k/uL Sodium (137-145) mmol/L Chloride (98-107) mmol/L Carbon Dioxide (22-30) mmol/L BUN (7-17) mg/dL Glucose (74-99) mg/dL POC Glucose (mg/dL) 113 H (70-110) mg/dL Assessment and Plan Assessment: Severe aortic insufficiency, moderate aortic stenosis. Status post aortic valve replacement with 25 mm Verdugo Inspiris bovine pericardial valve prosthesis including aortic root enlargement (Jeramie Manzanares technique), occlusion left atrial appendage with 35 mm AtriCure clip, postoperative day #6 History of chronic systolic congestive heart failure with an ejection fraction of 45% Chronic and ongoing tobacco dependence Chronic obstructive pulmonary disease with an FEV1 value 66% of predicted Hypertension History of ovarian cancer Plan: The patient was seen and evaluated Chest x-ray, labs and medications reviewed Improved and on room air oxygen Increased use of the incentive spirometer Continue DuoNeb inhalations, Symbicort Remains on Plavix Continue IV diuretics Remains in a negative balance Continue heparin for DVT prophylaxis Protonix for GI prophylaxis Educated regarding smoking cessation We will continue to follow I have personally seen and examined the patient, performed the documentation and the assessment and plan as written. Number of minutes spent on the visit: 10 Dictation was produced using [employer] dictation software. Please excuse any grammatical, word or spelling errors.
[2024-11-08 11:55] LABS: Glucose,Whole Blood 109 mg/dL (70-110)
--- NOTE | 2024-11-08 12:18 | P.PN ---
Subjective Progress Note Date: 11/08/24 Consult date: 11/02/24 Medical management Requesting physician: Reymundo Lester - Chief Complaint Moderate aortic stenosis ,status post AVR - History of Present Illness This is a 49-year-old female Completed cardiac catheterization on 10/02/2024 reporting normal coronary arteries, mildly elevated left-sided filling pressures, 4+ aortic regurgitation, moderate aortic stenosis. Scheduled for elective aortic valve replacement today. Rescheduled for tomorrow due to no available cardioplegia solution. ad ditional medical history includes CHF with reduced EF, hypertension, nicotine dependence, COVID 2020, asthma, ovarian cancer 2001-status post surgery, hypertension and multiple other medical issues. Patient sitting up in chair, lined/swan elena, on Primacor. Telemetry sinus rhythm. Currently denies chest pain, palpitations or shortness of breath. 11/06/2024 status post AVR, postop day #3. Telemetry sinus rhythm. Blood Pressures soft, requiring as high as 15 L high flow nasal cannula , recently decreased to 13 L,to maintain O2 sats in the low to mid 90s. Incentive spirometer up to 750. chest x-ray reported similar postprocedural changes with bilateral pleural effusions, left thoracotomy tube without evidence of pneumothorax. Blood sugars currently controlled, has a couple cans of regular Pepsi at bedside, sipping on one. Wiser nutritional choices discussed. Lasix IV push with increased urine output. 11/07/24 significant clinical improvement. Diuresing well. ambulated multiple times yesterday in the hallway, tolerated exertion well. Left pleural chest tube discontinued. Maintaining O2 sats in the 90s on 4 L nasal cannula. Incentive spirometer 1000 to 1250. Chest x-ray reported small postprocedure changes with bilateral pleural effusions. Chest ultrasound reported small right pleural effusion pocket size 1.7 cm.-Not marked. telemetry sinus rhythm. Blood pressures soft, currently up 115/79. Blood sugars controlled. Hemoglobin 9.4, platelets 159. Patient has been downgraded to selective overflow per CTS. 11/08/2024 telemetry overflow. Weaned off of oxygen, maintaining O2 sats in the 90s on room air. Incentive spirometer up to 1200. Chest x-ray reported similar postprocedural cardiac changes of small right pleural effusion and bibasilar subsegmental atelectasis. Interval removal of left thoracotomy tube without evidence of pneumothorax .heart rates in the low 60s, on amiodarone. Blood pressure soft. currently awaiting shower. Diuresing well on Lasix IV push with 24-hour MIL[place] reflecting a negative fluid balance. Tmax 99.1, WBC 8.9. Heparin for DVT prophylaxis. maintained on Plavix, hemoglobin 9.1, platelets 108. Sodium 134 potassium 3.8, bicarb 32, BUN 20, creatinine 0.84, magnesium 2.3. Blood sugars controlled. Reports she had a [place] pizza from [employer] last night for dinner with a bowel movement afterwards. Objective - Vital Signs Vital signs: Vital Signs Temp 97.6 F 11/08/24 08:00 Pulse 51 L 11/08/24 10:17 Resp 16 11/08/24 10:17 BP 106/55 11/08/24 08:00 Pulse Ox 96 11/08/24 10:07 FiO2 12 11/05/24 19:00 Intake & Output 11/07/24 11/08/24 11/08/24 18:59 06:59 18:59 Intake Total 460 Output Total 1450 1250 Balance -990 -1250 Weight 83.4 kg 82.3 kg Intake: Oral 460 Output: Chest Tube Drainage 0 Left Pleural 0 Urine 1450 1250 Other: Voiding Method Toilet Toilet Toilet # Voids 1 # Bowel Movements 1 ABP, PAP, CO, CI - Last Documented Arterial Blood Pressure 110/66 Pulmonary Artery Pressure 24/16 Cardiac Output 5.4 Cardiac Index 2.9 - Exam PHYSICAL EXAM: VITAL SIGNS: [Reviewed] GENERAL: Alert and oriented x 3, sitting up on chair, no acute distress. HEENT: Atraumatic, normocephalic conjunctivae normal. eyes normal. MMM. NECK: Supple, no JVD. CARDIOVASCULAR: S1, S2 regular. RESPIRATION: Unlabored, equal air entry, bilateral breath sounds diminished. ABDOMEN: Soft, nontender, nondistended. No guarding. Positive bowel sounds. LEGS: No edema,wearing SCDs NERVOUS SYSTEM: Cranial N 2-12 grossly normal. No focal deficits. Skin: Warm and dry, no rash. - Labs CBC & Chem 7: 11/08/24 05:23 11/08/24 05:23 Labs: Abnormal Lab Results - Last 24 Hours (Table) 11/07/24 11/08/24 11/08/24 Range/Units 16:14 05:23 05:23 RBC 2.68 L (3.80-5.40) m/uL Hgb 9.1 L (11.4-16.0) gm/dL Hct 26.7 L (34.0-46.0) % Plt Count 108 L (150-450) k/uL Sodium 134 L (137-145) mmol/L Chloride 97 L (98-107) mmol/L Carbon Dioxide 32 H (22-30) mmol/L BUN 20 H (7-17) mg/dL Glucose 101 H (74-99) mg/dL POC Glucose (mg/dL) 115 H (70-110) mg/dL 11/08/24 Range/Units 06:26 RBC (3.80-5.40) m/uL Hgb (11.4-16.0) gm/dL Hct (34.0-46.0) % Plt Count (150-450) k/uL Sodium (137-145) mmol/L Chloride (98-107) mmol/L Carbon Dioxide (22-30) mmol/L BUN (7-17) mg/dL Glucose (74-99) mg/dL POC Glucose (mg/dL) 113 H (70-110) mg/dL Assessment and Plan Assessment: 4+ aortic regurgitation, moderate aortic stenosis, status AVR including aortic root enlargement ( Jeramie Manzanares technique) Acute blood loss anemia and thrombocytopenia postoperative, expected outcome Acute hypoxic respiratory failure secondary to all the above Asthma COPD COVID 2020 Chronic CHF, reduced EF Ongoing nicotine dependent Hypertension Osteoarthritis Morbid obesity, BMI 32 Plan: Continue on current medication regime ,monitoring and symptomatic treatment. Selective overflow. Cardiology recommending decreasing dose of amiodarone .discharge planning in progress as per CTS. maintain aggressive pulmonary toileting with incentive spirometer reinforced. Smoking cessation reinforced. increase ambulation as tolerated-shower pending. Follow-up with PCP in 1 week. The impression and plan of care has been dictated as directed. : I performed a history and examination of this patient, discussed the same with the dictator. I agree with the dictator's note ,documented as a scribe. Any additional findings or plans will be noted.
[2024-11-08 16:40] LABS: Glucose,Whole Blood 108 mg/dL (70-110)
--- NOTE | 2024-11-08 17:30 | P.PN ---
Subjective Progress Note Date: 11/08/24 Principal diagnosis: Aortic valvular insufficiency, aortic valvular stenosis, chronic valve related heart failure. Medical history significant for hypertension, chronic diastolic heart failure, history of ovarian cancer, chronic obstructive pulmonary disease with a FEV1 66% of predicted value, asthma, chronic ongoing tobacco dependence, obesity with a BMI of 33.7 kg/m and osteoarthritis. POD #5 Aortic valve replacement with 25 mm Verdugo Inspiris bovine pericardial valve prosthesis including aortic root enlargement (Jeramie Manzanares technique), occlusion left atrial appendage with 35 mm AtriCure clip. Postoperative acute blood loss anemia, expected given cardiopulmonary bypass and hemodilution. The patient was seen and examined in follow-up today November 08, 2024 at her [facility] in the intensive care unit. She is sitting up to the bedside chair, is awake, alert, oriented x 3 and is in no acute apparent distress. Oxygen saturations are 98% on 3 L nasal cannula and she is achieving 1000 mL on her incentive spirometry. Her chest tubes were removed without incident yesterday. She denies any complaints of pain or shortness of breath at this time, although reports that she feels fatigued today. Bedside telemetry is showing sinus bradycardia heart rate 56 bpm. The patient reports she has been up ambulating in the intensive care unit hallway with standby assistance from nursing and therapy staff and tolerating well. Epicardial pacemaker wires remain in place and are grounded. Chest x-ray and laboratory results were reviewed. Objective - Vital Signs Vital signs: Vital Signs Temp 97.8 F 11/08/24 04:00 Pulse 57 L 11/08/24 04:00 Resp 15 11/08/24 04:00 BP 107/49 11/08/24 04:00 Pulse Ox 89 L 11/08/24 04:00 FiO2 12 11/05/24 19:00 Intake & Output 11/07/24 11/08/24 11/08/24 18:59 06:59 18:59 Intake Total 460 Output Total 1450 300 Balance -990 -300 Weight 83.4 kg 82.3 kg Intake: Oral 460 Output: Chest Tube Drainage 0 Left Pleural 0 Urine 1450 300 Other: Voiding Method Toilet Toilet # Voids 1 # Bowel Movements 1 ABP, PAP, CO, CI - Last Documented Arterial Blood Pressure 110/66 Pulmonary Artery Pressure 24/16 Cardiac Output 5.4 Cardiac Index 2.9 - Exam CONSTITUTIONAL: Sitting up to the bedside chair in the intensive care unit, appears comfortable, cooperative, no apparent acute distress. HEENT: Neck is supple, no JVD, no lymphadenopathy. RESPIRATORY: Lungs sounds essentially clear throughout, diminished to her bilateral bases. Respirations are symmetrical and nonlabored. Currently on 3 L nasal cannula with oxygen saturations 98%. Able to achieve 1000 mL on her incentive spirometry. Strong cough. CARDIOVASCULAR: Regular rhythm and rate. S1 and S2 present, negative for S3, gallop or murmur. Sternum is stable. Bedside telemetry showing sinus bradycardia heart rate 56 bpm. Palpable peripheral pulses bilaterally. No calf pain or tenderness noted. Heart hugger in place with patient demonstrating appropriate use. Knee-high JONO hose and sequential compression devices in place to her bilateral lower extremities. GASTROINTESTINAL: Abdomen soft, nontender, nondistended. Active bowel sounds present 4 quadrants. Tolerating clear liquid diet. Denies passing flatus. No guarding or rigidity. Bowel movement this morning. GENITOURINARY: Continues to void. 390 mL urine output in the last 8 hours. INTEGUMENTARY: Skin is warm and dry with no evidence of clubbing or cyanosis. Midline sternal incision clean dry and well approximated, covered with dry intact dressing. NEUROLOGIC: Cranial nerves II through XII intact. No focal deficits. MUSKULOSKELETAL: Able to move all extremities, strength equal bilaterally, generalized weakness. PSYCHIATRIC: Alert and oriented to person place and time, appropriate affect, intact judgment and insight. INVASIVE LINES AND TUBES:Atrial and ventricular epicardial pacemaker wires present, wires are grounded. - Allied health notes Allied health notes reviewed: nursing - Labs CBC & Chem 7: 11/08/24 05:23 11/08/24 15:52 Labs: Abnormal Lab Results - Last 24 Hours (Table) 11/07/24 11/08/24 11/08/24 Range/Units 16:14 05:23 05:23 RBC 2.68 L (3.80-5.40) m/uL Hgb 9.1 L (11.4-16.0) gm/dL Hct 26.7 L (34.0-46.0) % Plt Count 108 L (150-450) k/uL Sodium 134 L (137-145) mmol/L Chloride 97 L (98-107) mmol/L Carbon Dioxide 32 H (22-30) mmol/L BUN 20 H (7-17) mg/dL Glucose 101 H (74-99) mg/dL POC Glucose (mg/dL) 115 H (70-110) mg/dL 11/08/24 Range/Units 06:26 RBC (3.80-5.40) m/uL Hgb (11.4-16.0) gm/dL Hct (34.0-46.0) % Plt Count (150-450) k/uL Sodium (137-145) mmol/L Chloride (98-107) mmol/L Carbon Dioxide (22-30) mmol/L BUN (7-17) mg/dL Glucose (74-99) mg/dL POC Glucose (mg/dL) 113 H (70-110) mg/dL - Imaging and Cardiology Chest x-ray: report reviewed, image reviewed Assessment and Plan Assessment: Aortic valvular insufficiency, aortic valvular stenosis, status post aortic valve replacement with a 25 mm Verdugo Inspiris bovine pericardial valve prosthesis including aortic root enlargement (Jeramie Manzanares technique) Chronic valve related diastolic heart failure, ejection fraction 45% Postoperative acute blood loss anemia, expected given hemodilution and cardiopulmonary bypass History of hypertension Chronic obstructive pulmonary disease with an FEV1 66% of predicted value Remote history of pneumonia Asthma COVID in 2020 Obesity with a BMI of 33.7 kg/m History of ovarian cancer Osteoarthritis Plan: Continue to maximize medical therapy with statin, Plavix, and beta-roge. Will increase beta-roge therapy as tolerated. No aspirin as patient has documented allergy. Continue amiodarone for atrial fibrillation prophylaxis, will decrease to amiodarone 200 mg p.o. twice daily due to her bradycardia. Wean oxygen as tolerated. Encourage incentive spirometry use 10 times every hour while awake. Bronchodilators per pulmonology. Increase activity, ambulate as tolerated. PT/OT/cardiac rehab following. Patient needs strong encouragement. Will monitor daily labs and chest x-rays. Electrolyte replacement per protocol. Continue Lasix IV twice daily GI/DVT prophylaxis. Daily weights. Pain control per current medication regimen. No Toradol added as the patient is allergic to NSAIDs Insulin management per internal medicine, patient is not diabetic with preoperative hemoglobin A1c 5.5% Continue to monitor record strict accurate intake and output. Keep atrial and ventricular epicardial pacemaker wires grounded in place. Will give milk of magnesia, if no bowel movement will give suppository. Encourage better oral nutrition. Diet order changed to include no pop on her tray. Will place transfer orders for 3 S. cardiac stepdown unit, may transfer when bed available. More recommendations to follow based on patient's clinical course. Time with Patient: Greater than 30
[2024-11-08 20:20] LABS: Glucose,Whole Blood 113 mg/dL (70-110)
[2024-11-09 06:00] LABS: Glucose,Whole Blood 109 mg/dL (70-110)
--- NOTE | 2024-11-09 06:52 | XR ---
EXAMINATION TYPE: XR chest 2V DATE OF EXAM: 11/09/2024 6:19 AM COMPARISON: Multiple radiographs, with the most recent on 11/08/2024 TECHNIQUE: XR chest 2V Frontal and lateral views of the chest. CLINICAL INDICATION:Female, 49 years old with history of Postop aortic valve replacement; FINDINGS: Lungs/Pleura: No evidence of pneumothorax. Similar small right pleural effusion with bibasilar subseg mental atelectasis. Pulmonary vascularity: Unremarkable. Heart/mediastinum: Cardiomediastinal silhouette is enlarged. Post aortic valve repair changes. Left atrial appendage occlusion device is present. Musculoskeletal: No acute osseous pathology. Midline sternotomy wires are noted. IMPRESSION: Similar postsurgical cardiac changes with small right pleural effusion and bibasilar subsegmental ate lectasis. [facility], , 11/09/2024 6:50 AM
[2024-11-09] MEDS: POTASSIUM CHLORIDE ER 20 MEQ TAB.ER PO SCH (08:56)
[2024-11-09 09:05] VITALS: TEMP 97.9
[2024-11-09 09:13] LABS: ALT 22 U/L (4-34); AST 22 U/L (14-36); African American GFR (CKD) 86 (>60 ml/min/1.73 sqM); Albumin 3.3 g/dL (3.5-5.0); Alkaline Phosphatase 96 U/L (38-126); Anion Gap 7 mmol/L; Blood Urea Nitrogen 19 mg/dL (7-17); Calcium 8.7 mg/dL (8.4-10.2); Carbon Dioxide 30 mmol/L (22-30); Chloride 99 mmol/L (98-107); Glucose 109 mg/dL (74-99); Non-African American GFR(CKD) 74 (>60 ml/min/1.73 sqM); Potassium 3.9 mmol/L (3.5-5.1); Sodium 136 mmol/L (137-145); Total Bilirubin 0.8 mg/dL (0.2-1.3); Total Protein 5.6 g/dL (6.3-8.2)
[2024-11-09 09:32] LABS: Basophils # (A) 0.1 k/uL (0-0.2); Basophils % (A) 1 %; Eosinophils # (A) 0.1 k/uL (0-0.7); Eosinophils % (A) 2 %; HCT 29.2 % (34.0-46.0); HGB 9.5 gm/dL (11.4-16.0); Lymphocytes # (A) 1.5 k/uL (1.0-4.8); Lymphocytes % (A) 16 %; MCH 32.8 pg (25.0-35.0); MCHC 32.6 g/dL (31.0-37.0); MCV 100.4 fL (80.0-100.0); Macrocytosis Slight; Mean Platelet Volume 9.1; Monocytes # (A) 0.6 k/uL (0-1.0); Monocytes % (A) 7 %; Neutrophils # (A) 6.7 k/uL (1.3-7.7); Neutrophils % (A) 73 %; RBC 2.91 m/uL (3.80-5.40); RDW 14.6 % (11.5-15.5); WBC 9.3 k/uL (3.8-10.6)
[2024-11-09 09:43] LABS: Platelet Count 62 k/uL (150-450)
[2024-11-09 09:44] LABS: Polychromasia Present
[2024-11-09 11:37] LABS: Glucose,Whole Blood 136 mg/dL (70-110)
--- NOTE | 2024-11-09 11:52 | P.PN ---
Subjective Progress Note Date: 11/09/24 Principal diagnosis: Aortic valvular insufficiency, aortic valvular stenosis, chronic valve related heart failure. Medical history significant for hypertension, chronic diastolic heart failure, history of ovarian cancer, chronic obstructive pulmonary disease with a FEV1 66% of predicted value, asthma, chronic ongoing tobacco dependence, obesity with a BMI of 33.7 kg/m and osteoarthritis. POD #6 Aortic valve replacement with 25 mm Verdugo Inspiris bovine pericardial valve prosthesis including aortic root enlargement (Jeramie Manzanares technique), occlusion left atrial appendage with 35 mm AtriCure clip. Postoperative acute blood loss anemia, expected given cardiopulmonary bypass and hemodilution. The patient was seen and examined in follow-up today November 09, 2024 at her [facility] on the third floor cardiac stepdown unit. She is currently laying in bed, is awake, alert, oriented x 3 and is in no acute apparent distress. Denies any complaints of shortness of breath or surgical type pain at this time, although is complaining of a migraine headache. Oxygen saturations are 91% on room air and she is achieving 1000 mL on her incentive spirometry with encouragement. Remote telemetry showing normal sinus rhythm heart rate 69 bpm. She remains on metoprolol to tartrate 25 mg p.o. twice daily and amiodarone 200 mg p.o. twice daily. Atrial and ventricular epicardial pacemaker wires remain in place and are grounded. She reports she has been up ambulating in the cardiac stepdown unit hallway with standby assistance nursing and therapy staff and tolerating well. First postoperative shower was yesterday and tolerated well. Chest x-ray and laboratory results were reviewed. Objective - Vital Signs Vital signs: Vital Signs Temp 98 F 11/09/24 04:00 Pulse 71 11/09/24 09:02 Resp 18 11/09/24 04:00 BP 129/81 11/09/24 04:00 Pulse Ox 90 L 11/09/24 04:00 FiO2 12 11/05/24 19:00 Intake & Output 11/08/24 11/09/24 11/09/24 18:59 06:59 18:59 Intake Total 360 Output Total 250 400 Balance -250 -40 Weight 82.4 kg Intake: Oral 360 Output: Urine 250 400 Other: Voiding Method Toilet Toilet # Voids 1 2 # Bowel Movements 1 ABP, PAP, CO, CI - Last Documented Arterial Blood Pressure 110/66 Pulmonary Artery Pressure 24/16 Cardiac Output 5.4 Cardiac Index 2.9 - Exam CONSTITUTIONAL: Appears comfortable, cooperative, no apparent acute distress. HEENT: Neck is supple, no JVD, no lymphadenopathy. RESPIRATORY: Lungs sounds essentially clear throughout, diminished to her bilateral bases. Respirations are symmetrical and nonlabored. Currently on room air with oxygen saturations 91%. Able to achieve 1000 mL on her incentive spirometry. Strong cough. CARDIOVASCULAR: Regular rhythm and rate. S1 and S2 present, negative for S3, gallop or murmur. Sternum is stable. Remote telemetry showing sinus normal sinus rhythm heart rate 69 bpm. Palpable peripheral pulses bilaterally. No calf pain or tenderness noted. Heart hugger in place with patient demonstrating appropriate use. Knee-high JONO hose and sequential compression devices in place to her bilateral lower extremities. GASTROINTESTINAL: Abdomen soft, nontender, nondistended. Active bowel sounds present 4 quadrants. Tolerating diet. Denies passing flatus. No guarding or rigidity. Bowel movement yesterday November 08, 2024. GENITOURINARY: Continues to void. INTEGUMENTARY: Skin is warm and dry with no evidence of clubbing or cyanosis. Midline sternal incision clean dry and well approximated, covered with dry intact dressing. NEUROLOGIC: Cranial nerves II through XII intact. No focal deficits. MUSKULOSKELETAL: Able to move all extremities, strength equal bilaterally, generalized weakness. PSYCHIATRIC: Alert and oriented to person place and time, appropriate affect, intact judgment and insight. INVASIVE LINES AND TUBES:Atrial and ventricular epicardial pacemaker wires present, wires are grounded. - Allied health notes Allied health notes reviewed: nursing - Labs CBC & Chem 7: 11/08/24 05:23 11/08/24 15:52 Labs: Abnormal Lab Results - Last 24 Hours (Table) 11/08/24 Range/Units 20:18 POC Glucose (mg/dL) 113 H (70-110) mg/dL - Imaging and Cardiology Chest x-ray: report reviewed, image reviewed Assessment and Plan Assessment: Aortic valvular insufficiency, aortic valvular stenosis, status post aortic valve replacement with a 25 mm Verdugo Inspiris bovine pericardial valve prosthesis including aortic root enlargement (Jeramie Manzanares technique) Chronic valve related diastolic heart failure, ejection fraction 45% Postoperative acute blood loss anemia, expected given hemodilution and cardiopulmonary bypass History of hypertension Chronic obstructive pulmonary disease with an FEV1 66% of predicted value Remote history of pneumonia Asthma COVID in 2020 Obesity with a BMI of 33.7 kg/m History of ovarian cancer Osteoarthritis Plan: Continue to maximize medical therapy with statin, Plavix, and beta-roge. Will increase beta-roge therapy as tolerated. No aspirin as patient has documented allergy. Continue amiodarone for atrial fibrillation prophylaxis, continue amiodarone 200 mg p.o. twice daily due to her bradycardia. Wean oxygen as tolerated. Encourage incentive spirometry use 10 times every hour while awake. Bronchodilators per pulmonology. Increase activity, ambulate as tolerated. PT/OT/cardiac rehab following. P atient needs strong encouragement. Will monitor daily labs and chest x-rays. Electrolyte replacement per protocol. Continue Lasix IV twice daily. GI/DVT prophylaxis. Daily weights. Pain control per current medication regimen. No Toradol added as the patient is allergic to NSAIDs Insulin management per internal medicine, patient is not diabetic with preoperative hemoglobin A1c 5.5% Continue to monitor record strict accurate intake and output. Atrial and ventricular epicardial pacemaker wires removed without incident. Bedrest for 1 hour post pacemaker wire removal. Encourage better oral nutrition. Diet order changed to include no pop on her tray. Discharge planning is in place, anticipate discharge home within the next 24 hours. More recommendations to follow based on patient's clinical course. Time with Patient: Greater than 30
--- NOTE | 2024-11-09 12:22 | P.PN ---
Subjective Progress Note Date: 11/09/24 The patient is a pleasant 49-year-old female patient with a past medical history significant for valvular heart disease with severe symptomatic aortic insufficiency as well as smoking and COPD was admitted to the hospital and underwent AVR with aortic root enlargement. November 06, 2024 The patient was seen and evaluated this morning. She is overall stable hemodynamically which she has been maintaining normal sinus mechanism. The chest x-ray was reviewed and showed left pleural effusion and she is definitely slightly hypervolemic with bilateral lower extremities edema with ongoing to give the patient an additional 20 mg of Lasix IV. Otherwise she has been encouraged to use the spirometer. She does have chronic pain. Beside that she is stable with normal urine output and normal overall overall blood work. The physical examination is remarkable for regular rhythm with diminished breathing sounds bilaterally and mild bilateral lower extremities edema noted. November 07, 2024 The patient was seen and evaluated this morning. Overall she is doing slightly better compared to yesterday and she has been more motivated by walking around. The pain overall is better. Otherwise hemodynamically she is stable. The chest x-ray was reviewed and continues to show bilateral pleural effusion. The p hysical examination is remarkable for regular rhythm with diminished breathing sounds bilaterally and mild bilateral lower extremities edema noted November 08, 2024 The patient was seen and evaluated this morning. Overall she seems to be stable and had a good night last night. The pressure is marginal and also the heart rate has been marginal. I would suggest decrease the dose of amiodarone. Urine output has been within normal limits. The physical examination is remarkable for regular rhythm with diminished breathing sounds bilaterally and no edema was noted in the lower extremities November 09, 2024 The patient was seen and evaluated this morning she is doing well from a cardiovascular standpoint of view and she is hemodynamically stable. The plan is to let the patient go home later on today. The physical examination is remarkable for regular rhythm with a soft systolic murmur at the right upper sternal border and no edema was noted in the lower extremities Assessment Status post AVR with aortic root enlargement Smoking and COPD Chronic pain Marginally low heart rate and blood pressure Plan Continue the current medical regimen Decrease the dose of amiodarone Continue monitor the hemoglobin and kidney function Discharge home Objective - Vital Signs Vital signs: Vital Signs Temp 97.9 F 11/09/24 08:50 Pulse 88 11/09/24 12:15 Resp 15 11/09/24 08:50 BP 126/71 11/09/24 08:50 Pulse Ox 88 L 11/09/24 08:50 FiO2 12 11/05/24 19:00 Intake & Output 11/08/24 11/09/24 11/09/24 18:59 06:59 18:59 Intake Total 360 10 Output Total 250 400 Balance -250 -40 10 Weight 82.4 kg Intake: IV 10 Invasive Line 6 10 Oral 360 Output: Urine 250 400 Other: Voiding Method Toilet Toilet Toilet # Voids 1 2 # Bowel Movements 1 ABP, PAP, CO, CI - Last Documented Arterial Blood Pressure 110/66 Pulmonary Artery Pressure 24/16 Cardiac Output 5.4 Cardiac Index 2.9 - Labs CBC & Chem 7: 11/09/24 08:25 11/09/24 08:25 Labs: Abnormal Lab Results - Last 24 Hours (Table) 11/08/24 11/09/24 11/09/24 Range/Units 20:18 08:25 08:25 RBC 2.91 L (3.80-5.40) m/uL Hgb 9.5 L (11.4-16.0) gm/dL Hct 29.2 L (34.0-46.0) % MCV 100.4 H (80.0-100.0) fL Plt Count 62 L (150-450) k/uL Sodium 136 L (137-145) mmol/L BUN 19 H (7-17) mg/dL Glucose 109 H (74-99) mg/dL POC Glucose (mg/dL) 113 H (70-110) mg/dL Total Protein 5.6 L (6.3-8.2) g/dL Albumin 3.3 L (3.5-5.0) g/dL 11/09/24 Range/Units 11:35 RBC (3.80-5.40) m/uL Hgb (11.4-16.0) gm/dL Hct (34.0-46.0) % MCV (80.0-100.0) fL Plt Count (150-450) k/uL Sodium (137-145) mmol/L BUN (7-17) mg/dL Glucose (74-99) mg/dL POC Glucose (mg/dL) 136 H (70-110) mg/dL Total Protein (6.3-8.2) g/dL Albumin (3.5-5.0) g/dL
--- NOTE | 2024-11-09 12:30 | P.PN ---
Subjective Progress Note Date: 11/09/24 Consult date: 11/02/24 Medical management Requesting physician: Reymundo Lester - Chief Complaint Moderate aortic stenosis ,status post AVR - History of Present Illness This is a 49-year-old female Completed cardiac catheterization on 10/02/2024 reporting normal coronary arteries, mildly elevated left-sided filling pressures, 4+ aortic regurgitation, moderate aortic stenosis. Scheduled for elective aortic valve replacement today. Rescheduled for tomorrow due to no available cardioplegia solution. ad ditional medical history includes CHF with reduced EF, hypertension, nicotine dependence, COVID 2020, asthma, ovarian cancer 2001-status post surgery, hypertension and multiple other medical issues. Patient sitting up in chair, lined/swan elena, on Primacor. Telemetry sinus rhythm. Currently denies chest pain, palpitations or shortness of breath. 11/06/2024 status post AVR, postop day #3. Telemetry sinus rhythm. Blood Pressures soft, requiring as high as 15 L high flow nasal cannula , recently decreased to 13 L,to maintain O2 sats in the low to mid 90s. Incentive spirometer up to 750. chest x-ray reported similar postprocedural changes with bilateral pleural effusions, left thoracotomy tube without evidence of pneumothorax. Blood sugars currently controlled, has a couple cans of regular Pepsi at bedside, sipping on one. Wiser nutritional choices discussed. Lasix IV push with increased urine output. 11/07/24 significant clinical improvement. Diuresing well. ambulated multiple times yesterday in the hallway, tolerated exertion well. Left pleural chest tube discontinued. Maintaining O2 sats in the 90s on 4 L nasal cannula. Incentive spirometer 1000 to 1250. Chest x-ray reported small postprocedure changes with bilateral pleural effusions. Chest ultrasound reported small right pleural effusion pocket size 1.7 cm.-Not marked. telemetry sinus rhythm. Blood pressures soft, currently up 115/79. Blood sugars controlled. Hemoglobin 9.4, platelets 159. Patient has been downgraded to selective overflow per CTS. 11/08/2024 telemetry overflow. Weaned off of oxygen, maintaining O2 sats in the 90s on room air. Incentive spirometer up to 1200. Chest x-ray reported similar postprocedural cardiac changes of small right pleural effusion and bibasilar subsegmental atelectasis. Interval removal of left thoracotomy tube without evidence of pneumothorax .heart rates in the low 60s, on amiodarone. Blood pressure soft. currently awaiting shower. Diuresing well on Lasix IV push with 24-hour MILTON reflecting a negative fluid balance. Tmax 99.1, WBC 8.9. Heparin for DVT prophylaxis. maintained on Plavix, hemoglobin 9.1, platelets 108. Sodium 134 potassium 3.8, bicarb 32, BUN 20, creatinine 0.84, magnesium 2.3. Blood sugars controlled. Reports she had a [place] pizza from [employer] last night for dinner with a bowel movement afterwards. 11/09/2024 transferred out of ICU -currently residing on telemetry/stepdown unit. Telemetry sinus rhythm, heart rates ranging in the 50s to 70s, currently 71. Denies chest pain, palpitations or shortness of breath. Maintaining O2 sats of 88 to low 90s on room air. Chest x-ray reporting similar postsurgical cardiac changes a small right pleural effusion and bibasilar subsegmental atelectasis. incentive spirometer up to 1000. Hemoglobin 9.5, platelets 62 bowel movement yesterday. Ambulated, showered yesterday, tolerated exertion well. Denies lightheadedness, dizziness or focal deficits. Blood sugars controlled. Objective - Vital Signs Vital signs: Vital Signs Temp 97.9 F 11/09/24 08:50 Pulse 74 11/09/24 09:14 Resp 15 11/09/24 08:50 BP 126/71 11/09/24 08:50 Pulse Ox 88 L 11/09/24 08:50 FiO2 12 11/05/24 19:00 Intake & Output 11/08/24 11/09/24 11/09/24 18:59 06:59 18:59 Intake Total 360 10 Output Total 250 400 Balance -250 -40 10 Weight 82.4 kg Intake: IV 10 Invasive Line 6 10 Oral 360 Output: Urine 250 400 Other: Voiding Method Toilet Toilet Toilet # Voids 1 2 # Bowel Movements 1 ABP, PAP, CO, CI - Last Documented Arterial Blood Pressure 110/66 Pulmonary Artery Pressure 24/16 Cardiac Output 5.4 Cardiac Index 2.9 - Exam PHYSICAL EXAM: VITAL SIGNS: [Reviewed] GENERAL: Alert and oriented x 3, sitting up in bed, no acute distress. HEENT: Atraumatic, normocephalic conjunctivae normal. eyes normal. MMM. NECK: Supple, no JVD. CARDIOVASCULAR: S1, S2 regular. RESPIRATION: Unlabored, equal air entry, bilateral breath sounds diminished. ABDOMEN: Soft, nontender, nondistended. Positive bowel sounds. LEGS: No edema,wearing SCDs NERVOUS SYSTEM: Cranial N 2-12 grossly normal. No focal deficits. Skin: Warm and dry, no rash. - Labs CBC & Chem 7: 11/09/24 08:25 11/09/24 08:25 Labs: Abnormal Lab Results - Last 24 Hours (Table) 11/08/24 11/09/24 11/09/24 Range/Units 20:18 08:25 08:25 RBC 2.91 L (3.80-5.40) m/uL Hgb 9.5 L (11.4-16.0) gm/dL Hct 29.2 L (34.0-46.0) % MCV 100.4 H (80.0-100.0) fL Plt Count 62 L (150-450) k/uL Sodium 136 L (137-145) mmol/L BUN 19 H (7-17) mg/dL Glucose 109 H (74-99) mg/dL POC Glucose (mg/dL) 113 H (70-110) mg/dL Total Protein 5.6 L (6.3-8.2) g/dL Albumin 3.3 L (3.5-5.0) g/dL 11/09/24 Range/Units 11:35 RBC (3.80-5.40) m/uL Hgb (11.4-16.0) gm/dL Hct (34.0-46.0) % MCV (80.0-100.0) fL Plt Count (150-450) k/uL Sodium (137-145) mmol/L BUN (7-17) mg/dL Glucose (74-99) mg/dL POC Glucose (mg/dL) 136 H (70-110) mg/dL Total Protein (6.3-8.2) g/dL Albumin (3.5-5.0) g/dL Assessment and Plan Assessment: 4+ aortic regurgitation, moderate aortic stenosis, status AVR including aortic root enlargement ( Jeramie Manzanares technique) Acute blood loss anemia and thrombocytopenia postoperative, expected outcome Acute hypoxic respiratory failure secondary to all the above Asthma COPD COVID 2020 Chronic CHF, reduced EF Ongoing nicotine dependent Hypertension Osteoarthritis Morbid obesity, BMI 32 Plan: Continue on current medication regime ,monitoring and symptomatic treatment. Aggressive pulmonary toileting with smoking cessation and incentive spirometer reinforced .increase ambulation as tolerated.Discharge planning in progress as per CTS. Follow-up with PCP in 1 week. The impression and plan of care has been dictated as directed. : I performed a history and examination of this patient, discussed the same with the dictator. I agree with the dictator's note ,documented as a scribe. Any additional findings or plans will be noted.
[2024-11-09 12:52] VITALS: BP 102/64; PULSE 68; RESP 18
[2024-11-09 13:14] VITALS: BMI 32.1
--- NOTE | 2024-11-09 13:49 | P.PN ---
Subjective Progress Note Date: 11/09/24 Principal diagnosis: Open heart surgery. This is a pleasant 49-year-old female patient with a known history of chronic and ongoing tobacco dependence, obstructive pulmonary disease with an FEV1 value 66% of predicted, hypertension,, chronic systolic congestive heart failure with an ejection fraction of 45% and severe aortic insufficiency with moderate aortic stenosis. She was brought in today electively for an aortic valve replacement however there was no cardioplegia solution available and she is postponed until tomorrow. She was admitted to the intensive care unit following [place] catheter placement. She was initiated on IV Primacor currently at 0.25 mcg/kg/min. She is awake and alert. Sitting up in bed. Maintaining good O2 saturations in the 90s on room air. She is afebrile. Hemodynamically stable. PA pressure 19/4. CVP 1. Cardiac output 5.1. Cardiac index 2.8. She has been initiated on DuoNeb inhalations, Symbicort. She has been educated regarding the use the incentive spirometer. Heparin for DVT prophylaxis. 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 However when I came in to see the patient, patient had no breath sounds on the left side, chest x-ray showed endotracheal tube in the right mainstem bronchus, and the patient was arousable, follows simple instructions. I reviewed the chest x-ray which was done earlier, and I recommended immediate pulling of the endotracheal tube approximately about 4 cm. In the meantime ABG was done and it showed a pO2 of 68 pCO2 54 pH of 7.24. This was on CPAP, and I recommended the patient is not ready to be weaned she had to be placed back on assist-control mode of mechanical ventilation, with assist-control rate of 14 tidal volume 500 FiO2 50% and PEEP of 8. Chest x-ray was noted after the tube was pulled out of the right mainstem bronchus showed retrocardiac atelectasis in the left lower lobe, however there was good aeration of the left midlung and left upper lobe. Based on the ABG based on the chest x-ray findings and based on the fact that the endotracheal tube was not in the proper position, I recommended that we delay extubation for now. And reevaluate weaning on pressure support of 8 and CPAP in the next 1 hour. Patient is hemodynamically stable, she is not requiring any pressors. On Cleviprex at 2 mg/h amiodarone at 1 mg/min IV fluid at 50 cc/h in the form of 0.9 normal saline cardiac output of 4.7 cardiac index of 2.6 PA pressure 35/16. Patient was seen today on 11/04/2024, patient was extubated yesterday successfully, and I am seeing her today she is doing quite well. She is on 4 L nasal cannula, patient is also on amiodarone 0.5 mg/min insulin 1 unit/h IV flu id 0.9 normal saline at 50 cc/h patient is sitting up in the chair, does not seem to be in any distress. Chest x-ray was reviewed, has minimal bibasilar atelectasis and possibly a small left pleural effusion. WBC is 10.2 hemoglobin 11.1, basic metabolic profile and renal profile are normal. Seen today on 11/05/2024, patient remains in the ICU, however her FiO2 requirement has gone output. Now on 8 L high flow nasal cannula with O2 sats is 95%. Chest x-ray showing cardiomegaly small bilateral pleural effusions, pulmonary vascular congestion all consistent with fluid overload/congestive hear t failure. In addition she has minimal left lower lobe atelectasis. Patient did receive Lasix earlier today given by cardiothoracic surgery. WBC count is 13.3 hemoglobin 10.7 electrolytes are normal renal profile is normal, patient is achieving no more than 750 mL on her incentive spirometry. Continues to have right IJ cordis in place, CVP is measuring about 14, patient is in sinus rhythm, rate of 76, mediastinal and left pleural chest tube remain in place on low continuous wall suction -20 cm of water. No airleak noted. Continues to have atrial and ventricular epicardial pacemaker wires in place. And are grounded. The patient is seen today November 06, 2024 in follow-up in the intensive care unit. She is awake and alert in no acute distress. Sitting up in a chair at the bedside. Postoperative day #4 of her aortic valve replacement. He is maintaining good O2 saturations in the 90s on 15 L high flow nasal cannula. No IV fluids. Chest x-ray reveals similar bilateral pleural effusions. Left thoracotomy tube in place without evidence of pneumothorax. She did receive Lasix 20 mg IVP x 1 in 500 cc of urine output thus far this morning.. Heparin for DVT prophylaxis. White count 12.8. Hemoglobin 10.1. Platelets 125. Sodium 132. Potassium 4.6. Bicarb 28. BUN 16. Creatinine 0.74. Glucose 109. The patient is seen today November 07, 2024 in follow-up in the intensive care unit. She is sitting up in a chair at the bedside. Awake and alert in no acute distress. Breathing easier today compared to yesterday. She is down to oxygen per minutes of just 4 L high flow nasal cannula. She has been afebrile. Hemodynamically stable. White count 10.5. Hemoglobin 9.4. Platelets 159. Sodium 133. Potassium 3.7. Bicarb 32. BUN 18. Creatinine 0.79. Glucose 106. She remains on Symbicort, DuoNeb inhalations. Remains on IV diuretics. Heparin for DVT prophylaxis. Currently in a -1.3 L balance. She continues to work well with the incentive spirometer. The patient is seen today November 08, 2024 in follow-up in the intensive care unit. Postoperative day #6. She is a 3 S. overflow patient now. She is currently sitting up in a chair. She is awake and alert in no acute distress. Maintaining good O2 saturations in the 90s on room air. No IV fluids. Right pleural effusion with bibasilar subsegmental atelectasis. Chest tubes have been removed. She is continues to work well with the incentive spirometer. White count 8.9. Hemoglobin 9.1. Platelets 108. Sodium 134. Potassium 3.8. Bicarb 32. BUN 20. Creatinine 0.84. Glucose 101., Symbicort. Heparin for DVT prophylaxis. Protonix for GI prophylaxis. Remains on Plavix. Remains on Lasix 20 mg IV twice daily. Currently in a -2.2 L balance. Progress note dated November 09, 2024. This is a 49-year-old female who seen today in room 380. The patient was in the intensive care unit for a number of days. She is postoperative day #7. She is on room air. She is not receiving any IV fluids. She tells us, we will be walking to the room that she will be discharged home later today. She denies any chest pain or difficulty breathing. She is awake and alert. White count 9.3, hemoglobin 9.5, hematocrit 29.2, platelet count is 62,000. Sodium 136, potassium 3.9, chloride 79, CO2 30, BUN 19, and creatinine 0.91. Glucose is 136. Albumin is 3.3. Chest x-ray shows some postsurgical changes, and small effusions or basilar atelectasis. Objective - Vital Signs Vital signs: Vital Signs Temp 97.9 F 11/09/24 12:00 Pulse 86 11/09/24 12:29 Resp 18 11/09/24 12:00 BP 102/64 11/09/24 12:00 Pulse Ox 95 11/09/24 12:29 FiO2 12 11/05/24 19:00 Intake & Output 11/08/24 11/09/24 11/09/24 18:59 06:59 18:59 Intake Total 360 10 Output Total 250 400 Balance -250 -40 10 Weight 82.4 kg 82.4 kg Intake: IV 10 Invasive Line 6 10 Oral 360 Output: Urine 250 400 Other: Voiding Method Toilet Toilet Toilet # Voids 1 2 # Bowel Movements 1 ABP, PAP, CO, CI - Last Documented Arterial Blood Pressure 110/66 Pulmonary Artery Pressure 24/16 Cardiac Output 5.4 Cardiac Index 2.9 - Exam No acute distress, oriented 3. No respiratory distress. Currently on room air. HEENT examination is grossly unremarkable. Mucous membranes are moist. No oral lesions. Neck supple. Full range of motion. No adenopathy thyromegaly or neck vein distention. Cardiovascular examination reveals regular rhythm rate. S1-S2 normal. No S3 or S4. No discernible murmur noted. Lungs reveal mostly clear breath sound. Minimal rhonchi. No wheezes or crackles. Breath sounds equal bilaterally. Abdomen soft bowel sounds are heard. No masses or tenderness. Extremities are intact. No cyanosis clubbing or edema. Skin is without rash or lesion. Neurologic examination is brief but nonfocal. - Labs CBC & Chem 7: 03/27/25 08:25 11/09/24 08:25 Labs: Abnormal Lab Results - Last 24 Hours (Table) 11/08/24 11/09/24 11/09/24 Range/Units 20:18 08:25 08:25 RBC 2.91 L (3.80-5.40) m/uL Hgb 9.5 L (11.4-16.0) gm/dL Hct 29.2 L (34.0-46.0) % MCV 100.4 H (80.0-100.0) fL Plt Count 62 L (150-450) k/uL Sodium 136 L (137-145) mmol/L BUN 19 H (7-17) mg/dL Glucose 109 H (74-99) mg/dL POC Glucose (mg/dL) 113 H (70-110) mg/dL Total Protein 5.6 L (6.3-8.2) g/dL Albumin 3.3 L (3.5-5.0) g/dL 11/09/24 Range/Units 11:35 RBC (3.80-5.40) m/uL Hgb (11.4-16.0) gm/dL Hct (34.0-46.0) % MCV (80.0-100.0) fL Plt Count (150-450) k/uL Sodium (137-145) mmol/L BUN (7-17) mg/dL Glucose (74-99) mg/dL POC Glucose (mg/dL) 136 H (70-110) mg/dL Total Protein (6.3-8.2) g/dL Albumin (3.5-5.0) g/dL Assessment and Plan Assessment: Severe aortic insufficiency, moderate aortic stenosis. Status post aortic valve replacement with 25 mm Verdugo Inspiris bovine pericardial valve prosthesis including aortic root enlargement (Jeramie Manzanares technique), occlusion left atrial appendage with 35 mm AtriCure clip, postoperative day #7. History of chronic systolic congestive heart failure with an ejection fraction of 45%. Chronic and ongoing tobacco dependence. Chronic obstructive pulmonary disease with an FEV1 value 66% of predicted. Hypertension. History of ovarian cancer. Plan: Plan dated November 09, 2024. The patient is seen today in room 380. The patient is doing very well. She is on room air. No IV fluids. She is postoperative day #7. She had aortic valve replacement. Clinically, the patient denies any shortness of breath, cough, wheezing, chest tightness, or phlegm production. He also denies any chest pain or pressure. Labs, x-rays, and all medications are reviewed. The patient states that she will be discharged home today. I do not see a discharge summary in the chart as yet. We will continue to follow. Prognosis is guarded. Dictation was produced using Break[employer] software. Please excuse any grammatical, word or spelling errors. Time with Patient: Less than 30
--- NOTE | 2024-11-09 15:44 | P.DS ---
Providers Date of admission: 11/02/24 05:33 Expected date of discharge: 11/09/24 Attending physician: Reymundo Lester Consults: 11/02/24 06:27 Consult Physician Routine Consulting Provider: Gasper Olvera Jr Consult Reason/Comments: preop AVR Do you want consulting provider notified?: Yes Consult Physician Routine Consulting Provider: Ronen Mitchell Consult Reason/Comments: preop AVR Do you want consulting provider notified?: Yes Consult Physician Routine Consulting Provider: Gianluca Hugo Consult Reason/Comments: preop AVR Do you want consulting provider notified?: Yes 11/02/24 11:46 Consult to Anesthesia Routine Consulting Provider: Anesthesia,Services Consult Reason/Comments: Cardiac Surgery Pre-Op Primary care physician: Gasper Olvera [facility] Course: FINAL DIAGNOSIS: Aortic valvular insufficiency, aortic valvular stenosis, status post aortic valve replacement with a 25 mm Verdugo Inspiris bovine pericardial valve prosthesis including aortic root enlargement (Jeramie Manzanares technique) Chronic valve related diastolic heart failure, ejection fraction 45% Postoperative acute blood loss anemia and thrombocytopenia, expected given hemodilution and cardiopulmonary bypass History of hypertension Chronic obstructive pulmonary disease with an FEV1 66% of predicted value Remote history of pneumonia Asthma COVID in 2020 Obesity with a BMI of 33.7 kg/m History of ovarian cancer Osteoarthritis PRINCIPAL PROCEDURE: 1. Aortic valve replacement with 25 mm Verdugo Inspiris bovine pericardial valve prosthesis including aortic root enlargement (Jeramie Manzanares technique) 2. Occlusion left atrial appendage with 35 mm AtriCure clip 3. Intraoperative transesophageal echocardiogram completed by anesthesia HISTORY OF PRESENT ILLNESS: This is a 49-year-old female who follows outpatient with Dr. Olvera for her primary care and Dr. Vicente for her cardiology care. The patient has a known history of aortic valvular disease which has been followed by Dr. Vicente for several years. Recently, she has had complaints of progressive dyspnea and recently began experiencing anginal symptomology. She was recommended to undergo a cardiac catheterization which was completed on October 02, 2024 and revealed normal coronary arteries, and 4+ aortic regurgitation with moderate aortic valve stenosis. It showed a mean gradient of 35 mmHg. On October 02, 2024 the patient also underwent a transesophageal echocardiogram which demonstrated her aortic valve to be trileaflet with significant thickening of the tips of the leaflets with moderate aortic valve stenosis and severe aortic valve regurgitation with holodiastolic flow reversal of the descending aorta, mild mitral valve regurgitation, mild tricuspid valve regurgitation, no evidence of PFO, her left atrial appendage free of clot and the left ventricular ejection fraction of 45%. The patient also had recent complaints of feeling a rapid heart rate both with activity and at rest. Due to the complaints of rapid heart rate she did have a 2-week event monitor in place revealing no atrial fibrillation, however she did have some episodes of pauses up to 4.5 seconds. Subsequently, the patient was referred to Dr. Reymundo Lester from cardiothoracic surgery, Dr. Lester reviewed the findings on the cardiac catheterization and transesophageal echocardiogram results. Treatment options were discussed with the patient, including surgical aortic valve repair, risks and benefits of the surgical options with the STS risk score being discussed. Knowing and understanding the risks of surgery the patient wished to proceed with the surgical option. The patient was admitted to the hospital on November 02, 2024 HOSPITAL COURSE: The patient was admitted to the hospital on November 02, 2024, she was admitted to the intensive care unit, with close hemodynamic monitoring through [place] catheter/Cordis, was placed on IV Primacor and Lasix to maximize her medical status. After obtaining consent, on November 03, 2024 she was taken to the preoperative area, prepared in the usual fashion and subsequently taken to the operating room where Dr. Reymundo Lester performed an aortic valve replacement. Upon completion of the surgery the patient was transferred to the cardiovascular intensive care unit where she was recovered and monitored hemodynamically. She was subsequently extubated, all lines, tubes and drips were discontinued when appropriate and she was transferred to the third floor cardiac stepdown unit for further monitoring and mL dilatation. Her oxygen was titrated down, she continued to work with physical and Occupational Therapy, she was tolerating an oral diet, her pain was well-controlled and she was ready to be discharged home with [facility] home health care on postoperative day #6. She received written and verbal instructions regarding her medications, activity restrictions, signs and symptoms requiring physician notification and her follow-up appointments. The patient is not being discharged home on aspirin as the patient has an anaphylactic allergy and is contraindicated. Plan - Discharge Summary Discharge Rx Participant: Yes New Discharge Prescriptions: New Atorvastatin [Lipitor] 40 mg PO DAILY #30 tab Metoprolol Tartrate [Lopressor] 25 mg PO BID #60 tab Clopidogrel [Plavix] 75 mg PO DAILY #30 tab Furosemide [Lasix] 40 mg PO DAILY #7 tablet Amiodarone [Cordarone] 200 mg PO BID #20 tab Pantoprazole [Protonix] 40 mg PO AC-BRKFST #30 tab Sennosides-Docusate Sodium [Senokot-S] 2 each PO HS #14 tab Potassium Chloride ER [K-Dur 20] 20 meq PO DAILY #7 tab Continue Budesonide/Formoterol Fumarate [Symbicort 160-4.5 Mcg Inhaler] 1 puff INHALATION 1430 Fluticasone/Umeclidin/Vilanter [Trelegy Ellipta 100-62.5-25] 1 inhalation INHALATION DAILY Acetaminophen Tab [Tylenol] 1,000 mg PO TID PRN PRN Reason: Pain Albuterol Inhaler [Ventolin Hfa Inhaler] 1 - 2 puff INHALATION Q6H PRN PRN Reason: Shortness Of Breath Discharge Medication List Acetaminophen Tab [Tylenol] 1,000 mg PO TID PRN 09/28/24 [History] Albuterol Inhaler [Ventolin Hfa Inhaler] 1 - 2 puff INHALATION Q6H PRN 09/28/24 [History] Budesonide/Formoterol Fumarate [Symbicort 160-4.5 Mcg Inhaler] 1 puff INHALATION 1430 09/28/24 [History] Fluticasone/Umeclidin/Vilanter [Trelegy Ellipta 100-62.5-25] 1 inhalation INHALATION DAILY 09/28/24 [History] Amiodarone [Cordarone] 200 mg PO BID #20 tab 11/09/24 [Rx] Atorvastatin [Lipitor] 40 mg PO DAILY #30 tab 11/09/24 [Rx] Clopidogrel [Plavix] 75 mg PO DAILY #30 tab 11/09/24 [Rx] Furosemide [Lasix] 40 mg PO DAILY #7 tablet 11/09/24 [Rx] Metoprolol Tartrate [Lopressor] 25 mg PO BID #60 tab 11/09/24 [Rx] Pantoprazole [Protonix] 40 mg PO AC-BRKFST #30 tab 11/09/24 [Rx] Potassium Chloride ER [K-Dur 20] 20 meq PO DAILY #7 tab 11/09/24 [Rx] Sennosides-Docusate Sodium [Senokot-S] 2 each PO HS #14 tab 11/09/24 [Rx] Follow up Appointment(s)/Referral(s): Ronen Mitchell MD [STAFF PHYSICIAN] - [facility] We[facility] Gasper Olvera Jr, DO [Primary Care Provider] - 11/16/24 2:00 pm Neo Vicente DO [STAFF PHYSICIAN] - 11/20/24 8:00 am Reymundo Lester MD [STAFF PHYSICIAN] - 11/30/24 2:00 pm Angel Willis NPC [Nurse Practitioner] - 11/16/24 1:00 pm [facility] Nurse, [NON-STAFF] - 1-2 Days (You should be seen by home care registered nurse the day after discharge, then 2-3 times per week until you start cardiac rehab. Physical and occupational therapy should visit at least once, may continue to visit if needed) Ambulatory/Diagnostic Orders: Complete Blood Count w/diff [LAB.AMB] Time Frame: 11/12/24, Facility: [facility], Location: [facility] Comprehensive Metabolic Panel [LAB.AMB] Time Frame: 11/12/24, Facility: [facility], Location: [facility] Activity/Diet/Wound Care/Special Instructions: DISCHARGE INSTRUCTIONS: 1. No driving for 4 weeks, or until physician gives their ok. 2. The patient should sleep in their own bed, no medical bed needed. 3. Stairs are not an issue. If the bedroom is upstairs, it is advised that the patient go up at night and down in the morning for the first week. Go slowly, using handrail and take 1 step at a time. 4. JONO hose are to be worn for 30 days post surgery or until physician discontinues. 5. Heart hugger is to be worn 100% of the time until physician discontinues.(except when showering) 6. No lifting, pushing, or pulling more than 10 pounds for 12 weeks. The physician will advise of any restriction changes. 7. The patient is expected to continue the prescribed walking program. 8. Continue pain control per as needed orders. 9. Continue with incentive spirometry and splinting/heart hugger until otherwise directed by the physician. 10. Must shower daily using liquid antibacterial soap 11. Routine sternal incision care. No powders, lotions, ointments on incisions. No dressings are necessary on incisions unless they are draining. Dermabond tape is to remain on sternal incision until surgeon follow-up. 12. Please call surgeon/COLLARETTE SEPARATOR for temp greater than 101 F or purulent drainage from incisions. 13. You should weigh yourself daily, record and bring log with you to follow up appointments. 14. All prescriptions given by surgeon for 30 days. Refills need to be filled through roll plugger/primary care physician. 15. A Red armband has been placed on the patient. It should be worn for 30 days post discharge from surgery and will be removed by the cardiac surgeons. If an ER visit is necessary, please make sure the number on the Red armband is called before going to ER. 16. You have been referred to and are expected to begin Cardiac Rehab in approximately 4-6 weeks. 17. Quitting smoking is the most important step you can take to improve your health. For additional information and assistance to quit smoking, please call the [place] tobacco quit line (9-466-UIWV-NOW/ ) or online: [email or web address] TO PROVIDE: RN SKILLED HOME CARE SERVICES FOR POST-OP SURGICAL PATIENTS WITH THE FOLLOWING: Coronary Artery Bypass Surgery (CABG), Mitral Valve Replaceme nt/Repair ( MVR), Aortic Valve Replacement/Repair (AVR) RN TO CONTINUE EDUCATION FROM ``ROAD TO A HEALTH HEART PATIENT EDUCATION MANUAL (GIVEN TO PATIENT IN THE HOSPITAL) MEDICATION RECONCILIATION WITH EDUCATION NEEDED ON FIRST HOME VISIT EMPHASIZE IMPORTANCE OF WEARING BREAST SUPPORT/HEART HUGGER ENCOURAGE USE OF INCENTIVE SPIROMETER 10 X EVERY HOUR WHILE AWAKE ENCOURAGE UTILIZATION OF LOWER EXTREMITY COMPRESSION STOCKINGS/JONO HOSE and ELEVATE LEGS ABOVE LEVEL OF HEART WHILE AT REST. ENCOURAGE AMBULATION 3-5x/day INCREASING TOLERATES, WHILE AVOIDING EXTREMES IN TEMPERATURE FREQUENCY: RN TO OPEN THE PATIENT WITHIN 24 HOURS OF DISCHARGE FROM THE HOSPITAL WITH TELEHEALTH INSTALLED AT [facility] [place], [place], RN TO VISIT 2-3 X A WEEK FOR 4 WEEKS ESTABLISHED BY PATIENT NEEDS. LABORATORY: CBC, CMP TO BE DRAWN ON THE THIRD DAY HOME, (RAN STAT) FAX RESULTS TO [phone]. TELEHEALTH PARAMETERS: WEIGHT: NOTIFY MD OF WEIGHT GAIN OF 2 LBS IN 24 HOURS OR 5 LBS IN ONE WEEK HR: NOTIFY MD OF HR <55 BPM OR HR>100 BPM BP: NOTIFY MD IF BP <90/55 OR BP>140/100 O2 SAT: NOTIFY MD IF PO2<93% ON ROOM AIR SEND TELEHEALTH REPORT TO DIESEL TRUCK DRIVER AND CARDIOVASCULAR SURGEON THE FIRST WEEK OF CARE AND THEN BI-WEEKLY. PLEASE ADDITIONALLY COMMUNICATE ANY ABNORMALS AND NEW FINDINGS TO THE SURGEONS OFFICE. Discharge Disposition: HOME WITH HOME HEALTH SERVICES
== END 2024-11-09 16:18 | disposition home health service (06) | DRG 219 ==
LOC: 2ORMAIN 05:33 → 2SICU 10:39 → 3SCARD 11-08 14:38
PROVIDERS: ADMIT Thoracic Surgery (Cardiothoracic Vascular Surgery); ATTEND Thoracic Surgery (Cardiothoracic Vascular Surgery)
PROC: 02L70CK Occlusion of Left Atrial Appendage with Extraluminal Device, Open Approach (ICD-10-PCS; 2024-11-03)
PROC: B24BZZ4 Ultrasonography of Heart with Aorta, Transesophageal (ICD-10-PCS; 2024-11-03)
PROC: 5A1221Z Performance of Cardiac Output, Continuous (ICD-10-PCS; 2024-11-03)
PROC: 02RF08Z Replacement of Aortic Valve with Zooplastic Tissue, Open Approach (ICD-10-PCS; principal; 2024-11-03 08:00)
PROC: 02UX08Z Supplement Thoracic Aorta, Ascending/Arch with Zooplastic Tissue, Open Approach (ICD-10-PCS; 2024-11-03 08:00)
DX: I35.2 Nonrheumatic aortic (valve) stenosis with insufficiency (principal); Z00.6 Encounter for examination for normal comparison and control in clinical research program; J96.01 Acute respiratory failure with hypoxia; J96.02 Acute respiratory failure with hypercapnia; I47.20 Ventricular tachycardia, unspecified; I50.32 Chronic diastolic (congestive) heart failure; D62 Acute posthemorrhagic anemia; D69.59 Other secondary thrombocytopenia; E66.01 Morbid (severe) obesity due to excess calories; I11.0 Hypertensive heart disease with heart failure; J44.89 Other specified chronic obstructive pulmonary disease; I77.810 Thoracic aortic ectasia; G89.29 Other chronic pain; M19.90 Unspecified osteoarthritis, unspecified site; F17.210 Nicotine dependence, cigarettes, uncomplicated; R00.1 Bradycardia, unspecified; Z68.33 Body mass index [BMI] 33.0-33.9, adult; Z85.43 Personal history of malignant neoplasm of ovary; Z90.710 Acquired absence of both cervix and uterus; Z86.16 Personal history of COVID-19; Z71.6 Tobacco abuse counseling; Z88.6 Allergy status to analgesic agent; Z79.51 Long term (current) use of inhaled steroids; Z79.899 Other long term (current) drug therapy
CPT/HCPCS: 71045; 71046; 76604; 80048; 80053; 82330; 82805; 83735; 83880; 84132; 85025; 85027; 85610; 85730; 86850; 86891; 86900; 86901; 86920; 88305; 94002; 94640; 94760

== ENCOUNTER 2024-11-10 16:03 | Observation (INO) | payer BC ==
--- NOTE | 2024-11-10 16:19 | ED ---
Chest Pain HPI - General Stated Complaint: abn labs Source: patient, RN notes reviewed, old records reviewed Mode of arrival: EMS Limitations: no limitations - History of Present Illness Initial Comments: This is a 49-year-old female to the ER for evaluation this patient was today for evaluation of abnormal EKG, patient was seen by visiting home care through primary care, recent surgery TAVR 7 days ago discharged from the hospital yesterday. Patient had the EKG asymptomatic with no chest pain or shortness of breath MD Complaint: chest pain, other -: days(s) Pain Location: substernal, left chest Pain Radiation: none Severity: moderate Severity scale (1-10): 4 Consistency: constant Improves With: nothing Worsens With: nothing Anginal Symptoms: sense of impending doom Other Symptoms: palpitations Treatments Prior to Arrival: none - Related Data Home Medications Medication Instructions Recorded Confirmed Acetaminophen Tab [Tylenol] 1,000 mg PO TID PRN 09/28/24 11/10/24 Albuterol Inhaler [Ventolin Hfa 2 puff INHALATION RT-Q6H PRN 09/28/24 11/10/24 Inhaler] Budesonide/Formoterol Fumarate 1 puff INHALATION RT-DAILY 09/28/24 11/10/24 [Symbicort 160-4.5 Mcg Inhaler] Fluticasone/Umeclidin/Vilanter 1 puff INHALATION RT-DAILY 09/28/24 11/10/24 [Trelegy Ellipta 100-62.5-25] Amiodarone [Cordarone] See Taper PO DIRECTED 11/10/24 11/10/24 Sennosides-Docusate Sodium 2 tab PO HS 11/10/24 11/10/24 [Senokot-S] Previous Rx's Medication Instructions Recorded Atorvastatin [Lipitor] 40 mg PO DAILY #30 tab 11/09/24 Furosemide [Lasix] 40 mg PO DAILY #7 tablet 11/09/24 Metoprolol Tartrate [Lopressor] 25 mg PO BID #60 tab 11/09/24 Pantoprazole [Protonix] 40 mg PO AC-BRKFST #30 tab 11/09/24 Potassium Chloride ER [K-Dur 20] 20 meq PO DAILY #7 tab 11/09/24 Allergies Allergy/AdvReac Type Severity Reaction Status Date / Time aspirin Allergy Severe Swelling Verified 11/03/24 07:41 Penicillins Allergy Severe Anaphylaxis Verified 11/02/24 06:00 amoxicillin Allergy Anaphylaxis Verified 11/02/24 06:00 ampicillin Allergy Anaphylaxis Verified 11/02/24 06:00 ciprofloxacin [From Cipro] Allergy Rash/Hives/ Verified 11/02/24 06:00 Swelling codeine Allergy Itching Verified 11/02/24 06:00 Fish Containing Products Allergy Anaphylaxis Verified 11/02/24 12:26 [Fish] ibuprofen Allergy Itching Verified 11/02/24 06:00 Iodinated Contrast Media Allergy Rash/Hives Verified 11/02/24 06:00 [Iodinated Contrast Media - Oral and] iodine Allergy Swelling Verified 11/02/24 06:00 Mushroom Allergy Anaphylaxis Verified 11/02/24 12:26 nitrofurantoin Allergy Rash/Hives Verified 11/02/24 06:00 [From Macrodantin] NSAIDS (Non-Steroidal Allergy Rash/Hives/ Verified 11/02/24 06:00 Anti-Inflamma Swelling povidone-iodine Allergy Rash/Hives Verified 11/02/24 06:00 [From Betadine] shellfish derived [Shellfish] Allergy Anaphylaxis Verified 11/02/24 12:26 Sulfa (Sulfonamide Allergy Rash/Hives Verified 11/02/24 06:00 Antibiotics) gluten AdvReac Diarrhea Verified 11/11/24 07:00 Milk Containing Products AdvReac Diarrhea Verified 11/11/24 07:00 (Dairy) [Dairy] Review of Systems ROS Statement: Those systems with pertinent positive or pertinent negative responses have been documented in the HPI. ROS Other: All systems not noted in ROS Statement are negative. EKG Findings - EKG Comments: EKG Findings:: EKG is sinus bradycardia 57 SC 165 QRS 94 Transfer to cardiology 7 SC 165 QRS 94 QTc 437QTc 437 - EKG Results: EKG: interpreted by ERMD Past Medical History Past Medical History: Asthma, Cancer, Chest Pain / Angina, Heart Failure, COPD, Hypertension, Osteoarthritis (OA), Pneumonia Additional Past Medical History / Comment(s): heart murmur, hypoglycemia, ovarian ca 2001 & cancer removed from left knee 2007- pt not sure details, states "had surg & radiation pills"; hx migraines, SOB w/exertion, currently putting A/B ointment on ingrown toenail left big toe-red around nailbed & up toe a little; COVID in 2020 History of Any Multi-Drug Resistant Organisms: None Reported Past Surgical History: Heart Catheterization, Hysterectomy Additional Past Surgical History / Comment(s): ovaries removed, left knee surg, left carpal tunnel surg, aortic valve replacement Past Anesthesia/Blood Transfusion Reactions: No Reported Reaction Past Psychological History: No Psychological Hx Reported Smoking Status: Current every day smoker Past Alcohol Use History: None Reported Past Drug Use History: None Reported - Past Family History Mother Family Medical History: No Reported History General Exam Limitations: no limitations General appearance: alert, in no apparent distress Head exam: Present: atraumatic, normocephalic, normal inspection Eye exam: Present: normal appearance, PERRL, EOMI. Absent: scleral icterus, conjunctival injection, periorbital swelling ENT exam: Present: normal exam, mucous membranes moist Neck exam: Present: normal inspection. Absent: tenderness, meningismus, lymphadenopathy Respiratory exam: Present: normal lung sounds bilaterally. Absent: respiratory distress, wheezes, rales, rhonchi, stridor Cardiovascular Exam: Present: regular rate, normal rhythm, normal heart sounds. Absent: systolic murmur, diastolic murmur, rubs, gallop, clicks GI/Abdominal exam: Present: soft, normal bowel sounds. Absent: distended, tenderness, guarding, rebound, rigid Extremities exam: Present: normal inspection, full ROM, normal capillary refill. Absent: tenderness, pedal edema, joint swelling, calf tenderness Back exam: Present: normal inspection Neurological exam: Present: alert, oriented X3, CN II-XII intact Psychiatric exam: Present: normal affect, normal mood Skin exam: Present: warm, dry, intact, normal color. Absent: rash Course Vital Signs 11/10/24 11/10/24 11/10/24 16:11 16:14 16:20 Temperature 98 F Pulse Rate 58 L 60 Respiratory 20 16 20 Rate Blood Pressure 147/85 135/68 O2 Sat by Pulse 93 L 96 Oximetry 11/10/24 11/10/24 11/10/24 17:14 18:00 20:00 Temperature Pulse Rate 60 65 68 Respiratory 16 20 18 Rate Blood Pressure 136/83 116/83 141/76 O2 Sat by Pulse 94 L 98 89 L Oximetry 11/10/24 11/11/24 11/11/24 21:08 00:36 03:11 Temperature 98.4 F Pulse Rate 68 68 67 Respiratory 18 19 17 Rate Blood Pressure 146/71 147/81 O2 Sat by Pulse 90 L 90 L Oximetry 11/11/24 11/11/24 11/11/24 05:04 06:54 07:47 Temperature 97.8 F Pulse Rate 73 71 75 Respiratory 19 17 20 Rate Blood Pressure 147/81 133/75 131/81 O2 Sat by Pulse 90 L 92 L 92 L Oximetry 11/11/24 11/11/24 09:57 11:10 Temperature 97.9 F Pulse Rate 65 64 Respiratory 20 18 Rate Blood Pressure 112/59 O2 Sat by Pulse 90 L 93 L Oximetry - Reevaluation(s) Reevaluation #1: 11/10/24 21:25 Medical records reviewed Reevaluation #2: 11/10/24 21:26 Patient has no change in symptoms here in the ER remains asymptomatic no chest pain or shortness of breath Reevaluation #3: 11/10/24 21:26 Patient informed of results and questions answered Reevaluation #4: Was pt. sent in by a medical professional or institution (, PA, CHEMICAL PROCESS OPERATOR, urgent care, hospital, or usp...) When possible be specific @ -no Did you speak to anyone other than the patient for history (EMS, parent, family, police, friend...)? What history was obtained from this source @ -no Did you review nursing and triage notes (agree or disagree)? Why? @ -agree Are old charts reviewed (outside hosp., previous admission, EMS record, old EKG, old radiological studies, urgent care reports/EKG's, usp records)? Report findings @ -yes Differential Diagnosis (chest pain, altered mental status, abdominal pain women, abdominal pain men, vaginal bleeding, weakness, fever, dyspnea, syncope, headache, dizziness, GI bleed, back pain, seizure, CVA, palpatations, mental health, musculoskeletal)? @ -prior EKG interpreted by me (3pts min.). @ -yes X-rays interpreted by me (1pt min.). @ -yes negative for acute disease CT interpreted by me (1pt min.). @ -no U/S interpreted by me (1pt. min.). @ -no What testing was considered but not performed or refused? (CT, X-rays, U/S, labs)? Why? @ -none What meds were considered but not given or refused? Why? @ -none Did you discuss the management of the patient with other professionals (pro fessionals i.e. , PA, CHEMICAL PROCESS OPERATOR, lab, RT, psych nurse, social work specialist, bike shop manager, teacher, targeting acquisition officer, showcase maker)? Give summary @ -no Was smoking cessation discussed for >3mins.? @ -no Was critical care preformed (if so, how long)? @ -yes31 Were there social determinants of health that impacted care today? How? (Homelessness, low income, unemployed, alcoholism, drug addiction, transportation, low edu. Level, literacy, decrease access to med. care, longterm, rehab)? @ -none Was there de-escalation of care discussed even if they declined (Discuss DNR or withdrawal of care, Hospice)? DNR status @ -no What co-morbidities impacted this encounter? (DM, HTN, Smoking, COPD, CAD, Cancer, CVA, ARF, Chemo, Hep., AIDS, mental health diagnosis, sleep apnea, morbid obesity)? @ -none Was patient admitted / discharged? Hospital course, mention meds given and route, prescriptions, significant lab abnormalities, going to OR and other pertinent info. @ - 49 female will be admitted for chest pain observation, elevated troponin and abnormal EKG with EKG changes recent TAVR Admission Undiagnosed new problem with uncertain prognosis? @ -no Drug Therapy requiring intensive monitoring for toxicity (Heparin, Nitro, Insulin, Cardizem)? @ -no Were any procedures done? @ -no Diagnosis/symptom? @ -Chest pain, ACS, pericarditis Acute, or Chronic, or Acute on Chronic? @ -Acute Uncomplicated (without systemic symptoms) or Complicated (systemic symptoms)? @ -Complicated Side effects of treatment? @ -no Exacerbation, Progression, or Severe Exacerbation? @ -exacerbation Poses a threat to life or bodily function? How? (Chest pain, [place], [place], pneumonia, PE, COPD, DKA, ARF, appy, cholecystitis, CVA, Diverticulitis, Homicidal, Suicidal, threat to staff... and all critical care pts) @ -yes postoperative chest pain Reevaluation #5: Differential Chest Pain: Stable Angina, Unstable Angina, STEMI, NSTEMI Aortic Dissection, Pneumothorax, Musculoskeletal, Esophageal Spasm GERD, Cholecystitis, Pancreatitis, Zoster, this is not meant to be an all-inclusive list. - Consultations Consultation #1: Spoke with [facility] who agrees to admit this patient Chest Pain MDM - MDM 49 female will be admitted for chest pain observation, elevated troponin and abnormal EKG with EKG changes recent TAVR Critical Care Time Critical Care Time: Yes Total Critical Care Time: 31 Disposition Clinical Impression: Aortic valve replaced, Elevated troponin, Thrombocytopenia Disposition: ADMITTED IP TO THIS HOSP Condition: Fair Is patient prescribed a controlled substance at d/c from ED?: No Time of Disposition: 21:00
[2024-11-10 17:03] LABS: Basophils % (A) 0 %; Eosinophils # (A) 0.3 k/uL (0-0.7); Eosinophils % (A) 3 %; HGB 11.1 gm/dL (11.4-16.0); Lymphocytes # (A) 1.8 k/uL (1.0-4.8); Lymphocytes % (A) 17 %; MCH 32.3 pg (25.0-35.0); MCHC 32.6 g/dL (31.0-37.0); MCV 99.3 fL (80.0-100.0); Macrocytosis Slight; Mean Platelet Volume 11.1; Monocytes # (A) 0.7 k/uL (0-1.0); Monocytes % (A) 6 %; Neutrophils # (A) 7.8 k/uL (1.3-7.7); Neutrophils % (A) 72 %; RBC 3.42 m/uL (3.80-5.40); RDW 14.8 % (11.5-15.5); WBC 10.9 k/uL (3.8-10.6)
[2024-11-10 17:11] LABS: ALT 22 U/L (4-34); AST 24 U/L (14-36); African American GFR (CKD) 67 (>60 ml/min/1.73 sqM); Albumin 3.8 g/dL (3.5-5.0); Alkaline Phosphatase 95 U/L (38-126); Anion Gap 9 mmol/L; Blood Urea Nitrogen 18 mg/dL (7-17); Calcium 9.3 mg/dL (8.4-10.2); Carbon Dioxide 28 mmol/L (22-30); Chloride 101 mmol/L (98-107); Glucose 99 mg/dL (74-99); Lipase 443 U/L (23-300); Magnesium 2.1 mg/dL (1.6-2.3); Non-African American GFR(CKD) 58 (>60 ml/min/1.73 sqM); Potassium 3.7 mmol/L (3.5-5.1); Sodium 138 mmol/L (137-145); Total Bilirubin 0.9 mg/dL (0.2-1.3); Total Protein 6.4 g/dL (6.3-8.2)
[2024-11-10 17:19] LABS: INR 0.9 (<1.2); Prothrombin Time 10.6 sec (10.0-12.5)
[2024-11-10 17:20] LABS: NT-Pro-B-Type Natriuretic Pept 9910 pg/mL
--- NOTE | 2024-11-10 17:23 | XR ---
EXAMINATION TYPE: XR chest 1V portable DATE OF EXAM: 11/10/2024 5:09 PM COMPARISON: Chest radiographs from 11/09/2024. CLINICAL INDICATION: Female, 49 years old with history of chest pain; TECHNIQUE: XR chest 1V portable Frontal view of the chest. FINDINGS: Lungs/Pleura: There is no evidence of pleural effusion, focal consolidation, or pneumothorax. Pulmonary vascularity: Pulmonary vascular congestion. Heart/mediastinum: Cardiomediastinal silhouette is unremarkable. Post aortic valve repair changes. L eft atrial appendage occlusion device is present. Musculoskeletal: No acute osseous pathology. IMPRESSION: Post cardiac repair changes with mild pulmonary edema. [facility], , 11/10/2024 5:21 PM
[2024-11-10 17:25] LABS: Partial Thromboplastin Time 20.9 sec (22.0-30.0)
[2024-11-10 17:30] LABS: Platelet Count 20 k/uL (150-450)
[2024-11-10] MEDS: ACETAMINOPHEN TAB 500 MG TAB PO STA (20:29)
[2024-11-10] MEDS ORDERED: MORPHINE SULFATE 4 MG/ML SYRINGE IV PRN (21:11)
[2024-11-10] MEDS ORDERED: NALOXONE 0.4 MG/ML 1 ML VIAL IV PRN (21:11)
[2024-11-10] MEDS ORDERED: ONDANSETRON 4 MG/2 ML VIAL IVP PRN (21:11)
[2024-11-11] MEDS: SODIUM CHLORIDE 0.9% 1,000 ML IV SCH (00:31)
[2024-11-11] MEDS: ACETAMINOPHEN TAB 500 MG TAB PO PRN (03:46)
[2024-11-11 04:26] LABS: Basophils # (A) 0.1 k/uL (0-0.2); Basophils % (A) 1 %; Eosinophils # (A) 0.2 k/uL (0-0.7); Eosinophils % (A) 2 %; HCT 32.9 % (34.0-46.0); HGB 10.7 gm/dL (11.4-16.0); Lymphocytes # (A) 1.3 k/uL (1.0-4.8); Lymphocytes % (A) 13 %; MCH 32.5 pg (25.0-35.0); MCHC 32.6 g/dL (31.0-37.0); MCV 99.7 fL (80.0-100.0); Macrocytosis Slight; Mean Platelet Volume 11.1; Monocytes # (A) 0.6 k/uL (0-1.0); Monocytes % (A) 6 %; Neutrophils % (A) 77 %; RDW 14.9 % (11.5-15.5); WBC 10.4 k/uL (3.8-10.6)
[2024-11-11 04:36] LABS: Platelet Count 14 k/uL (150-450)
[2024-11-11 04:44] LABS: ALT 19 U/L (4-34); AST 25 U/L (14-36); African American GFR (CKD) 68 (>60 ml/min/1.73 sqM); Albumin 3.5 g/dL (3.5-5.0); Alkaline Phosphatase 88 U/L (38-126); Anion Gap 11 mmol/L; Blood Urea Nitrogen 20 mg/dL (7-17); Calcium 9.1 mg/dL (8.4-10.2); Carbon Dioxide 24 mmol/L (22-30); Chloride 100 mmol/L (98-107); Glucose 88 mg/dL (74-99); Magnesium 1.9 mg/dL (1.6-2.3); Non-African American GFR(CKD) 59 (>60 ml/min/1.73 sqM); Phosphorus 4.8 mg/dL (2.5-4.5); Potassium 3.5 mmol/L (3.5-5.1); Sodium 135 mmol/L (137-145); Total Bilirubin 1.1 mg/dL (0.2-1.3); Total Protein 6.1 g/dL (6.3-8.2)
[2024-11-11] MEDS ORDERED: ALBUTEROL NEBULIZED 2.5 MG/3 ML INHALATION PRN (07:09)
[2024-11-11] MEDS: FUROSEMIDE 40 MG TAB PO SCH (08:13)
[2024-11-11] MEDS: AMIODARONE 200 MG TAB PO SCH (08:13)
[2024-11-11] MEDS: PANTOPRAZOLE 40 MG TABLET PO SCH (08:13)
[2024-11-11] MEDS: METOPROLOL TARTRATE 25 MG TAB PO SCH (08:13)
[2024-11-11] MEDS: ATORVASTATIN 40 MG TAB PO SCH (08:13)
[2024-11-11] MEDS: POTASSIUM CHLORIDE ER 20 MEQ TAB.ER PO SCH (08:14)
[2024-11-11] MEDS: TIOTROPIUM 2.5 MCG INHALER INHALATION SCH (08:56)
[2024-11-11] MEDS: SYMBICORT 160-4.5 MCG INHALER INHALATION SCH (08:56)
--- NOTE | 2024-11-11 09:15 | P.CRDCN ---
History of Present Illness Consult date: 11/11/24 History of present illness: The patient is a 49-year-old female patient who just was discharged from the hospital after she was admitted and underwent an aortic valve replacement for severe symptomatic aortic insufficiency. She was discharged in stable medical condition. She was seen by [facility] EMT and EKG was performed came in to be abnormal showing some T wave inversion but the patient was completely asymptomatic. She remains asymptomatic. She reports no pain in the chest or shortness of breath or dizziness or lightheadedness or any feeling of heart racing or fluttering or presyncope or syncope or edema in the lower extremities. She underwent further evaluation including a chest x-ray showed mild pulmonary vascular congestion but her platelet came to be low. An echo is in process to be done. The patient would like to go home. She was on antiplatelet and that has stopped. The physical examination is remarkable for regular rhythm with a soft systolic murmur and clear breathing sounds bilaterally and no edema was noted in the lower extremities Assessment Status post AVR using bioprosthetic valve Abnormal EKG in asymptomatic patient Thrombocytopenia Plan Agree about holding any antiplatelet Follow-up on the echocardiogram which is in process to be done The patient potentially can be discharged home later on today Past Medical History Past Medical History: Asthma, Cancer, Chest Pain / Angina, Heart Failure, COPD, Hypertension, Osteoarthritis (OA), Pneumonia Additional Past Medical History / Comment(s): heart murmur, hypoglycemia, ovarian ca 2001 & cancer removed from left knee 2007- pt not sure details, states "had surg & radiation pills"; hx migraines, SOB w/exertion, currently putting A/B ointment on ingrown toenail left big toe-red around nailbed & up toe a little; COVID in 2020 History of Any Multi-Drug Resistant Organisms: None Reported Past Surgical History: Heart Catheterization, Hysterectomy Additional Past Surgical History / Comment(s): ovaries removed, left knee surg, left carpal tunnel surg, aortic valve replacement Past Anesthesia/Blood Transfusion Reactions: No Reported Reaction Past Psychological History: No Psychological Hx Reported Smoking Status: Current every day smoker Past Alcohol Use History: None Reported Past Drug Use History: None Reported - Past Family History Mother Family Medical History: No Reported History Medications and Allergies Home Medications Medication Instructions Recorded Confirmed Type Acetaminophen Tab [Tylenol] 1,000 mg PO TID PRN 09/28/24 11/10/24 History Albuterol Inhaler [Ventolin Hfa 2 puff INHALATION RT-Q6H PRN 09/28/24 11/10/24 History Inhaler] Budesonide/Formoterol Fumarate 1 puff INHALATION RT-DAILY 09/28/24 11/10/24 History [Symbicort 160-4.5 Mcg Inhaler] Fluticasone/Umeclidin/Vilanter 1 puff INHALATION RT-DAILY 09/28/24 11/10/24 History [Trelegy Ellipta 100-62.5-25] Atorvastatin [Lipitor] 40 mg PO DAILY #30 tab 11/09/24 11/10/24 Rx Clopidogrel [Plavix] 75 mg PO DAILY #30 tab 11/09/24 11/10/24 Rx Furosemide [Lasix] 40 mg PO DAILY #7 tablet 11/09/24 11/10/24 Rx Metoprolol Tartrate [Lopressor] 25 mg PO BID #60 tab 11/09/24 11/10/24 Rx Pantoprazole [Protonix] 40 mg PO AC-BRKFST #30 tab 11/09/24 11/10/24 Rx Potassium Chloride ER [K-Dur 20] 20 meq PO DAILY #7 tab 11/09/24 11/10/24 Rx Amiodarone [Cordarone] See Taper PO DIRECTED 11/10/24 11/10/24 History Sennosides-Docusate Sodium 2 tab PO HS 11/10/24 11/10/24 History [Senokot-S] Allergies Allergy/AdvReac Type Severity Reaction Status Date / Time aspirin Allergy Severe Swelling Verified 11/03/24 07:41 Penicillins Allergy Severe Anaphylaxis Verified 11/02/24 06:00 amoxicillin Allergy Anaphylaxis Verified 11/02/24 06:00 ampicillin Allergy Anaphylaxis Verified 11/02/24 06:00 ciprofloxacin [From Cipro] Allergy Rash/Hives/ Verified 11/02/24 06:00 Swelling codeine Allergy Itching Verified 11/02/24 06:00 Fish Containing Products Allergy Anaphylaxis Verified 11/02/24 12:26 [Fish] ibuprofen Allergy Itching Verified 11/02/24 06:00 Iodinated Contrast Media Allergy Rash/Hives Verified 11/02/24 06:00 [Iodinated Contrast Media - Oral and] iodine Allergy Swelling Verified 11/02/24 06:00 Mushroom Allergy Anaphylaxis Verified 11/02/24 12:26 nitrofurantoin Allergy Rash/Hives Verified 11/02/24 06:00 [From Macrodantin] NSAIDS (Non-Steroidal Allergy Rash/Hives/ Verified 11/02/24 06:00 Anti-Inflamma Swelling povidone-iodine Allergy Rash/Hives Verified 11/02/24 06:00 [From Betadine] shellfish derived [Shellfish] Allergy Anaphylaxis Verified 11/02/24 12:26 Sulfa (Sulfonamide Allergy Rash/Hives Verified 11/02/24 06:00 Antibiotics) gluten AdvReac Diarrhea Verified 11/11/24 07:00 Milk Containing Products AdvReac Diarrhea Verified 11/11/24 07:00 (Dairy) [Dairy] Physical Exam Vitals: Vital Signs Temp Pulse Resp BP Pulse Ox 11/11/24 07:47 97.8 F 75 20 131/81 92 L 11/11/24 06:54 71 17 133/75 92 L 11/11/24 05:04 73 19 147/81 90 L 11/11/24 03:11 67 17 11/11/24 00:36 68 19 147/81 90 L 11/10/24 21:08 98.4 F 68 18 146/71 90 L 11/10/24 20:00 68 18 141/76 89 L 11/10/24 18:00 65 20 116/83 98 11/10/24 17:14 60 16 136/83 94 L 11/10/24 16:20 20 11/10/24 16:14 60 16 135/68 96 11/10/24 16:11 98 F 58 L 20 147/85 93 L Intake and Output 11/10/24 11/11/24 11/11/24 22:59 06:59 14:59 Other: Weight 80.739 kg Results 11/11/24 04:02 11/11/24 04:02 Cardiac Enzymes 11/10/24 11/10/24 11/10/24 Range/Units 16:54 16:54 21:20 AST 24 (14-36) U/L Troponin I 1.040 H* 0.918 H* (0.000-0.034) ng/mL 11/11/24 11/11/24 Range/Units 04:02 04:02 AST 25 (14-36) U/L Troponin I 0.929 H* (0.000-0.034) ng/mL Coagulation 11/10/24 Range/Units 16:54 PT 10.6 (10.0-12.5) sec APTT 20.9 L (22.0-30.0) sec CBC 11/10/24 11/11/24 Range/Units 16:54 04:02 WBC 10.9 H 10.4 (3.8-10.6) k/uL RBC 3.42 L 3.30 L (3.80-5.40) m/uL Hgb 11.1 L 10.7 L (11.4-16.0) gm/dL Hct 34.0 32.9 L (34.0-46.0) % Plt Count 20 L D 14 L* (150-450) k/uL Comprehensive Metabolic Panel 11/10/24 11/11/24 Range/Units 16:54 04:02 Sodium 138 135 L (137-145) mmol/L Potassium 3.7 3.5 (3.5-5.1) mmol/L Chloride 101 100 (98-107) mmol/L Carbon Dioxide 28 24 (22-30) mmol/L BUN 18 H 20 H (7-17) mg/dL Creatinine 1.12 H 1.11 H (0.52-1.04) mg/dL Glucose 99 88 (74-99) mg/dL Calcium 9.3 9.1 (8.4-10.2) mg/dL AST 24 25 (14-36) U/L ALT 22 19 (4-34) U/L Alkaline Phosphatase 95 88 (38-126) U/L Total Protein 6.4 6.1 L (6.3-8.2) g/dL Albumin 3.8 3.5 (3.5-5.0) g/dL Current Medications Generic Name Dose Route Start Last Admin Trade Name Freq PRN Reason Stop Dose Admin Acetaminophen 1,000 mg 11/11/24 02:28 11/11/24 03:46 Acetaminophen Tab 500 Mg Tab PO 1,000 mg Q6HR PRN Administration Fever and/ or Pain Albuterol Sulfate 2.5 mg 11/11/24 07:09 Albuterol Nebulized 2.5 Mg/3 Ml INHALATION RT-Q6H PRN Shortness Of Breath Amiodarone HCl 200 mg 11/11/24 09:00 11/11/24 08:13 Amiodarone 200 Mg Tab PO 200 mg BID PO Administration Atorvastatin Calcium 40 mg 11/11/24 09:00 11/11/24 08:13 Atorvastatin 40 Mg Tab PO 40 mg DAILY PO Administration Budesonide/Formoterol Fumarate 1 puff 11/11/24 08:00 11/11/24 08:56 Symbicort 160-4.5 Mcg Inhaler INHALATION Not Given RT-DAILY PO Furosemide 40 mg 11/11/24 09:00 11/11/24 08:13 Furosemide 40 Mg Tab PO 40 mg DAILY PO Administration Metoprolol Tartrate 25 mg 11/11/24 09:00 11/11/24 08:13 Metoprolol Tartrate 25 Mg Tab PO 25 mg BID PO Administration Naloxone HCl 0.2 mg 11/10/24 21:11 Naloxone 0.4 Mg/Ml 1 Ml Vial IV Q2M PRN Opioid Reversal Ondansetron HCl 4 mg 11/10/24 21:11 Ondansetron 4 Mg/2 Ml Vial IVP Q8HR PRN Nausea And Vomiting Pantoprazole Sodium 40 mg 11/11/24 07:30 11/11/24 08:13 Pantoprazole 40 Mg Tablet PO 40 mg AC-BRKFST PO Administration Potassium Chloride 20 meq 11/11/24 09:00 11/11/24 08:14 Potassium Chloride Er 20 Meq Tab.Er PO 20 meq DAILY PO Administration Senna/Docusate Sodium 2 each 11/11/24 21:00 Sennosides-Docusate Sodium 1 Each Tab PO HS PO Sodium Chloride 10 ml 11/11/24 09:00 11/11/24 08:16 Sodium Chloride 0.9% Flush 10 Ml Syringe IV 10 ml BID PO Administration Tiotropium [place] 2 puff 11/11/24 08:00 11/11/24 08:56 Tiotropium 2.5 Mcg Inhaler INHALATION Not Given RT-DAILY PO Intake and Output 11/10/24 11/11/24 11/11/24 22:59 06:59 14:59 Other: Weight 80.739 kg 11/11/24 04:02 11/11/24 04:02
--- NOTE | 2024-11-11 10:04 | P.GSCN ---
History of Present Illness Consult date: 11/11/24 Reason for Consult: Known to our service from recent aortic valve replacement Requesting physician: Sherif Galindo History of present illness: This is a 49-year-old female who follows outpatient with Dr. Olvera for primary care and Dr. Vicente for cardiology. She has a previous medical history of severe aortic insufficiency, moderate aortic stenosis, chronic heart failure with reduced ejection fraction, hypertension, remote history of pneumonia, COVID in 2020, current tobacco dependence with mild COPD. She has been followed for several years by Dr. Vicente for her aortic valvular disease. She has had progressive dyspnea and recently began experiencing anginal symptomatology. She had undergone cardiac catheterization which revealed normal coronaries. Echocardiography revealed moderate to severe aortic insufficiency, moderate aortic stenosis, mild mitral and tricuspid regurgitation, and reduced left ventricular systolic function with EF 40 to 45%. Recently she also had complaints of rapid heart rate both with activity and at rest. She did have a 2-week event monitor placed by Dr. Vicente revealing no A-fib, however she did have some episodes of pauses up to 4.5 seconds. She was referred to Dr. Lester from cardiothoracic surgery. She was recommended to undergo aortic valve replacement. The usual perioperative course of surgery was discussed in detail with the patient and her family, risks and benefits reviewed, and the patient did consent to surgery. She was scheduled electively for surgery and underwent surgical aortic valve replacement on November 03, 2024. She progressed as expected and was discharged to home with home care on November 09, 2024. Apparently yesterday she had an EKG completed by EMS which, according to her, it was a requirement from her health insurance company. It was reportedly abnormal and she was instructed to report to the emergency room for evaluation and treatment. She denied any chest pain, shortness of breath, or any other symptomatology and stated she has been feeling better since being home. EKG in the emergency room revealed sinus rhythm with T wave inversion in leads I, aVL, V1 through V3. Lab work revealed WBC 10.9, hemoglobin 11.1, platelet count 20,000, creatinine 1.12, BNP 9910, and troponin elevated at 1.04 as expected since she just had open heart surgery. This lady did have heart catheterization completed in September [address] Vicente revealing normal coronaries. She was placed in observation status with consultation to cardiology and cardiothoracic surgery. Review of Systems View of systems was completed and was negative Past Medical History Past Medical History: Asthma, Cancer, Chest Pain / Angina, Heart Failure, COPD, Hypertension, Osteoarthritis (OA), Pneumonia Additional Past Medical History / Comment(s): heart murmur, hypoglycemia, ovarian ca 2001 & cancer removed from left knee 2007- pt not sure details, s tates "had surg & radiation pills"; hx migraines, SOB w/exertion, currently putting A/B ointment on ingrown toenail left big toe-red around nailbed & up toe a little; COVID in 2020; severe aortic insufficiency with moderate aortic stenosis History of Any Multi-Drug Resistant Organisms: None Reported Past Surgical History: Heart Catheterization, Hysterectomy Additional Past Surgical History / Comment(s): ovaries removed, left knee surg, left carpal tunnel surg, aortic valve replacement; surgical aortic valve replacement November 03, 2024 Past Anesthesia/Blood Transfusion Reactions: No Reported Reaction Past Psychological History: No Psychological Hx Reported Smoking Status: Current every day smoker Past Alcohol Use History: None Reported Past Drug Use History: None Reported - Past Family History Mother Family Medical History: No Reported History Medications and Allergies Home Medications Medication Instructions Recorded Confirmed Type Acetaminophen Tab [Tylenol] 1,000 mg PO TID PRN 09/28/24 11/10/24 History Albuterol Inhaler [Ventolin Hfa 2 puff INHALATION RT-Q6H PRN 09/28/24 11/10/24 History Inhaler] Budesonide/Formoterol Fumarate 1 puff INHALATION RT-DAILY 09/28/24 11/10/24 History [Symbicort 160-4.5 Mcg Inhaler] Fluticasone/Umeclidin/Vilanter 1 puff INHALATION RT-DAILY 09/28/24 11/10/24 History [Trelegy Ellipta 100-62.5-25] Atorvastatin [Lipitor] 40 mg PO DAILY #30 tab 11/09/24 11/10/24 Rx Clopidogrel [Plavix] 75 mg PO DAILY #30 tab 11/09/24 11/10/24 Rx Furosemide [Lasix] 40 mg PO DAILY #7 tablet 11/09/24 11/10/24 Rx Metoprolol Tartrate [Lopressor] 25 mg PO BID #60 tab 11/09/24 11/10/24 Rx Pantoprazole [Protonix] 40 mg PO AC-BRKFST #30 tab 11/09/24 11/10/24 Rx Potassium Chloride ER [K-Dur 20] 20 meq PO DAILY #7 tab 11/09/24 11/10/24 Rx Amiodarone [Cordarone] See Taper PO DIRECTED 11/10/24 11/10/24 History Sennosides-Docusate Sodium 2 tab PO HS 11/10/24 11/10/24 History [Senokot-S] Allergies Allergy/AdvReac Type Severity Reaction Status Date / Time aspirin Allergy Severe Swelling Verified 11/03/24 07:41 Penicillins Allergy Severe Anaphylaxis Verified 11/02/24 06:00 amoxicillin Allergy Anaphylaxis Verified 11/02/24 06:00 ampicillin Allergy Anaphylaxis Verified 11/02/24 06:00 ciprofloxacin [From Cipro] Allergy Rash/Hives/ Verified 11/02/24 06:00 Swelling codeine Allergy Itching Verified 11/02/24 06:00 Fish Containing Products Allergy Anaphylaxis Verified 11/02/24 12:26 [Fish] ibuprofen Allergy Itching Verified 11/02/24 06:00 Iodinated Contrast Media Allergy Rash/Hives Verified 11/02/24 06:00 [Iodinated Contrast Media - Oral and] iodine Allergy Swelling Verified 11/02/24 06:00 Mushroom Allergy Anaphylaxis Verified 11/02/24 12:26 nitrofurantoin Allergy Rash/Hives Verified 11/02/24 06:00 [From Macrodantin] NSAIDS (Non-Steroidal Allergy Rash/Hives/ Verified 11/02/24 06:00 Anti-Inflamma Swelling povidone-iodine Allergy Rash/Hives Verified 11/02/24 06:00 [From Betadine] shellfish derived [Shellfish] Allergy Anaphylaxis Verified 11/02/24 12:26 Sulfa (Sulfonamide Allergy Rash/Hives Verified 11/02/24 06:00 Antibiotics) gluten AdvReac Diarrhea Verified 11/11/24 07:00 Milk Containing Products AdvReac Diarrhea Verified 11/11/24 07:00 (Dairy) [Dairy] Surgical - Exam Vital Signs Temp Pulse Resp BP Pulse Ox 98 F 58 L 20 147/85 93 L 11/10/24 16:11 11/10/24 16:11 11/10/24 16:11 11/10/24 16:11 11/10/24 16:11 CONSTITUTIONAL: Awake and alert, appears comfortable, cooperative, well- developed, well-nourished, no pain, no acute distress EYES: Pupils equal, round, reactive to light, normal ocular movement ENT: Moist mucous membranes without oral lesions present NECK: No masses, no bruits, trachea midline RESPIRATORY: Lungs sounds clear to auscultation bilaterally. Respirations even, nonlabored. Currently on room air with oxygen saturation 94%. Strong cough. No chest wall deformities. No clubbing or cyanosis present CARDIOVASCULAR: S1, S2 present. Regular rate and rhythm, sinus rhythm on telemetry. Sternum stable. Palpable peripheral pulses bilaterally. No edema present. No calf pain or tenderness noted GASTROINTESTINAL: Abdomen soft, nontender, nondistended without masses or organomegaly noted. There is no rebound or guarding present. Active bowel sounds present 4 quadrants. GENITOURINARY: Deferred INTEGUMENTARY: Skin is warm and dry with evidence of good perfusion. Anterior chest incision well-approximated without drainage NEUROLOGIC: Cranial nerves II through XII intact, normal coordination, no obvious motor or sensory deficits, speech is normal MUSKULOSKELETAL: Able to move all extremities, strength equal bilaterally, normal posture PSYCHIATRIC: Alert and oriented to person place and time, appropriate affect, intact judgment and insight Results - Labs 11/11/24 04:02 11/11/24 04:02 Abnormal Lab Results - Last 24 Hours (Table) 11/10/24 11/10/24 11/10/24 Range/Units 16:54 16:54 16:54 WBC 10.9 H (3.8-10.6) k/uL RBC 3.42 L (3.80-5.40) m/uL Hgb 11.1 L (11.4-16.0) gm/dL Hct (34.0-46.0) % Plt Count 20 L D (150-450) k/uL Neutrophils # 7.8 H (1.3-7.7) k/uL APTT 20.9 L (22.0-30.0) sec Sodium (137-145) mmol/L BUN 18 H (7-17) mg/dL Creatinine 1.12 H (0.52-1.04) mg/dL Phosphorus (2.5-4.5) mg/dL Troponin I (0.000-0.034) ng/mL Total Protein (6.3-8.2) g/dL Lipase 443 H (23-300) U/L 11/10/24 11/10/24 11/11/24 Range/Units 16:54 21:20 04:02 WBC (3.8-10.6) k/uL RBC (3.80-5.40) m/uL Hgb (11.4-16.0) gm/dL Hct (34.0-46.0) % Plt Count (150-450) k/uL Neutrophils # (1.3-7.7) k/uL APTT (22.0-30.0) sec Sodium (137-145) mmol/L BUN (7-17) mg/dL Creatinine (0.52-1.04) mg/dL Phosphorus (2.5-4.5) mg/dL Troponin I 1.040 H* 0.918 H* 0.929 H* (0.000-0.034) ng/mL Total Protein (6.3-8.2) g/dL Lipase (23-300) U/L 11/11/24 11/11/24 Range/Units 04:02 04:02 WBC (3.8-10.6) k/uL RBC 3.30 L (3.80-5.40) m/uL Hgb 10.7 L (11.4-16.0) gm/dL Hct 32.9 L (34.0-46.0) % Plt Count 14 L* (150-450) k/uL Neutrophils # 8.0 H (1.3-7.7) k/uL APTT (22.0-30.0) sec Sodium 135 L (137-145) mmol/L BUN 20 H (7-17) mg/dL Creatinine 1.11 H (0.52-1.04) mg/dL Phosphorus 4.8 H (2.5-4.5) mg/dL Troponin I (0.000-0.034) ng/mL Total Protein 6.1 L (6.3-8.2) g/dL Lipase (23-300) U/L Diabetes panel 11/10/24 11/11/24 Range/Units 16:54 04:02 Sodium 138 135 L (137-145) mmol/L Potassium 3.7 3.5 (3.5-5.1) mmol/L Chloride 101 100 (98-107) mmol/L Carbon Dioxide 28 24 (22-30) mmol/L BUN 18 H 20 H (7-17) mg/dL Creatinine 1.12 H 1.11 H (0.52-1.04) mg/dL Glucose 99 88 (74-99) mg/dL Calcium 9.3 9.1 (8.4-10.2) mg/dL AST 24 25 (14-36) U/L ALT 22 19 (4-34) U/L Alkaline Phosphatase 95 88 (38-126) U/L Total Protein 6.4 6.1 L (6.3-8.2) g/dL Albumin 3.8 3.5 (3.5-5.0) g/dL Calcium panel 11/10/24 11/11/24 Range/Units 16:54 04:02 Calcium 9.3 9.1 (8.4-10.2) mg/dL Phosphorus 4.8 H (2.5-4.5) mg/dL Albumin 3.8 3.5 (3.5-5.0) g/dL Pituitary panel 11/10/24 11/11/24 Range/Units 16:54 04:02 Sodium 138 135 L (137-145) mmol/L Potassium 3.7 3.5 (3.5-5.1) mmol/L Chloride 101 100 (98-107) mmol/L Carbon Dioxide 28 24 (22-30) mmol/L BUN 18 H 20 H (7-17) mg/dL Creatinine 1.12 H 1.11 H (0.52-1.04) mg/dL Glucose 99 88 (74-99) mg/dL Calcium 9.3 9.1 (8.4-10.2) mg/dL Adrenal panel 11/10/24 11/11/24 Range/Units 16:54 04:02 Sodium 138 135 L (137-145) mmol/L Potassium 3.7 3.5 (3.5-5.1) mmol/L Chloride 101 100 (98-107) mmol/L Carbon Dioxide 28 24 (22-30) mmol/L BUN 18 H 20 H (7-17) mg/dL Creatinine 1.12 H 1.11 H (0.52-1.04) mg/dL Glucose 99 88 (74-99) mg/dL Calcium 9.3 9.1 (8.4-10.2) mg/dL Total Bilirubin 0.9 1.1 (0.2-1.3) mg/dL AST 24 25 (14-36) U/L ALT 22 19 (4-34) U/L Alkaline Phosphatase 95 88 (38-126) U/L Total Protein 6.4 6.1 L (6.3-8.2) g/dL Albumin 3.8 3.5 (3.5-5.0) g/dL - Imaging Chest x-ray: report reviewed, image reviewed EKG: image reviewed Assessment and Plan Assessment: Abnormal EKG, elevated troponin, no coronary disease on heart catheterization September 2024 Thrombocytopenia History of severe aortic insufficiency, moderate aortic stenosis, status post aortic valve replacement along with aortic root enlargement November 03, 2024 Chronic heart failure with reduced ejection fraction, EF 45% Hypertension Remote history of pneumonia COVID in 2020 Current tobacco dependence Mild COPD Ovarian cancer Plan: The patient was seen and examined sitting up in a chair in the emergency room in no acute distress. She denies any pain or shortness of breath, denies any significant issues since discharge. Patient reports that she would like to go home. Chart/diagnostics reviewed, discussed with Dr. Lester. Patient does have thrombocytopenia with platelet count 14,000 this morning. Plavix discontinued. She has had no aspirin as she has a documented allergy. Last dose of subcutaneous heparin was in the morning November 09, 2024. Her platelet count on discharge 2 days ago was 62,000. We will have hematology see her today, appreciate their recommendations. After that patient may be discharged to home from cardiothoracic surgery standpoint, no aspirin or Plavix. Patient was counseled regarding increased risk for bleeding, she needs to be careful not to bump into anything sharp, cut herself, etc. Discussed with Dr. Ng. Patient has been cleared by Dr. Sears for discharge as well. Will place patient's discharge appointments and cardiothoracic instructions on her discharge plan. Thank you for this consult. Please call us with any further questions. I have personally seen and examined the patient, performed the documentation and the assessment and plan as written. Number of minutes spent on the visit: 30. WNO Alicia
--- NOTE | 2024-11-11 10:23 | P.HPIM ---
History of Present Illness H&P Date: 11/11/24 Chief Complaint: Abnormal EKG Patient was just recently discharged on 2024 after undergoing an elective surgery for aortic valve replacement on November 03, 2024. She was at home recovering and indicates someone came and did an EKG on her per her insurance request. They did not like it and called EMS and sent her to the emergency room. In the ER she was found to have elevated troponins consistent with recent cardiac surgery. Her platelets however found to be 20. She was started on Plavix at discharge. She has a known aspirin sensitivity. She is now resting comfortably in the emergency room. She has no complaints. She has a chest binder in place. All signs are stable. She is afebrile. Oximetry slightly low at 92% on room air. Repeat laboratory studies show a mild anemia with hemoglobin of 10.1 platelets are now 14. Review of Systems All systems: negative Past Medical History Past Medical History: Asthma, Cancer, Chest Pain / Angina, Heart Failure, COPD, Hypertension, Osteoarthritis (OA), Pneumonia Additional Past Medical History / Comment(s): heart murmur, hypoglycemia, ovarian ca 2001 & cancer removed from left knee 2007- pt not sure details, states "had surg & radiation pills"; hx migraines, SOB w/exertion, currently putting A/B ointment on ingrown toenail left big toe-red around nailbed & up toe a little; COVID in 2020; severe aortic insufficiency with moderate aortic stenosis History of Any Multi-Drug Resistant Organisms: None Reported Past Surgical History: Heart Catheterization, Hysterectomy Additional Past Surgical History / Comment(s): ovaries removed, left knee surg, left carpal tunnel surg, aortic valve replacement; surgical aortic valve replace ment November 03, 2024 Past Anesthesia/Blood Transfusion Reactions: No Reported Reaction Past Psychological History: No Psychological Hx Reported Smoking Status: Current every day smoker Past Alcohol Use History: None Reported Past Drug Use History: None Reported - Past Family History Mother Family Medical History: No Reported History Medications and Allergies Home Medications Medication Instructions Recorded Confirmed Type Acetaminophen Tab [Tylenol] 1,000 mg PO TID PRN 09/28/24 11/10/24 History Albuterol Inhaler [Ventolin Hfa 2 puff INHALATION RT-Q6H PRN 09/28/24 11/10/24 History Inhaler] Budesonide/Formoterol Fumarate 1 puff INHALATION RT-DAILY 09/28/24 11/10/24 History [Symbicort 160-4.5 Mcg Inhaler] Fluticasone/Umeclidin/Vilanter 1 puff INHALATION RT-DAILY 09/28/24 11/10/24 History [Matthewlepreet Ellipta 100-62.5-25] Atorvastatin [Lipitor] 40 mg PO DAILY #30 tab 11/09/24 11/10/24 Rx Clopidogrel [Plavix] 75 mg PO DAILY #30 tab 11/09/24 11/10/24 Rx Furosemide [Lasix] 40 mg PO DAILY #7 tablet 11/09/24 11/10/24 Rx Metoprolol Tartrate [Lopressor] 25 mg PO BID #60 tab 11/09/24 11/10/24 Rx Pantoprazole [Protonix] 40 mg PO AC-BRKFST #30 tab 11/09/24 11/10/24 Rx Potassium Chloride ER [K-Dur 20] 20 meq PO DAILY #7 tab 11/09/24 11/10/24 Rx Amiodarone [Cordarone] See Taper PO DIRECTED 11/10/24 11/10/24 History Sennosides-Docusate Sodium 2 tab PO HS 11/10/24 11/10/24 History [Senokot-S] Allergies Allergy/AdvReac Type Severity Reaction Status Date / Time aspirin Allergy Severe Swelling Verified 11/03/24 07:41 Penicillins Allergy Severe Anaphylaxis Verified 11/02/24 06:00 amoxicillin Allergy Anaphylaxis Verified 11/02/24 06:00 ampicillin Allergy Anaphylaxis Verified 11/02/24 06:00 ciprofloxacin [From Cipro] Allergy Rash/Hives/ Verified 11/02/24 06:00 Swelling codeine Allergy Itching Verified 11/02/24 06:00 Fish Containing Products Allergy Anaphylaxis Verified 11/02/24 12:26 [Fish] ibuprofen Allergy Itching Verified 11/02/24 06:00 Iodinated Contrast Media Allergy Rash/Hives Verified 11/02/24 06:00 [Iodinated Contrast Media - Oral and] iodine Allergy Swelling Verified 11/02/24 06:00 Mushroom Allergy Anaphylaxis Verified 11/02/24 12:26 nitrofurantoin Allergy Rash/Hives Verified 11/02/24 06:00 [From Macrodantin] NSAIDS (Non-Steroidal Allergy Rash/Hives/ Verified 11/02/24 06:00 Anti-Inflamma Swelling povidone-iodine Allergy Rash/Hives Verified 11/02/24 06:00 [From Betadine] shellfish derived [Shellfish] Allergy Anaphylaxis Verified 11/02/24 12:26 Sulfa (Sulfonamide Allergy Rash/Hives Verified 11/02/24 06:00 Antibiotics) gluten AdvReac Diarrhea Verified 11/11/24 07:00 Milk Containing Products AdvReac Diarrhea Verified 11/11/24 07:00 (Dairy) [Dairy] Physical Exam Vitals: Vital Signs Temp Pulse Resp BP Pulse Ox 11/11/24 09:57 65 20 90 L 11/11/24 07:47 97.8 F 75 20 131/81 92 L 11/11/24 06:54 71 17 133/75 92 L 11/11/24 05:04 73 19 147/81 90 L 11/11/24 03:11 67 17 11/11/24 00:36 68 19 147/81 90 L 11/10/24 21:08 98.4 F 68 18 146/71 90 L 11/10/24 20:00 68 18 141/76 89 L 11/10/24 18:00 65 20 116/83 98 11/10/24 17:14 60 16 136/83 94 L 11/10/24 16:20 20 11/10/24 16:14 60 16 135/68 96 11/10/24 16:11 98 F 58 L 20 147/85 93 L Intake and Output 11/10/24 11/11/24 11/11/24 22:59 06:59 14:59 Other: Weight 80.739 kg GENERAL: Alert and oriented x 3, sitting up in bed, no acute distress. HEENT: Atraumatic, normocephalic conjunctivae normal. eyes normal. NECK: Supple, no JVD. CARDIOVASCULAR: S1, S2 regular. Chest binder in place RESPIRATION: Unlabored, equal air entry, bilateral breath sounds diminished. ABDOMEN: Soft, nontender, nondistended. Positive bowel sounds. LEGS: No edema,wearing compression stockings NERVOUS SYSTEM: Cranial N 2-12 grossly normal. No focal deficits. Skin: Warm and dry, no rash. Results CBC & Chem 7: 11/11/24 04:02 11/11/24 04:02 Labs: Abnormal Lab Results - Last 24 Hours (Table) 11/10/24 11/10/24 11/10/24 Range/Units 16:54 16:54 16:54 WBC 10.9 H (3.8-10.6) k/uL RBC 3.42 L (3.80-5.40) m/uL Hgb 11.1 L (11.4-16.0) gm/dL Hct (34.0-46.0) % Plt Count 20 L D (150-450) k/uL Neutrophils # 7.8 H (1.3-7.7) k/uL APTT 20.9 L (22.0-30.0) sec Sodium (137-145) mmol/L BUN 18 H (7-17) mg/dL Creatinine 1.12 H (0.52-1.04) mg/dL Phosphorus (2.5-4.5) mg/dL Troponin I (0.000-0.034) ng/mL Total Protein (6.3-8.2) g/dL Lipase 443 H (23-300) U/L 11/10/24 11/10/24 11/11/24 Range/Units 16:54 21:20 04:02 WBC (3.8-10.6) k/uL RBC (3.80-5.40) m/uL Hgb (11.4-16.0) gm/dL Hct (34.0-46.0) % Plt Count (150-450) k/uL Neutrophils # (1.3-7.7) k/uL APTT (22.0-30.0) sec Sodium (137-145) mmol/L BUN (7-17) mg/dL Creatinine (0.52-1.04) mg/dL Phosphorus (2.5-4.5) mg/dL Troponin I 1.040 H* 0.918 H* 0.929 H* (0.000-0.034) ng/mL Total Protein (6.3-8.2) g/dL Lipase (23-300) U/L 11/11/24 11/11/24 Range/Units 04:02 04:02 WBC (3.8-10.6) k/uL RBC 3.30 L (3.80-5.40) m/uL Hgb 10.7 L (11.4-16.0) gm/dL Hct 32.9 L (34.0-46.0) % Plt Count 14 L* (150-450) k/uL Neutrophils # 8.0 H (1.3-7.7) k/uL APTT (22.0-30.0) sec Sodium 135 L (137-145) mmol/L BUN 20 H (7-17) mg/dL Creatinine 1.11 H (0.52-1.04) mg/dL Phosphorus 4.8 H (2.5-4.5) mg/dL Troponin I (0.000-0.034) ng/mL Total Protein 6.1 L (6.3-8.2) g/dL Lipase (23-300) U/L Chest x-ray: report reviewed Thrombosis Risk Factor Assmnt - DVT/VTE Prophylaxis DVT/VTE Prophylaxis: Contraindicated - See note (Thrombocytopenia) Assessment and Plan Plan: Assessment worseningThrombocytopenia, 4+ aortic regurgitation, moderate aortic stenosis, status AVR including aortic root enlargement ( Jeramie Manzanares technique) Acute blood loss anemia postoperative, expected outcome Recent acute hypoxic respiratory failure secondary to all the above Asthma COPD COVID 2020 Chronic CHF, reduced EF Ongoing nicotine dependent Hypertension Osteoarthritis Morbid obesity, BMI 32 Plan: Will ask cardiology, hematology and cardiac surgery to see here. Most likely should be able to be discharged home later today.
--- NOTE | 2024-11-11 10:26 | P.DS ---
Providers Date of admission: 11/10/24 21:15 Expected date of discharge: 11/11/24 Attending physician: Gasper Olvera Consults: 11/10/24 21:11 Consult Physician Routine Consulting Provider: Reymundo Lester Consult Reason/Comments: known Do you want consulting provider notified?: Yes Consult Physician Routine Consulting Provider: Jarett Herrera Consult Reason/Comments: chf Do you want consulting provider notified?: Yes 11/11/24 09:50 Consult Physician Routine Consulting Provider: David Villatoro Consult Reason/Comments: thrombocytopenia Do you want consulting provider notified?: Already Contacted Primary care physician: [facility] Course: Patient was stable through her visit. She was seen by cardiology and cardiac surgery and cleared. Waiting on hematology to see her regarding her thrombocytopenia and she will will be able to go home. Patient Condition at Discharge: Fair Plan - Discharge Summary New Discharge Prescriptions: Continue Budesonide/Formoterol Fumarate [Symbicort 160-4.5 Mcg Inhaler] 1 puff INHALATION RT-DAILY Fluticasone/Umeclidin/Vilanter [Trelegy Ellipta 100-62.5-25] 1 puff INHALATION RT-DAILY Atorvastatin [Lipitor] 40 mg PO DAILY #30 tab Metoprolol Tartrate [Lopressor] 25 mg PO BID #60 tab Furosemide [Lasix] 40 mg PO DAILY #7 tablet Amiodarone [Cordarone] See Taper PO DIRECTED Acetaminophen Tab [Tylenol] 1,000 mg PO TID PRN PRN Reason: Pain Albuterol Inhaler [Ventolin Hfa Inhaler] 2 puff INHALATION RT-Q6H PRN PRN Reason: Shortness Of Breath Pantoprazole [Protonix] 40 mg PO AC-BRKFST #30 tab Potassium Chloride ER [K-Dur 20] 20 meq PO DAILY #7 tab Sennosides-Docusate Sodium [Senokot-S] 2 tab PO HS Discontinued Clopidogrel [Plavix] 75 mg PO DAILY #30 tab Discharge Medication List Acetaminophen Tab [Tylenol] 1,000 mg PO TID PRN 09/28/24 [History] Albuterol Inhaler [Ventolin Hfa Inhaler] 2 puff INHALATION RT-Q6H PRN 09/28/24 [History] Budesonide/Formoterol Fumarate [Symbicort 160-4.5 Mcg Inhaler] 1 puff INHALATION RT-DAILY 09/28/24 [History] Fluticasone/Umeclidin/Vilanter [Trelegy Ellipta 100-62.5-25] 1 puff INHALATION RT-DAILY 09/28/24 [History] Atorvastatin [Lipitor] 40 mg PO DAILY #30 tab 11/09/24 [Rx] Furosemide [Lasix] 40 mg PO DAILY #7 tablet 11/09/24 [Rx] Metoprolol Tartrate [Lopressor] 25 mg PO BID #60 tab 11/09/24 [Rx] Pantoprazole [Protonix] 40 mg PO AC-BRKFST #30 tab 11/09/24 [Rx] Potassium Chloride ER [K-Dur 20] 20 meq PO DAILY #7 tab 11/09/24 [Rx] Amiodarone [Cordarone] See Taper PO DIRECTED 11/10/24 [History] Sennosides-Docusate Sodium [Senokot-S] 2 tab PO HS 11/10/24 [History] Follow up Appointment(s)/Referral(s): Ronen Mitchell MD [STAFF PHYSICIAN] - 11/15/24 9:30 am Rehab [facility] [NON-STAFF] - 4 Weeks (You will receive a phone call in approximately 4-6 weeks for evaluation for cardiac rehab) David Villatoro MD [STAFF PHYSICIAN] - 1 Week Gasper Olvera Jr, DO [Primary Care Provider] - 11/16/24 2:00 pm Neo Vicente DO [STAFF PHYSICIAN] - 11/20/24 8:00 am Reymundo Lester MD [STAFF PHYSICIAN] - 11/30/24 2:00 pm Angel Willis NPC [Nurse Practitioner] - 11/16/24 1:00 pm (You will be seen in the surgeon's office behind the hospital in [facility], [address] Office phone number is ) [facility] Visiting Nurse, [NON-STAFF] - 1-2 Days (You should be seen by home care registered nurse the day after discharge, then 2-3 times per week until you start cardiac rehab. Physical and occupational therapy should visit at least once, may continue to visit if needed) Activity/Diet/Wound Care/Special Instructions: DISCHARGE INSTRUCTIONS: 1. No driving for 4 weeks, or until physician gives their ok. 2. The patient should sleep in their own bed, no medical bed needed. 3. Stairs are not an issue. If the bedroom is upstairs, it is advised that the patient go up at night and down in the morning for the first week. Go slowly, using handrail and take 1 step at a time. 4. JONO hose are to be worn for 30 days post surgery or until physician discontinues. 5. Heart hugger is to be worn 100% of the time until physician discontinues.(except when showering) 6. No lifting, pushing, or pulling more than 10 pounds for 12 weeks. The physician will advise of any restriction changes. 7. The patient is expected to continue the prescribed walking program. 8. Continue pain control per as needed orders. 9. Continue with incentive spirometry and splinting/heart hugger until otherwise directed by the physician. 10. Must shower daily using liquid antibacterial soap 11. Routine sternal incision care. No powders, lotions, ointments on incisions. No dressings are necessary on incisions unless they are draining. Dermabond tape is to remain on sternal incision until surgeon follow-up. 12. Please call surgeon/FORENSIC LOCKSMITH for temp greater than 101 F or purulent drainage from incisions. 13. You should weigh yourself daily, record and bring log with you to follow up appointments. 14. All prescriptions given by surgeon for 30 days. Refills need to be filled through die tripper/primary care physician. 15. A Red armband has been placed on the patient. It should be worn for 30 days post discharge from surgery and will be removed by the cardiac surgeons. If an ER visit is necessary, please make sure the number on the Red armband is called before going to ER. 16. You have been referred to and are expected to begin Cardiac Rehab in approximately 4-6 weeks. 17. Quitting smoking is the most important step you can take to improve your health. For additional information and assistance to quit smoking, please call the [place] tobacco quit line (4-112-CWWL-NOW/ ) or online: https://www.[place].gov/[facility]/blqd-ow-xmghycy/chronicdiseases/tobacco/how-to-qu it-tobacco HOME HEALTH SERVICES TO PROVIDE: RN SKILLED HOME CARE SERVICES FOR POST-OP SURGICAL PATIENTS WITH THE FOLLOWING: Coronary Artery Bypass Surgery (CABG), Mitral Valve Replacement/Repair ( MVR), Aortic Valve Replacement/Repair (AVR) RN TO CONTINUE EDUCATION FROM ``ROAD TO A HEALTH HEART PATIENT EDUCATION MANUAL (GIVEN TO PATIENT IN THE HOSPITAL) MEDICATION RECONCILIATION WITH EDUCATION NEEDED ON FIRST HOME VISIT EMPHASIZE IMPORTANCE OF WEARING BREAST SUPPORT/HEART HUGGER ENCOURAGE USE OF INCENTIVE SPIROMETER 10 X EVERY HOUR WHILE AWAKE ENCOURAGE UTILIZATION OF LOWER EXTREMITY COMPRESSION STOCKINGS/JONO HOSE and ELEVATE LEGS ABOVE LEVEL OF HEART WHILE AT REST. ENCOURAGE AMBULATION 3-5x/day INCREASING TOLERATES, WHILE AVOIDING EXTREMES IN TEMPERATURE FREQUENCY: RN TO OPEN THE PATIENT WITHIN 24 HOURS OF DISCHARGE FROM THE HOSPITAL WITH [place] [facility] [place]IT 2-3 X A WEEK FOR 4 WEEKS ESTABLISHED BY PATIENT NEEDS. LABORATORY: CBC, CMP TO BE DRAWN ON THE THIRD DAY HOME, (RAN STAT) FAX RESULTS TO [phone]. TELEHEALTH PARAMETERS: WEIGHT: NOTIFY MD OF WEIGHT GAIN OF 2 LBS IN 24 HOURS OR 5 LBS IN ONE WEEK HR: NOTIFY MD OF HR <55 BPM OR HR>100 BPM BP: NOTIFY MD IF BP <90/55 OR BP>140/100 O2 SAT: NOTIFY MD IF PO2<93% ON ROOM AIR SEND TELEHEALTH REPORT TO FACILITIES SPECIALIST AND CARDIOVASCULAR SURGEON THE FIRST WEEK OF CARE AND THEN BI-WEEKLY. PLEASE ADDITIONALLY COMMUNICATE ANY ABNORMALS AND NEW FINDINGS TO THE SURGEONS OFFICE.
[2024-11-11 11:11] VITALS: BP 112/59; PULSE 64; RESP 18; TEMP 97.9
--- NOTE | 2024-11-11 12:52 | P.CONS ---
History of Present Illness - Reason for Consult Consult date: 11/11/24 Thrombocytopenia - History of Present Illness Ms. Hidalgo is a 49-year-old woman with a past medical history significant for ao rtic regurgitation status post aortic valve replacement on 11/03/2024 for whom hematology is being consulted with regards to thrombocytopenia. Review of platelet counts dating back to November 2022 revealed normal platelets. Postoperatively, she had mild thrombocytopenia from 95 to the 120s. Her post operative course was uncomplicated and was discharged on 11/09/2024 with her platelets being 62. She first received heparin on 11/02/2024. She was not placed on aspirin due to history of anaphylactic allergy and was placed on Plavix. She was seen by home care and had EKG performed for unclear reasons revealing nonspecific T wave abnormality. Labs on presentation revealed platelets 14, hemoglobin 10.7 (MCV 99.7), WBC 10.4. Hemoglobin prior to surgery was noted to be between 14-15 typically. CMP noted creatinine 1.11 (baseline 0.7-0.9) with phosphorus 4.8. Troponin was elevated at 1.040 with lipase 443. She was given Tylenol and admitted to internal medicine for additional management. She has been seen by cardiology with no interventions recommended and has been cleared for discharge. Clinically, she is feeling well and denies any bruising or bleeding diathesis. She denies any unusual skin lesions outside of ecchymoses from where she had prior phlebotomies. She is eager to go home. Review of Systems 14 point review of system was conducted pertinent positives and negatives as noted per HPI Past Medical History Past Medical History: Asthma, Cancer, Chest Pain / Angina, Heart Failure, COPD, Hypertension, Osteoarthritis (OA), Pneumonia Additional Past Medical History / Comment(s): heart murmur, hypoglycemia, ovarian ca 2001 & cancer removed from left knee 2007- pt not sure details, states "had surg & radiation pills"; hx migraines, SOB w/exertion, currently putting A/B ointment on ingrown toenail left big toe-red around nailbed & up toe a little; COVID in 2020; severe aortic insufficiency with moderate aortic stenosis History of Any Multi-Drug Resistant Organisms: None Reported Past Surgical History: Heart Catheterization, Hysterectomy Additional Past Surgical History / Comment(s): ovaries removed, left knee surg, left carpal tunnel surg, aortic valve replacement; surgical aortic valve replacement November 03, 2024 Past Anesthesia/Blood Transfusion Reactions: No Reported Reaction Past Psychological History: No Psychological Hx Reported Smoking Status: Current every day smoker Past Alcohol Use History: None Reported Past Drug Use History: None Reported - Past Family History Mother Family Medical History: No Reported History Medications and Allergies Home Medications Medication Instructions Recorded Confirmed Type Acetaminophen Tab [Tylenol] 1,000 mg PO TID PRN 09/28/24 11/10/24 History Albuterol Inhaler [Ventolin Hfa 2 puff INHALATION RT-Q6H PRN 09/28/24 11/10/24 History Inhaler] Budesonide/Formoterol Fumarate 1 puff INHALATION RT-DAILY 09/28/24 11/10/24 History [Symbicort 160-4.5 Mcg Inhaler] Fluticasone/Umeclidin/Vilanter 1 puff INHALATION RT-DAILY 09/28/24 11/10/24 History [Trelegy Ellipta 100-62.5-25] Atorvastatin [Lipitor] 40 mg PO DAILY #30 tab 11/09/24 11/10/24 Rx Furosemide [Lasix] 40 mg PO DAILY #7 tablet 11/09/24 11/10/24 Rx Metoprolol Tartrate [Lopressor] 25 mg PO BID #60 tab 11/09/24 11/10/24 Rx Pantoprazole [Protonix] 40 mg PO AC-BRKFST #30 tab 11/09/24 11/10/24 Rx Potassium Chloride ER [K-Dur 20] 20 meq PO DAILY #7 tab 11/09/24 11/10/24 Rx Amiodarone [Cordarone] See Taper PO DIRECTED 11/10/24 11/10/24 History Sennosides-Docusate Sodium 2 tab PO HS 11/10/24 11/10/24 History [Senokot-S] Allergies Allergy/AdvReac Type Severity Reaction Status Date / Time aspirin Allergy Severe Swelling Verified 11/03/24 07:41 Penicillins Allergy Severe Anaphylaxis Verified 11/02/24 06:00 amoxicillin Allergy Anaphylaxis Verified 11/02/24 06:00 ampicillin Allergy Anaphylaxis Verified 11/02/24 06:00 ciprofloxacin [From Cipro] Allergy Rash/Hives/ Verified 11/02/24 06:00 Swelling codeine Allergy Itching Verified 11/02/24 06:00 Fish Containing Products Allergy Anaphylaxis Verified 11/02/24 12:26 [Fish] ibuprofen Allergy Itching Verified 11/02/24 06:00 Iodinated Contrast Media Allergy Rash/Hives Verified 11/02/24 06:00 [Iodinated Contrast Media - Oral and] iodine Allergy Swelling Verified 11/02/24 06:00 Mushroom Allergy Anaphylaxis Verified 11/02/24 12:26 nitrofurantoin Allergy Rash/Hives Verified 11/02/24 06:00 [From Macrodantin] NSAIDS (Non-Steroidal Allergy Rash/Hives/ Verified 11/02/24 06:00 Anti-Inflamma Swelling povidone-iodine Allergy Rash/Hives Verified 11/02/24 06:00 [From Betadine] shellfish derived [Shellfish] Allergy Anaphylaxis Verified 11/02/24 12:26 Sulfa (Sulfonamide Allergy Rash/Hives Verified 11/02/24 06:00 Antibiotics) gluten AdvReac Diarrhea Verified 11/11/24 07:00 Milk Containing Products AdvReac Diarrhea Verified 11/11/24 07:00 (Dairy) [Dairy] Physical Exam Vitals: Vital Signs Temp Pulse Resp BP Pulse Ox 11/11/24 09:57 65 20 90 L 11/11/24 07:47 97.8 F 75 20 131/81 92 L 11/11/24 06:54 71 17 133/75 92 L 11/11/24 05:04 73 19 147/81 90 L 11/11/24 03:11 67 17 11/11/24 00:36 68 19 147/81 90 L 11/10/24 21:08 98.4 F 68 18 146/71 90 L 11/10/24 20:00 68 18 141/76 89 L 11/10/24 18:00 65 20 116/83 98 11/10/24 17:14 60 16 136/83 94 L 11/10/24 16:20 20 11/10/24 16:14 60 16 135/68 96 11/10/24 16:11 98 F 58 L 20 147/85 93 L Intake and Output 11/10/24 11/11/24 11/11/24 22:59 06:59 14:59 Other: Weight 80.739 kg - Constitutional General appearance: cooperative, no acute distress - EENT Eyes: EOMI - Respiratory Nonlabored breathing - Cardiovascular Mechanical systolic heart sound Rhythm: regular - Gastrointestinal General gastrointestinal: no distended, soft - Integumentary Well-healed sternal incision with surrounding ecchymosis Integumentary: no rash - Neurologic Neurologic: CNII-XII intact Results CBC & Chem 7: 11/11/24 04:02 11/11/24 04:02 Labs: Abnormal Lab Results - Last 24 Hours (Table) 11/10/24 11/10/24 11/10/24 Range/Units 16:54 16:54 16:54 WBC 10.9 H (3.8-10.6) k/uL RBC 3.42 L (3.80-5.40) m/uL Hgb 11.1 L (11.4-16.0) gm/dL Hct (34.0-46.0) % Plt Count 20 L D (150-450) k/uL Neutrophils # 7.8 H (1.3-7.7) k/uL APTT 20.9 L (22.0-30.0) sec Sodium (137-145) mmol/L BUN 18 H (7-17) mg/dL Creatinine 1.12 H (0.52-1.04) mg/dL Phosphorus (2.5-4.5) mg/dL Troponin I (0.000-0.034) ng/mL Total Protein (6.3-8.2) g/dL Lipase 443 H (23-300) U/L 11/10/24 11/10/24 11/11/24 Range/Units 16:54 21:20 04:02 WBC (3.8-10.6) k/uL RBC (3.80-5.40) m/uL Hgb (11.4-16.0) gm/dL Hct (34.0-46.0) % Plt Count (150-450) k/uL Neutrophils # (1.3-7.7) k/uL APTT (22.0-30.0) sec Sodium (137-145) mmol/L BUN (7-17) mg/dL Creatinine (0.52-1.04) mg/dL Phosphorus (2.5-4.5) mg/dL Troponin I 1.040 H* 0.918 H* 0.929 H* (0.000-0.034) ng/mL Total Protein (6.3-8.2) g/dL Lipase (23-300) U/L 11/11/24 11/11/24 Range/Units 04:02 04:02 WBC (3.8-10.6) k/uL RBC 3.30 L (3.80-5.40) m/uL Hgb 10.7 L (11.4-16.0) gm/dL Hct 32.9 L (34.0-46.0) % Plt Count 14 L* (150-450) k/uL Neutrophils # 8.0 H (1.3-7.7) k/uL APTT (22.0-30.0) sec Sodium 135 L (137-145) mmol/L BUN 20 H (7-17) mg/dL Creatinine 1.11 H (0.52-1.04) mg/dL Phosphorus 4.8 H (2.5-4.5) mg/dL Troponin I (0.000-0.034) ng/mL Total Protein 6.1 L (6.3-8.2) g/dL Lipase (23-300) U/L Assessment and Plan Plan: #Thrombocytopenia -Noted to have platelets of 14 on presentation today -Underwent aortic valve replacement on 11/03/2024 with platelets prior to surgery being normal -She was discharged on 11/09/2024 with Plavix -Clinically, she is feeling well with no bruising/bleeding diathesis and no complications of thromboses -4 T-score is 3, consistent with a low probability of HIT. In addition, her platelet count is much lower than would typically be expected in process such as HIT -She likely has thrombocytopenia secondary to recent cardiothoracic surgery -Agree with holding Plavix until platelets increase above 50 -As long as she is not having any bleeding diathesis at this time, no platelet transfusion is required -She can be cleared for discharge from a hematology perspective -She is having repeat blood work through her primary care physician on 11/15/2024 -If she has persistent thrombocytopenia, she can be seen in our clinic for additional workup #Normocytic anemia -Due to recent aortic valve surgery -Anticipate to improve over the next 2 to 4 weeks David Villatoro MD
[2024-11-11] MEDS ORDERED: SENNOSIDES-DOCUSATE SODIUM 1 EACH TAB PO SCH (21:00)
== END 2024-11-11 11:10 | disposition home or self-care (01) ==
LOC: EC 16:03 → 3SCARD 21:15
PROVIDERS: ADMIT Family Medicine; ATTEND Family Medicine
DX: R94.31 Abnormal electrocardiogram [ECG] [EKG] (principal); R79.89 Other specified abnormal findings of blood chemistry; D62 Acute posthemorrhagic anemia; D69.59 Other secondary thrombocytopenia; E66.01 Morbid (severe) obesity due to excess calories; F17.200 Nicotine dependence, unspecified, uncomplicated; J44.89 Other specified chronic obstructive pulmonary disease; I11.0 Hypertensive heart disease with heart failure; I50.22 Chronic systolic (congestive) heart failure; M19.90 Unspecified osteoarthritis, unspecified site; Z68.32 Body mass index [BMI] 32.0-32.9, adult; Z95.2 Presence of prosthetic heart valve; Z79.02 Long term (current) use of antithrombotics/antiplatelets; Z79.51 Long term (current) use of inhaled steroids; Z79.899 Other long term (current) drug therapy; Z85.43 Personal history of malignant neoplasm of ovary; Z86.16 Personal history of COVID-19; Z88.5 Allergy status to narcotic agent; Z88.0 Allergy status to penicillin; Z88.1 Allergy status to other antibiotic agents; Z88.2 Allergy status to sulfonamides; Z88.6 Allergy status to analgesic agent; Z91.041 Radiographic dye allergy status
CPT/HCPCS: 99291; 36415; 93005; 83880; 80053 ×2; 83690; 83735 ×2; 84100; 84484 ×2; 85025 ×2; 85610; 85730; 71045; G0378 ×2

== ENCOUNTER 2025-02-22 11:03 | Observation (INO) | payer BC ==
--- NOTE | 2025-02-22 11:37 | ED ---
General Adult HPI - General Chief complaint: Chest Pain Stated complaint: Chest pains Time Seen by Provider: 02/22/25 11:14 Source: patient Mode of arrival: ambulatory Limitations: no limitations - History of Present Illness Initial comments: Dictation was produced using [employer] dictation software. please excuse any grammatical, word or spelling errors. Chief Complaint: 49-year-old female presents emergency department chest pain History of Present Illness: Patient is a 49-year-old female with history of open heart surgery for aortic valve replacement presents to the ER for 1 week of chest pain. States pain is in her left chest/with nausea and radiation down the left upper extremity apparently patient has significant family history of coronary artery disease. Patient denies any symptoms at rest. States that her symptoms are exacerbated with physical exertion. The ROS documented in this emergency department record has been reviewed and c onfirmed by me. Those systems with pertinent positive or negative responses have been documented in the HPI. All other systems are other negative and/or noncontributory. - Related Data Home Medications Medication Instructions Recorded Confirmed Fluticasone/Umeclidin/Vilanter 1 puff INHALATION DIRECTED 09/28/24 02/22/25 [Trelegy Ellipta 100-62.5-25] Fluticasone Propionate 110 Mcg 1 puff INHALATION DIRECTED 02/22/25 02/22/25 [Flovent 110 Mcg Inhaler] Metoprolol Succinate (ER) [Toprol 25 mg PO DAILY 02/22/25 02/22/25 Xl] Allergies Allergy/AdvReac Type Severity Reaction Status Date / Time aspirin Allergy Severe Swelling Verified 02/22/25 14:22 Penicillins Allergy Severe Anaphylaxis Verified 02/22/25 14:22 amoxicillin Allergy Anaphylaxis Verified 02/22/25 14:22 ampicillin Allergy Anaphylaxis Verified 02/22/25 14:22 ciprofloxacin [From Cipro] Allergy Rash/Hives/ Verified 02/22/25 14:22 Swelling codeine Allergy Itching Verified 02/22/25 14:22 Fish Containing Products Allergy Anaphylaxis Verified 02/22/25 14:22 [Fish] ibuprofen Allergy Itching Verified 02/22/25 14:22 Iodinated Contrast Media Allergy Rash/Hives Verified 02/22/25 14:22 [Iodinated Contrast Media - Oral and] iodine Allergy Swelling Verified 02/22/25 14:22 Mushroom Allergy Anaphylaxis Verified 02/22/25 14:22 nitrofurantoin Allergy Rash/Hives Verified 02/22/25 14:22 [From Macrodantin] NSAIDS (Non-Steroidal Allergy Rash/Hives/ Verified 02/22/25 14:22 Anti-Inflamma Swelling povidone-iodine Allergy Rash/Hives Verified 02/22/25 14:22 [From Betadine] shellfish derived [Shellfish] Allergy Anaphylaxis Verified 02/22/25 14:22 Sulfa (Sulfonamide Allergy Rash/Hives Verified 02/22/25 14:22 Antibiotics) gluten AdvReac Diarrhea Verified 02/22/25 14:22 Milk Containing Products AdvReac Diarrhea Verified 02/22/25 14:22 (Dairy) [Dairy] Review of Systems ROS Statement: Those systems with pertinent positive or pertinent negative responses have been documented in the HPI. ROS Other: All systems not noted in ROS Statement are negative. Past Medical History Past Medical History: Asthma, Cancer, Chest Pain / Angina, Heart Failure, COPD, Hypertension, Osteoarthritis (OA), Pneumonia Additional Past Medical History / Comment(s): heart murmur, hypoglycemia, ovarian ca 2001 & cancer removed from left knee 2007- pt not sure details, states "had surg & radiation pills"; hx migraines, SOB w/exertion, currently putting A/B ointment on ingrown toenail left big toe-red around nailbed & up toe a little; COVID in 2020; severe aortic insufficiency with moderate aortic stenosis History of Any Multi-Drug Resistant Organisms: None Reported Past Surgical History: Heart Catheterization, Hysterectomy Additional Past Surgical History / Comment(s): ovaries removed, left knee surg, left carpal tunnel surg, aortic valve replacement; surgical aortic valve replacement November 03, 2024 Past Anesthesia/Blood Transfusion Reactions: No Reported Reaction Past Psychological History: Anxiety Smoking Status: Current every day smoker Past Alcohol Use History: None Reported Past Drug Use History: None Reported - Past Family History Mother Family Medical History: No Reported History General Exam - General Exam Comments Initial Comments: PHYSICAL EXAM: General Impression: Alert and oriented x3, not in acute distress HEENT: Normocephalic atraumatic, extra-ocular movements intact, pupils equal and reactive to light bilaterally, mucous membranes moist. Cardiovascular: Heart regular rate and rhythm Chest: Able to complete full sentences, no retractions, no tachypnea Abdomen: abdomen soft, non-tender, non-distended, no organomegaly Musculoskeletal: Pulses present and equal in all extremities, no peripheral edema Motor: no focal deficits noted Neurological: CN II-XII grossly intact, no focal motor or sensory deficits noted Skin: Intact with no visualized rashes Psych: Normal affect and mood Limitations: no limitations Course Vital Signs 02/22/25 02/22/25 02/22/25 11:08 11:28 13:48 Temperature 97.4 F L Pulse Rate 64 66 75 Respiratory 20 18 18 Rate Blood Pressure 163/82 193/94 199/102 O2 Sat by Pulse 99 93 L 99 Oximetry EKG Findings - EKG Comments: EKG Findings:: My EKG interpretation: Ventricular rate 64, sinus rhythm, OR 145, QRS 104, QTc 422. No OR prolongation, no QTC prolongation, no ST or T-wave changes noted. Overall, this EKG is unremarkable Medical Decision Making - Medical Decision Making Was pt. sent in by a medical professional or institution (, PA, TRANSPORTATION LEAD, urgent care, hospital, or senior living...) When possible be specific @ -No Did you speak to anyone other than the patient for history (EMS, parent, family, police, friend...)? What history was obtained from this source @ -No Did you review nursing and triage notes (agree or disagree)? Why? @ -I reviewed and agree with nursing and triage notes Were old charts reviewed (outside hosp., previous admission, EMS record, old EKG, old radiological studies, urgent care reports/EKG's, senior living records)? Report findings @ -No old charts were reviewed Differential Diagnosis (chest pain, altered mental status, abdominal pain women, abdominal pain men, vaginal bleeding, musculoskeletal, weakness, fever, dyspnea, syncope, headache, dizziness, GI bleed, back pain, seizure, CVA, palpatations, mental health)? @ -Differential Chest Pain: Stable Angina, Unstable Angina, STEMI, NSTEMI Aortic Dissection, Pneumothorax, Musculoskeletal, Esophageal Spasm GERD, Cholecystitis, Pancreatitis, Zoster, this is not meant to be an all-inclusive list. EKG interpreted by me (3pts min.). @ -See above X-rays interpreted by me (1pt min.). @ -Chest x-ray nonacute CT interpreted by me (1pt min.). @ -CT angiography chest shows no aortic dissection U/S interpreted by me (1pt. min.). @ -None done What testing was considered but not performed or refused? (CT, X-rays, U/S, labs)? Why? @ -None What meds were considered but not given or refused? Why? @ -None Was smoking cessation discussed for >3mins.? @ -No Were there social determinants of health that impacted care today? How? (Homelessness, low income, unemployed, alcoholism, drug addiction, transportation, low edu. Level, literacy, decrease access to med. care, intermediate, rehab)? @ -No Was there de-escalation of care discussed even if they declined (Discuss DNR or withdrawal of care, Hospice)? DNR status @ -No What co-morbidities impacted this encounter? (DM, HTN, Smoking, COPD, CAD, Cancer, CVA, ARF, Chemo, Hep., AIDS, mental health diagnosis, sleep apnea, morbid obesity)? @ -None Was patient admitted / discharged? Hospital course, mention meds given and route, prescriptions, significant lab abnormalities, going to OR and other pertinent info. @ -49-year-old female with chest pain concerning for acute coronary syndrome has significant risk factors. Vital signs stable EKG has no signs of ischemia or infarction. Labs unremarkable. Troponins negative. Patient given aspirin. Will be admitted consultation to cardiology. Case discussed hospitalist for admission Did you discuss the management of the patient with other professionals (professionals i.e. , PA, TRANSPORTATION LEAD, lab, RT, psych nurse, social work supervisor, dental manager, teacher, credit control officer, case monitor)? Give summary @ -No Was critical care preformed (if so, how long)? @ -No Undiagnosed new problem with uncertain prognosis? @ -No Drug Therapy requiring intensive monitoring for toxicity (Heparin, Nitro, Insulin, Cardizem)? @ -No Were any procedures done? @ -No Diagnosis/symptom? Acute, or Chronic, or Acute on Chronic? Uncomplicated (without systemic symptoms) or Complicated (systemic symptoms)? @ -Chest pain Side effects of treatment? @ -No Exacerbation, Progression, or Severe Exacerbation? @ -No Poses a threat to life or bodily function? How? (Chest pain, [place], [place], pneumonia, PE, COPD, DKA, ARF, appy, cholecystitis, CVA, Diverticulitis, Homicidal, Suicidal, threat to staff... and all critical care pts) @ -yes - Lab Data Result diagrams: 02/22/25 11:37 02/22/25 11:37 Lab Results 02/22/25 02/22/25 02/22/25 Range/Units 11:37 11:37 11:37 WBC 7.15 (4.50-10.00) 10*3/uL RBC 4.47 (4.10-5.20) 10*6/uL Hgb 14.1 (12.0-15.0) g/dL Hct 41.1 (37.2-46.3) % MCV 91.9 (80.0-97.0) fL MCH 31.5 (27.0-32.0) pg MCHC 34.3 (32.0-37.0) g/dL Plt Count 104 L (140-440) 10*3/uL MPV 10.3 (9.5-12.2) fL Immature Gran % (Auto) 0.6 % Neutrophils % 50.7 % Lymphocytes % 35.0 % Monocytes % 9.4 % Eosinophils % 3.2 % Basophils % 1.1 % Immature Gran # 0.04 (0.00-0.04) 10*3/uL Neutrophils # 3.63 (1.80-7.70) 10*3/uL Lymphocytes # 2.50 (0.90-5.00) 10*3/uL Monocytes # 0.67 (0.20-1.00) 10*3/uL Eosinophils # 0.23 (0.04-0.35) 10*3/uL Basophils # 0.08 (0.00-0.10) 10*3/uL Immature Plt Fraction 3.5 (1.1-6.1) % PT 10.4 (10.0-12.5) sec INR 0.9 (<1.2) APTT 22.0 (22.0-30.0) sec Sodium 140 (137-145) mmol/L Potassium 4.4 (3.5-5.1) mmol/L Chloride 105 (98-107) mmol/L Carbon Dioxide 24 (22-30) mmol/L Anion Gap 11 mmol/L BUN 10 (7-17) mg/dL Creatinine 0.79 (0.52-1.04) mg/dL Est GFR (CKD-EPI)AfAm >90 (>60 ml/min/1.73 sqM) Est GFR (CKD-EPI)NonAf 89 (>60 ml/min/1.73 sqM) Glucose 95 (74-99) mg/dL Calcium 9.9 (8.4-10.2) mg/dL Magnesium 2.1 (1.6-2.3) mg/dL Total Bilirubin 0.5 (0.2-1.3) mg/dL AST 34 (14-36) U/L ALT 49 H (4-34) U/L Alkaline Phosphatase 76 (38-126) U/L Troponin I (0.000-0.034) ng/mL Total Protein 7.2 (6.3-8.2) g/dL Albumin 4.4 (3.5-5.0) g/dL 02/22/25 Range/Units 11:37 WBC (4.50-10.00) 10*3/uL RBC (4.10-5.20) 10*6/uL Hgb (12.0-15.0) g/dL Hct (37.2-46.3) % MCV (80.0-97.0) fL MCH (27.0-32.0) pg MCHC (32.0-37.0) g/dL Plt Count (140-440) 10*3/uL MPV (9.5-12.2) fL Immature Gran % (Auto) % Neutrophils % % Lymphocytes % % Monocytes % % Eosinophils % % Basophils % % Immature Gran # (0.00-0.04) 10*3/uL Neutrophils # (1.80-7.70) 10*3/uL Lymphocytes # (0.90-5.00) 10*3/uL Monocytes # (0.20-1.00) 10*3/uL Eosinophils # (0.04-0.35) 10*3/uL Basophils # (0.00-0.10) 10*3/uL Immature Plt Fraction (1.1-6.1) % PT (10.0-12.5) sec INR (<1.2) APTT (22.0-30.0) sec Sodium (137-145) mmol/L Potassium (3.5-5.1) mmol/L Chloride (98-107) mmol/L Carbon Dioxide (22-30) mmol/L Anion Gap mmol/L BUN (7-17) mg/dL Creatinine (0.52-1.04) mg/dL Est GFR (CKD-EPI)AfAm (>60 ml/min/1.73 sqM) Est GFR (CKD-EPI)NonAf (>60 ml/min/1.73 sqM) Glucose (74-99) mg/dL Calcium (8.4-10.2) mg/dL Magnesium (1.6-2.3) mg/dL Total Bilirubin (0.2-1.3) mg/dL AST (14-36) U/L ALT (4-34) U/L Alkaline Phosphatase (38-126) U/L Troponin I <0.012 (0.000-0.034) ng/mL Total Protein (6.3-8.2) g/dL Albumin (3.5-5.0) g/dL Disposition Clinical Impression: Chest pain Disposition: ADMITTED IP TO THIS [facility] Condition: Fair Referrals: Gasper Olvera Jr, [Primary Care Provider] - 1-2 days Decision Time: 14:00
[2025-02-22 11:55] LABS: Basophils # (A) 0.08 10*3/uL (0.00-0.10); Basophils % (A) 1.1 %; Eosinophils # (A) 0.23 10*3/uL (0.04-0.35); Eosinophils % (A) 3.2 %; HCT 41.1 % (37.2-46.3); HGB 14.1 g/dL (12.0-15.0); Immature Platelet Fraction 3.5 % (1.1-6.1); Lymphocytes # (A) 2.50 10*3/uL (0.90-5.00); Lymphocytes % (A) 35.0 %; MCH 31.5 pg (27.0-32.0); MCHC 34.3 g/dL (32.0-37.0); MCV 91.9 fL (80.0-97.0); Monocytes # (A) 0.67 10*3/uL (0.20-1.00); Monocytes % (A) 9.4 %; Neutrophils # (A) 3.63 10*3/uL (1.80-7.70); Neutrophils % (A) 50.7 %; Platelet Count 104 10*3/uL (140-440); RBC 4.47 10*6/uL (4.10-5.20); RDW 12.4 % (11.5-14.5); WBC 7.15 10*3/uL (4.50-10.00)
[2025-02-22 12:04] LABS: INR 0.9 (<1.2); Partial Thromboplastin Time 22.0 sec (22.0-30.0); Prothrombin Time 10.4 sec (10.0-12.5)
[2025-02-22 12:06] LABS: ALT 49 U/L (4-34); AST 34 U/L (14-36); African American GFR (CKD) >90 (>60 ml/min/1.73 sqM); Albumin 4.4 g/dL (3.5-5.0); Alkaline Phosphatase 76 U/L (38-126); Anion Gap 11 mmol/L; Blood Urea Nitrogen 10 mg/dL (7-17); Calcium 9.9 mg/dL (8.4-10.2); Carbon Dioxide 24 mmol/L (22-30); Chloride 105 mmol/L (98-107); Glucose 95 mg/dL (74-99); Magnesium 2.1 mg/dL (1.6-2.3); Non-African American GFR(CKD) 89 (>60 ml/min/1.73 sqM); Potassium 4.4 mmol/L (3.5-5.1); Sodium 140 mmol/L (137-145); Total Protein 7.2 g/dL (6.3-8.2)
--- NOTE | 2025-02-22 12:39 | XR ---
EXAMINATION TYPE: XR chest 2V DATE OF EXAM: 02/22/2025 12:30 PM COMPARISON: Multiple radiographs, with the most recent on 11/15/2024 TECHNIQUE: XR chest 2V Frontal and lateral views of the chest. CLINICAL INDICATION:Female, 49 years old with history of Chest Pain; FINDINGS: Lungs/Pleura: There is no evidence of pleural effusion, focal consolidation, or pneumothorax. Pulmonary vascularity: Unremarkable. Heart/mediastinum: Cardiomediastinal silhouette is prominent in size. Prosthetic aortic valve. Left atrial appendage occlusion devices present. Musculoskeletal: No acute osseous pathology. Midline sternotomy wires are noted and stable. IMPRESSION: Chronic changes without acute pulmonary process. [facility], , 02/22/2025 12:36 PM
[2025-02-22] MEDS: ASPIRIN 81 MG PO STA (13:39)
[2025-02-22] MEDS: methylPREDNISolone SOD SUCCI 125 MG/2 ML VIAL IV STA (13:40)
[2025-02-22] MEDS: diphenhydrAMINE 50 MG/ML 1 ML VIAL IVP STA (13:41)
[2025-02-22] MEDS: FAMOTIDINE 20 MG/2 ML VIAL IV STA (13:41)
[2025-02-22] MEDS ORDERED: NITROGLYCERIN SL TABS 0.4 MG TAB SUBLINGUAL PRN (14:32)
--- NOTE | 2025-02-22 14:40 | CT ---
CTA chest and abdomen HISTORY: Suspect aortic dissection. Chest pain. COMPARISON: CT chest dated 10/25/[address] abdomen dated 09/12/2024. TECHNIQUE: Multiple axial images are obtained through the chest and abdomen following IV contrast. Ex am was performed according to department CTA protocol. MIPS images were generated and reviewed. 3-D p ostprocessing was performed. The thoracic and abdominal aorta are normal without aneurysm or dissection. The brachiocephalic origi ns are patent and normal. Mesenteric arteries and renal arteries are patent. There is a prosthetic ao rtic valve. There is no suspicious lung mass or nodule. There is no airspace consolidation or abnormal interstiti al density. There is no pleural effusion or pneumothorax. There is no mediastinal, hilar or axillary adenopathy. There are no abnormalities of the solid visceral organs of the upper abdomen. The gallbladder is norm al. There is no solid renal mass or hydronephrosis. The visualized bowel loops are normal in caliber and there is no obstruction or inflammation. The osseous structures are intact IMPRESSION: 1. No thoracic or abdominal aneurysm or dissection. 2. Prosthetic aortic valve. 3. No acute changes within the chest or abdomen. [facility], , 02/22/2025 2:38 PM
[2025-02-22 19:29] VITALS: BP 182/95; PULSE 93; RESP 19; TEMP 97.8
[2025-02-23] MEDS ORDERED: ASPIRIN 325 MG TAB PO SCH (09:00)
== END 2025-02-22 21:14 | disposition left against medical advice (07) ==
LOC: EC 11:03 → 6NMEDSUR 14:39
PROVIDERS: ADMIT Family Medicine; ATTEND Family Medicine
DX: R07.9 Chest pain, unspecified (principal); R11.0 Nausea; M79.602 Pain in left arm; F17.200 Nicotine dependence, unspecified, uncomplicated; Z53.29 Procedure and treatment not carried out because of patient's decision for other reasons; Z79.51 Long term (current) use of inhaled steroids; Z79.899 Other long term (current) drug therapy; Z88.6 Allergy status to analgesic agent; Z88.1 Allergy status to other antibiotic agents; Z91.041 Radiographic dye allergy status; Z91.011 Allergy to milk products; Z88.5 Allergy status to narcotic agent; Z88.0 Allergy status to penicillin; Z91.013 Allergy to seafood; Z88.2 Allergy status to sulfonamides; Z88.8 Allergy status to other drugs, medicaments and biological substances; Z91.018 Allergy to other foods; Z91.048 Other nonmedicinal substance allergy status; Z95.2 Presence of prosthetic heart valve; Z82.49 Family history of ischemic heart disease and other diseases of the circulatory system
CPT/HCPCS: 96374; 96375; 99285; 36415; 93005; 80053; 83735; 84484; 85025; 85610; 85730; 71046; 71275; 74175; G0378; J1200; Q9967; J2919; J1308